=== PATIENT | female | born 1965 | race Caucasian/White ===

== ENCOUNTER 2019-03-23 12:45 | Outpatient (CLI) | payer MEDICARE, SELFPAY ==
--- NOTE | ~2019-03-23 | US_ITS ---
EXAMINATION: US pelvic complete EXAM DATE: 03/23/2019 14:03 INDICATION: Postmenopausal bleeding. TECHNIQUE: Pelvic transabdominal sonogram was performed. Patient declined transvaginal imaging. There are multiple grayscale and Doppler images available for interpretation. There is no prior study for comparison. FINDINGS: Uterus measures 5.2 x 1.9 x 4.0 cm, and is morphologically normal. The endometrial stripe obtained by transabdominal imaging was 6.8 mm, which is borderline thickened for postmenopausal statu s, but less accurate than transvaginal imaging. If symptoms persist, consider histologic correlation or repeat evaluation with transvaginal imaging. There is no free pelvic fluid. Right adnexa: The right ovary is normal in size and morphology. Left adnexa: The ovary is not identified. There is no adnexal mass. IMPRESSION: Borderline endometrial measurement; consider histologic correlation, or repeat transvagin al evaluation if symptoms persist. Reviewed, dictated and finalized at location B. BOTTLER IMPRESSION: Borderline endometrial measurement; consider histologic correlation , or repeat transvaginal evaluation if symptoms persist.
== END 2019-03-23 12:46 | disposition home or self-care (01) ==
LOC: ANHIMG 12:52
PROVIDERS: PCP Family Medicine; Visit Provider Obstetrics & Gynecology
DX: N95.0 Postmenopausal bleeding (principal)
CPT/HCPCS: 76856

== ENCOUNTER 2019-04-12 10:38 | Observation (INO) | payer MEDICARE, SELFPAY ==
[2019-04-12] VITALS (10 sets, daily range): BP systolic 106–137; BP diastolic 46–73; PULSE 91–125; RESP 15–24; TEMP 36.5–39.4; O2SAT 94–100; BMI 23.4
--- NOTE | ~2019-04-12 | MR_ITS ---
EXAMINATION: MR brain/brain stem wo/w con EXAM DATE: 04/13/2019 11:27 INDICATION: MS flare. TECHNIQUE: Magnetic resonance imaging (MRI) of the brain/brain stem obtained without contrast. Sagit roberta T1, axial diffusion, gradient echo (T2*), T1, T2, FLAIR sequences obtained. Patient was then inj ected with 14 cc intravenous Multihance contrast. Axial and coronal postcontrast T1 weighted sequence s obtained. There is no prior study for comparison. FINDINGS: Again there are numerous periventricular, corpus callosal T1 and T2 signal abnormalities co nsistent with multiple sclerosis. No enhancing lesions to suggest active disease. No interval change in these compared to prior study. There are no areas of restricted diffusion to suggest acute infarct ion. There is no acute hemorrhage seen on the T2*, a hemosiderin sensitive sequence. No intraparenc hymal brain mass. The ventricles are normal in size. There are no extra-axial collections. Flow voi ds are seen in the cerebral arteries on the T2-weighted sequences consistent with their expected elliott ncy. The orbits are unremarkable. Soft tissue is unremarkable. There are no areas of abnormal enh ancement on the postcontrast images. IMPRESSION: 1. Stable corpus callosal, white matter lesions consistent with quiescent multiple sclerosis. Reviewed, dictated and finalized at location A. MODYNAMICS PROFESSOR IMPRESSION: 1. Stable corpus callosal, white matter lesions consistent with quiescent mult iple sclerosis.
--- NOTE | ~2019-04-12 | XR_ITS ---
XR chest 2V DATE: 04/12/2019 11:15 INDICATION: Shortness of breath TECHNIQUE: AP and lateral views COMPARISON: 12/05/2007 portable AP chest at 1635 hours FINDINGS: Normal heart size. No hilar or mediastinal enlargement. There is moderate elevation of the right leaf of the diaphragm. No pulmonary infiltrate or consolidat ion, pleural effusion or pulmonary vascular congestion or pneumothorax. IMPRESSION: No active cardiopulmonary disease Reviewed, dictated and finalized at location B. GE MACHINE OPERATOR
--- NOTE | ~2019-04-12 | MR_ITS ---
EXAMINATION: MR thoracic spine wo/w con EXAM DATE: 04/13/2019 11:27 INDICATION: Multiple sclerosis flare up. TECHNIQUE: Multi-sequential, multiplanar MR images of the thoracic spine were obtained without contra st. Sagittal T1, T2, T2 fat saturation, axial T2 weighted images reviewed. Axial T1 weighted sequenc e. Patient was then injected with 14 mL Multihance intravenous contrast and reimaged. Postcontrast axial and sagittal T1-weighted fat saturation sequences were obtained. There are no prior studies for comparison. FINDINGS: Study is limited due to patient motion. Mild thoracic facet arthropathy. No definite foca l spinal cord signal abnormalities. The vertebral bodies are aligned in the AP dimension. Vertebral b julissa and disc heights are well-maintained. There is a lesion within the T8 vertebral body which is het erogeneous on T1, hyperintense on T2, and demonstrating avid enhancement. It does appear well-circums cribed, most likely atypical hemangioma. Smaller typical hemangioma within the T5 vertebral body. The re is mild thoracic facet arthropathy. IMPRESSION: 1. Limited from motion, but no enhancing spinal cord lesions identified. 2. Vertebral body lesions likely hemangiomas. 3. Mild arthropathy. Reviewed, dictated and finalized at location A. D MARKETER
--- NOTE | ~2019-04-12 | MR_ITS ---
EXAMINATION: MR cervical spine wo/w con EXAM DATE: 04/13/2019 11:27 INDICATION: Multiple sclerosis flare. TECHNIQUE: Multi-sequential, multiplanar MR images of the cervical spine were obtained without contra st. Axial T2, axial T2 MERGE sequence. Sagittal T1, T2, T2 fat saturation images also obtained. Axi al T1 weighted sequence. Patient was then injected with 14 mL Multihance intravenous contrast and re imaged. Postcontrast axial and sagittal T1-weighted fat saturation sequences were obtained. Compar joel is made to prior examination from 02/01/2014. FINDINGS: Study is limited due to patient motion. Again there is mildly diffusely heterogeneous cervi seth spinal cord T2 hyperintensity, consistent with multiple sclerosis. Difficult to determine whether or not there has been any interval change given the limitations from motion on the exam, but there a re no regions of abnormal enhancement to suggest acute involvement. No paraspinal abscess. The verteb ral bodies are aligned in the AP dimension. Vertebral body and disc heights are well-maintained. No more than mild cervical arthropathy. There are no suspicious marrow signal abnormalities. Paraspinal soft tissue is unremarkable. IMPRESSION: Limited exam from motion but vague cervical increased T2 cord signal without enhancement or definite change. Reviewed, dictated and finalized at location A. S AND MARKETING ASSISTANT IMPRESSION: Limited exam from motion but vague cervical increased T2 cord signa l without enhancement or definite change.
--- NOTE | 2019-04-12 10:45 | ED.WEAKNESS ---
HPI - Weakness General Chief complaint: Weakness Stated complaint: WEAKNESS Time Seen by Provider: 04/12/19 10:41 Source: patient and RN notes reviewed Mode of arrival: EMS Limitations: no limitations History of Present Illness HPI Narrative: Pt is a 53 y/o female who presents to the ED with c/o generalized weakness which has worsened since 3 days ago, with no initial onset of symptoms. She reports being prompted to come to the ED to be evaluated because she has been experiencing increasing unsteadiness and weakness. Pt states she was diagnosed with multiple sclerosis 30 years ago and has episodes of increased weakness intermittently. She reports she was at physical therapy at [facility] in October 2018. She states she is able to ambulate with assistance during physical therapy, but has difficulty soon after being discharged. Pt reports ambulating independently 2 months ago, but has been unable to since then. Pt denies a fever, chills, diaphoresis, a cough, SOB, nausea, or ABD pain. Pt reports being diagnosed with a UTI approximately 2 weeks ago and has been prescribed 2 different antibiotics by her urologist and PCP. She denies finishing her prescription of antibiotics yet. She also denies ever having an implanted stimulator in her bladder. She reports her neurologist is Dr. Meyer located at [facility]. She states most of her treatment is done through her PCP, Dr. Granados, who sends home health to care for the pt. The pt denies being hospitalized by [facility] in the past. Complaint: generalized weakness Duration: other (worse since 3 days) Location: generalized Migration: none Relieving factors: none Exacerbating factors: none Associated symptoms: other (increased unsteadiness) Related Data Allergies Allergy/AdvReac Type Severity Reaction Status Date / Time No Known Allergies Allergy Unverified 04/12/19 10:46 Review of Systems Review of Systems: All systems reviewed & are unremarkable except as noted in HPI and below Constitutional: Constitutional: Denies chills and Denies fever(s) Cardiovascular: Cardiovascular: Denies diaphoresis Respiratory: Respiratory: Denies cough and Denies dyspnea Gastrointestinal: Gastrointestinal: Denies abdominal pain and Denies nausea Neurologic: Reports weakness (generalized) and Reports other (increased unsteadiness) [facility] Past Medical History Medical History (Updated 04/12/19 @ 19:31 by Sy Valdovinos MD) GERD (gastroesophageal reflux disease) Multiple sclerosis Family History Family History (Updated 04/12/19 @ 18:34 by Mark Zhu RN) Mother Diabetes mellitus Myocardial infarction PTSD (post-traumatic stress disorder) Father Diabetes mellitus Myocardial infarction Sibling Myocardial infarction Patient's brother is Social History Social History Smoking status: Never smoker Alcohol intake: never Substance use: never Gender identity (if verbalized by the patient): Female Spiritual care concerns: No Agree to blood products: No Exam Narrative: Exam Narrative: GENERAL: Chronically ill-appearing, well-nourished, and in no acute distress. HEAD: Normocephalic, atraumatic. EYES: PERRL and EOMI. ENT: Mucous membranes moist. NECK: Supple. CHEST: Clear to auscultation. No respiratory distress. HEART: Regular rate and rhythm. Normal peripheral pulses. ABDOMEN: Soft, nontender, nondistended. EXTREMITIES: Normal strength and range of motion of bilateral upper extremities. Lower extremities with 1+ edema symmetrically weak without paralysis. SKIN: Warm, dry, no rash. NEURO: Alert and oriented x3. Course Course Emergency Course: Neurology consult. After speaking with hospitalist service patient developed tachycardia and fever. Flu swab positive. Hospitalist service contacted again informed of results. information coordinator has been in to see the patient. Consultations Consultation #1: Discussed case with
--- NOTE | 2019-04-12 11:10 | PC.NURSE ---
Pt taken to X ray at this time
--- NOTE | 2019-04-12 11:49 | PC.NURSE ---
could not draw blood at this time due to patient being a difficult draw. RN notified and phlebotomy called.
[2019-04-12 11:56] LABS: Add Urine Microscopic? YES; Appearance Urine Clear (Clear); Bilirubin Urine Negative (Negative); Blood Urine 2+ (Negative); Color Urine Yellow (Yellow); Glucose Urine UA Negative (Negative); Ketones Urine Negative (Negative); Leukocyte Esterase Ur Negative LEU/UL (Negative); Mucus Urine Heavy /lpf; Nitrate Urine Negative (Negative); Protein Urine 1+ mg/dL (Negative); RBC Urine 21-50 /hpf (0-2); Specific Grav Ur 1.021 (1.001-1.035); Squamous Epithelial Cell Urine Rare /hpf (Few); Urobilinogen Urine Negative mg/dL (<2.0); WBC Urine 0-3 /hpf
[2019-04-12 12:06] LABS: Basophils Percent Auto 0.6 % (0.2-1.2); Eosinophils Absolute Auto 0.1 K/mm3 (0-0.3); Eosinophils Percent Auto 1.5 % (0-4.4); Hematocrit 41.7 % (37.0-47.0); Hemoglobin 13.3 g/dL (12.0-15.0); Immature Granulocyte Absolute 0.01 K/mm3 (0.00-0.031); Immature Granulocyte Percent A 0.2 % (0-0.5); Lymphocytes Absolute Auto 0.48 K/mm3 (0.9-3.2); Lymphocytes Percent Auto 9.1 % (18.3-44.2); Mean Corpuscular HGB Conc 31.9 g/dl (32-36); Mean Corpuscular Hemoglobin 30.6 pg (26-34); Mean Corpuscular Volume 95.9 fl (80-100); Mean Platelet Volume 10.3 fl (7.4-10.4); Monocytes Absolute Auto 0.5 K/mm3 (0.1-0.6); Monocytes Percent Auto 9.8 % (2.6-8.5); Neutrophils Absolute Auto 4.2 K/mm3 (1.3-6.7); Neutrophils Percent Auto 78.8 % (45.5-73.1); Platelet Count Result 225 k/mm3 (150-375); Red Blood Count 4.35 M/mm3 (4.2-5.4); White Blood Count 5.3 K/mm3 (4.5-10.0)
[2019-04-12 12:19] LABS: Blood Urea Nitrogen 10 mg/dL (7-17); Calcium 9.1 mg/dL (8.4-10.2); Carbon Dioxide 29 mmol/L (22-30); Chloride 101 mmol/L (98-107); Estimated Glomerular Filt Rate > 60; Glucose 110 mg/dL (65-105); Potassium 4.4 mmol/L (3.4-5.0); Sodium 139 mmol/L (137-145)
[2019-04-12] MEDS: SODIUM CHLORIDE 0.9% IV 1,000 ML 999 ML IV CONT (16:50)
--- NOTE | 2019-04-12 17:30 | PC.NURSE ---
This patient, Jenae Rodriguez, was admitted to Medical Room 252-01. Patient/family oriented to hospital policies and general routines including ID bracelet, bed and alarms, visiting hours, pain management, procedures, bathroom and other care routines, personal items, smoking policy, room service/diet, and visiting hours. Valuables list has been completed. Information on how to activate the Rapid Response Team has been discussed. Patient/Family are encouraged to report perceived risks to care and to ask questions if they do not understand what they are told or what they should do.
[2019-04-12] MEDS: OSELTAMIVIR PHOSPHATE 75 MG CAP PO (18:25)
--- NOTE | 2019-04-12 18:42 | PC.NURSE ---
Maite Lindsey NP aware of patients wishes to be a DNR at this time.
--- NOTE | 2019-04-12 18:54 | PC.NURSE ---
Patient pharmacy, [facility] in [place], to fax patient med list. Awaiting fax at this time to input medications.
--- NOTE | 2019-04-12 23:30 | PM.IMHP ---
H&P: HPI History of Present Illness Chief complaint: MS flare Narrative: Jenae Rodriguez is a 53 year old female has a history of having MS. She lives at home with her mother. She tells me she has not been exposed to any communicable diseases. She said she was not bed bound until just recently.Generalized weakness started about 3 days ago. She had no fever chills. However she does have frequent UTI she is on Macrobid for preventative UTIs. The patient was diagnosed with MS approximately 26 years ago. The patient was diagnosed with UTI about 2 weeks ago and was prescribed 2 different antibiotics by Urology. Patient stated her bladder has felt full for several hours. Neurology has been consulted and no steroids were ordered at this time. Patient tested positive for influenza a. Patient was given Tamiflu. Date of service 04/12/2019 Review of Systems Review of Systems: Narrative: Patient feels achy all over. In she is having muscle spasms. She says she feels like her bladder is full All systems reviewed & are unremarkable except as noted in HPI and below Constitutional: Constitutional: Reports as per HPI and Reports no additional constitutional complaints Eyes: Eyes: Reports as per HPI and Reports no additional eye complaints ENT: Reports system reviewed and no additional complaints, except as documented and Reports Normal hearing present Cardiovascular: Cardiovascular: Reports no additional cardiovascular complaints Respiratory: Respiratory: Reports no additional respiratory complaints and Reports no additional respiratory complaints Gastrointestinal: Gastrointestinal: Reports as per HPI and Reports no additional gastrointestinal complaints Musculoskeletal: Musculoskeletal: Reports no additional musculoskeletal complaints Integumentary/Breasts: Skin/Breast: Reports system reviewed and no additional complaints, except as docu and Reports as per HPI Neurologic: Reports system reviewed and no additional complaints, except as documented, Reports as per HPI and Reports Normal hearing present Psychiatric: Psychiatric: Reports no additional psychiatric complaints and Reports as per HPI Endocrine: Endocrine: Reports no additional endocrine complaints Hematologic/Lymphatic: Hematologic/Lymphatic: Reports no additional hematologic/lymphatic complaints Allergic/Immunologic: Allergic/Immunologic: Reports no additional allergic/immunologic complaints [facility] Past Medical History Medical History (Updated 04/12/19 @ 23:51 by Maite Lindsey NP) Frequent UTI GERD (gastroesophageal reflux disease) History of DVT (deep vein thrombosis) Multiple sclerosis Seizure Surgical History Surgical History (Updated 04/12/19 @ 23:41 by Maite Lindsey NP) Hx of vaginal surgery Family History Family History Mother Diabetes mellitus Myocardial infarction PTSD (post-traumatic stress disorder) Father Diabetes mellitus Myocardial infarction Sibling Myocardial infarction Patient's brother is Social History Social History (Updated 04/12/19 @ 23:43 by Maite Lindsey NP) Social History: Patient is a full code. She lives with her mother. She is typically ambulatory but the last 3 days she has been bedbound. She was at 1 time but . she has no children. She has no power deputy attorney general. Patient is undecided about code status at this time. She was discussing with days if that she wanted to be a DNR. But at this time she is unsure. Lifelong nonsmoker no alcohol or illicit drugs Smoking status: Never smoker Alcohol intake: never Substance use: never Living arrangements: with family Additional occupation/education comments: Disabled Gender identity (if verbalized by the patient): Female Spiritual care concerns: No Agree to blood products: No Meds Home Medications and Allergies Home Medications Medication Instructions Recorded
[2019-04-13 00:05] VITALS: TEMP 38.4
[2019-04-13 00:50] VITALS: TEMP 37.7
[2019-04-13] MEDS: SODIUM CHLORIDE 0.9% IV 1,000 ML 100 ML IV CONT (04:58)
[2019-04-13 05:36] VITALS: BP 121/57; PULSE 108; RESP 16; TEMP 37.2; O2SAT 96
[2019-04-13] MEDS: OSELTAMIVIR PHOSPHATE 75 MG CAP PO ×2 (06:15→17:44)
[2019-04-13] MEDS: carBAMazepine 200 MG TABLET PO ×2 (08:58→17:44)
[2019-04-13] MEDS: NITROFURANTOIN MONOHYD MACROCR 100 MG CAP PO ×2 (08:58→17:44)
--- NOTE | 2019-04-13 10:34 | PCOTNOTE ---
Attempted OT evaluation, but unable to complete as patient gone for a MRI. Will attempt again later.
[2019-04-13 11:40] VITALS: BMI 10.0
[2019-04-13] MEDS: BACLOFEN 10 MG TABLET 20 MG PO ×2 (11:40→17:44)
[2019-04-13 14:00] VITALS: BP 108/53; PULSE 94; RESP 18; TEMP 36.7; O2SAT 93
--- NOTE | 2019-04-13 15:12 | CONS_ITS ---
DATE OF CONSULTATION: HISTORY: This 53 years old right-handed female has been admitted to [facility] through the emergency room for the complaints of acute flare up of MS. The patient reportedly lives at home with her mom and has not been exposed to any communicable diseases, but she became bed bound recently with complaint of generalized weakness of 3 days duration without fever or chills, though she does have a history of recurrent UTI, and has been on Macrobid for preventive treatment for the UTIs. She carries a diagnosis of relapsing remitting MS for the last 26 years and has been treated 2 weeks ago for the UTI. The patient was notedly positive for influenza and was given Tamiflu. At the time of admission, she also complained of some muscle spasm, fullness of the bladder. PAST MEDICAL HISTORY: In the past, as mentioned above, 1. She has recurrent UTI. 2. GERD. 3. DVT. 4. Seizures. 5. Ongoing history of multiple sclerosis. PAST SURGICAL HISTORY: She has undergone vaginal surgery. FAMILY HISTORY: Positive for the diabetes mellitus, posttraumatic stress disorder, and myocardial infarction. SOCIAL HISTORY: The patient herself is a full code status. She lives with her mother. Typically, she is ambulatory. She has no children. No power of trademark attorney and undecided about the code status. She is a never smoker, never drinker. MEDICATIONS: At the time of admission to the hospital, she was taking 1. Rivaroxaban 20 mg daily. 2. Carbamazepine 200 mg twice a day. 3. Methotrexate 7.5 mg t.i.d. 4. Oxybutynin 15 mg daily. 5. Nitrofurantoin 100 mg twice a day. ALLERGIES: SHE IS NOT KNOWN TO BE ALLERGIC TO ANY MEDICATION. PHYSICAL EXAMINATION: VITAL SIGNS: At the time of admission, her vital signs were stable with blood pressure 127/73, pulse 95, respiration 15. GENERAL: At this stage, her examination is awake, alert, in no obvious acute distress. Her speech is low volume, though she followed the instruction fairly well and does not appear to be in any acute distress. HEENT: Head normocephalic with no cranial bruit. Ear, nose, throat examination is normal. NECK: Supple with no meningeal signs. No cervical bruit. HEART: Regular with no murmur. LUNGS: Clear to auscultation with no rhonchi or crepitations. ABDOMEN: Soft with no organomegaly. NEUROLOGICAL: She is awake, alert. She knows that she is at the [facility]. She is oriented x3. As mentioned before, speech is of low volume, but not dysphasic. Pupils round, regular. Vora of vision full. Extraocular movements full with the endpoint nystagmus. Face symmetrical. Palate moves symmetrically upward. Tongue midline with no fasciculation. Motor examination revealed her to have no drift against gravity, but she has ataxia and dysmetria on izwidh-kj-tfep-to-finger and kpgm-jl-eqko-to-masters. Reflexes are brisk. Plantar responses are definitely upgoing. LABORATORY DATA: Her CBC was normal with hemoglobin 13.3, platelet count 225. UA with protein 1+, glucose negative, gravity 1.021, pH 7.0. IMAGING DATA: Chest x-ray negative. She has undergone since admission, MRIs, the brain MRI is consistent with stable corpus callosal white matter lesion consistent with quiescent multiple sclerosis. Cervical spine MRI is also though limited, but she has T2 cord signal without enhancement and so as the MRI of thoracic spine, which reveals vertebral body lesions like hemangioma, mild arthropathy, but no cord lesion. At this stage, she is receiving 1. Baclofen 20 mg t.i.d. 2. Carbamazepine 200 mg b.i.d. 3. Methotrexate 7.5 mg t.i.d. 4. Nitrofurantoin 100 b.i.d. 5. Oxybutynin 15 mg daily. 6. Rivaroxaban 20 mg daily. I will not change any medication and obtained all the old records from other instit
[2019-04-13] MEDS: RIVAROXABAN 20 MG TABLET PO (17:44)
--- NOTE | 2019-04-13 19:39 | PM.IMPN ---
Progress Note: A&P Assessment and Plan (1) Influenza A: Code(s): J10.1 - Influenza due to other identified influenza virus with other respiratory manifestations Status: Acute Assessment and Plan: Symptoms improving. Continue Tamiflu. Monitor for side effects of Tamiflu given her MS history. Eating better. Will stop IV fluids. Continue PT and OT. Possibly home tomorrow continues to do well. (2) Seizure: Code(s): R56.9 - Unspecified convulsions Status: Chronic Assessment and Plan: Stable. Continue Tegretol. (3) Multiple sclerosis: Code(s): G35 - Multiple sclerosis Status: Acute Assessment and Plan: Stable. continue with methotrexate and baclofen. (4) History of DVT (deep vein thrombosis): Code(s): Z86.718 - Personal history of other venous thrombosis and embolism Status: Chronic Assessment and Plan: Continue with Xarelto. Subjective Date/time seen: 04/13/19 19:39 Interval history: 53yo female with MS here for weakness and found to have Influenza A. Patient states her cough is better. She is normally in a motorized chair but does stand with a walker and pivot. No chest pain. She add some nausea earlier but has been eating since that time and tolerating it well. She has not been out of bed yet today. Exam Narrative: Exam Narrative: Gen - NARD lying almost flat in bed Chest -lungs clear anteriorly and in the flanks. CV - RRR S1/S2 Abd - Soft, NT/ND, Positive BS Ext - No pedal edema. 2+ DP pulses bilaterally. Neuro -alert and appropriate. Diffusely weak right worse than left. Psych -depressed mood Skin - Warm and dry Objective Data Vital Signs Vital Signs: Vital Signs - 24 hr 04/12/19 22:00 04/12/19 23:53 04/13/19 00:05 Temperature 97.7 F 101.1 F H 101.1 F H Pulse Rate 102 H Respiratory Rate 16 Blood Pressure 112/59 L Pulse Oximetry 94 04/13/19 00:50 04/13/19 05:36 04/13/19 14:00 Temperature 100 F H 98.9 F 98.0 F Pulse Rate 108 H 94 Respiratory Rate 16 18 Blood Pressure 121/57 L 108/53 L Pulse Oximetry 96 93 Intake/Output Intake/Output: Intake & Output 04/10/19 04/11/19 04/12/19 04/13/19 23:59 23:59 23:59 23:59 Intake Total 1350 Output Total 300 550 Balance -300 800 Meds/Results Medications: Active Medications Generic Name Dose Route Start Last Admin Trade Name Freq PRN Reason Stop Dose Admin Hydrocodone Bitart/Acetaminophen 1 tab 04/12/19 16:06 04/13/19 09:20 [place] 5-325 Mg PO 1 tab Q4H PRN Administration Pain Rated 4-6 Baclofen 20 mg 04/13/19 10:25 04/13/19 17:44 Lioresal Po PO 20 mg TID DUONG Administration Carbamazepine 200 mg 04/13/19 09:00 04/13/19 17:44 Tegretol PO 200 mg BID DUONG Administration Sodium Chloride 1,000 mls @ 100 mls/hr 04/13/19 04:35 04/13/19 17:47 Normal Saline Iv IV CONT 100 mls/hr .Q10H DUONG Infusion Methotrexate 7.5 mg 04/18/19 09:00 Methotrexate Tab (*Chemo) PO Tu@TID DUONG Morphine Sulfate 4 mg 04/12/19 16:06 Morphine Sulfate Inj IV PUSH Q2H PRN Pain Rated 7-10 Nitrofurantoin Macrocrystals 100 mg 04/13/19 09:00 04/13/19 17:44 Macrobid PO 04/22/19 17:01 100 mg BID DUONG Administration Ondansetron HCl 4 mg 04/12/19 16:06 Zofran Inj IV PUSH Q4H PRN Nausea Oseltamivir Phosphate 75 mg 04/12/19 18:00 04/13/19 17:44 Tamiflu PO 04/17/19 18:01 75 mg Q12H DUONG Administration Oxybutynin Chloride 15 mg 04/13/19 09:00 04/13/19 08:59 Ditropan Xl PO 15 mg DAILY DUONG Administration Rivaroxaban 20 mg 04/13/19 18:00 04/13/19 17:44 Xarelto PO 20 mg QPM DUONG Administration Radiology Results: ITS Impressions Chest X-Ray 04/12/19 11:33 IMPRESSION: No active cardiopulmonary disease Brain MRI 04/13/19 11:29 IMPRESSION: 1. Stable corpus callosal, white matter lesions consistent with quiescent multi
[2019-04-13 20:00] VITALS: PULSE 99; RESP 16; O2SAT 96
[2019-04-13 22:00] VITALS: BP 132/58; PULSE 99; RESP 16; TEMP 36.7; O2SAT 96
[2019-04-14 06:00] VITALS: BP 131/60; PULSE 90; RESP 16; TEMP 36.6; O2SAT 96
[2019-04-14] MEDS: OSELTAMIVIR PHOSPHATE 75 MG CAP PO ×2 (06:21→17:07)
[2019-04-14 08:00] VITALS: PULSE 90; RESP 16; O2SAT 96
[2019-04-14] MEDS: NITROFURANTOIN MONOHYD MACROCR 100 MG CAP PO ×2 (08:57→17:08)
[2019-04-14] MEDS: carBAMazepine 200 MG TABLET PO ×2 (08:57→17:08)
[2019-04-14] MEDS: BACLOFEN 10 MG TABLET 20 MG PO ×3 (08:57→17:07)
[2019-04-14] MEDS: ONDANSETRON INJ 4 MG/2 ML VIAL IV PUSH (12:25)
--- NOTE | 2019-04-14 13:49 | WPDNEUROPN ---
Progress Note: A&P Assessment and Plan (1) History of DVT (deep vein thrombosis): Code(s): Z86.718 - Personal history of other venous thrombosis and embolism Status: Chronic (2) Seizure: Code(s): R56.9 - Unspecified convulsions Status: Chronic (3) Influenza A: Code(s): J10.1 - Influenza due to other identified influenza virus with other respiratory manifestations Status: Acute (4) Multiple sclerosis: Code(s): G35 - Multiple sclerosis Status: Acute Additional Plan generalized weekness more because of flu once stable will give therapy and steroids Review of Systems Review of Systems: All systems reviewed & are unremarkable except as noted in HPI and below Exam Const: General: cooperative, no acute distress, well developed, alert and awake Nutritional Appearance: well nourished Orientation/consciousness: oriented to person, oriented to place and oriented to time Limitations: no limitations (gait) Eyes: General: appearance normal, both eyes and all related structures Conjunctivae: conjunctivae normal Sclera: sclerae normal Cornea: corneas normal Pupils: Equal, round and reactive pupils present and Pupils normal by confrontation EOM: EOMs intact bilaterally Neck: Neck: full ROM Resp: Effort & Inspection: normal respiratory effort and able to speak in complete sentences Auscultation: clear to auscultation bilaterally Cardio: Rate: regular rate Rhythm: regular rhythm GI: Auscultation: normal bowel sounds Skin: General skin exam: no rashes or lesions noted Neuro: General: patient oriented x3, moves all extremities and CN's II-XI intact bilaterally Cranial nerves: Yes Equal, round and reactive pupils present, Yes Nystagmus not present, Yes Normal facial strength present, Yes Midline tongue present, Yes Ability to bilaterally rotate head present and Yes Ability to bilaterally elevate shoulders present Cognition (Neuro): normal cognition Speech: normal speech Motor exam (neuro): 5/5 motor strength present throughout and Motor abnormalites present (ataxia and dysmetria) Deep tendon reflexes (DTR's): Right triceps reflex intensity grade: 2+, Left triceps reflex intensity grade: 2+, Rt Biceps (C5, C6): 2+, Left biceps reflex intensity grade: 2+, Right brachioradialis reflex intensity grade: 2+, Left brachioradialis reflex intensity grade: 2+, Right patellar reflex intensity grade: 2+, Left patellar reflex intensity grade: 2+, Right ankle reflex intensity grade: 2+ and Left ankle reflex intensity grade: 2+ Plantar Reflex Responses: upgoing (positive Babinski): bilateral Coordination: [id number] test normal (abnormal) Psych: Mental Status: mental status grossly normal Speech and movement: Clear speech present Affect: Anxious affect present Attitude: cooperative Thought process: Normal thought process present Thought content: Yes Normal thought content present Insight: Fair insight present (Psych) Judgement: Fair judgement present (Psych) Objective Data Vital Signs Vital Signs: Vital Signs - 24 hr 04/13/19 14:00 04/13/19 20:00 04/13/19 22:00 Temperature 36.7 C 36.7 C Pulse Rate 94 99 99 Respiratory Rate 18 16 16 Blood Pressure 108/53 L 132/58 L Pulse Oximetry 93 96 96 04/14/19 06:00 04/14/19 08:00 Temperature 36.6 C Pulse Rate 90 90 Respiratory Rate 16 16 Blood Pressure 131/60 Pulse Oximetry 96 96 Intake/Output Intake/Output: Intake & Output 04/11/19 04/12/19 04/13/19 04/14/19 23:59 23:59 23:59 23:59 Intake Total 1350 200 Output Total 300 550 Balance -300 800 200 Meds/Results Medications: Active Medications Generic Name Dose Route Start Last Admin Trade Name Freq PRN Reason Stop Dose Admin Hydrocodone Bitart/Acetaminophen 1 tab 04/12/19 16:06 04/14/19 07:30 [place] 5-325 Mg PO 1 tab Q4H PRN Administration Pain Rated 4-6 Baclofen 20 mg 04/13/19 10:25 04/14/19 12:20 Lioresal Po PO 20 mg TID DUONG Admini
[2019-04-14 14:00] VITALS: BP 128/54; PULSE 80; RESP 15; TEMP 36.6; O2SAT 98
--- NOTE | 2019-04-14 14:33 | PM.IMPN ---
Progress Note: A&P Assessment and Plan (1) Multiple sclerosis: Code(s): G35 - Multiple sclerosis Status: Acute Assessment and Plan: Patient clinically stable. Will continue with methotrexate and baclofen. Patient extremely weak and may be having a MS flare related to the influenza. Pulsed steroids are being considered. Appreciate neurology input. (2) Influenza A: Code(s): J10.1 - Influenza due to other identified influenza virus with other respiratory manifestations Status: Acute Assessment and Plan: Symptoms improving. Continue Tamiflu. No obvious side effects from Tamiflu. Continue PT and OT. (3) Seizure: Code(s): R56.9 - Unspecified convulsions Status: Chronic Assessment and Plan: Stable. Continue Tegretol. (4) History of DVT (deep vein thrombosis): Code(s): Z86.718 - Personal history of other venous thrombosis and embolism Status: Chronic Assessment and Plan: Stable. continue with Xarelto. Subjective Date/time seen: 04/14/19 14:33 Interval history: 53yo female with MS here for weakness and found to have Influenza A. Out of bed to chair today. Still feels very weak. Still with cough. Denies feeling short of breath. Exam Narrative: Exam Narrative: Gen - NARD sitting up in a chair Chest -few scattered rhonchi otherwise clear. CV - RRR S1/S2 Abd -soft. Nontender. Protuberant. Positive bowel sounds. Ext - No pedal edema. Neuro -alert and appropriate. Diffusely weak. Has difficulty with head control. Psych -depressed mood Skin - Warm and dry Objective Data Vital Signs Vital Signs: Vital Signs - 24 hr 04/13/19 20:00 04/13/19 22:00 04/14/19 06:00 Temperature 98.1 F 97.9 F Pulse Rate 99 99 90 Respiratory Rate 16 16 16 Blood Pressure 132/58 L 131/60 Pulse Oximetry 96 96 96 04/14/19 08:00 Temperature Pulse Rate 90 Respiratory Rate 16 Blood Pressure Pulse Oximetry 96 Intake/Output Intake/Output: Intake & Output 04/11/19 04/12/19 04/13/19 04/14/19 23:59 23:59 23:59 23:59 Intake Total 1350 200 Output Total 300 550 Balance -300 800 200 Meds/Results Medications: Active Medications Generic Name Dose Route Start Last Admin Trade Name Freq PRN Reason Stop Dose Admin Hydrocodone Bitart/Acetaminophen 1 tab 04/12/19 16:06 04/14/19 07:30 [place] 5-325 Mg PO 1 tab Q4H PRN Administration Pain Rated 4-6 Baclofen 20 mg 04/13/19 10:25 04/14/19 12:20 Lioresal Po PO 20 mg TID DUONG Administration Carbamazepine 200 mg 04/13/19 09:00 04/14/19 08:57 Tegretol PO 200 mg BID DUONG Administration Methotrexate 7.5 mg 04/18/19 09:00 Methotrexate Tab (*Chemo) PO Tu@TID DUONG Nitrofurantoin Macrocrystals 100 mg 04/13/19 09:00 04/14/19 08:57 Macrobid PO 04/22/19 17:01 100 mg BID DUONG Administration Ondansetron HCl 4 mg 04/12/19 16:06 04/14/19 12:25 Zofran Inj IV PUSH 4 mg Q4H PRN Administration Nausea Oseltamivir Phosphate 75 mg 04/12/19 18:00 04/14/19 06:21 Tamiflu PO 04/17/19 18:01 75 mg Q12H DUONG Administration Oxybutynin Chloride 15 mg 04/13/19 09:00 04/14/19 08:57 Ditropan Xl PO 15 mg DAILY DUONG Administration Rivaroxaban 20 mg 04/13/19 18:00 04/13/19 17:44 Xarelto PO 20 mg QPM DUONG Administration Radiology Results: ITS Impressions Chest X-Ray 04/12/19 11:33 IMPRESSION: No active cardiopulmonary disease Brain MRI 04/13/19 11:29 IMPRESSION: 1. Stable corpus callosal, white matter lesions consistent with quiescent multiple sclerosis. ADDENDUM: 04/13/19 1157 Correction, comparison study was from 02/01/2014. Cervical Spine MRI 04/13/19 11:39 IMPRESSION: Limited exam from motion but vague cervical increased T2 cord signal without enhancement or definite change. Thoracic Spine MRI 04/13/19 11:43 IMPRESSION: 1. Limited from motion, but no en
--- NOTE | 2019-04-14 16:13 | PCOTNOTE ---
The patient treatment was not able to be completed on 04/14/2019. Will plan to continue treatment per plan of care.
[2019-04-14] MEDS: RIVAROXABAN 20 MG TABLET PO (17:08)
[2019-04-14 21:52] VITALS: BP 102/51; PULSE 76; RESP 16; TEMP 37.4; O2SAT 97
[2019-04-15] MEDS: OSELTAMIVIR PHOSPHATE 75 MG CAP PO ×2 (05:28→17:18)
[2019-04-15 06:00] VITALS: BP 116/62; PULSE 77; RESP 16; TEMP 37.2; O2SAT 98
[2019-04-15 08:00] VITALS: PULSE 77; RESP 16; O2SAT 98
[2019-04-15] MEDS: carBAMazepine 200 MG TABLET PO ×2 (08:25→17:17)
[2019-04-15] MEDS: NITROFURANTOIN MONOHYD MACROCR 100 MG CAP PO ×2 (08:25→17:17)
[2019-04-15] MEDS: BACLOFEN 10 MG TABLET 20 MG PO ×3 (08:25→17:17)
--- NOTE | 2019-04-15 12:35 | WPDNEUROPN ---
Progress Note: A&P Assessment and Plan (1) History of DVT (deep vein thrombosis): Code(s): Z86.718 - Personal history of other venous thrombosis and embolism Status: Chronic (2) Seizure: Code(s): R56.9 - Unspecified convulsions Status: Chronic (3) Influenza A: Code(s): J10.1 - Influenza due to other identified influenza virus with other respiratory manifestations Status: Acute (4) Multiple sclerosis: Code(s): G35 - Multiple sclerosis Status: Acute Additional Plan discussed with her and sister on telephone ,let her recover from flu then send her for rehab then in 10 days consider pulse steroid therapy just to be on safe side ,agreeble Review of Systems Review of Systems: All systems reviewed & are unremarkable except as noted in HPI and below Exam Const: General: cooperative, comfortable and no acute distress Nutritional Appearance: average body habitus Limitations: no limitations (limited because of underlying disease) Eyes: General: appearance normal, both eyes and all related structures Alignment and Position: alignment normal Periorbital: periorbital findings normal Conjunctivae: conjunctivae normal Sclera: sclerae normal Cornea: corneas normal Pupils: Equal, round and reactive pupils present EOM: EOMs intact bilaterally Direct Ophthalmoscopy: normal light reflex Neck: Neck: full ROM and no lymphadenopathy Resp: Effort & Inspection: normal respiratory effort and able to speak in complete sentences Auscultation: clear to auscultation bilaterally Cardio: Rate: regular rate Rhythm: regular rhythm GI: Auscultation: normal bowel sounds Skin: General skin exam: no rashes or lesions noted Neuro: General: patient oriented x3 and moves all extremities Cranial nerves: Yes CN's II-XII intact bilaterally, Yes Equal, round and reactive pupils present, Yes Nystagmus not present, Yes Normal facial strength present, Yes Midline tongue present, Yes Normal gag reflex present, Yes Symmetric palate elevation present, Yes Normal hearing present, Yes Ability to bilaterally rotate head present and Yes Ability to bilaterally elevate shoulders present Cognition (Neuro): normal cognition Speech: normal speech Psych: Appearance: grossly normal Affect: normal affect Attitude: cooperative Thought process: Normal thought process present Thought content: Yes Normal thought content present Insight: Fair insight present (Psych) Judgement: Fair judgement present (Psych) Objective Data Vital Signs Vital Signs: Vital Signs - 24 hr 04/14/19 14:00 04/14/19 21:52 04/15/19 06:00 Temperature 36.6 C 37.4 C 37.2 C Pulse Rate 80 76 77 Respiratory Rate 15 16 16 Blood Pressure 128/54 L 102/51 L 116/62 Pulse Oximetry 98 97 98 04/15/19 08:00 Temperature Pulse Rate 77 Respiratory Rate 16 Blood Pressure Pulse Oximetry 98 Intake/Output Intake/Output: Intake & Output 04/12/19 04/13/19 04/14/19 04/15/19 23:59 23:59 23:59 23:59 Intake Total 1350 1170 200 Output Total 300 550 100 Balance -939 391 1212 100 Meds/Results Medications: Active Medications Generic Name Dose Route Start Last Admin Trade Name Freq PRN Reason Stop Dose Admin Hydrocodone Bitart/Acetaminophen 1 tab 04/12/19 16:06 04/15/19 05:27 [place] 5-325 Mg PO 1 tab Q4H PRN Administration Pain Rated 4-6 Baclofen 20 mg 04/13/19 10:25 04/15/19 08:25 Lioresal Po PO 20 mg TID DUONG Administration Carbamazepine 200 mg 04/13/19 09:00 04/15/19 08:25 Tegretol PO 200 mg BID DUONG Administration Methotrexate 7.5 mg 04/18/19 09:00 Methotrexate Tab (*Chemo) PO Tu@TID DUONG Nitrofurantoin Macrocrystals 100 mg 04/13/19 09:00 04/15/19 08:25 Macrobid PO 04/22/19 17:01 100 mg BID DUONG Administration Ondansetron HCl 4 mg 04/12/19 16:06 04/14/19 12:25 Zofran Inj IV PUSH 4 mg Q4H PRN Administration Nausea Oseltamivir Phosphate 75 mg 04/12/19 18:00 02
--- NOTE | 2019-04-15 13:04 | PM.IMPN ---
Progress Note: A&P Assessment and Plan (1) Multiple sclerosis: Code(s): G35 - Multiple sclerosis Status: Acute Assessment and Plan: Patient clinically stable. Patient appears improved today. She is requesting to bring in a medication for her MS that she takes at home that is not on her current list. If family can bring in, will review. Will continue with methotrexate and baclofen. Continue PT/OT. Plan for therapy and maybe steroids later. Appreciate neurology input. (2) Influenza A: Code(s): J10.1 - Influenza due to other identified influenza virus with other respiratory manifestations Status: Acute Assessment and Plan: Symptoms improving. Continue Tamiflu. No obvious side effects from Tamiflu. Continue PT and OT. (3) Seizure: Code(s): R56.9 - Unspecified convulsions Status: Chronic Assessment and Plan: Stable. Continue Tegretol. (4) History of DVT (deep vein thrombosis): Code(s): Z86.718 - Personal history of other venous thrombosis and embolism Status: Chronic Assessment and Plan: Stable. continue with Xarelto. (5) Frequent UTI: Code(s): N39.0 - Urinary tract infection, site not specified Status: Acute Assessment and Plan: Stable. no fevers or abd pain. Continue Macrobid prophylaxis. Subjective Date/time seen: 04/15/19 13:04 Interval history: 53yo female with MS here for weakness and found to have Influenza A. Slept well last night. She was able to pivot to the chair today. Still with a nonproductive cough. No chest pain or abdominal pain. Eating okay but requesting diet to be changed regular. Exam Narrative: Exam Narrative: Gen - NARD sitting up in a chair Chest -CTA bilaterally, nml RR. No wheezing CV - RRR S1/S2 Abd -soft. Nontender. Nondistended. Positive bowel sounds Ext - No pedal edema. Neuro -diffusely weak. Patient able to sit up today. Psych -mood is improved. Skin - Warm and dry Objective Data Vital Signs Vital Signs: Vital Signs - 24 hr 04/14/19 14:00 04/14/19 21:52 04/15/19 06:00 Temperature 97.8 F 99.4 F 98.9 F Pulse Rate 80 76 77 Respiratory Rate 15 16 16 Blood Pressure 128/54 L 102/51 L 116/62 Pulse Oximetry 98 97 98 04/15/19 08:00 Temperature Pulse Rate 77 Respiratory Rate 16 Blood Pressure Pulse Oximetry 98 Intake/Output Intake/Output: Intake & Output 04/12/19 04/13/19 04/14/19 04/15/19 23:59 23:59 23:59 23:59 Intake Total 1350 1170 200 Output Total 300 550 100 Balance -859 035 8240 100 Meds/Results Medications: Active Medications Generic Name Dose Route Start Last Admin Trade Name Freq PRN Reason Stop Dose Admin Hydrocodone Bitart/Acetaminophen 1 tab 04/12/19 16:06 04/15/19 05:27 [place] 5-325 Mg PO 1 tab Q4H PRN Administration Pain Rated 4-6 Baclofen 20 mg 04/13/19 10:25 04/15/19 12:49 Lioresal Po PO 20 mg TID DUONG Administration Carbamazepine 200 mg 04/13/19 09:00 04/15/19 08:25 Tegretol PO 200 mg BID DUONG Administration Methotrexate 7.5 mg 04/18/19 09:00 Methotrexate Tab (*Chemo) PO Tu@TID [facility] Nitrofurantoin Macrocrystals 100 mg 04/13/19 09:00 04/15/19 08:25 Macrobid PO 04/22/19 17:01 100 mg BID DUONG Administration Ondansetron HCl 4 mg 04/12/19 16:06 04/14/19 12:25 Zofran Inj IV PUSH 4 mg Q4H PRN Administration Nausea Oseltamivir Phosphate 75 mg 04/12/19 18:00 04/15/19 05:28 Tamiflu PO 04/17/19 18:01 75 mg Q12H DUONG Administration Oxybutynin Chloride 15 mg 04/13/19 09:00 04/15/19 08:25 Ditropan Xl PO 15 mg DAILY DUONG Administration Rivaroxaban 20 mg 04/13/19 18:00 04/14/19 17:08 Xarelto PO 20 mg QPM DUONG Administration Radiology Results: ITS Impressions Chest X-Ray 04/12/19 11:33 IMPRESSION: No active cardiopulmonary disease Brain MRI 04/13/19 11:29 IMPRESSION: 1. Stable corpus call
[2019-04-15 14:00] VITALS: BP 146/88; PULSE 81; RESP 18; TEMP 36.5; O2SAT 100
--- NOTE | 2019-04-15 15:22 | PCSTNOTE ---
Please refer to the Bedside Swallow Evaluation in the EMR.
--- NOTE | 2019-04-15 16:26 | PCPTNOTE ---
Addendum entered by Gracia Lyles, HELP DESK CONSULTANT 04/15/19 16:27: treatment no able to be completed on 04/15/19 Original Note: The patient treatment was not able to be completed on . Will plan to continue treatment per plan of care.
--- NOTE | 2019-04-15 16:51 | PCOTNOTE ---
The patient treatment was not able to be completed on [04/15/19] due to [short of staff]. Will plan to continue treatment per plan of care.
[2019-04-15] MEDS: RIVAROXABAN 20 MG TABLET PO (17:18)
[2019-04-15 22:00] VITALS: BP 110/61; PULSE 78; RESP 18; TEMP 37.2; O2SAT 98
[2019-04-16] MEDS: OSELTAMIVIR PHOSPHATE 75 MG CAP PO (05:24)
[2019-04-16 05:46] VITALS: BP 102/56; PULSE 82; RESP 16; TEMP 37; O2SAT 98
--- NOTE | 2019-04-16 08:45 | PC.NURSE ---
Received call on vocera from REEL WORKER requesting help in patient's room 252. Upon entry into patient's room, REEL WORKER found attempting to assist patient to chair. Gait belt in place. Per REEL WORKER, patient's legs gave out . Unable to assist patient to a standing position so lowered to floor. No complaint's voiced at this time. Patient is A&O x3. Vitals are stable. Daysi White RN and Hamida electrician apprentice powerhouse notified of fall.
[2019-04-16 09:00] VITALS: BP 107/59; PULSE 94; RESP 18; TEMP 36.6; O2SAT 93
[2019-04-16] MEDS: carBAMazepine 200 MG TABLET PO (09:35)
[2019-04-16] MEDS: BACLOFEN 10 MG TABLET 20 MG PO ×2 (09:35→12:26)
[2019-04-16] MEDS: NITROFURANTOIN MONOHYD MACROCR 100 MG CAP PO (12:26)
--- NOTE | 2019-04-16 13:08 | WPDNEUROPN ---
Progress Note: A&P Assessment and Plan (1) Frequent UTI: Code(s): N39.0 - Urinary tract infection, site not specified Status: Acute (2) History of DVT (deep vein thrombosis): Code(s): Z86.718 - Personal history of other venous thrombosis and embolism Status: Chronic (3) Seizure: Code(s): R56.9 - Unspecified convulsions Status: Chronic (4) Influenza A: Code(s): J10.1 - Influenza due to other identified influenza virus with other respiratory manifestations Status: Acute (5) Multiple sclerosis: Code(s): G35 - Multiple sclerosis Status: Acute Additional Plan stable/discussed with pt and sister can be discharged and come back for steroids because of flue which is being treated Review of Systems Review of Systems: All systems reviewed & are unremarkable except as noted in HPI and below Exam Const: General: cooperative, comfortable and no acute distress Nutritional Appearance: average body habitus Orientation/consciousness: patient oriented x3 Limitations: no limitations (slow in responses) HENMT: Ears: hearing grossly normal bilaterally General nose exam: Normal external nose present Face and sinus: normal facial exam Eyes: General: appearance normal, both eyes and all related structures Visual [place]: normal visual [place]go by confrontation Alignment and Position: alignment normal Pupils: Equal, round and reactive pupils present and Pupils normal by confrontation EOM: EOMs intact bilaterally Direct Ophthalmoscopy: normal light reflex Neck: Neck: full ROM Resp: Effort & Inspection: able to speak in complete sentences Auscultation: clear to auscultation bilaterally Cardio: Rate: regular rate Rhythm: regular rhythm Skin: General skin exam: no rashes or lesions noted Neuro: General: patient oriented x3, tone normal and moves all extremities Cranial nerves: Yes CN's II-XII intact bilaterally Cognition (Neuro): normal cognition Speech: normal speech (slow) Motor exam (neuro): 5/5 motor strength present throughout (4/5) Coordination: [id number] test normal (incoordination) Psych: Appearance: grossly normal (slow) Objective Data Vital Signs Vital Signs: Vital Signs - 24 hr 04/15/19 14:00 04/15/19 22:00 04/16/19 05:46 Temperature 36.5 C 37.2 C 37.0 C Pulse Rate 81 78 82 Respiratory Rate 18 18 16 Blood Pressure 146/88 H 110/61 102/56 L Pulse Oximetry 100 98 98 04/16/19 09:00 Temperature 36.6 C Pulse Rate 94 Respiratory Rate 18 Blood Pressure 107/59 L Pulse Oximetry 93 Intake/Output Intake/Output: Intake & Output 04/13/19 04/14/19 04/15/19 04/16/19 23:59 23:59 23:59 23:59 Intake Total 1350 1170 1030 440 Output Total 550 100 Balance 800 1170 930 440 Meds/Results Medications: Active Medications Generic Name Dose Route Start Last Admin Trade Name Freq PRN Reason Stop Dose Admin Hydrocodone Bitart/Acetaminophen 1 tab 04/12/19 16:06 04/15/19 05:27 [place] 5-325 Mg PO 1 tab Q4H PRN Administration Pain Rated 4-6 Baclofen 20 mg 04/13/19 10:25 04/16/19 12:26 Lioresal Po PO 20 mg TID DUONG Administration Carbamazepine 200 mg 04/13/19 09:00 04/16/19 09:35 Tegretol PO 200 mg BID DUONG Administration Methotrexate 7.5 mg 04/18/19 09:00 Methotrexate Tab (*Chemo) PO Tu@TID DUONG Nitrofurantoin Macrocrystals 100 mg 04/13/19 09:00 04/16/19 12:26 Macrobid PO 04/22/19 17:01 100 mg BID DUONG Administration Ondansetron HCl 4 mg 04/12/19 16:06 04/14/19 12:25 Zofran Inj IV PUSH 4 mg Q4H PRN Administration Nausea Oseltamivir Phosphate 75 mg 04/12/19 18:00 04/16/19 05:24 Tamiflu PO 04/17/19 18:01 75 mg Q12H DUONG Administration Oxybutynin Chloride 15 mg 04/13/19 09:00 04/16/19 09:36 Ditropan Xl PO 15 mg DAILY DUONG Administration Rivaroxaban 20 mg 04/13/19 18:00 04/15/19 17:18 Xarelto PO 20 mg QPM DUONG Administration Radiology Resu
[2019-04-16 14:00] VITALS: BP 135/76; PULSE 80; RESP 17; TEMP 36.6; O2SAT 98
--- NOTE | 2019-04-16 14:03 | PM.DS ---
DS: Diagnosis Admitting Diagnosis Admitting Diagnosis: Influenza due to other identified influenza virus with other respiratory manifestations Discharge Diagnosis (1) Multiple sclerosis: Code(s): G35 - Multiple sclerosis Status: Acute Assessment and Plan: Patient extremely weak on admission. She had neck weakness making it difficult to keep her head up. We continued with methotrexate and baclofen. PT/OT ordered. No steroids due to recent influenza infection. Neurology followed along. She did not qualify for TRC and she did not want to go to SNF. She had clinical improvement with therapy. (2) Influenza A: Code(s): J10.1 - Influenza due to other identified influenza virus with other respiratory manifestations Status: Acute Assessment and Plan: Dx with influenza A and treated with Tamiflu. She tolerated the Tamiflu well. (3) Seizure: Code(s): R56.9 - Unspecified convulsions Status: Chronic Assessment and Plan: Stable. No evidence of recurrent sezures here. We continued her Tegretol. (4) History of DVT (deep vein thrombosis): Code(s): Z86.718 - Personal history of other venous thrombosis and embolism Status: Chronic Assessment and Plan: Stable. We continued with Xarelto. (5) Frequent UTI: Code(s): N39.0 - Urinary tract infection, site not specified Status: Acute Assessment and Plan: Stable. no fevers or abd pain. We continued Macrobid prophylaxis. DS: Summary Hospital Course Reason for hospitalization: 53yo female with MS here for increasing weakness and found to have Influenza A. Please see H&P for details. Hospital Course: as above. Time Spent with Patient Time attestation: Total time spent providing and/or coordinating discharge services:32 minutes Time spent: Greater than 30 minutes Specific discharge activities: Discussed with staff, care coordination, patient and sister Exam Narrative: Exam Narrative: Gen - NARD Chest -lungs clear anteriorly CV - RRR S1/S2 Abd -soft, NT/ND, +BS Ext - No pedal edema. Neuro -diffusely weak. Psych -nml mood Skin - Warm and dry Discharge Plan Discharge Attending physician on discharge: Issa Anthony Consulting providers: Layton Steven Discharging Clinician: Issa Anthony Anticipated Discharge Date/Time: 04/16/19 14:10 Patient Disposition: Home, Self-Care Activity: as tolerated Diet: regular Discharge Instructions: Follow up with Dr Steven. Please call his office to arrange for outpatient steroids. Patient Instructions: Oseltamivir (By mouth), Rivaroxaban (By mouth), Multiple Sclerosis (DC), Influenza (DC), Antibiotic Form Stand Alone Forms: General Discharge Information Follow-up/Referrals: Layton Steven MD [Physician] - Call for Appointment Matthew Granados MD [Primary Care Provider] - Keep Reg. Scheduled Appt. Discharge Medications: New oseltamivir [Tamiflu] 75 mg Capsule 75 mg PO Q12H Qty: 2 RF: 0 Continued oxybutynin chloride 15 mg tablet extended release 24hr 15 mg PO DAILY RF: 0 carbamazepine 200 mg tablet 200 mg PO BID RF: 0 methotrexate sodium 2.5 mg tablet 7.5 mg PO TID RF: 0 nitrofurantoin monohyd/m-cryst 100 mg capsule 100 mg PO BID RF: 0 baclofen 20 mg Tablet 20 mg PO TID RF: 0 Xarelto 20 mg tablet 20 mg PO QPM Qty: 30 RF: 0 Date of admission: 04/12/19 16:06 Primary Care Provider: Matthew Granados Admitting Provider: Issa Anthony Attending physician on admission: Issa Anthony Condition: Stable Quality VTE Prophylaxis VTE prophylaxis: pharmacologic ordered
--- NOTE | 2019-04-16 15:39 | PC.NURSE ---
Spoke with patient and family regarding discharge. Patient and family requesting reports from stay. Release of medical records form was filled out by patient and placed on chart. Explained to patient and family it will take some time before medical records can be ready and released. All information regarding discharge was explained to patient. Patient voices no questions or concerns at this time. Patient and family agreeable to ambulance transportation to home.
== END 2019-04-16 16:26 | disposition home or self-care (01) ==
LOC: ANHED 10:51 → ANH2MED 16:44
PROVIDERS: Admitting Provider Internal Medicine; Emergency Provider Emergency Medicine; PCP Family Medicine; Visit Provider Internal Medicine
DX: J10.1 Influenza due to other identified influenza virus with other respiratory manifestations (principal); G35 Multiple sclerosis; R56.9 Unspecified convulsions; K21.9 Gastro-esophageal reflux disease without esophagitis; Z79.899 Other long term (current) drug therapy; Z86.718 Personal history of other venous thrombosis and embolism; Z87.440 Personal history of urinary (tract) infections
CPT/HCPCS: 36415; 51701; 70553; 71046; 72156; 72157; 80048; 81001; 85025; 87804; 92610; 96361; 96365; 96375; 96376; 97110; 97161; 97166; 97530; 99285; A9270; A9577; G0378; J0131; J2405; J7030

== ENCOUNTER 2020-04-24 21:40 | Inpatient (IN) | payer MEDICARE, SELFPAY ==
--- NOTE | ~2020-04-24 | MR_ITS ---
EXAMINATION: MR cervical spine wo con DATE: 04/25/2020 13:07 INDICATION: Multiple sclerosis. TECHNIQUE: Magnetic resonance imaging (MRI) of the cervical spine was performed without intravenous c ontrast. Sequences included sagittal T2-weighted FSE, sagittal STIR FSE, sagittal T1-weighted FSE, ax ial MERGE, and axial T2-weighted FSE. COMPARISON: Cervical spine MRI 04/13/2019 FINDINGS: Bone alignment is normal. Vertebral body heights and intervertebral disc heights are normal . There are multiple ill-defined lesions of increased T2-weighted signal intensity in the brainstem a nd spinal cord. The following disc levels are specifically discussed: C2-C3: The disc does not extend beyond the endplate margin. There is no uncovertebral joint osteoarth ritis. There is mild bilateral facet joint osteoarthritis. There is no neural foraminal stenosis. The re is no central canal stenosis. C3-C4: The disc does not extend beyond the endplate margin. There is no uncovertebral joint osteoarth ritis. There is moderate right and mild left facet joint osteoarthritis. There is no neural foraminal stenosis. There is no central canal stenosis. C4-C5: The disc does not extend beyond the endplate margin. There is no uncovertebral joint osteoarth ritis. There is moderate bilateral facet joint osteoarthritis. There is no neural foraminal stenosis. There is no central canal stenosis. C5-C6: The disc does not extend beyond the endplate margin. There is no uncovertebral joint osteoarth ritis. There is moderate bilateral facet joint osteoarthritis. There is mild left neural foraminal st enosis. There is no central canal stenosis. C6-C7: The disc does not extend beyond the endplate margin. There is no uncovertebral joint osteoarth ritis. There is mild right and moderate left facet joint osteoarthritis. There is mild left neural fo raminal stenosis. There is no central canal stenosis. C7-T1: The disc does not extend beyond the endplate margin. There is no uncovertebral joint osteoarth ritis. There is no facet joint osteoarthritis. There is no neural foraminal stenosis. There is no beatriz tral canal stenosis. IMPRESSION: 1. Stable ill-defined lesions of increased T2-weighted signal intensity in the brainstem and spinal c ord, consistent with multiple sclerosis. 2. Mild cervical spondylosis. Reviewed, dictated and finalized at location A. IDE PARTS SALESMAN IMPRESSION: 1. Stable ill-defined lesions of increased T2-weighted signal intensity in the brainstem and spinal cord, consistent with multiple sclerosis. 2. Mild cervical spondylosis.
--- NOTE | ~2020-04-24 | CT_ITS ---
EXAMINATION: CT brain wo con INDICATION: Altered mental status COMPARISON: None TECHNIQUE: Standard unenhanced head CT. The dose-length product (DLP) was 605.33 mGy-cm. The mA was a djusted according to patient size. Iterative reconstruction technique was employed. FINDINGS: There is no intracranial hemorrhage, acute infarction, or abnormal mass lesion. The ventric les are normal. There is no abnormal mass effect or midline shift. The centeno-white matter differentiat ion is normal. The basal cisterns are patent. The orbits are normal. The paranasal sinuses, mastoids and calvarium are normal. IMPRESSION: 1. No acute intracranial abnormality. Reviewed, dictated and finalized at location A. LE ADF DEVELOPER
--- NOTE | ~2020-04-24 | XR_ITS ---
EXAMINATION: XR chest 1V portable INDICATION: Transient alteration of awareness TECHNIQUE: Portable AP chest at 2213 hours COMPARISON: 04/12/2019 FINDINGS: The lungs are free of acute opacities. There is no pleural effusion or pneumothorax. The ca rdiomediastinal silhouette is normal. The visualized osseous structures are unremarkable. IMPRESSION: 1. No acute cardiopulmonary abnormality. Reviewed, dictated and finalized at location A. S LEDGER ADMINISTRATOR
--- NOTE | ~2020-04-24 | CT_ITS ---
EXAMINATION: CTA chest DATE: 04/27/2020 16:56 INDICATION: Abnormality of the ascending aorta on echocardiogram TECHNIQUE: Computed tomographic angiography (CTA) of the chest was performed with 100 mL Omnipque-350 intravenous contrast. Maximum intensity projection 3D-reconstructions of the aorta and other arterie s were constructed by the technologist on a separate workstation. The dose-length product (DLP) was 2 79.35 mGy-cm. Automated exposure control and iterative reconstruction technique were employed. COMPARISON: None. FINDINGS: The thoracic aorta is normal without dissection, aneurysm, or intraluminal filling defect. There is mild dependent atelectasis. No focal airspace opacities are identified. There is no pleural effusion or pneumothorax. No pathologically enlarged thoracic lymph nodes are identified. The heart s ize is normal. There is a 2.9 cm cyst of the spleen. A stone is present in the nondistended gallbladd er. IMPRESSION: 1. Unremarkable thoracic aorta. Reviewed, dictated and finalized at location A. RENAL
--- NOTE | ~2020-04-24 | MR_ITS ---
EXAMINATION: MR brain/brain stem wo con DATE: 04/25/2020 13:07 INDICATION: Seizure. Multiple sclerosis. TECHNIQUE: Magnetic resonance imaging (MRI) of the brain and brainstem was performed without intraven ous contrast. Sequences included sagittal and axial T1-weighted FLAIR, axial T1-weighted FSE, axial d iffusion-weighted FS EPI, sagittal T2-weighted FLAIR, axial T2*-weighted GRE, axial T2-weighted FLAIR Propeller, and axial T2-weighted Propeller. Apparent diffusion coefficient (ADC) maps were created. COMPARISON: Brain MRI 04/13/2019 FINDINGS: There is no acute acute ischemic infarct or intracranial hemorrhage. There is extensive cer ebral white matter disease including areas of cystic encephalomalacia with a periventricular predomin ance. There are multiple lesions of increased T2-weighted signal intensity involving the sylwia, medull a, and cerebellar white matter. The ventricles are normal in size. The orbits are normal. There is mi ld mucosal thickening in the paranasal sinuses. There is a mucous retention cyst in right maxillary s inus. The mastoid air cells are normal. IMPRESSION: 1. Stable severe white matter disease, consistent with multiple sclerosis. Reviewed, dictated and finalized at location A. NG SETTER
--- NOTE | ~2020-04-24 | XR_ITS ---
EXAMINATION: XR chest 1V portable INDICATION: Fever TECHNIQUE: Portable AP chest at 1701 hours COMPARISON: 04/24/2020 FINDINGS: There is mild atelectasis of the lung bases. No pleural effusion or pneumothorax is identif ied. The cardiomediastinal silhouette is normal. IMPRESSION: 1. Mild atelectasis of the lung bases. Reviewed, dictated and finalized at location A. SETTER APPRENTICE
--- NOTE | ~2020-04-24 | MR_ITS ---
EXAMINATION: MR thoracic spine wo con DATE: 04/25/2020 13:07 INDICATION: Multiple sclerosis. TECHNIQUE: Magnetic resonance imaging (MRI) of the thoracic spine was performed without intravenous c ontrast. Sagittal localizer T1-weighted FSE of the cervical spine was obtained. Thoracic spine sequen morgan included sagittal T2-weighted FSE, sagittal T1-weighted FSE, sagittal STIR FSE, and axial T2-weig hted FSE. COMPARISON: Thoracic spine MRI 04/13/2019 FINDINGS: There is 5 degrees dextrocurvature of thoracic spine. Again seen is a lesion of increased T 2-weighted signal intensity in T8 vertebral body, likely an atypical hemangioma. There is a hemangiom a in T5 vertebral body. Vertebral body heights are normal. Intervertebral disc heights are normal. Th e discs do not extend beyond the endplate margins. There is mild facet joint osteoarthritis at a few levels. No neural foraminal stenosis or central canal stenosis. There is increased T2-weighted signal intensity involving much of the spinal cord. IMPRESSION: 1. Abnormal signal intensity involving much of the spinal cord, which may be artifactual from motion artifact and Hdz ringing artifact. There is poor sensitivity and specificity for any changes in mul tiple sclerosis involvement. Reviewed, dictated and finalized at location A. R PLANNER IMPRESSION: 1. Abnormal signal intensity involving much of the spinal cord, which may be ar tifactual from motion artifact and Hdz ringing artifact. There is poor sensit ivity and specificity for any changes in multiple sclerosis involvement.
[2020-04-24 21:39] VITALS: BP 120/91; PULSE 151; RESP 17; TEMP 36.6; O2SAT 95
--- NOTE | 2020-04-24 21:46 | ECG_ITS ---
Measurements Intervals [place] Rate: 144 P: 11 HI: 134 QRS: -17 QRSD: 90 T: 178 QT: 264 QTc: 409 Interpretive Statements SINUS TACHYCARDIA, POSSIBLE ATRIAL FLUTTER INCOMPLETE RIGHT BUNDLE BRANCH BLOCK BORDERLINE R WAVE PROGRESSION, ANTERIOR LEADS ST-T WAVE ABNORMALITY IN HIGH LATERAL LEADS- CONSIDER ISCHEMIA ABNORMAL ECG Electronically Signed On 04-25-2020 7:14:55 LEARNING PROGRAM MANAGER by Layo Burks D.O.
--- NOTE | 2020-04-24 21:47 | ED.AMS ---
HPI - Altered Mental Status General Chief Complaint: Seizure Stated Complaint: seizure, lethargic Time Seen by Provider: 04/24/20 21:42 Source: EMS Mode of arrival: EMS Limitations: altered mental status History of Present Illness HPI narrative: Patient is a 54-year-old female with history of seizures and MS brought in by EMS due to altered mental status. According to EMS, family told him that the patient has been lethargic all day and and decreased responsiveness. Unable to get any history from patient due to her altered mental status. Patient was covered in fecal matter upon arrival to the emergency. Related Data Home Medications Medication Instructions Recorded Confirmed carbamazepine 200 mg PO BID 04/12/19 04/12/19 methotrexate sodium 7.5 mg PO TID 04/12/19 04/12/19 nitrofurantoin monohyd/m-cryst 100 mg PO BID 04/12/19 04/12/19 oxybutynin chloride 15 mg PO DAILY 04/12/19 04/12/19 baclofen 20 mg PO TID 04/13/19 04/13/19 Allergies Allergy/AdvReac Type Severity Reaction Status Date / Time No Known Allergies Allergy Unverified 04/12/19 10:46 Review of Systems Review of Systems: ROS unobtainable: Yes unobtainable due to mental status PMFSH Past Medical History Medical History Frequent UTI GERD (gastroesophageal reflux disease) History of DVT (deep vein thrombosis) Multiple sclerosis Seizure Surgical History Surgical History Hx of vaginal surgery Family History Family History Mother Diabetes mellitus Myocardial infarction PTSD (post-traumatic stress disorder) Father Diabetes mellitus Myocardial infarction Sibling Myocardial infarction Patient's brother is Social History Social History Social History: Patient is a full code. She lives with her mother. She is typically ambulatory but the last 3 days she has been bedbound. She was at 1 time but . she has no children. She has no power games manager. Patient is undecided about code status at this time. She was discussing with days if that she wanted to be a DNR. But at this time she is unsure. Lifelong nonsmoker no alcohol or illicit drugs Smoking status: Never smoker Alcohol intake: never Substance use: never Additional occupation/education comments: Disabled Gender identity (if verbalized by the patient): Female Spiritual care concerns: No Agree to blood products: No Exam Const: Other: Lethargic but easily arousable, moderate distress, answers questions inappropriately HENMT: Head: normal to inspection Face and sinus: normal facial exam Eyes: Conjunctivae: conjunctivae normal Pupils: Equal, round and reactive pupils present Neck: Neck: normal visual inspection Chest: Chest palpation & inspection: normal inspection of the chest Resp: Effort & Inspection: normal respiratory effort Auscultation: clear to auscultation bilaterally Cardio: Rate: regular rate Rhythm: regular rhythm GI: GI Palp: Yes Soft to palpation and No Guarding due to palpation present (GI) Auscultation: normal bowel sounds Skin: General skin exam: normal color, no jaundice and no pallor Neuro: Other: Lethargic, unable to follow any commands, unable to perform a full neuro exam due to patient's mental status Extrem: General: edema (Bilateral lower extremity edema) Course Course Emergency Course: Patient reexamined at 12:30 AM, still confused but more alert and awake this time. Discussed with family member states that she is still not at baseline, she is not usually confused according to her brother. Vital Signs Vital signs: Vital Signs Temperature 36.6 C 04/24/20 21:39 Pulse Rate 151 H 04/24/20 21:39 Respiratory Rate 17 04/24/20 21:39 Blood Pressure 120/91 H 04/24/20 21:39 Pulse Oxi
[2020-04-24] MEDS: LACTATED RINGERS 1,000 ML 999 ML IV CONT (22:11)
[2020-04-24 22:33] LABS: Basophils Absolute Auto 0.1 K/mm3 (0.0-0.1); Basophils Percent Auto 0.3 % (0.2-1.2); Eosinophils Absolute Auto 0.1 K/mm3 (0-0.3); Eosinophils Percent Auto 0.3 % (0-4.4); Hematocrit 43.6 % (37.0-47.0); Hemoglobin 14.4 g/dL (12.0-15.0); Immature Granulocyte Absolute 0.06 K/mm3 (0.00-0.031); Immature Granulocyte Percent A 0.4 % (0-0.5); Lymphocytes Percent Auto 4.2 % (18.3-44.2); Mean Corpuscular Hemoglobin 30.8 pg (26-34); Mean Corpuscular Volume 93.2 fl (80-100); Mean Platelet Volume 10.4 fl (7.4-10.4); Monocytes Absolute Auto 1.2 K/mm3 (0.1-0.6); Neutrophils Absolute Auto 14.5 K/mm3 (1.3-6.7); Neutrophils Percent Auto 87.8 % (45.5-73.1); Platelet Count Result 258 k/mm3 (150-375); Red Blood Count 4.68 M/mm3 (4.2-5.4); Red Cell Distribution Width 13.3 % (11.5-14.5); White Blood Count 16.5 K/mm3 (4.5-10.0)
[2020-04-24 22:47] LABS: Alanine Aminotransferase 15 U/L (4-35); Albumin Level 3.8 g/dL (3.5-5.1); Alkaline Phosphatase 102 U/L (38-126); Anion Gap 8 mmol/L (8-16); Aspartate Amino Transferase 23 U/L (14-36); Bilirubin,Total 0.5 mg/dL (0.2-1.3); Blood Urea Nitrogen 10 mg/dL (7-17); Calcium 8.6 mg/dL (8.4-10.2); Carbon Dioxide 23 mmol/L (22-30); Chloride 108 mmol/L (98-107); Estimated CRCL calculation 111 ml/min; Estimated Glomerular Filt Rate > 60; Glucose 150 mg/dL (65-105); Potassium 4.1 mmol/L (3.4-5.0); Sodium 139 mmol/L (137-145)
[2020-04-24 22:49] LABS: Lactic Acid Reflex 2.8 mmol/L (0.7-2.1)
[2020-04-25] VITALS (26 sets, daily range): BP systolic 98–117; BP diastolic 28–76; PULSE 70–96; RESP 10–23; TEMP 36.5–37.1; O2SAT 93–100; BMI 22.0
--- NOTE | 2020-04-25 | ECHO_ITS ---
Patient Info Name: Jenae Rodriguez Age: 54 years : 1965 Gender: Female Ht: 69 in Wt: 149 lbs BSA: 1.81 m2 HR: 70 bpm BP: 109 / 59 mmHg Heart Rhythm: Sinus Rhythm Technical Quality: Fair Exam Date: 04/25/2020 4:08 PM Exam Location: [facility] Pulmonary Exam Room: [facility] Patient Status: Inpatient Admit Date: 04/25/2020 Staff Ordering Physician: Valerie Angel PA-C Sales Operations Associate: Ashlyn Lipscomb RDCS Attending Provider: Valerie Angel PA-C Referring Physician: Stanley ROJAS; Exam Type: CA echo doppler color flow Study Info Indications - abn ekg Complete two-dimensional, color flow and Doppler transthoracic echocardiogram is performed. Summary 1. Complete two-dimensional, color flow and Doppler transthoracic echocardiogram is performed. 2. Normal left ventricular size and thickness with good contractility of all segments. No segmental wall motion abnormalities. The ejection fraction is estimated to be greater than 70%. Normal diastolic function. 3. No pulmonary hypertension, estimated pulmonary arterial systolic pressure is 25 mmHg. 4. No significant valve disease. 5. There is an abnormality in the aortic arch, which is not well visualized. This may be atherosclerotic plaque with a mobile component. Recommend transesophageal ECHO for further evaluation. 6. Normal sinus rhythm. Left Ventricle Left ventricular chamber dimension is normal. Left ventricular systolic function is normal, estimated at >70%. There is no increased left ventricular wall thickness. Left ventricular septal wall motion is normal. The left ventricular diastolic function is normal. Right Ventricle Right ventricular chamber dimension is normal. Right ventricular systolic function is normal. Left Atria Left atrial chamber dimension is normal. Right Atria Right atrial chamber dimension is normal. Aortic Valve The aortic valve is trileaflet. There is no aortic valve sclerosis. There is no aortic valve stenosis. There is no aortic valve regurgitation. Pulmonic Valve The pulmonic valve is normal. There is no pulmonic valve stenosis. There is no pulmonic regurgitation. Mitral Valve The mitral valve has normal leaflets. There is no mitral valve stenosis. There is no mitral valve regurgitation. Tricuspid Valve The tricuspid valve leaflets are normal. There is no significant tricuspid valve stenosis. There is trace tricuspid valve regurgitation. No pulmonary hypertension, estimated pulmonary arterial systolic pressure is 25 mmHg. Pericardium/Pleural The pericardium appears normal. There is no pericardial effusion. Inferior Vena Cava Normal inferior vena cava with >50% collapse upon inspiration consistent with Empty right atrial pressure, 10 mmHg. Aorta The aortic root size at the sinus of Valsalva is normal. The prox ascending aorta size is normal. Left Ventricular Outflow Tract Name Value Normal LVOT 2D LVOT Diameter 2.0 cm LVOT Doppler LVOT Peak Gradient 4 mmHg LVOT Mean Gradient 2 mmHg LVOT VTI
[2020-04-25 01:21] LABS: Add Urine Microscopic? YES; Appearance Urine Cloudy (Clear); Bacteria Urine Trace /hpf; Bilirubin Urine Negative (Negative); Blood Urine 2+ (Negative); Color Urine Yellow (Yellow); Glucose Urine UA Negative (Negative); Ketones Urine Negative (Negative); Leukocyte Esterase Ur Trace LEU/UL (Negative); Mucus Urine Rare /lpf; Nitrate Urine Negative (Negative); Protein Urine Negative (Negative); RBC Urine >75 /hpf (0-2); Specific Grav Ur 1.014 (1.001-1.035); Squamous Epithelial Cell Urine Many /hpf (Few); Urobilinogen Urine Negative mg/dL (<2.0)
[2020-04-25 01:31] LABS: Reflex Lactic Acid Yes or No Add Lactic
--- NOTE | 2020-04-25 02:24 | PM.IMHP ---
H&P: HPI History of Present Illness Date/Time: 04/25/20 02:24 Chief Complaint: Acute altered mental status. Narrative: This is a 54 year old female who is known to have multiple sclerosis and seizure disorder who presented to the [facility] with acute altered mental status. The patient's family had reported to ER provider the patient has been lethargic all day and and decreased responsiveness. It's unknown whether or not the patient had an acute seizure. Her family has already gone home and no history is obtainable from the patient due to her altered mental status at this time. She was evaluated in the ER [facility] and routine labs demonstrated a WBC of 16,500, elevated lactic acid of 2.8. The patient continues to be postictal and we have been asked to admit her to the hospital for further care. Review of Systems Review of Systems: ROS unobtainable: Yes unobtainable due to mental status PMFSH Past Medical History Medical History Frequent UTI GERD (gastroesophageal reflux disease) History of DVT (deep vein thrombosis) Multiple sclerosis Seizure Surgical History Surgical History Hx of vaginal surgery Family History Family History Mother Diabetes mellitus Myocardial infarction PTSD (post-traumatic stress disorder) Father Diabetes mellitus Myocardial infarction Sibling Myocardial infarction Patient's brother is Social History Social History Social History: Patient is a full code. She lives with her mother. She is typically ambulatory but the last 3 days she has been bedbound. She was at 1 time but . she has no children. She has no power prosecuting attorney. Patient is undecided about code status at this time. She was discussing with days if that she wanted to be a DNR. But at this time she is unsure. Lifelong nonsmoker no alcohol or illicit drugs Smoking status: Never smoker Alcohol intake: current Substance use: never Additional occupation/education comments: Disabled Gender identity (if verbalized by the patient): Female Spiritual care concerns: No Agree to blood products: No Meds Home Medications and Allergies Home Medications Medication Instructions Recorded Confirmed Type rivaroxaban 20 mg tablet 20 mg PO QPM #30 tablet 02/20/19 04/25/20 Rx oxybutynin chloride 15 mg PO DAILY 04/12/19 04/25/20 History baclofen 20 mg PO QID 04/13/19 04/25/20 History dalfampridine 10 mg PO Q12H 04/25/20 04/25/20 History folic acid 1 mg PO DAILY 04/25/20 04/25/20 History sumatriptan succinate 100 mg PO BID PRN 04/25/20 04/25/20 History tamsulosin 0.4 mg PO BID 04/25/20 04/25/20 History acetaminophen [Mapap 650 mg PO Q4H PRN #30 tablet 05/01/20 Rx (acetaminophen)] carbamazepine 200 mg PO TIDWM 30 Days #90 tablet 05/01/20 Rx cyanocobalamin (vitamin B-12) 1,000 mcg PO QAM 30 Days #30 tablet 05/01/20 Rx [Vitamin B-12] ertapenem [Invanz] 1 g IV Q24H 2 Days #2 ea 05/01/20 Rx methotrexate sodium 7.5 mg PO WEEKLY #0 tablet 05/01/20 04/25/20 Rx methylprednisolone 4 mg PO 0630,2100 #21 ea 05/01/20 Rx polyethylene glycol 3350 [Miralax] 17 g PO QAM PRN #14 ea 05/01/20 Rx Allergies Allergy/AdvReac Type Severity Reaction Status Date / Time No Known Allergies Allergy Verified 04/29/20 16:53 Vital Signs Vital Signs - 24 hr 04/24/20 21:39 04/25/20 00:00 04/25/20 00:30 Temperature 36.6 C Pulse Rate 151 H 86 81 Respiratory Rate 17 14 14 Blood Pressure 120/91 H Pulse Oximetry 95 04/25/20 00:45 04/25/20 00:59 04/25/20 01:45 Temperature Pulse Rate 90 82 82 Respiratory Rate 22 H 16 10 L Blood Pressure 105/68 101/76 Pulse Oximetry 95 04/25/20 01:46 04/25/20 02:00 04/25/20 02:02 Temperature 37.1 C Pulse Rate 81 93 85 Respira
--- NOTE | 2020-04-25 03:41 | ADMGEN ---
This patient, Jenae Rodriguez, was admitted to 3 Med Surg Room 303-01. Patient/family oriented to hospital policies and general routines including ID bracelet, bed and alarms, visiting hours, pain management, procedures, bathroom and other care routines, personal items, smoking policy, room service/diet, and visiting hours. Information on how to activate the Rapid Response Team has been discussed. Patient/Family are encouraged to report perceived risks to care and to ask questions if they do not understand what they are told or what they should do.
[2020-04-25 03:44] LABS: Lactic Acid 1.3 mmol/L (0.7-2.1)
[2020-04-25] MEDS: LACTATED RINGERS 1,000 ML 125 ML IV CONT ×2 (04:05→17:24)
[2020-04-25 06:53] LABS: Basophils Percent Auto 0.4 % (0.2-1.2); Eosinophils Absolute Auto 0.1 K/mm3 (0-0.3); Eosinophils Percent Auto 0.9 % (0-4.4); Hematocrit 38.7 % (37.0-47.0); Hemoglobin 12.5 g/dL (12.0-15.0); Immature Granulocyte Absolute 0.03 K/mm3 (0.00-0.031); Immature Granulocyte Percent A 0.3 % (0-0.5); Lymphocytes Absolute Auto 1.57 K/mm3 (0.9-3.2); Mean Corpuscular HGB Conc 32.3 g/dl (32-36); Mean Corpuscular Hemoglobin 30.6 pg (26-34); Mean Corpuscular Volume 94.6 fl (80-100); Mean Platelet Volume 10.5 fl (7.4-10.4); Monocytes Absolute Auto 0.8 K/mm3 (0.1-0.6); Monocytes Percent Auto 7.9 % (2.6-8.5); Neutrophils Absolute Auto 7.3 K/mm3 (1.3-6.7); Neutrophils Percent Auto 74.5 % (45.5-73.1); Platelet Count Result 260 k/mm3 (150-375); Red Blood Count 4.09 M/mm3 (4.2-5.4); Red Cell Distribution Width 13.3 % (11.5-14.5); White Blood Count 9.8 K/mm3 (4.5-10.0)
[2020-04-25 07:06] LABS: Anion Gap 1 mmol/L (8-16); Blood Urea Nitrogen 10 mg/dL (7-17); Calcium 8.5 mg/dL (8.4-10.2); Carbon Dioxide 33 mmol/L (22-30); Chloride 106 mmol/L (98-107); Estimated CRCL calculation 111 ml/min; Estimated Glomerular Filt Rate > 60; Glucose 108 mg/dL (65-105); Magnesium 1.9 mg/dL (1.6-2.3); Potassium 3.9 mmol/L (3.4-5.0); Sodium 140 mmol/L (137-145)
[2020-04-25 08:12] LABS: Folic Acid 10.2 ng/mL (2.76->20)
--- NOTE | 2020-04-25 09:54 | WPDNEURCNPN ---
Assessment and Plan Assessment and plan (1) Seizure disorder: Code(s): G40.909 - Epilepsy, unspecified, not intractable, without status epilepticus Status: Acute (2) Multiple sclerosis: Code(s): G35 - Multiple sclerosis Status: Acute Additional Plan history of multiple sclerosis for which patient had been receiving treatment through [facility] though she is not on any specific treatment except that she mentions intermittent steroids when she has flare ,would like to have the MRIs before any long-term recommendations are made, as far as the seizure disorder is concerned will obtain the EEG Consult date: 04/25/20 Time Seen: 09:30 HPI: Jenae Rodriguez is a 54 year old female admitted to the hospital with the ongoing diagnosis of 1. Multiple sclerosis 2. Seizure disorder patient presented to the hospital with the change in the mental status and with information from the family, patient had been lethargic all day with decreased responsiveness, though they were not sure whether she had a seizure or not. on initial evaluation in the emergency room she was found to have leukocytosis with lactic acid of 2.8 . as per the information available from the patient this morning, patient has been under the care of physician at [facility] for ongoing diagnosis of multiple sclerosis. She has not been taking any specific medication. She tells me she just takes intermittently is steroids when she has the acute flare-up. Review of Systems Review of Systems: All systems reviewed & are unremarkable except as noted in HPI and below PMFSH Past Medical History Medical History Frequent UTI GERD (gastroesophageal reflux disease) History of DVT (deep vein thrombosis) Multiple sclerosis Seizure Surgical History Surgical History Hx of vaginal surgery Family History Family History Mother Diabetes mellitus Myocardial infarction PTSD (post-traumatic stress disorder) Father Diabetes mellitus Myocardial infarction Sibling Myocardial infarction Patient's brother is Social History Social History Social History: Patient is a full code. She lives with her mother. She is typically ambulatory but the last 3 days she has been bedbound. She was at 1 time but . she has no children. She has no power immigration attorney. Patient is undecided about code status at this time. She was discussing with days if that she wanted to be a DNR. But at this time she is unsure. Lifelong nonsmoker no alcohol or illicit drugs Smoking status: Never smoker Alcohol intake: current Substance use: never Additional occupation/education comments: Disabled Gender identity (if verbalized by the patient): Female Spiritual care concerns: No Agree to blood products: No Meds Home Medications and Allergies Home Medications Medication Instructions Recorded Confirmed Type rivaroxaban 20 mg tablet 20 mg PO QPM #30 tablet 02/20/19 04/25/20 Rx carbamazepine 200 mg PO BID 04/12/19 04/25/20 History methotrexate sodium 7.5 mg PO WEEKLY 04/12/19 04/25/20 History oxybutynin chloride 15 mg PO DAILY 04/12/19 04/25/20 History baclofen 20 mg PO QID 04/13/19 04/25/20 History sumatriptan succinate 100 mg PO BID PRN 04/25/20 04/25/20 History Allergies Allergy/AdvReac Type Severity Reaction Status Date / Time No Known Allergies Allergy Unverified 04/12/19 10:46 Vital Signs Vital Signs - 24 hr 04/24/20 21:39 04/25/20 00:00 04/25/20 00:30 Temperature 36.6 C Pulse Rate 151 H 86 81 Respiratory Rate 17 14 14 Blood Pressure 120/91 H Pulse Oximetry 95 04/25/20 00:45 04/25/20 00:59 04/25/20 01:45 Temperature Pulse Rate 90 82 82 Respiratory Rate 22 H 16 10 L Blood Pressure 105/68 101/76 Pulse Oximetry 95
--- NOTE | 2020-04-25 14:11 | PM.IMPN ---
Progress Note: A&P Assessment and Plan (1) Acute encephalopathy: Code(s): G93.40 - Encephalopathy, unspecified Status: Acute Assessment and Plan: Back to baseline, etiology unclear at this time -could be due to prolonged postictal state or seizure. EEG is pending -chest x-ray is clear, UA does not look like it is infected but does have blood -obtain urine culture and blood cultures -white blood cell count within normal limits and patient has not been afebrile -MRI of the brain does not show any acute stroke but does show MS -no signs of meningitis on exam -urine drug screen pending -no signs of cardiac arrhythmias on telemetry overnight -suspect likely due to seizure -neurology on board (2) SIRS (systemic inflammatory response syndrome): Code(s): R65.10 - Systemic inflammatory response syndrome (SIRS) of non-infectious origin without acute organ dysfunction Status: Acute Assessment and Plan: As stated above, no infection suspected at this time -on admission the patient's white blood cell count was 16.5 and she had tachycardia which qualifies for sirs -blood cultures obtained -UA not suspicious for UTI but does have blood (likely due to traumatic catheterization), will send for culture -continue to monitor. Patient's mental status is much better today -no need for antibiotics at this time (3) Abnormal glucose: Code(s): R73.09 - Other abnormal glucose Status: Acute Assessment and Plan: Random glucose just slightly high, will check A1c in the morning (4) Chronic anticoagulation: Code(s): Z79.01 - director long term care (current) use of anticoagulants Status: Acute Assessment and Plan: For DVT -continue Xarelto (5) Seizure disorder: Code(s): G40.909 - Epilepsy, unspecified, not intractable, without status epilepticus Status: Acute Assessment and Plan: Obtain EEG -continue home medications -monitor for worsening symptoms (6) Multiple sclerosis: Code(s): G35 - Multiple sclerosis Status: Acute Assessment and Plan: Patient has history of this and takes carbamazepine and dalfampridine -spoke with Neurology who is going to review her medications tomorrow with her (7) Acute electrocardiogram changes: Code(s): R94.31 - Abnormal electrocardiogram [ECG] [EKG] Status: Acute Assessment and Plan: EKG on admission show some changes and possible a flutter -this is not seen on telemetry -could be due to reaction from the tachycardia? -will obtain baseline troponin and echo -no chest pain Time Spent With Patient Time with patient: 25 - 35 minutes Subjective Date/time seen: 04/25/20 14:11 Interval history: Pt is a 54-year-old female here for altered mental status who was seen today. Patient states she is doing much better. She does remember the events of yesterday but thought she was dreaming and does not recall everything. Today, she feels fine. She has absolutely no chest pain, palpitations or shortness of breath. She feels weak but that is at her baseline. She does not feel sore all over and has no pain in her mouth. She further denies diarrhea, constipation, or leg swelling. She sees her neurologist at [facility] Review of Systems Review of Systems: All systems reviewed & are unremarkable except as noted in HPI and below Exam Narrative: Exam Narrative: General: Well developed well nourished patient in NAD HEENT: normocephalic Neck: supple Neuro: Alert and oriented x4. Decreased strength bilaterally due to MS CV:RRR. Telemetry without any alarm reviews today. Yesterday late at night she had sinus tachycardia about 150 which resolved Resp:CTA Abd: Soft, non distended. No pain to palpation. Positive bowel sounds Extremities: Chronic changes due to MS, hyperspasticity Objective Data Vital Signs Vital Signs: Vital Signs - 24 hr 04/24/20 21:39 04/25/20 00:00
[2020-04-25 15:35] LABS: Troponin I < 0.012 ng/mL (0.000-0.034)
[2020-04-25] MEDS: CYANOCOBALAMIN INJ 1,000 MCG/ML VIAL 1000 MCG IM (15:53)
[2020-04-25] MEDS: BACLOFEN 10 MG TABLET 20 MG PO ×2 (17:26→20:15)
[2020-04-25] MEDS: carBAMazepine 200 MG TABLET PO (17:27)
[2020-04-25] MEDS: RIVAROXABAN 20 MG TABLET PO (17:27)
[2020-04-25] MEDS: TAMSULOSIN HCL 0.4 MG CAPSULE PO (20:15)
[2020-04-25] MEDS: ACETAMINOPHEN 325 MG TABLET 650 MG PO (23:50)
[2020-04-26] VITALS (7 sets, daily range): BP systolic 98–132; BP diastolic 40–64; PULSE 72–93; RESP 16–20; TEMP 36.3–36.7; O2SAT 97–100
[2020-04-26 00:26] LABS: Amphetamine Screen Urine Negative (Negative); Barbiturate Screen Urine Negative (Negative); Benzodiazepines Screen Urine Negative (Negative); Cannabinoid Screen Urine Negative (Negative); Cocaine Screen Urine Negative (Negative); Methadone Screen Urine Negative (Negative); Opiate Screen Urine Negative (Negative); Phencyclidine Screen Urine Negative (Negative)
[2020-04-26] MEDS: LACTATED RINGERS 1,000 ML 125 ML IV CONT ×2 (02:37→11:14)
[2020-04-26 06:21] LABS: Basophils Percent Auto 0.5 % (0.2-1.2); Eosinophils Absolute Auto 0.2 K/mm3 (0-0.3); Eosinophils Percent Auto 3.8 % (0-4.4); Hematocrit 32.2 % (37.0-47.0); Hemoglobin 10.2 g/dL (12.0-15.0); Immature Granulocyte Absolute 0.01 K/mm3 (0.00-0.031); Immature Granulocyte Percent A 0.2 % (0-0.5); Lymphocytes Absolute Auto 2.43 K/mm3 (0.9-3.2); Lymphocytes Percent Auto 39.7 % (18.3-44.2); Mean Corpuscular HGB Conc 31.7 g/dl (32-36); Mean Corpuscular Hemoglobin 29.8 pg (26-34); Mean Corpuscular Volume 94.2 fl (80-100); Mean Platelet Volume 10.8 fl (7.4-10.4); Monocytes Absolute Auto 0.5 K/mm3 (0.1-0.6); Monocytes Percent Auto 8.3 % (2.6-8.5); Neutrophils Absolute Auto 2.9 K/mm3 (1.3-6.7); Neutrophils Percent Auto 47.5 % (45.5-73.1); Platelet Count Result 202 k/mm3 (150-375); Red Blood Count 3.42 M/mm3 (4.2-5.4); Red Cell Distribution Width 13.3 % (11.5-14.5); White Blood Count 6.1 K/mm3 (4.5-10.0)
[2020-04-26 06:25] LABS: Hemoglobin A1C 4.7 % (<5.7)
[2020-04-26 06:46] LABS: Potassium 3.5 mmol/L (3.4-5.0)
[2020-04-26 06:49] LABS: Anion Gap 1 mmol/L (8-16); Blood Urea Nitrogen 7 mg/dL (7-17); CRP 5.5 mg/dL (<1.0); Calcium 7.9 mg/dL (8.4-10.2); Carbon Dioxide 30 mmol/L (22-30); Chloride 110 mmol/L (98-107); Creatine Kinase 22 U/L (30-135); Estimated CRCL calculation 111 ml/min; Estimated Glomerular Filt Rate > 60; Glucose 87 mg/dL (65-105); Sodium 141 mmol/L (137-145)
[2020-04-26] MEDS: BACLOFEN 10 MG TABLET 20 MG PO ×4 (07:41→20:23)
[2020-04-26] MEDS: carBAMazepine 200 MG TABLET PO ×2 (08:42→17:59)
[2020-04-26] MEDS: FOLIC ACID 1 MG TABLET PO (08:42)
[2020-04-26] MEDS: TAMSULOSIN HCL 0.4 MG CAPSULE PO ×2 (08:42→20:23)
[2020-04-26] MEDS: CYANOCOBALAMIN 1,000 MCG TABLET 1000 MCG PO (08:42)
--- NOTE | 2020-04-26 10:47 | PM.CNCAR ---
Assessment and Plan Additional Plan 54-year-old woman with: Poorly characterized change in mental status with chronic multiple sclerosis being noted on her MRI imaging. Mental status according to the others notes may be back to baseline. She has an echocardiogram which shows no cardiac pathology there was some comment made that there was possibly a mobile structure in the aortic arch triggering the idea to perform a transesophageal echo for further evaluation of this. Obviously this would be a matter of great importance if this lady had a cryptogenic stroke but that does not appear to be the case. Performing a transesophageal echo would otherwise not be a matter of significant difficulty. The patient seems to be a bit hesitant to undergo the procedure and it unfortunately cannot be performed today in any event since she has not been held NPO. If this patient remains in the hospital through the weekend and into next week and esophageal ECHO is desired I will be happy to perform the exam on Wednesday. If she is otherwise stable with no evidence of a cryptogenic stroke then I am not sure that it is a matter of great importance to perform an esophageal echo since it does not appear to be relevant clinically to her chief complaint and clinical presentation. Bebeto Blackowod MD [facility] History of Present Illness History of Present Illness Consult date/time: 04/26/20 10:47 Reason For Visit: ALTERED MENTAL STATUS Narrative: This is a 54-year-old woman who I am seeing at the request of the hospitalist to consider performing a transesophageal echocardiogram. The chart was reviewed and the patient was seen this morning. The patient apparently has a established diagnosis of multiple sclerosis and is followed by a neurologist out at [facility]. She was brought to this hospital yesterday with complaints of weakness and apparently some alteration in her mental status that seems to be poorly defined in the chart. It the neurology consultation here at [facility] that saw the patient did not see any evidence of any acute process and an [facility] MRI of the brain demonstrates findings compatible with chronic multiple sclerosis but no acute changes and no evidence of a CVA. As a course of this workup she had an echocardiogram done yesterday that was interpreted by my partner as showing no significant cardiac abnormalities but apparently on 1 of the views there was question of a mobile atheromatous plaque in the aortic arch or some mobile structure of some sort that was not well visualized. As a result of this a transesophageal echocardiogram has been considered and as a result of this I was seeing the patient today at their request. The patient does not offer any other complaints today and has no other cardiac history to the best of her knowledge nor that is dictated in the chart. The patient has already been fed breakfast today she states she ate a full breakfast of scrambled eggs and toast and is finishing her orange juice by the time I came in the room to see her. Review of Systems Constitutional: Constitutional: Reports weakness Eyes: Eyes: Reports no additional eye complaints ENT: Reports system reviewed and no additional complaints, except as documented Cardiovascular: Cardiovascular: Reports no additional cardiovascular complaints Respiratory: Respiratory: Reports no additional respiratory complaints Gastrointestinal: Gastrointestinal: Reports no additional gastrointestinal complaints Musculoskeletal: Musculoskeletal: Reports no additional musculoskeletal complaints Neurologic: Reports as per HPI Psychiatric: Psychiatric: Reports no additional psychiatric complaints Hematologic/Lymphatic: Hematologic/Lymphatic: Reports no additional hematologic/lymphatic complaints Allergic/Immunologic: Allergic/Immunologic: Reports no additional allergic/immunologic complaints [facility] Past Medical History Medical History (Reviewed 04/25/20 @ 09:57 by Layton Steven MD
--- NOTE | 2020-04-26 12:48 | PM.IMPN ---
Progress Note: A&P Assessment and Plan (1) Acute encephalopathy: Code(s): G93.40 - Encephalopathy, unspecified Status: Acute Assessment and Plan: Back to baseline, etiology unclear at this time -could be due to prolonged postictal state or seizure. EEG is pending -chest x-ray is clear, UA does not look like it is infected but does have blood -await urine cx -white blood cell count within normal limits and patient has not been afebrile -MRI of the brain does not show any acute stroke but does show MS -no signs of meningitis on exam -UDS normal -no signs of cardiac arrhythmias on telemetry overnight, will d/c -suspect likely due to seizure -neurology on board (2) SIRS (systemic inflammatory response syndrome): Code(s): R65.10 - Systemic inflammatory response syndrome (SIRS) of non-infectious origin without acute organ dysfunction Status: Acute Assessment and Plan: As stated above, no infection suspected at this time -on admission the patient's white blood cell count was 16.5 and she had tachycardia which qualifies for sirs -blood cultures obtained and have NGTD -UA not suspicious for UTI but does have blood (likely due to traumatic catheterization), await for culture -continue to monitor. Patient's mental status is much better today -no need for antibiotics at this time (3) Abnormal glucose: Code(s): R73.09 - Other abnormal glucose Status: Acute Assessment and Plan: Random glucose just slightly high, A1c normal (4) Chronic anticoagulation: Code(s): Z79.01 - terminal clerk (current) use of anticoagulants Status: Acute Assessment and Plan: For DVT -continue Xarelto (5) Seizure disorder: Code(s): G40.909 - Epilepsy, unspecified, not intractable, without status epilepticus Status: Acute Assessment and Plan: Await EEG -continue home medications -monitor for worsening symptoms (6) Multiple sclerosis: Code(s): G35 - Multiple sclerosis Status: Acute Assessment and Plan: Patient has history of this and takes carbamazepine and dalfampridine -Neurology to discuss medications for this (7) Acute electrocardiogram changes: Code(s): R94.31 - Abnormal electrocardiogram [ECG] [EKG] Status: Acute Assessment and Plan: EKG on admission show some changes and possible a flutter -this is not seen on telemetry -could be due to reaction from the tachycardia? -baseline trop neg, no signs of ACS. No further trop needed or tell -no chest pain -Echo stated: There is an abnormality in the aortic arch, which is not well visualized. This may be atherosclerotic plaque with a mobile component. Recommend transesophageal ECHO for further evaluation. Will consult cardiology Subjective Date/time seen: 04/26/20 12:48 Interval history: Pt is a 54-year-old female here for altered mental status who was seen today. Patient states she is doing well. She has no reocurring symptoms since being here. She has some pain occasionally urinating but is unsure if it is the catheter. She has a hx of having blood in her urine and she saw a urologist in the past for this. She has absolutely no chest pain, palpitations or shortness of breath. She feels weak but that is at her baseline. She further denies diarrhea, constipation, or leg swelling. She sees her neurologist at [facility]. Exam Narrative: Exam Narrative: General: Well developed well nourished patient in NAD HEENT: normocephalic Neck: supple Neuro: Alert and oriented x4. Decreased strength bilaterally due to MS CV:RRR. Telemetry without any alarm reviews today. Resp:CTA Abd: Soft, non distended. No pain to palpation. Positive bowel sounds Extremities: Chronic changes due to MS, hyperspasticity Objective Data Vital Signs Vital Signs: Vital Signs - 24 hr 04/25/20 14:00 04/25/20 16:00 04/25/20 20:00 Temperature 97.7 F Pulse Rate
--- NOTE | 2020-04-26 15:21 | WPDNEURORHBP ---
Subjective Date/time seen: 04/26/20 15:21 54 years old lady with ongoing history of seizure disorder, multiple sclerosis, documented abnormal MRI of cervical spine, brain, and questionable thoracic spine receiving Xarelto 20 mg daily in addition to carbamazepine 200 mg twice a day and tamsulosin 0.4 mg q.12 hours but no maintenance dose for the demyelinating disease, abnormality in the aortic arch raising the possibility of mobile component and need for the transesophageal echocardiogram Review of Systems Review of Systems: All systems reviewed & are unremarkable except as noted in HPI and below Exam Const: General: cooperative, no acute distress, alert, awake, anxious and confusion Nutritional Appearance: average body habitus and thin Orientation/consciousness: oriented to person and oriented to place Limitations: altered mental status and behavioral limitations HENMT: Head: normocephalic Ears: hearing grossly normal bilaterally General nose exam: Normal external nose present and No nasal discharge present Face and sinus: normal facial exam Mouth: Yes Normal oral and palatal mucosa present Throat: uvula midline Eyes: General: appearance normal, both eyes and all related structures Alignment and Position: alignment normal Periorbital: periorbital findings normal Eyelids: eyelids normal Conjunctivae: conjunctivae normal Sclera: sclerae normal Cornea: corneas normal Pupils: Equal, round and reactive pupils present EOM: EOMs intact bilaterally Neck: Neck: full ROM Resp: Effort & Inspection: able to speak in complete sentences ( mumbles with low volume) Auscultation: clear to auscultation bilaterally Cardio: Jugular venous distension: no JVD Rate: regular rate Rhythm: regular rhythm Peripheral pulses: Peripheral pulses 2+ throughout GI: Auscultation: normal bowel sounds Neuro: General: patient oriented x3 Cranial nerves: Yes CN's II-XII intact bilaterally Cognition (Neuro): normal cognition Speech: Abnormal speech present ( low volume) Gait exam (Neuro): Unable to assess gait Motor exam (neuro): No tremor noted, Normal motor muscle tone present throughout and Abnormal motor strength present Sensory Exam: Sensory deficit (Neuro) Deep tendon reflexes (DTR's): Right triceps reflex intensity grade: 1+, Left triceps reflex intensity grade: 1+, Rt Biceps (C5, C6): 1+, Left biceps reflex intensity grade: 1+, Right brachioradialis reflex intensity grade: 1+, Left brachioradialis reflex intensity grade: 1+, Right patellar reflex intensity grade: 1+, Left patellar reflex intensity grade: 1+, Right ankle reflex intensity grade: 1+ and Left ankle reflex intensity grade: 1+ Plantar Reflex Responses: equivocal: bilateral Coordination: [id number] test normal Psych: Speech and movement: Slowed speech present (Psych) Affect: Labile affect present Attitude: cooperative Thought process: Normal thought process present Thought content: Yes Normal thought content present Insight: Limited insight present (Psych) Judgement: Limited judgement present (Psych) Objective Data Vital Signs Vital Signs: Vital Signs - 24 hr 04/25/20 16:00 04/25/20 20:00 04/25/20 21:50 Temperature 36.5 C Pulse Rate 86 93 96 Respiratory Rate 16 Blood Pressure 98/66 L Pulse Oximetry 97 04/26/20 00:00 04/26/20 04:00 04/26/20 05:47 Temperature 36.6 C Pulse Rate 84 72 81 Respiratory Rate 16 Blood Pressure 98/40 L Pulse Oximetry 100 04/26/20 14:00 Temperature 36.7 C Pulse Rate 85 Respiratory Rate 18 Blood Pressure 132/59 L Pulse Oximetry 99 Intake/Output Intake/Output: Intake & Output 04/23/20 04/24/20 04/25/20 04/26/20 23:59 23:59 23:59 23:59 Intake Total 1000 2440 2660 Output Total 200 150 Balance 1000 2240 2510 Meds/Results Medications: Active Medications Generic Name Dose Route Start Last Admin Trade Name Freq PRN Reason Stop Dose Admin Acetaminophen 650 mg 04/25/20 03:10 04/25/20 23:50 Aceta
[2020-04-26] MEDS: RIVAROXABAN 20 MG TABLET PO (17:59)
[2020-04-26] MEDS: ACETAMINOPHEN 325 MG TABLET 650 MG PO (20:23)
[2020-04-27] MEDS: ACETAMINOPHEN 325 MG TABLET 650 MG PO ×2 (05:52→14:54)
[2020-04-27 06:00] VITALS: BP 101/49; PULSE 71; RESP 20; TEMP 36.8; O2SAT 96
[2020-04-27 06:48] LABS: Hematocrit 30.2 % (37.0-47.0); Hemoglobin 9.7 g/dL (12.0-15.0)
[2020-04-27] MEDS: FOLIC ACID 1 MG TABLET PO (08:58)
[2020-04-27] MEDS: carBAMazepine 200 MG TABLET PO ×3 (08:59→17:07)
[2020-04-27] MEDS: TAMSULOSIN HCL 0.4 MG CAPSULE PO ×2 (08:59→20:18)
[2020-04-27] MEDS: CYANOCOBALAMIN 1,000 MCG TABLET 1000 MCG PO (09:00)
[2020-04-27] MEDS: BACLOFEN 10 MG TABLET 20 MG PO ×4 (09:01→20:17)
--- NOTE | 2020-04-27 11:05 | P.NEURO_ITS ---
Neurology EEG Report General Information Date of Study: 04/25/20 TEST eeg DIAGNOSIS Loss of consciousness CONDITION OF RECORDING awake drowsy and sleep EEG NUMBER [id number] CLINICAL HISTORY patient has ongoing history of multiple sclerosis, she was brought to the emergency room for loss of consciousness and the possibility of seizures. EEG DESCRIPTION Basic resting occipital frequency consists of moderate amount of fairly well- organized low to medium voltage 8 to 9 hertz per second alpha admixed with minimal amount of low-voltage 15 to 18 hertz per second beta. Intermittent medium to high voltage 3 to 4 hertz per second delta and 5 to 7 hertz per second theta activity seen bilaterally. Hyperventilation not done. Photic stimulation not done. Non paroxysmal .nonfocal. nonlateralizing. IMPRESSION abnormal record due to the presence of bihemispheric theta and delta activity without any paroxysmal discharge ,these abnormalities are consistent with the organic or metabolic encephalopathy or focal structural lesion but there is no evidence of paroxysmal activity to consider the possibility of seizure at this particular time.
--- NOTE | 2020-04-27 11:22 | PHAR ---
Drug Name: Jakafi Ingredients: Ruxolitinib Phosphate -- 15 MG Related Documents: DRUGDEX Evaluations - RUXOLITINIB Color: White Shape: Oval Imprint: 15 , INCY Form: Oral Tablet
--- NOTE | 2020-04-27 11:29 | PHAR ---
Drug Name: Dalfampridine Ingredients: Dalfampridine -- 10 MG Related Documents: DRUGDEX Evaluations - DALFAMPRIDINE Color: White to Off-White Shape: Oval Imprint: D 10 , D10 Form: Oral Tablet, Extended Release
--- NOTE | 2020-04-27 12:18 | WPDNEUROPN ---
Progress Note: A&P Assessment and Plan (1) Seizure disorder: Code(s): G40.909 - Epilepsy, unspecified, not intractable, without status epilepticus Status: Acute (2) Chronic anticoagulation: Code(s): Z79.01 - [facility] (current) use of anticoagulants Status: Acute (3) Multiple sclerosis: Code(s): G35 - Multiple sclerosis Status: Acute Additional Plan 1. Seizure disorder for which she is being treated with carbamazepine the dose has been increased [id number] 3 times a day 2. Ongoing diagnosis of demyelinating disease for which we will give her the steroid therapy for the next 3 to 5 days intravenously and see if he can get her approved for the rehab Review of Systems Review of Systems: All systems reviewed & are unremarkable except as noted in HPI and below Exam Const: General: cooperative, comfortable and no acute distress Nutritional Appearance: average body habitus and thin Orientation/consciousness: patient oriented x3 Eyes: General: appearance normal, both eyes and all related structures Visual Diego: normal visual diego by confrontation Alignment and Position: alignment normal Periorbital: periorbital findings normal Eyelids: eyelids normal Conjunctivae: conjunctivae normal Pupils: Equal, round and reactive pupils present EOM: EOMs intact bilaterally Neck: Neck: normal visual inspection and full ROM Resp: Effort & Inspection: normal respiratory effort and able to speak in complete sentences Auscultation: clear to auscultation bilaterally Cardio: Rate: regular rate Rhythm: regular rhythm GI: GI Palp: Yes No hepatosplenomegaly present Auscultation: normal bowel sounds Skin: General skin exam: no rashes or lesions noted Neuro: General: patient oriented x3 Cranial nerves: Yes CN's II-XII intact bilaterally Cognition (Neuro): normal cognition Speech: normal speech Gait exam (Neuro): Ataxic gait present Motor exam (neuro): Pronator motor function not present, No tremor noted and Abnormal motor strength present Plantar Reflex Responses: equivocal: bilateral Coordination: [id number] test normal Psych: Appearance: grossly normal Speech and movement: Normal speech and movement present and Slowed speech present (Psych) Affect: Labile affect present Attitude: cooperative Thought process: Impoverished thought process present Thought content: Yes Normal thought content present Insight: Fair insight present (Psych) Judgement: Fair judgement present (Psych) Objective Data Vital Signs Vital Signs: Vital Signs - 24 hr 04/26/20 14:00 04/26/20 22:00 04/27/20 06:00 Temperature 36.7 C 36.3 C L 36.8 C Pulse Rate 85 93 71 Respiratory Rate 18 20 20 Blood Pressure 132/59 L 118/64 101/49 L Pulse Oximetry 99 97 96 Intake/Output Intake/Output: Intake & Output 04/24/20 04/25/20 04/26/20 04/27/20 23:59 23:59 23:59 23:59 Intake Total 1000 2440 3210 500 Output Total 200 200 Balance 1000 2240 3010 500 Meds/Results Medications: Active Medications Generic Name Dose Route Start Last Admin Trade Name Freq PRN Reason Stop Dose Admin Acetaminophen 650 mg 04/25/20 03:10 04/27/20 05:52 Acetaminophen 325 Mg Tablet PO 650 mg Q4H PRN Administration Mild Pain (1-3) or Fever Baclofen 20 mg 04/25/20 17:00 04/27/20 09:01 Baclofen 10 Mg Tablet PO 20 mg QID DUONG Administration Carbamazepine 200 mg 04/27/20 12:00 Carbamazepine 200 Mg Tablet PO TIDWM DUONG Cyanocobalamin 1,000 mcg 04/26/20 09:00 04/27/20 09:00 Cyanocobalamin 1,000 Mcg Tablet PO 1,000 mcg QAM DUONG Administration Folic Acid 1 mg 04/26/20 09:00 04/27/20 08:58 Folic Acid 1 Mg Tablet PO 1 mg DAILY DUONG Administration Methylprednisolone 4 mg 04/27/20 06:30 Methylprednisolone (Medrol) Dosepack 4 Mg Tablets PO 05/02/20 07:29 1200,1700 DUONG Taper Oxybutynin Chloride 15 mg 04/26/20 09:00 04/27/20 08:58 Oxybutynin Chloride Xl 5 Mg Tab.Er.24 PO
[2020-04-27] MEDS: methylPREDNISolone (MEDROL) DOSEPACK 4 MG TABLETS PO ×4 (12:27→20:17)
--- NOTE | 2020-04-27 13:06 | PM.IMPN ---
Progress Note: A&P Assessment and Plan (1) Acute encephalopathy: Code(s): G93.40 - Encephalopathy, unspecified <Valerie FieldBRET kohli - Last Filed: 04/27/20 13:20> Status: Acute <Valerie AngelBRET - Last Filed: 04/27/20 13:20> Assessment and Plan: Back to baseline, etiology unclear at this time -could be due to prolonged postictal state or seizure. EEG reviewed with neurologist and he recommends increasing carbamazepine -chest x-ray is clear, UA does not look like it is infected but does have blood -urine culture appears to be a colonizer. She has very few white blood cells, No fever, and leukocytosis improved significantly after admission which I do not suspect is due to infection. No antibiotics indicated at this time but patient was educated to us know she starts having urinary symptoms, fevers or change in mental status -white blood cell count within normal limits and patient has not been afebrile -MRI of the brain does not show any acute stroke but does show MS -no signs of meningitis on exam -UDS normal -no signs of cardiac arrhythmias on telemetry overnight, will d/c -suspect likely due to seizure <Valerie FieldBRET kohli - Last Filed: 04/27/20 13:20> (2) SIRS (systemic inflammatory response syndrome): Code(s): R65.10 - Systemic inflammatory response syndrome (SIRS) of non-infectious origin without acute organ dysfunction <Valerie FieldBRET kohli - Last Filed: 04/27/20 13:20> Status: Acute <Valerie FieldBRET kohli - Last Filed: 04/27/20 13:20> Assessment and Plan: As stated above, no infection suspected at this time -on admission the patient's white blood cell count was 16.5 and she had tachycardia which qualifies for sirs -blood cultures obtained and have NGTD -UA not suspicious for UTI but does have blood (likely due to traumatic catheterization), see above -continue to monitor. 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 <Valerie FieldALIS kohli-C - Last Filed: 04/27/20 13:20> Status: Acute <Valerie Diaz ALIS Angel-C - Last Filed: 04/27/20 13:20> Assessment and Plan: For DVT -continue Xarelto <Valerie Diaz ALIS Angel-C - Last Filed: 04/27/20 13:20> (5) Seizure disorder: Code(s): G40.909 - Epilepsy, unspecified, not intractable, without status epilepticus <Valerie Fieldseun PA-C - Last Filed: 04/27/20 13:20> Status: Acute <Valerie FieldALIS kohli-C - Last Filed: 04/27/20 13:20> Assessment and Plan: Await EEG -continue home medications, increase carbamazepine -monitor for worsening symptoms -will need repeat carbamazepine levels in 2 weeks according to neurology <Valerie Joe ALIS Angel-C - Last Filed: 04/27/20 13:20> (6) Multiple sclerosis: Code(s): G35 - Multiple sclerosis <Valerie Diaz ALIS Angel-C - Last Filed: 04/27/20 13:20> Status: Acute <Valerie Diaz Stanley PA-C - Last Filed: 04/27/20 13:20> Assessment and Plan: Patient has history of this and takes carbamazepine and dalfampridine -discussed with patient and family that she is not on routine MS medications and they are going to follow up with her neurologist <ELISA VegaC - Last Filed: 04/27/20 13:20> (7) Acute electrocardiogram changes: Code(s): R94.31 - Abnormal electrocardiogram [ECG] [EKG] <Valerie nAgel PA-C - Last Filed:
[2020-04-27 14:00] VITALS: BP 114/44; PULSE 84; RESP 20; TEMP 37.8; O2SAT 95
[2020-04-27 14:54] VITALS: TEMP 37.7
[2020-04-27 15:56] VITALS: TEMP 37.2
[2020-04-27] MEDS: RIVAROXABAN 20 MG TABLET PO (17:07)
[2020-04-27] MEDS: ERTAPENEM 1 GM/NS 50 ML 1 GM/50 ML BAG IVPB (18:10)
[2020-04-27 22:00] VITALS: BP 101/57; PULSE 77; RESP 16; TEMP 37; O2SAT 99
[2020-04-28] MEDS: methylPREDNISolone (MEDROL) DOSEPACK 4 MG TABLETS PO ×4 (05:32→20:21)
[2020-04-28 06:00] VITALS: BP 110/51; PULSE 72; RESP 20; TEMP 36.5; O2SAT 97
[2020-04-28 06:08] LABS: Hematocrit 33.5 % (37.0-47.0); Hemoglobin 10.9 g/dL (12.0-15.0)
[2020-04-28 06:28] LABS: Anion Gap 1 mmol/L (8-16); Blood Urea Nitrogen 8 mg/dL (7-17); Calcium 8.5 mg/dL (8.4-10.2); Carbon Dioxide 31 mmol/L (22-30); Chloride 109 mmol/L (98-107); Estimated CRCL calculation 135 ml/min; Estimated Glomerular Filt Rate > 60; Glucose 114 mg/dL (65-105); Potassium 3.8 mmol/L (3.4-5.0); Sodium 141 mmol/L (137-145)
[2020-04-28] MEDS: carBAMazepine 200 MG TABLET PO ×3 (08:38→16:53)
[2020-04-28] MEDS: BACLOFEN 10 MG TABLET 20 MG PO ×4 (08:38→20:20)
[2020-04-28] MEDS: CYANOCOBALAMIN 1,000 MCG TABLET 1000 MCG PO (08:39)
[2020-04-28] MEDS: FOLIC ACID 1 MG TABLET PO (08:39)
[2020-04-28] MEDS: TAMSULOSIN HCL 0.4 MG CAPSULE PO ×2 (08:39→20:20)
[2020-04-28 14:00] VITALS: BP 119/52; PULSE 85; RESP 20; TEMP 36; O2SAT 100
--- NOTE | 2020-04-28 14:37 | PM.IMPN ---
Progress Note: A&P Assessment and Plan (1) Acute encephalopathy: Code(s): G93.40 - Encephalopathy, unspecified Status: Acute Assessment and Plan: Back to baseline -could be due to prolonged postictal state or seizure. EEG reviewed with neurologist and he recommends increasing carbamazepine -chest x-ray is clearx2 -Urine initially thought to be contaminate but pt had a fever yesterday. abx started although I doubt this was the cause of her encephalopathy. -white blood cell count within normal limits -MRI of the brain does not show any acute stroke but does show MS -no signs of meningitis on exam -UDS normal -no signs of cardiac arrhythmias on telemetry -suspect likely due to seizure (2) SIRS (systemic inflammatory response syndrome): Code(s): R65.10 - Systemic inflammatory response syndrome (SIRS) of non-infectious origin without acute organ dysfunction Status: Acute Assessment and Plan: -on admission the patient's white blood cell count was 16.5 and she had tachycardia which qualifies for sirs -blood cultures obtained and have NGTD -continue to monitor. 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 This can lower the efficacy of xarelto. I spoke with pt to watch for clinical signs of DVT/PE once discharged especially since her dose of carbamazepine has been increased. Since she has not had any issues in the past with clotting on both these medications, I am hesitant to change her to wararin as this can have risks as well. the pt states the clot was 2-3 years ago and it not currently treating an acute DVT. Usually DVT prophylaxis dose is 10mg a day so the 15mg a day for prevention, even if decreased by carbamazepine, should still give her some benefit. (5) Seizure disorder: Code(s): G40.909 - Epilepsy, unspecified, not intractable, without status epilepticus Status: Acute Assessment and Plan: -carbamazepine increased to TID -monitor for worsening symptoms -will need repeat carbamazepine levels in 2 weeks according to neurology (6) Multiple sclerosis: Code(s): G35 - Multiple sclerosis Status: Acute Assessment and Plan: Patient has history of this and takes carbamazepine and dalfampridine -discussed with patient and family that she is not on routine MS medications and they are going to follow up with her neurologist (7) Acute electrocardiogram changes: Code(s): R94.31 - Abnormal electrocardiogram [ECG] [EKG] Status: Acute Assessment and Plan: EKG on admission show some changes and possible a flutter -this is not seen on telemetry -could be due to reaction from the tachycardia? -baseline trop neg, no signs of ACS. No further trop needed or tell -no chest pain -Echo stated: There is an abnormality in the aortic arch, which is not well visualized. This may be atherosclerotic plaque with a mobile component. One faculty member Recommend transesophageal ECHO for further evaluation. -CTA does not show any abnormality of thoracic aorta -Spoke with cardiology, plan for MOMO tomorrow (8) Multiple sclerosis exacerbation: Code(s): G35 - Multiple sclerosis Status: Acute Assessment and Plan: Patient is feeling more weak than her usual -may be a slight flare, neurology recommended Medrol Dosepak. If this does not improve, may consider Solu-Medrol IV 1 g over 24 hours -Dr. Steven would like a TRC consult -she may need SNF if she does not qualify for TRC, spoke with care coordination (9) UTI (ur
[2020-04-28] MEDS: ERTAPENEM 1 GM/NS 50 ML 1 GM/50 ML BAG IVPB (15:07)
[2020-04-28] MEDS: RIVAROXABAN 20 MG TABLET PO (17:00)
[2020-04-28 22:00] VITALS: BP 121/52; PULSE 75; RESP 16; TEMP 36.4; O2SAT 97
[2020-04-29] VITALS (11 sets, daily range): BP systolic 108–167; BP diastolic 51–97; PULSE 65–90; RESP 10–20; TEMP 36.2–36.6; O2SAT 96–100
[2020-04-29 06:08] LABS: Prothrombin Time 14.2 Seconds (11.1-14.7)
[2020-04-29 06:16] LABS: Anion Gap 2 mmol/L (8-16); Blood Urea Nitrogen 12 mg/dL (7-17); Calcium 8.3 mg/dL (8.4-10.2); Carbon Dioxide 31 mmol/L (22-30); Chloride 109 mmol/L (98-107); Estimated CRCL calculation 111 ml/min; Estimated Glomerular Filt Rate > 60; Glucose 87 mg/dL (65-105); Potassium 3.9 mmol/L (3.4-5.0); Sodium 142 mmol/L (137-145)
[2020-04-29 06:43] LABS: Basophils Percent Auto 0.7 % (0.2-1.2); Eosinophils Absolute Auto 0.1 K/mm3 (0-0.3); Eosinophils Percent Auto 1.4 % (0-4.4); Hematocrit 33.2 % (37.0-47.0); Hemoglobin 10.7 g/dL (12.0-15.0); Immature Granulocyte Absolute 0.02 K/mm3 (0.00-0.031); Immature Granulocyte Percent A 0.3 % (0-0.5); Lymphocytes Absolute Auto 2.27 K/mm3 (0.9-3.2); Mean Corpuscular HGB Conc 32.2 g/dl (32-36); Mean Corpuscular Hemoglobin 30.7 pg (26-34); Mean Corpuscular Volume 95.4 fl (80-100); Mean Platelet Volume 10.6 fl (7.4-10.4); Monocytes Absolute Auto 0.4 K/mm3 (0.1-0.6); Monocytes Percent Auto 6.9 % (2.6-8.5); Neutrophils Percent Auto 51.7 % (45.5-73.1); Platelet Count Result 263 k/mm3 (150-375); Red Blood Count 3.48 M/mm3 (4.2-5.4); Red Cell Distribution Width 13.5 % (11.5-14.5); White Blood Count 5.8 K/mm3 (4.5-10.0)
--- NOTE | 2020-04-29 08:00 | ECHO_ITS ---
Patient Info Name: Jenae Rodriguez Age: 54 years : 1965 Gender: Female Ht: 69 in Wt: 145 lbs BSA: 1.79 m2 BP: 126 / 67 mmHg Heart Rhythm: Sinus Rhythm Technical Quality: Good Exam Date: 04/29/2020 11:34 AM Exam Location: [facility] Patient Status: Outpatient Admit Date: 04/25/2020 Staff Ordering Physician: Valerie Angel PA-C Graphic Designer: Haroon Kaur, YOLANDA, RT Attending Provider: Valerie Angel PA-C Referring Physician: Stanley ROJAS; Exam Type: CA echo transesophageal Study Info Indications J96.00 - Acute respiratory failure, unspecified whether with hypoxia or hypercapnia Complete two-dimensional, color flow and Doppler transesophageal study is performed. Summary 1. No structural cardiac abnormality also as noted on transthoracic exam. 2. No evidence of mobile atheromatous material noted in the aorta either in the arch or in the descending thoracic aorta. 3. Findings of a mobile atheroma suspected on transthoracic study probably artifactual in nature. Left Ventricle Left ventricular chamber dimension is normal. Left ventricular systolic function is normal with an ejection fraction by Biplane Method of Discs of Empty. Right Ventricle Right ventricular chamber dimension is normal. Left Atria Left atrial chamber dimension is normal. Right Atria Right atrial chamber dimension is normal. Aortic Valve The aortic valve is normal. Pulmonic Valve The pulmonic valve is not well visualized. Mitral Valve The mitral valve has normal leaflets. Tricuspid Valve The tricuspid valve leaflets are normal. Pericardium/Pleural The pericardium appears normal. Inferior Vena Cava Not well visualized inferior vena cava with Empty collapse upon inspiration consistent with Empty right atrial pressure, Empty. Aorta The aortic root size at the sinus of Valsalva is normal. Report Signatures
[2020-04-29] MEDS: carBAMazepine 200 MG TABLET PO ×3 (08:46→17:01)
[2020-04-29] MEDS: BACLOFEN 10 MG TABLET 20 MG PO ×4 (08:49→20:05)
--- NOTE | 2020-04-29 11:31 | WPDMODSED ---
Moderate Sedation Note-Pt Data Patient Data Diagnosis: Change in mental status History of multiple sclerosis Questionable mobile mass/atheroma in the aortic arch. Present Complaint: No complaints Procedure to be performed/Plan: Transesophageal ECHO Allergies Allergy/AdvReac Type Severity Reaction Status Date / Time No Known Allergies Allergy Unverified 04/12/19 10:46 Home Medications Medication Instructions Recorded Confirmed Type rivaroxaban 20 mg tablet 20 mg PO QPM #30 tablet 02/20/19 04/25/20 Rx carbamazepine 200 mg PO BID 04/12/19 04/25/20 History methotrexate sodium 7.5 mg PO WEEKLY 04/12/19 04/25/20 History oxybutynin chloride 15 mg PO DAILY 04/12/19 04/25/20 History baclofen 20 mg PO QID 04/13/19 04/25/20 History dalfampridine 10 mg PO Q12H 04/25/20 04/25/20 History folic acid 1 mg PO DAILY 04/25/20 04/25/20 History sumatriptan succinate 100 mg PO BID PRN 04/25/20 04/25/20 History tamsulosin 0.4 mg PO BID 04/25/20 04/25/20 History Current Medications: Active Medications Acetaminophen (Acetaminophen 325 Mg Tablet) 650 mg PO Q4H PRN PRN Reason: Mild Pain (1-3) or Fever Last Admin: 04/27/20 14:54 Dose: 650 mg Documented by: Baclofen (Baclofen 10 Mg Tablet) 20 mg PO QID [facility] Last Admin: 04/29/20 08:49 Dose: 20 mg Documented by: Carbamazepine (Carbamazepine 200 Mg Tablet) 200 mg PO TIDWM [facility] Last Admin: 04/29/20 08:46 Dose: 200 mg Documented by: Cyanocobalamin (Cyanocobalamin 1,000 Mcg Tablet) 1,000 mcg PO QAM [facility] Last Admin: 04/28/20 08:39 Dose: 1,000 mcg Documented by: Folic Acid (Folic Acid 1 Mg Tablet) 1 mg PO DAILY [facility] Last Admin: 04/28/20 08:39 Dose: 1 mg Documented by: Ertapenem (Invanz 1 Gm/Ns 50 Ml) 1 gm in 50 mls @ 100 mls/hr IVPB Q24H [facility] Last Infusion: 04/28/20 15:37 Dose: Infused Documented by: Methylprednisolone (Methylprednisolone (Medrol) Dosepack 4 Mg Tablets) 4 mg PO 0630,1200,1700,2100 [facility]; Taper Stop: 05/02/20 07:29 Last Admin: 04/28/20 20:21 Dose: 8 mg Documented by: Oxybutynin Chloride (Oxybutynin Chloride Xl 5 Mg Tab.Er.24) 15 mg PO DAILY [facility] Last Admin: 04/28/20 08:37 Dose: 15 mg Documented by: Rivaroxaban (Rivaroxaban 20 Mg Tablet) 20 mg PO QPM [facility] Last Admin: 04/28/20 17:00 Dose: 20 mg Documented by: Sumatriptan Succinate (Sumatriptan Succinate 25 Mg Tablet) 100 mg PO BID PRN PRN Reason: Headache Tamsulosin HCl (Tamsulosin Hcl 0.4 Mg Capsule) 0.4 mg PO Q12HR [facility] Last Admin: 04/28/20 20:20 Dose: 0.4 mg Documented by: Sedation/Anesthesia: No previous sedation/anesthesia problems (including family history). [facility] Past Medical History Medical History Frequent UTI GERD (gastroesophageal reflux disease) History of DVT (deep vein thrombosis) Multiple sclerosis Seizure Surgical History Surgical History Hx of vaginal surgery Family History Family History Mother Diabetes mellitus Myocardial infarction PTSD (post-traumatic stress disorder) Father Diabetes mellitus Myocardial infarction Sibling Myocardial infarction Patient's brother is Social History Social History Social History: Patient is a full code. She lives with her mother. She is typically ambulatory but the last 3 days she has been bedbound. She was at 1 time but . she has no children. She has no power employee benefits attorney. Patient is undecided about code status at this time. She was discussing with days if that she wanted to be a DNR. But at this time she is unsure. Lifelong nonsmoker no alcohol or illicit drugs Smoking status: Never smoker Alcohol intake: current Substance use: never Additional occupation/education comments: Disabled Gender identity (if verbalized by the patient): Female Spiritual care concerns: No Agree to blood
--- NOTE | 2020-04-29 11:51 | WPDCARDPROC ---
Cardiac Cath Procedure Note Date of procedure:: 04/29/20 Performing physician:: Bebeto Blackwood MD Indication:: Questionable mobile mass in aortic arch Brief clinical history:: This is a 54-year-old woman with multiple sclerosis who does not have any previous cardiac history. She entered the hospital with mental status alterations and an echocardiogram was reported as questioning a mobile structure in the aortic arch after this an esophageal echo was recommended. Procedure Procedure performed:: Transesophageal echocardiogram Sedation/Medication given:: Fentanyl 50 mg Versed 2 mg Case start time 11:40 a.m. Case end time 11:45 a.m. Sedation provided by Felisha Morel RN, trained observer Estimated blood loss:: No blood loss Procedure note:: Patient was brought to the slab inspector holding area in the postabsorptive state. A or pharyngeal benzocaine was sprayed for topical anesthesia after this the bite block was placed and she was sedated using Versed and fentanyl as detailed above. This provided very good procedural sedation. The examination was relatively brief and somewhat truncated as her breathing became shallow during the procedure and I did not wish to keep the esophagus intubated any longer than necessary. Following brief examination of the heart which was normal and the trans thoracic echo I rotated the scope and examined the descending thoracic aorta and AA or aortic arch in some detail. Following this the probe was removed and the patient is rule a recovering uneventfully. Oxygen saturations remained normal throughout the procedure. Findings:: The cardiac structures are unremarkable. The left atrium is normal in size the mitral valve and aortic valve look normal there are no regurgitant lesions. The left ventricle is normal in dimension thickness and contractility. The right-sided chambers are unremarkable in appearance the interatrial septum is intact and normal in appearance. The descending thoracic aorta and aortic arch are unremarkable in appearance there is a small amount of atheromatous plaque in the descending thoracic aorta. There is no evidence of any visible mobile structure in the arch compatible with a mobile atheromatous plaque. Conclusion:: 1. Transesophageal echocardiogram demonstrating no evidence of any mobile atheromatous plaque in the arch which was questioned on transthoracic exam. 2. No structural cardiac abnormalities Bebeto Blackwood MD [facility]
--- NOTE | 2020-04-29 11:54 | PM.PNCARD ---
Progress Note: A&P Additional Plan 54-year-old patient with multiple sclerosis presenting to the hospital with some mental status alterations. We were consulted because of a questionable mobile atheroma in the aortic arch. Transesophageal echocardiogram done today shows no evidence of anything like this. There is no further cardiac workup or recommendation necessary in my opinion. I will sign off of her case at this time please call if there are cardiac questions or issues. Bebeto Blackwood MD [facility] Subjective Date/time seen: Date of service: 04/29/20 11:54 Interval history: Follow-up visit in this 54-year-old lady with: Alteration in mental status prompting admission last week. This esophageal echo was done a short time ago as the transthoracic echo last week was interpreted as a questionable mobile atheromatous plaque in the aortic arch. The esophageal echo shows no evidence of anything like this. Exam Const: General: comfortable and no acute distress HENMT: Mouth: Yes moist mucous membranes Eyes: Sclera: sclerae normal Pupils: Equal, round and reactive pupils present Neck: Neck: supple and no JVD Thyroid: thyroid normal Resp: Effort & Inspection: normal respiratory effort Auscultation: clear to auscultation bilaterally Cardio: Rate: regular rate Rhythm: regular rhythm GI: GI Palp: Yes Soft to palpation Auscultation: normal bowel sounds Skin: General skin exam: normal color Extrem: General: normal to inspection Objective Data Vital Signs Vital Signs: Vital Signs - 24 hr 04/28/20 14:00 04/28/20 22:00 04/29/20 05:46 Temperature 36.0 C L 36.4 C 36.2 C L Pulse Rate 85 75 65 Respiratory Rate 20 16 16 Blood Pressure 119/52 L 121/52 L 140/56 L Pulse Oximetry 100 97 96 04/29/20 11:15 04/29/20 11:36 04/29/20 11:40 Temperature Pulse Rate 69 74 73 Respiratory Rate 13 14 12 Blood Pressure 114/63 131/71 139/82 Pulse Oximetry 100 100 100 04/29/20 11:45 04/29/20 11:50 Temperature Pulse Rate 90 66 Respiratory Rate 10 L 10 L Blood Pressure 130/61 Pulse Oximetry 100 99 Intake/Output Intake/Output: Intake & Output 04/26/20 04/27/20 04/28/20 04/29/20 23:59 23:59 23:59 23:59 Intake Total 3210 1450 780 300 Output Total 200 Balance 3010 1450 780 300 Meds/Results Medications: Active Medications Generic Name Dose Route Start Last Admin Trade Name Garrett PRN Reason Stop Dose Admin Acetaminophen 650 mg 04/25/20 03:10 04/27/20 14:54 Acetaminophen 325 Mg Tablet PO 650 mg Q4H PRN Administration Mild Pain (1-3) or Fever Baclofen 20 mg 04/25/20 17:00 04/29/20 08:49 Baclofen 10 Mg Tablet PO 20 mg QID DUONG Administration Carbamazepine 200 mg 04/27/20 12:00 04/29/20 08:46 Carbamazepine 200 Mg Tablet PO 200 mg TIDWM DUONG Administration Cyanocobalamin 1,000 mcg 04/26/20 09:00 04/28/20 08:39 Cyanocobalamin 1,000 Mcg Tablet PO 1,000 mcg QAM DUONG Administration Folic Acid 1 mg 04/26/20 09:00 04/28/20 08:39 Folic Acid 1 Mg Tablet PO 1 mg DAILY [facility]ONG Administration Ertapenem 1 gm in 50 mls @ 100 mls/hr 04/27/20 16:00 04/28/20 15:37 Invanz 1 Gm/Ns 50 Ml IVPB Infused Q24H [facility] Infusion Methylprednisolone 4 mg 04/27/20 06:30 04/28/20 20:21 Methylprednisolone (Medrol) Dosepack 4 Mg Tablets PO 05/02/20 07:29 8 mg 0630,1200,1700,2100 DUONG Administration Taper Oxybutynin Chloride 15 mg 04/26/20 09:00 04/28/20 08:37 Oxybutynin Chloride Xl 5 Mg Tab.Er.24 PO 15 mg DAILY DUONG Administration Rivaroxaban 20 mg 04/25/20 18:00 04/28/20 17:00 Rivaroxaban 20 Mg Tablet PO 20 mg QPM DUONG Administration Sumatriptan Succinate 100 mg 04/25/20 13:38 Sumatriptan Succinate 25 Mg Tablet PO BID PRN Headache Tamsulosin HCl 0.4 mg 04/25/20 21:00 04/28/20 20:20 Tamsulosin Hcl 0.4 Mg Capsule PO 0.4 mg Q12HR [facility]ONG Administration Radiology Results: ITS Impressions Head CT 04/24/20 2
--- NOTE | 2020-04-29 12:34 | SUR.OPER ---
Pt able to tolerate po fluids without difficulty,report called to floor RN.
[2020-04-29] MEDS: SUMAtriptan SUCCINATE 25 MG TABLET 100 MG PO (12:48)
[2020-04-29] MEDS: TAMSULOSIN HCL 0.4 MG CAPSULE PO ×2 (12:49→20:06)
[2020-04-29] MEDS: FOLIC ACID 1 MG TABLET PO (12:49)
[2020-04-29] MEDS: methylPREDNISolone (MEDROL) DOSEPACK 4 MG TABLETS PO ×4 (12:51→20:05)
[2020-04-29] MEDS: CYANOCOBALAMIN 1,000 MCG TABLET 1000 MCG PO (12:52)
--- NOTE | 2020-04-29 15:32 | PM.IMPN ---
Progress Note: A&P Assessment and Plan (1) Acute encephalopathy: Code(s): G93.40 - Encephalopathy, unspecified Status: Acute Assessment and Plan: Back to baseline -could be due to prolonged postictal state or seizure. EEG reviewed with neurologist and he recommends increasing carbamazepine -chest x-ray is clearx2 -Urine initially thought to be contaminate but pt spiked fever 3/6. abx started although I doubt this was the cause of her encephalopathy. -white blood cell count within normal limits -MRI of the brain does not show any acute stroke but does show MS -no signs of meningitis on exam -UDS normal -no signs of cardiac arrhythmias on telemetry -suspect likely due to seizure, carbamazepine may increase (neurology's recommendation) (2) SIRS (systemic inflammatory response syndrome): Code(s): R65.10 - Systemic inflammatory response syndrome (SIRS) of non-infectious origin without acute organ dysfunction Status: Acute Assessment and Plan: -on admission the patient's white blood cell count was 16.5 and she had tachycardia which qualifies for sirs -blood cultures obtained and have NGTD -continue to monitor. 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 This can lower the efficacy of xarelto. I spoke with pt to watch for clinical signs of DVT/PE once discharged especially since her dose of carbamazepine has been increased. Since she has not had any issues in the past with clotting on both these medications, I am hesitant to change her to wararin as this can have risks as well. the pt states the clot was 2-3 years ago and it not currently treating an acute DVT. Usually DVT prophylaxis dose is 10mg a day so the 15mg a day for prevention, even if decreased by carbamazepine, should still give her some benefit. (5) Seizure disorder: Code(s): G40.909 - Epilepsy, unspecified, not intractable, without status epilepticus Status: Acute Assessment and Plan: -carbamazepine increased to TID -monitor for worsening symptoms -will need repeat carbamazepine levels in 2 weeks according to neurology (6) Multiple sclerosis: Code(s): G35 - Multiple sclerosis Status: Acute Assessment and Plan: Patient has history of this and takes carbamazepine and dalfampridine -discussed with patient and family that she is not on routine MS medications and they are going to follow up with her neurologist (7) Acute electrocardiogram changes: Code(s): R94.31 - Abnormal electrocardiogram [ECG] [EKG] Status: Acute Assessment and Plan: EKG on admission show some changes and possible a flutter -this is not seen on telemetry -could be due to reaction from the tachycardia? -baseline trop neg, no signs of ACS. No further trop needed or tell -no chest pain -Echo stated: There is an abnormality in the aortic arch, which is not well visualized. This may be atherosclerotic plaque with a mobile component. One scrap kettle tender Recommend transesophageal ECHO for further evaluation. -CTA does not show any abnormality of thoracic aorta -MOMO done 04/30 which was negative for abnormality (8) Multiple sclerosis exacerbation: Code(s): G35 - Multiple sclerosis Status: Acute Assessment and Plan: Patient is feeling more weak than her usual -may be a slight flare, neurology recommended Medrol Dosepak. If this does not improve, may consider Solu-Medrol IV 1 g over 24 hours -Dr. Steven would like a TRC consult o -she may need SNF if she does not quali
[2020-04-29] MEDS: ERTAPENEM 1 GM/NS 50 ML 1 GM/50 ML BAG IVPB (16:27)
[2020-04-29] MEDS: RIVAROXABAN 20 MG TABLET PO (17:01)
[2020-04-29 18:02] LABS: SARS-CoV-2 RNA PCR Negative
[2020-04-30 05:33] VITALS: BP 105/51; PULSE 65; RESP 18; TEMP 36.8; O2SAT 95
[2020-04-30 05:49] LABS: Basophils Percent Auto 0.5 % (0.2-1.2); Eosinophils Absolute Auto 0.1 K/mm3 (0-0.3); Eosinophils Percent Auto 1.8 % (0-4.4); Hematocrit 33.6 % (37.0-47.0); Hemoglobin 10.8 g/dL (12.0-15.0); Immature Granulocyte Absolute 0.01 K/mm3 (0.00-0.031); Immature Granulocyte Percent A 0.2 % (0-0.5); Lymphocytes Absolute Auto 1.85 K/mm3 (0.9-3.2); Lymphocytes Percent Auto 32.9 % (18.3-44.2); Mean Corpuscular HGB Conc 32.1 g/dl (32-36); Mean Corpuscular Hemoglobin 29.9 pg (26-34); Mean Corpuscular Volume 93.1 fl (80-100); Mean Platelet Volume 10.1 fl (7.4-10.4); Monocytes Absolute Auto 0.3 K/mm3 (0.1-0.6); Monocytes Percent Auto 5.7 % (2.6-8.5); Neutrophils Absolute Auto 3.3 K/mm3 (1.3-6.7); Neutrophils Percent Auto 58.9 % (45.5-73.1); Platelet Count Result 274 k/mm3 (150-375); Red Blood Count 3.61 M/mm3 (4.2-5.4); Red Cell Distribution Width 13.2 % (11.5-14.5); White Blood Count 5.6 K/mm3 (4.5-10.0)
[2020-04-30] MEDS: methylPREDNISolone (MEDROL) DOSEPACK 4 MG TABLETS PO ×3 (05:50→20:07)
[2020-04-30 06:12] LABS: Anion Gap 2 mmol/L (8-16); Blood Urea Nitrogen 11 mg/dL (7-17); Calcium 8.2 mg/dL (8.4-10.2); Carbon Dioxide 30 mmol/L (22-30); Chloride 108 mmol/L (98-107); Estimated CRCL calculation 111 ml/min; Estimated Glomerular Filt Rate > 60; Glucose 87 mg/dL (65-105); Potassium 4.1 mmol/L (3.4-5.0); Sodium 140 mmol/L (137-145)
[2020-04-30] MEDS: BACLOFEN 10 MG TABLET 20 MG PO ×4 (08:20→20:07)
[2020-04-30] MEDS: TAMSULOSIN HCL 0.4 MG CAPSULE PO ×2 (08:22→20:07)
[2020-04-30] MEDS: FOLIC ACID 1 MG TABLET PO (08:22)
[2020-04-30] MEDS: carBAMazepine 200 MG TABLET PO ×3 (08:22→16:34)
[2020-04-30] MEDS: CYANOCOBALAMIN 1,000 MCG TABLET 1000 MCG PO (08:23)
[2020-04-30] MEDS: LIDOCAINE HCL 1% LOCAL INJ 2 ML AMPUL 5 ML INFILTRATE (11:30)
[2020-04-30 14:00] VITALS: BP 116/50; PULSE 85; RESP 20; TEMP 36.8; O2SAT 98
--- NOTE | 2020-04-30 14:31 | PM.IMPN ---
Progress Note: A&P Assessment and Plan (1) Acute encephalopathy: Code(s): G93.40 - Encephalopathy, unspecified Status: Acute Assessment and Plan: Back to baseline -could be due to prolonged postictal state or seizure. EEG reviewed with neurologist and he recommends increasing carbamazepine -chest x-ray is clearx2 -Urine initially thought to be contaminate but pt spiked fever /. abx started although I doubt this was the cause of her encephalopathy. -white blood cell count within normal limits -MRI of the brain does not show any acute stroke but does show MS -no signs of meningitis on exam -UDS normal -suspect likely due to seizure, carbamazepine increased (neurology's recommendation) (2) UTI (urinary tract infection): Code(s): N39.0 - Urinary tract infection, site not specified Status: Acute Assessment and Plan: Patient spiked a fever 04/27/20. Urine culture growing ESBL Klebsiella resistant to multiple abx. Continue ertapenem (day 4) through 05/03/20. Midline placed today left UE. 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 This can lower the efficacy of xarelto. Discussed to watch for clinical signs of DVT/PE once discharged especially since her dose of carbamazepine has been increased. Since she has not had any issues in the past with clotting on both these medications, hesitant to change her to warfarin as this can have risks as well. the pt states the clot was 2-3 years ago and it not currently treating an acute DVT. Usually DVT prophylaxis dose is 10mg a day so the 15mg a day for prevention, even if decreased by carbamazepine, should still give her some benefit. (4) Seizure disorder: Code(s): G40.909 - Epilepsy, unspecified, not intractable, without status epilepticus Status: Acute Assessment and Plan: -carbamazepine increased to TID -monitor for worsening symptoms -will need repeat carbamazepine levels in 2 weeks according to neurology (5) Multiple sclerosis: Code(s): G35 - Multiple sclerosis Status: Acute Assessment and Plan: Patient has history of this and takes carbamazepine and dalfampridine Her MTX is held due to acute infection, see below. (6) Acute electrocardiogram changes: Code(s): R94.31 - Abnormal electrocardiogram [ECG] [EKG] Status: Acute Assessment and Plan: EKG on admission show some changes and possible a flutter which was not noted on telemetry. On TTE there was a possible abnormality in the aortic arch not well-visualized. MOMO done 04/30 which was negative for abnormality. (7) Multiple sclerosis exacerbation: Code(s): G35 - Multiple sclerosis Status: Acute Assessment and Plan: Patient is feeling more weak than her usual -may be a slight flare, may be related to UTI, neurology recommended Medrol Dosepak. Dispo is SNF. Additional Plan Patient and family have concerns with methotrexate being held which she takes for MS. She described Dr Mason, her neurologist, was trying to wean this medication. (Decrease from 3 tabs to 2 tabs for one month, then down to 1 tab for one month, then off). She describes taking the first decreased dose of two tabs and then 2 days later became ill and unresponsive which she attributes to the lower MTX dose. I explained her unresponsiveness may have been a seizure. I explained the hesitation of using an immunosuppressive agent during acute UTI requiring IV abx. Despite detailed education, randee
[2020-04-30] MEDS: ERTAPENEM 1 GM/NS 50 ML 1 GM/50 ML BAG IVPB (16:34)
[2020-04-30] MEDS: RIVAROXABAN 20 MG TABLET PO (16:34)
[2020-04-30] MEDS: SALINE LOCK FLUSH 10 ML IV PUSH ×2 (16:35→20:13)
[2020-04-30 21:30] VITALS: BP 95/56; PULSE 85; RESP 16; TEMP 36.8; O2SAT 98
[2020-04-30 22:47] LABS: SARS-CoV-2 RNA PCR Negative
[2020-04-30 23:46] LABS: Carbamazepine Tegretol 6.9 mcg/mL (4.0-12.0)
[2020-05-01] MEDS: SALINE LOCK FLUSH 10 ML IV PUSH ×3 (05:43→20:45)
[2020-05-01] MEDS: methylPREDNISolone (MEDROL) DOSEPACK 4 MG TABLETS PO ×2 (05:44→20:44)
[2020-05-01 06:00] VITALS: BP 115/69; PULSE 73; RESP 16; TEMP 36.2; O2SAT 96
[2020-05-01] MEDS: CYANOCOBALAMIN 1,000 MCG TABLET 1000 MCG PO (09:00)
[2020-05-01] MEDS: TAMSULOSIN HCL 0.4 MG CAPSULE PO ×2 (09:00→20:43)
[2020-05-01] MEDS: carBAMazepine 200 MG TABLET PO ×3 (09:00→17:14)
[2020-05-01] MEDS: FOLIC ACID 1 MG TABLET PO (09:00)
[2020-05-01] MEDS: BACLOFEN 10 MG TABLET 20 MG PO ×4 (09:00→20:43)
--- NOTE | 2020-05-01 13:38 | PM.DS ---
DS: Admitting Diagnosis Admitting Diagnosis Admitting Diagnosis: Altered mental status DS: Discharge Diagnosis Discharge Diagnosis (1) Acute encephalopathy: Code(s): G93.40 - Encephalopathy, unspecified Status: Acute Assessment and Plan: Date of Admission 04/25/20 Date of Discharge 05/01/20 Ms. Rodriguez is a 54yo F with multiple sclerosis, seizure disorder, frequent UTIs, on chronic anticoagulation with Xarelto for history of DVT who presented to the ED for evaluation of altered mental status. She was brought in by family because she was unarousable. She remained confused through the evening then cognition was improved the following day. It is suspected her symptoms were related to seizure disorder/postictal state. She was seen by neurology, Dr Steven, who performed EEG and recommened increasing her dose of carbamazepine. She had no further seizure activity while admitted and was stable with cognition at her baseline for days prior to discharge. She was treated for UTI with IV ertapenem and will discharge with IV ertapenem to complete a 7-day course on 05/03/20 (midline was placed to accomplish this). She has been having frequent UTI and her neurologist at [facility] had recently attempted to wean her methotrexate. Patient's methotrexate was held here for one dose due to acute UTI. Patient wishes to get back on her original dose of MTX as soon as possible and I have encouraged her to follow up with her established neurologist regarding this. Echocardiogram showed possible valve abnormality thus she was seen by cardiology for MOMO which was unremarkable and did not show any abnormality at the area in question. She is working with PT/OT due to being weaker than her baseline, and is showing improvement with therapy thus she will discharge to SNF. She is hemodynamically stable for discharge 05/01/20. Back to baseline -could be due to prolonged postictal state or seizure. EEG reviewed with neurologist and he recommends increasing carbamazepine -chest x-ray is clearx2 -Urine initially thought to be contaminate but pt spiked fever 3. abx started although I doubt this was the cause of her encephalopathy. -MRI of the brain does not show any acute stroke but does show MS -no signs of meningitis on exam -UDS normal -suspect likely due to seizure, carbamazepine increased (neurology's recommendation) (2) UTI (urinary tract infection): Code(s): N39.0 - Urinary tract infection, site not specified Status: Acute Assessment and Plan: Patient spiked a fever 04/27/20. Urine culture growing ESBL Klebsiella resistant to multiple abx. Continue ertapenem (day 5) through 05/03/20. Midline placed left UE. 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 This can lower the efficacy of xarelto. Discussed to watch for clinical signs of DVT/PE once discharged especially since her dose of carbamazepine has been increased. Since she has not had any issues in the past with clotting on both these medications, hesitant to change her to warfarin as this can have risks as well. the pt states the clot was 2-3 years ago and it not currently treating an acute DVT. Usually DVT prophylaxis dose is 10mg a day so the 15mg a day for prevention, even if decreased by carbamazepine, should still give her some benefit. (4) Seizure disorder: Code(s): G40.909 - Epilepsy, unspecified, not intractable, without status epilepticus Status: Chronic Assessment and Plan: -carbamazepine increased to TID -monitor for worsening symptoms. no further seizure activity -will need repeat carbamazepine levels i
[2020-05-01 14:00] VITALS: BP 123/54; PULSE 72; RESP 16; TEMP 36.5; O2SAT 100
[2020-05-01] MEDS: ERTAPENEM 1 GM/NS 50 ML 1 GM/50 ML BAG IVPB (15:56)
[2020-05-01] MEDS: RIVAROXABAN 20 MG TABLET PO (17:13)
[2020-05-01 20:00] VITALS: PULSE 72; RESP 16; O2SAT 100
[2020-05-01 20:50] VITALS: BP 102/53; PULSE 82; RESP 18; TEMP 36.1; O2SAT 92
--- NOTE | 2020-05-01 22:21 | PC.NURSE ---
05/01/2020 at 2115- left with ambulance per stretcher.TDialRNC
--- NOTE | 2020-05-02 01:25 | PC.NURSE ---
05/01/20 at 2115-- home meds bagged and sent with patient per ambulance.TDialRNC
[2020-05-03 02:20] LABS: Methylmalonic Acid 157 nmol/L (87-318)
== END 2020-05-01 21:15 | DRG 101 ==
LOC: ANHED 04-25 00:50 → ANH3MEDSUR 04-25 02:48
PROVIDERS: Internal Medicine; Physician Assistant; Specialist; Admitting Provider Family Medicine; Emergency Provider Emergency Medicine; PCP Student in an Organized Health Care Education/Training Program; Visit Provider Family Medicine
PROC: B24BZZ4 Ultrasonography of Heart with Aorta, Transesophageal (ICD-10-PCS; CPT 93312; principal; 2020-04-29 12:30)
DX: G40.909 Epilepsy, unspecified, not intractable, without status epilepticus; G93.40 Encephalopathy, unspecified; R65.10 Systemic inflammatory response syndrome (SIRS) of non-infectious origin without acute organ dysfunction; N39.0 Urinary tract infection, site not specified; Z16.12 Extended spectrum beta lactamase (ESBL) resistance; B96.1 Klebsiella pneumoniae [K. pneumoniae] as the cause of diseases classified elsewhere; Z20.822 Contact with and (suspected) exposure to COVID-19; G35 Multiple sclerosis; K21.9 Gastro-esophageal reflux disease without esophagitis; R73.09 Other abnormal glucose; R94.31 Abnormal electrocardiogram [ECG] [EKG]; Z28.21 Immunization not carried out because of patient refusal; Z79.01 Long term (current) use of anticoagulants; Z79.899 Other long term (current) drug therapy; Z86.718 Personal history of other venous thrombosis and embolism; Z87.440 Personal history of urinary (tract) infections
CPT/HCPCS: 36415; 36569; 51701; 70450; 70551; 71045; 71275; 72141; 72146; 80048; 80053; 80156; 80307; 81001; 82550; 82607; 82746; 83036; 83605; 83735; 83921; 84443; 84484; 85014; 85018; 85025; 85610; 86140; 87040; 87077; 87086; 87088; 87186; 93005; 93306; 93312; 93320; 93325; 95816; 96361; 96365; 96367; 96372; 97110; 97161; 97166; 97530; 97535; 99285; A9270; C1751; C9803; G0378; J0696; J1335; J2250; J3010; J3420; J7040; J7120; Q9967; U0003; U0005

== ENCOUNTER 2021-02-08 11:33 | Inpatient (IN) | payer MEDICARE, SELFPAY ==
[2021-02-08] VITALS (7 sets, daily range): BP systolic 109–134; BP diastolic 52–72; PULSE 73–88; RESP 15–20; TEMP 36.1–37.1; O2SAT 94–100
--- NOTE | ~2021-02-08 | MR_ITS ---
EXAMINATION: MR brain/brain stem wo con DATE: 02/10/2021 13:19 INDICATION: Multiple sclerosis exacerbation. Seizure. TECHNIQUE: Magnetic resonance imaging (MRI) of the brain and brainstem was performed without intraven ous contrast. Sequences included sagittal and axial T1-weighted FLAIR, axial T1-weighted FSE, axial d iffusion-weighted FS EPI, sagittal T2-weighted FLAIR, axial T2*-weighted GRE, axial T2-weighted FLAIR Propeller, and axial T2-weighted Propeller. Apparent diffusion coefficient (ADC) maps were created. COMPARISON: Brain MRI 04/25/2020 FINDINGS: There is no acute ischemic infarct or intracranial hemorrhage. There is extensive cerebral white matter disease including areas of cystic encephalomalacia with a periventricular predominance. There are multiple lesions of increased T2-weighted signal intensity involving the sylwia, medulla, and cerebellar white matter. The ventricles are normal in size. The orbits are normal. There is mucosal thickening in the paranasal sinuses. There is dependent fluid in right maxillary sinus. IMPRESSION: 1. Stable severe white matter disease, consistent with multiple sclerosis. Reviewed, dictated and finalized at location A. CORE DEVELOPER
--- NOTE | ~2021-02-08 | XR_ITS ---
XR chest 1V portable 02/08/2021 14:42 Indication: Pneumonia Procedure: AP portable chest Comparison: Comparison to multiple prior studies sequentially, with oldest reviewed study dated 11/22. Findings: Left basilar infiltrates which may represent atelectasis or pneumonia. Heart size normal. R ight lung clear. Mild elevation the right diaphragm. No edema or pneumothorax. Impression: 1: Left basilar airspace disease may represent atelectasis or pneumonia. Reviewed, dictated and finalized at location A. [employer] OPERATOR Impression: 1: Left basilar airspace disease may represent atelectasis or pneumonia.
--- NOTE | ~2021-02-08 | XR_ITS ---
XR abdomen/kub 1V 02/08/2021 14:33 INDICATION: Weakness TECHNIQUE: KUB COMPARISON: 09/05/2018 FINDINGS: Bowel gas pattern is normal. Moderate colonic fecal loading. There is no evidence of free a ir, mass, organomegaly, ascites or obstruction. No abnormal calculi are seen. The bones appear inta ct. IMPRESSION: 1: No acute abdominal abnormality identified. Reviewed, dictated and finalized at location A. TIONS OPERATOR
--- NOTE | ~2021-02-08 | CT_ITS ---
EXAMINATION: CT diagnostic chest wo con DATE: 02/08/2021 15:44 INDICATION: Fever. Recent pneumonia. TECHNIQUE: Computed tomography (CT) of the chest was performed without intravenous contrast. The dose -length product was 255.54 mGy-cm. Automated exposure control and iterative reconstruction technique were employed. COMPARISON: CT dated 04/27/2020 FINDINGS: Trace pleural effusions. No thoracic lymphadenopathy. No significant pericardial effusion. There is mild atherosclerosis of the aorta. There is cholelithiasis. There is dependent atelectasis. There is a calcified granuloma in the left upper lobe. There is dependent atelectasis. No endobronchi al lesions. No pneumothorax. No acute osseous abnormality. No suspicious pulmonary nodules or masses. IMPRESSION: 1. Trace pleural effusions. 2: Bibasilar dependent atelectasis. Reviewed, dictated and finalized at location A. LE WASHER MACHINE
[2021-02-08 14:35] LABS: Basophils Percent Auto 0.3 % (0.2-1.2); Eosinophils Absolute Auto 0.1 K/mm3 (0-0.3); Hemoglobin 13.7 g/dL (12.0-15.0); Immature Granulocyte Absolute 0.03 K/mm3 (0.00-0.031); Immature Granulocyte Percent A 0.3 % (0-0.5); Lymphocytes Percent Auto 13.2 % (18.3-44.2); Mean Corpuscular HGB Conc 33.4 g/dl (32-36); Mean Corpuscular Hemoglobin 30.6 pg (26-34); Mean Corpuscular Volume 91.5 fl (80-100); Mean Platelet Volume 10.3 fl (7.4-10.4); Monocytes Absolute Auto 0.9 K/mm3 (0.1-0.6); Monocytes Percent Auto 9.5 % (2.6-8.5); Neutrophils Absolute Auto 6.9 K/mm3 (1.3-6.7); Neutrophils Percent Auto 75.7 % (45.5-73.1); Platelet Count Result 283 k/mm3 (150-375); Red Blood Count 4.48 M/mm3 (4.2-5.4); White Blood Count 9.1 K/mm3 (4.5-10.0)
[2021-02-08 14:44] LABS: Add Urine Microscopic? YES; Appearance Urine Cloudy (Clear); Bilirubin Urine Negative (Negative); Blood Urine Negative (Negative); Color Urine Yellow (Yellow); Glucose Urine UA Negative (Negative); Ketones Urine Negative (Negative); Leukocyte Esterase Ur Negative LEU/UL (Negative); Nitrate Urine Negative (Negative); Protein Urine Negative (Negative); Specific Grav Ur 1.009 (1.001-1.035); Squamous Epithelial Cell Urine Many /hpf (Few); Urobilinogen Urine Negative mg/dL (<2.0)
--- NOTE | 2021-02-08 14:46 | ED.GENADULT ---
HPI - General Adult General Chief complaint: Weakness Stated complaint: Straight Cath Failure Time Seen by Provider: 02/08/21 13:52 Source: family, EMS and RN notes reviewed Mode of arrival: EMS Limitations: clinical condition History of Present Illness HPI narrative: Patient brought to the emergency room from snf by her sister, by ambulance complaining of general weakness over the last 2 days, slightly getting worse, chest x-ray today showed pneumonia, patient referred to the emergency room for further evaluation. History of MS, history of kidney stone removal few days ago, patient went to a snf for for rehabilitation, short period of time,. Patient is not vaccinated for COVID-19 because of the MS. Her sister who have the power of litigation attorney associate telling me that patient is DNR Related Data Home Medications Medication Instructions Recorded Confirmed oxybutynin chloride 15 mg PO DAILY 04/12/19 04/25/20 baclofen 20 mg PO QID 04/13/19 04/25/20 dalfampridine 10 mg PO Q12H 04/25/20 04/25/20 folic acid 1 mg PO DAILY 04/25/20 04/25/20 sumatriptan succinate 100 mg PO BID PRN 04/25/20 04/25/20 tamsulosin 0.4 mg PO BID 04/25/20 04/25/20 Allergies Allergy/AdvReac Type Severity Reaction Status Date / Time No Known Allergies Allergy Verified 04/29/20 16:53 Review of Systems Review of Systems: CONSTITUTIONAL: Denies fever, chills, or sweats. EYES: Denies visual changes, redness, or discharge. ENT: Denies rhinorrhea, congestion, sore throat, or otalgia. CARDIOVASCULAR: Denies chest pain, palpitations, or edema. RESPIRATORY: Denies cough or dyspnea. GASTROINTESTINAL: Denies abdominal pain, nausea, vomiting, or diarrhea. GENITOURINARY: Denies dysuria or hematuria. SKIN: Denies rash or itching. MUSCULOSKELETAL: Denies back pain, joint pain, or myalgia. NEUROLOGIC: Denies headache, numbness, or weakness. PSYCHIATRIC: Denies anxiety or depression. [facility] Past Medical History Medical History Frequent UTI GERD (gastroesophageal reflux disease) History of DVT (deep vein thrombosis) Multiple sclerosis Seizure Surgical History Surgical History Hx of vaginal surgery Family History Family History Mother Diabetes mellitus Myocardial infarction PTSD (post-traumatic stress disorder) Father Diabetes mellitus Myocardial infarction Sibling Myocardial infarction Patient's brother is Social History Social History Social History: Patient is a full code. She lives with her mother. She is typically ambulatory but the last 3 days she has been bedbound. She was at 1 time but . she has no children. She has no power litigation attorney associate. Patient is undecided about code status at this time. She was discussing with days if that she wanted to be a DNR. But at this time she is unsure. Lifelong nonsmoker no alcohol or illicit drugs Smoking status: Never smoker Alcohol intake: current Substance use: never Additional occupation/education comments: Disabled Gender identity (if verbalized by the patient): Female Spiritual care concerns: No Agree to blood products: No Exam Narrative: General appearance: Well-developed, well-nourished Skin: Normal color Head: Normocephalic, nontraumatic Eyes: Clear conjunctiva ENT: Oropharynx normal, ears normal, nose normal Neck: Supple, nontender Chest and respiratory: Airway patent, no respiratory distress, no accessory muscle use Heart: Regular rate/rhythm Abdomen: Soft, nontender, no organomegaly, quiet bowel sounds Vascular: Normal peripheral pulses, normal capillary refill. Musculoskeletal: General weakness Neurologic: Alert, does not respond to verbal commands
[2021-02-08 14:47] LABS: Lactic Acid Reflex 1.2 mmol/L (0.7-2.1)
[2021-02-08 14:48] LABS: Alanine Aminotransferase 26 U/L (4-35); Albumin Level 4.5 g/dL (3.5-5.1); Alkaline Phosphatase 138 U/L (38-126); Anion Gap 7 mmol/L (8-16); Aspartate Amino Transferase 32 U/L (14-36); Bilirubin,Total 0.6 mg/dL (0.2-1.3); Blood Urea Nitrogen 12 mg/dL (7-17); CRP 6.7 mg/dL (<1.0); Calcium 9.1 mg/dL (8.4-10.2); Carbon Dioxide 28 mmol/L (22-30); Chloride 98 mmol/L (98-107); Estimated CRCL calculation 133 ml/min; Estimated Glomerular Filt Rate > 60; Glucose 112 mg/dL (65-110); Potassium 4.2 mmol/L (3.4-5.0); Sodium 133 mmol/L (137-145)
[2021-02-08 15:56] LABS: EDCOVIDSCREEN Negative (Negative)
[2021-02-08] MEDS: SODIUM CHLORIDE 0.9% IV 1,000 ML 125 ML IV CONT (17:13)
[2021-02-08] MEDS: methylPREDNISolone SOD SUCC 125 MG VIAL 250 MG IV PUSH ×2 (17:16→23:59)
--- NOTE | 2021-02-08 20:53 | ADMGEN ---
This patient, Jenae Rodriguez, was admitted to Medical Room 346-01. Patient/family oriented to hospital policies and general routines including ID bracelet, bed and alarms, visiting hours, pain management, procedures, bathroom and other care routines, personal items, smoking policy, room service/diet, and visiting hours. Information on how to activate the Rapid Response Team has been discussed. Patient/Family are encouraged to report perceived risks to care and to ask questions if they do not understand what they are told or what they should do.
--- NOTE | 2021-02-09 01:15 | PM.IMHP ---
H&P: HPI History of Present Illness Date/Time: 02/08/21 2300 this is a 55-year-old female patient who has been diagnosed with MS approximately 30 years ago. The patient came to the emergency room via ambulance from the group home where she staying for rehab. The patient has been complaining of weakness for the last 3 days. The patient has been getting worse. Her chest x-ray there showed pneumonia. However the CTA here does not suggest pneumonia. The patient has not been vaccinated for COVID-19. Her sister is the power city attorney who stated the patient is a DNR. However the patient has mixed feelings above it being a DNR and thinks that she may want to be a full code. Chest x-ray was read as left basilar airspace disease may represent atelectasis or pneumonia. Chest CT was read as trace pleural effusions. Bibasilar dependent atelectasis. The patient was started on high-dose steroids for MS exacerbation. Her sodium is slightly low at 133. The patient's urinalysis has many squamous cells that makes me believe that this is a contaminant. Neurology has been consulted. The patient was started on high-dose steroids. The patient is being admitted to inpatient services on the date of service of 02/08/2021. Chief Complaint: Weakness Review of Systems Review of Systems: All systems reviewed & are unremarkable except as noted in HPI and below Constitutional: Constitutional: Reports as per HPI and Reports no additional constitutional complaints Eyes: Eyes: Reports as per HPI and Reports no additional eye complaints ENT: Reports system reviewed and no additional complaints, except as documented and Reports Normal hearing present Cardiovascular: Cardiovascular: Reports no additional cardiovascular complaints Respiratory: Respiratory: Reports no additional respiratory complaints and Reports no additional respiratory complaints Gastrointestinal: Gastrointestinal: Reports as per HPI and Reports no additional gastrointestinal complaints Musculoskeletal: Musculoskeletal: Reports no additional musculoskeletal complaints Integumentary/Breasts: Skin/Breast: Reports system reviewed and no additional complaints, except as docu and Reports as per HPI Neurologic: Reports system reviewed and no additional complaints, except as documented, Reports as per HPI and Reports Normal hearing present Psychiatric: Psychiatric: Reports no additional psychiatric complaints and Reports as per HPI Endocrine: Endocrine: Reports no additional endocrine complaints Hematologic/Lymphatic: Hematologic/Lymphatic: Reports no additional hematologic/lymphatic complaints Allergic/Immunologic: Allergic/Immunologic: Reports no additional allergic/immunologic complaints PMFSH Past Medical History Medical History (Updated 02/09/21 @ 01:22 by Maite Lindsey NP) Frequent UTI GERD (gastroesophageal reflux disease) History of DVT (deep vein thrombosis) Hyperlipidemia Multiple sclerosis Seizure Surgical History Surgical History Hx of vaginal surgery Family History Family History Mother Diabetes mellitus Myocardial infarction PTSD (post-traumatic stress disorder) Father Diabetes mellitus Myocardial infarction Sibling Myocardial infarction Patient's brother is Social History Social History (Updated 02/09/21 @ 01:23 by Maite Lindsey NP) Social History: Patient is a DNR. She lives with her mother typically but is at a rehab facility now. she has been bedbound. She was at 1 time but . she has no children. She has no power city attorney. Patient is undecided about code status at this time. Lifelong nonsmoker no alcohol or illicit drugs Code status DNR Smoking status: Never smoker Alcohol intake: current Substance use: never Additional occupation/education comments: Disabled Gender identity (if verbalized b
[2021-02-09 06:00] VITALS: BP 124/70; PULSE 66; RESP 18; TEMP 36.4; O2SAT 97
[2021-02-09] MEDS: SODIUM CHLORIDE 0.9% IV 1,000 ML 125 ML IV CONT ×4 (06:05→23:27)
[2021-02-09] MEDS: methylPREDNISolone SOD SUCC 125 MG VIAL 250 MG IV PUSH ×4 (06:06→23:23)
[2021-02-09 06:17] LABS: Basophils Percent Auto 0.2 % (0.2-1.2); Hematocrit 34.8 % (37.0-47.0); Hemoglobin 11.6 g/dL (12.0-15.0); Immature Granulocyte Absolute 0.04 K/mm3 (0.00-0.031); Immature Granulocyte Percent A 0.6 % (0-0.5); Lymphocytes Absolute Auto 0.91 K/mm3 (0.9-3.2); Lymphocytes Percent Auto 14.1 % (18.3-44.2); Mean Corpuscular HGB Conc 33.3 g/dl (32-36); Mean Corpuscular Hemoglobin 30.5 pg (26-34); Mean Corpuscular Volume 91.6 fl (80-100); Mean Platelet Volume 10.3 fl (7.4-10.4); Monocytes Absolute Auto 0.1 K/mm3 (0.1-0.6); Monocytes Percent Auto 1.7 % (2.6-8.5); Neutrophils Absolute Auto 5.4 K/mm3 (1.3-6.7); Neutrophils Percent Auto 83.4 % (45.5-73.1); Platelet Count Result 254 k/mm3 (150-375); Red Cell Distribution Width 12.9 % (11.5-14.5); White Blood Count 6.5 K/mm3 (4.5-10.0)
[2021-02-09 06:27] LABS: Alanine Aminotransferase 21 U/L (4-35); Albumin Level 3.8 g/dL (3.5-5.1); Alkaline Phosphatase 107 U/L (38-126); Anion Gap 6 mmol/L (8-16); Aspartate Amino Transferase 23 U/L (14-36); Bilirubin,Total 0.3 mg/dL (0.2-1.3); Blood Urea Nitrogen 13 mg/dL (7-17); Calcium 8.5 mg/dL (8.4-10.2); Carbon Dioxide 26 mmol/L (22-30); Chloride 103 mmol/L (98-107); Estimated CRCL calculation 133 ml/min; Estimated Glomerular Filt Rate > 60; Glucose 130 mg/dL (65-110); Magnesium 2.1 mg/dL (1.6-2.3); Potassium 3.8 mmol/L (3.4-5.0); Sodium 135 mmol/L (137-145)
[2021-02-09 07:40] LABS: Thyroid Stimulating Hormone Reflex 0.194 uIU/mL (0.465-4.68)
[2021-02-09 08:21] LABS: Free T4 Free Thyroxine Reflex 0.72 ng/dL (0.78-2.19)
[2021-02-09] MEDS: levoFLOXacin 500 MG TABLET PO (09:22)
[2021-02-09] MEDS: FERROUS SULFATE 324 MG TABLET PO ×2 (09:22→18:47)
[2021-02-09] MEDS: carBAMazepine 200 MG TABLET PO ×3 (09:22→18:47)
[2021-02-09] MEDS: PANTOPRAZOLE SOD SESQUIHYDRATE 20 MG TAB PO (09:22)
[2021-02-09] MEDS: BACLOFEN 10 MG TABLET 20 MG PO ×4 (09:22→20:55)
[2021-02-09] MEDS: FOLIC ACID 1 MG TABLET PO (09:22)
[2021-02-09] MEDS: ASCORBIC ACID 500 MG TABLET PO (09:22)
--- NOTE | 2021-02-09 09:53 | PM.IMPN ---
Progress Note: A&P Assessment and Plan (1) Multiple sclerosis exacerbation: Code(s): G35 - Multiple sclerosis Status: Acute Assessment and Plan: The patient is on high dose steroids. initially given a 1000 mg IV piggyback of methylprednisolone now on 250 methylprednisolone every 6 hours. PT and OT consultation has been placed. no s/s of pneumonia on exam or CT scan. repeating UA, blood cultures currently pending. no fevers, WBC 6.5 Neurology consultation has been placed as well. MRI ordered. Continue with baclofen - for Spasticity. patient is currently bedbound. 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 Status: Chronic Assessment and Plan: Continue with Xarelto no s/s of active bleeding H/H stable 11.6/34.8 plts 254 (4) History of DVT (deep vein thrombosis): Code(s): Z86.718 - Personal history of other venous thrombosis and embolism Status: Chronic Assessment and Plan: no evidence of DVTs; no swelling or redness or pain to any of the 4 extremities Continue with Xarelto no s/s of active bleeding H/H stable 11.6/34.8 plts 254 (5) Hyperlipidemia: Code(s): E78.5 - Hyperlipidemia, unspecified Status: Chronic Assessment and Plan: Continue with atorvastatin chronic Subjective Date/time seen: 02/09/21 09:53 Jenae is feeling much better than at her admission yesterday. Jenae is tolerating her high dose steroids well. She is much stronger today. Her sister/POA even noted during Jenae's neuro exam that Jenae was doing much better today, improved body control and strength throughout during my examination. Her sister and medical POA had some concerns, wanted to discuss what our evaluation was for seizure activity and documenting any MS changes. We talked, both POA and patient voiced understanding of the care plan, and I have ordered strict Intake/output, an MRI, an EEG, aspiration/fall precautions, and appreciate that Neurologist was consulted at admission. I completed a neuro exam with Jenae and she did not have any new or acute or unilateral deficits noted. She did have some mild localized spasticity which quickly resolved with rest, noted to left foot with focused movement. She is eating and drinking well, denies CP/SOB/N/V/headache. Her sister/POA is in the process of lining up 24 hour care at Jenae's home for the patient, so she could return to her home. Jenae sees Dr. Mason in [place], but is looking to change to a local Neurologist for convenience of office visits and F/U care. The [facility] cxr showed pnuemonia, but pnuemonia was not evident on her admission CT. Her sister/POA was concerned that Jenae might have a UTI (history of UTIs), but her admission UA was cloudy but otherwise wnl and no culture was done, her WBC wnl, and no fevers, she is not on antibiotics, so I ordered a repeat UA. Review of Systems Review of Systems: All systems reviewed & are unremarkable except as noted in HPI and below Constitutional: Constitutional: Reports as per HPI, Reports no additional constitutional complaints, Reports fatigue, Reports lethargy and Reports weakness (much improved) Eyes: Eyes: Reports as per HPI and Reports no additional eye complaints ENT: Reports system reviewed and no additional complaints, except as documented and Reports Normal hearing present Cardiovascular: Cardiovascular: Reports no additional cardiovascular complaints, Denies chest pain, Denies pedal edema, Denies leg edema and Denies lightheadedness Respiratory: Respiratory: Reports no additional respiratory complaints, Reports no additional respiratory complaints, Denies chest congestion,
[2021-02-09 16:00] VITALS: BP 105/56; PULSE 74; RESP 14; TEMP 36.4; O2SAT 95
[2021-02-09] MEDS: RIVAROXABAN 20 MG TABLET PO (18:47)
[2021-02-09 20:00] VITALS: PULSE 68; RESP 18; O2SAT 97
[2021-02-09 20:16] LABS: Add Urine Microscopic? YES; Appearance Urine Cloudy (Clear); Bacteria Urine Trace /hpf; Bilirubin Urine Negative (Negative); Blood Urine Negative (Negative); Color Urine Yellow (Yellow); Glucose Urine UA Negative (Negative); Ketones Urine Negative (Negative); Leukocyte Esterase Ur Negative LEU/UL (Negative); Mucus Urine Rare /lpf; Nitrate Urine Negative (Negative); Protein Urine Negative (Negative); RBC Urine 0-2 /hpf (0-2); Specific Grav Ur 1.008 (1.001-1.035); Squamous Epithelial Cell Urine Many /hpf (Few); Urobilinogen Urine Negative mg/dL (<2.0); WBC Urine 0-3 /hpf
[2021-02-09] MEDS: ATORVASTATIN 10 MG TABLET PO (20:54)
[2021-02-09 21:10] VITALS: BP 113/50; PULSE 68; RESP 18; TEMP 36.3; O2SAT 97
[2021-02-10 04:48] VITALS: BP 109/52; PULSE 60; RESP 18; TEMP 36.6; O2SAT 97
[2021-02-10 05:22] LABS: Hematocrit 30.8 % (37.0-47.0); Mean Corpuscular HGB Conc 32.5 g/dl (32-36); Mean Corpuscular Hemoglobin 30.9 pg (26-34); Mean Corpuscular Volume 95.1 fl (80-100); Mean Platelet Volume 10.2 fl (7.4-10.4); Platelet Count Result 224 k/mm3 (150-375); Red Blood Count 3.24 M/mm3 (4.2-5.4); Red Cell Distribution Width 12.9 % (11.5-14.5); White Blood Count 8.9 K/mm3 (4.5-10.0)
[2021-02-10 05:40] LABS: Anion Gap 4 mmol/L (8-16); Blood Urea Nitrogen 12 mg/dL (7-17); Calcium 8.2 mg/dL (8.4-10.2); Carbon Dioxide 24 mmol/L (22-30); Chloride 110 mmol/L (98-107); Estimated CRCL calculation 133 ml/min; Estimated Glomerular Filt Rate > 60; Glucose 135 mg/dL (65-110); Potassium 3.4 mmol/L (3.4-5.0); Sodium 138 mmol/L (137-145)
[2021-02-10] MEDS: methylPREDNISolone SOD SUCC 125 MG VIAL 250 MG IV PUSH ×3 (05:50→18:10)
[2021-02-10] MEDS: SODIUM CHLORIDE 0.9% IV 1,000 ML 125 ML IV CONT (09:43)
[2021-02-10] MEDS: FERROUS SULFATE 324 MG TABLET PO ×2 (09:44→18:10)
[2021-02-10] MEDS: levoFLOXacin 500 MG TABLET PO (09:44)
[2021-02-10] MEDS: FOLIC ACID 1 MG TABLET PO (09:44)
[2021-02-10] MEDS: PANTOPRAZOLE SOD SESQUIHYDRATE 20 MG TAB PO (09:45)
[2021-02-10] MEDS: carBAMazepine 200 MG TABLET PO ×3 (09:45→18:10)
[2021-02-10] MEDS: ASCORBIC ACID 500 MG TABLET PO (09:45)
[2021-02-10] MEDS: BACLOFEN 10 MG TABLET 20 MG PO ×4 (09:45→20:49)
[2021-02-10 14:06] VITALS: BP 118/49; PULSE 66; RESP 16; TEMP 36.2; O2SAT 99
--- NOTE | 2021-02-10 15:56 | PM.IMPN ---
Progress Note: A&P Assessment and Plan (1) Multiple sclerosis exacerbation: Code(s): G35 - Multiple sclerosis Status: Acute Assessment and Plan: Presented with increased weakness concerning for MS exacerbation Appreciate neurology consultation Continue IV Solu-Medrol. Currently receiving 250 mg q.6 Discussed with Neurology, will transition to 1000 mg IV Solu-Medrol once daily for 3 more days to complete a total of 5 days of IV steroids. Appreciate PT/OT eval is Baclofen as needed for spasticity She is established with neurologist, Dr. Mason but has not followed up in some time. She is not on any maintenance medications. She should follow-up to resume taking medications. Brain MRI shows stable severe white matter disease consistent with MS (2) Seizure disorder: Code(s): G40.909 - Epilepsy, unspecified, not intractable, without status epilepticus Status: Chronic Assessment and Plan: No new seizures Continue home carbamazepine Neurology following as above (3) Abnormal TSH: Code(s): R79.89 - Other specified abnormal findings of blood chemistry Status: Acute Assessment and Plan: TSH slightly decreased as well as T4 Will repeat TSH with reflex and check T3 (4) Chronic anticoagulation: Code(s): Z79.01 - senior living (current) use of anticoagulants Status: Chronic Assessment and Plan: On Xarelto due to history of DVT. No acute issues. Monitor closely (5) Hyperlipidemia: Code(s): E78.5 - Hyperlipidemia, unspecified Status: Chronic Assessment and Plan: Continue atorvastatin. Additional Plan Patient was treated for pneumonia at hospitalization several weeks ago. She was discharged with a course of PO levaquin. Will discontinue at this time as she should have completed appropriate days of treatment. No signs of pneumonia on imaging. Subjective Date/time seen: 02/10/21 15:56 Interval history: Date of service: 02/10/2021 Jenae Rodriguez is a 55 year old female with a history of multiple sclerosis, seizure disorder, hyperlipidemia, DVT on chronic anticoagulation who is seen in follow-up for MS exacerbation. She has had MS for 40 years. She has not seen in neurologist in some time and is no longer taking any medications for MS. She stated that she is feeling significantly more weak, however the steroids have helped. She uses a Mati for mobility at home. She is currently in rehab following a recent hospitalization. She is incontinent of urine. She denies numbness or tingling of her extremities. Denies speech changes. Denies visual changes. She is eating well. Denies shortness breath, cough, or chest pain. Review of Systems Review of Systems: All systems reviewed & are unremarkable except as noted in HPI and below Exam Narrative: Ms. Rodriguez is a thin, frail 55-year-old female who is lying semi-recumbent in bed applying makeup. She appears comfortable and is in NARD. Neuro: awake, alert and oriented x4, speech clear, no focal neuro deficits noted, bilateral scrum master strength equal HEENMT: normocephalic, atraumatic, EOMI, sclerae anicteric, moist oral mucosa Neck: supple, no lymphadenopathy Respiratory: clear to auscultation bilaterally, nonlabored breathing Cardio: regular rate, regular rhythm with S1-S2 Abdomen: nondistended, normoactive bowel sounds, soft, nontender to palpation Extremities: no edema, erythema, or tenderness to palpation, DP pulses 2+ bilaterally Skin: no rashes or lesions, warm and dry Psych: appropriate mood and affect, judgment and insight intact Objective Data Vital Signs Vital Signs: Vital Signs - 24 hr 02/09/21 16:00 02/09/21 20:00 02/09/21 21:10 Temperature 97.6 F 97.4 F L Pulse Rate 74 68 68 Respiratory Rate 14 18 18 Blood Pressure 105/56 L 113/50 L Pulse Oximetry 95 97 97 02/10/21 04:48 02/10/21 14:06 Temperature 97.8 F 97.2 F L Pulse Rate 60 66 Respiratory Rate 18 16
--- NOTE | 2021-02-10 16:16 | WPDNEURCNPN ---
Assessment and Plan Additional Plan 1. Acute exacerbation of demyelinating disease 2. Ongoing history of multiple sclerosis 3. Possibility of left-sided pneumonia and 4. Chronic anticoagulation therapy treatment as ordered Consult date: 02/10/21 HPI: Jenae Rodriguez is a 55 year old female admitted to the hospital with the ongoing diagnosis of demyelinating disease that is multiple sclerosis which was diagnosed about 30 years ago. She was brought to the emergency room via ambulance from the shelter complaining of weakness of 72 hours duration which was getting worse initial x-ray of the chest documented pneumonia but CTA was negative for pneumonia patient has already been vaccinated for COVID-19 and the patient carries the DNR policy as per the sister who has her power of city attorney her chest x-ray documented left basilar airspace disease with the possibility of atelectasis, or pneumonia and the CT of the chest documented trace pleural effusion with bibasilar dependent atelectasis. Patient was started on the high-dose steroids for MS exacerbate masters in the emergency room her sodium was low that is 133, patient does carries the diagnosis of GERD, history of DVT, multiple sclerosis, seizure disorder, the never smoked current alcohol intake and outpatient medications particularly involved rivaroxaban 20 mg daily atorvastatin 10 mg daily carbamazepine 200 mg 3 times a day, Review of Systems Review of Systems: All systems reviewed & are unremarkable except as noted in HPI and below PMFSH Past Medical History Medical History Frequent UTI GERD (gastroesophageal reflux disease) History of DVT (deep vein thrombosis) Hyperlipidemia Multiple sclerosis Seizure Surgical History Surgical History Hx of vaginal surgery Family History Family History Mother Diabetes mellitus Myocardial infarction PTSD (post-traumatic stress disorder) Father Diabetes mellitus Myocardial infarction Sibling Myocardial infarction Patient's brother is Social History Social History Social History: Patient is a DNR. She lives with her mother typically but is at a rehab facility now. she has been bedbound. She was at 1 time but . she has no children. She has no power city attorney. Patient is undecided about code status at this time. Lifelong nonsmoker no alcohol or illicit drugs Code status DNR Smoking status: Never smoker Alcohol intake: current Substance use: never Additional occupation/education comments: Disabled Gender identity (if verbalized by the patient): Female Spiritual care concerns: No Agree to blood products: No Meds Home Medications and Allergies Home Medications Medication Instructions Recorded Confirmed Type rivaroxaban 20 mg tablet 20 mg PO QPM #30 tablet 02/20/19 02/08/21 Rx baclofen 20 mg PO QID 04/13/19 02/08/21 History folic acid 1 mg PO DAILY 04/25/20 02/08/21 History acetaminophen [Mapap 650 mg PO Q4H PRN #30 tablet 05/01/20 02/08/21 Rx (acetaminophen)] ascorbic acid (vitamin C) 500 mg PO DAILY 02/08/21 02/08/21 History atorvastatin [Lipitor] 10 mg PO HS 02/08/21 02/08/21 History carbamazepine [Tegretol] 200 mg PO TIDWM 02/08/21 02/08/21 History cranberry 500 mg PO DAILY 02/08/21 02/08/21 History diphenhydramine HCl [Banophen] 25 mg PO BID PRN 02/08/21 02/08/21 History ferrous sulfate 325 mg PO BID 02/08/21 02/08/21 History lactulose [Enulose] 20 g PO BID PRN 02/08/21 02/08/21 History levofloxacin 500 mg PO DAILY 02/08/21 02/08/21 History pantoprazole [Protonix] 20 mg PO QAM 02/08/21 02/08/21 History Allergies Allergy/AdvReac Type Severity Reaction Status Date / Time No Known Allergies Allergy Verified 04/29/20 16:53 Vital Signs Vital Signs - 24 hr 02/09/21 20:0
[2021-02-10] MEDS: RIVAROXABAN 20 MG TABLET PO (18:10)
[2021-02-10 20:00] VITALS: PULSE 62; RESP 16; O2SAT 95
[2021-02-10] MEDS: ATORVASTATIN 10 MG TABLET PO (20:49)
[2021-02-10 21:35] VITALS: BP 126/59; PULSE 62; RESP 16; TEMP 37.3; O2SAT 95
[2021-02-11 05:42] LABS: Hematocrit 32.8 % (37.0-47.0); Hemoglobin 10.7 g/dL (12.0-15.0); Mean Corpuscular HGB Conc 32.6 g/dl (32-36); Mean Corpuscular Hemoglobin 30.7 pg (26-34); Mean Corpuscular Volume 94.3 fl (80-100); Mean Platelet Volume 10.3 fl (7.4-10.4); Platelet Count Result 244 k/mm3 (150-375); Red Blood Count 3.48 M/mm3 (4.2-5.4); Red Cell Distribution Width 12.9 % (11.5-14.5); White Blood Count 8.4 K/mm3 (4.5-10.0)
[2021-02-11 05:50] LABS: Anion Gap 4 mmol/L (8-16); Blood Urea Nitrogen 13 mg/dL (7-17); Calcium 8.4 mg/dL (8.4-10.2); Carbon Dioxide 28 mmol/L (22-30); Chloride 106 mmol/L (98-107); Estimated CRCL calculation 133 ml/min; Estimated Glomerular Filt Rate > 60; Glucose 92 mg/dL (65-110); Potassium 3.4 mmol/L (3.4-5.0); Sodium 138 mmol/L (137-145)
[2021-02-11 06:00] VITALS: BP 128/64; PULSE 57; RESP 16; TEMP 36.6; O2SAT 96
[2021-02-11] MEDS: FERROUS SULFATE 324 MG TABLET PO ×2 (08:50→17:17)
[2021-02-11] MEDS: FOLIC ACID 1 MG TABLET PO (08:50)
[2021-02-11] MEDS: ASCORBIC ACID 500 MG TABLET PO (08:51)
[2021-02-11] MEDS: BACLOFEN 10 MG TABLET 20 MG PO ×4 (08:51→20:59)
[2021-02-11] MEDS: carBAMazepine 200 MG TABLET PO ×2 (08:51→17:17)
[2021-02-11] MEDS: PANTOPRAZOLE SOD SESQUIHYDRATE 20 MG TAB PO (08:51)
[2021-02-11] MEDS: methylPREDNISolone SOD SUCC 1,000 MG in DEXTROSE 5% 100 ML 200 MG IVPB (08:54)
--- NOTE | 2021-02-11 10:05 | WPDNEUROLOGY ---
Neurology EEG Report General Information Date of Study: 02/10/21 TEST eeg DIAGNOSIS altered mental status CONDITION OF RECORDING awake ,drowsy and sleep EEG NUMBER [id number] CLINICAL HISTORY Altered mental status EEG DESCRIPTION basic resting occipital frequency consists of low to medium voltage 8 to 10 hertz per 2nd alpha admixed with low-voltage to medium voltage 5 to 7 hertz per 2nd theta activity intermittently and also 15 to 18 hertz per 2nd beta activity. Hyperventilation not done ,photic stimulation not done. Non paroxysmal ,nonfocal ,nonlateralizing. IMPRESSION No significant abnormalities noted
[2021-02-11 14:00] VITALS: BP 116/52; PULSE 69; RESP 16; TEMP 36.4; O2SAT 95
--- NOTE | 2021-02-11 15:23 | PM.IMPN ---
Progress Note: A&P Assessment and Plan (1) Multiple sclerosis exacerbation: Code(s): G35 - Multiple sclerosis Status: Acute Assessment and Plan: Presented with increased weakness concerning for MS exacerbation Appreciate neurology consultation Continue IV Solu-Medrol 1000 mg IV Solu-Medrol once daily for 2 more days to complete a total of 5 days of IV steroids. Anticipate discharge 02/13/21 Appreciate PT/OT eval Baclofen as needed for spasticity She is established with neurologist, Dr. Mason but has not followed up in some time. She is not on any maintenance medications. She would like to follow up with Dr. Steven to be more local. Brain MRI shows stable severe white matter disease consistent with MS (2) Seizure disorder: Code(s): G40.909 - Epilepsy, unspecified, not intractable, without status epilepticus Status: Chronic Assessment and Plan: Last seizure April 2020. Continue home carbamazepine Neurology following as above (3) Abnormal TSH: Code(s): R79.89 - Other specified abnormal findings of blood chemistry Status: Acute Assessment and Plan: TSH slightly decreased as well as T4 on 02/09 Repeat TSH this morning was within normal limits (4) Chronic anticoagulation: Code(s): Z79.01 - [facility] (current) use of anticoagulants Status: Chronic Assessment and Plan: On Xarelto due to history of DVT. No acute issues. Monitor closely (5) Hyperlipidemia: Code(s): E78.5 - Hyperlipidemia, unspecified Status: Chronic Assessment and Plan: Continue atorvastatin. (6) Abnormal CXR: Code(s): R93.89 - Abnormal findings on diagnostic imaging of other specified body structures Status: Acute Assessment and Plan: CXR showed airspace disease concerning for pneumonia vs atelectasis. She is asymptomatic. There was reportedly concerns for pneumonia on an outpatient CXR . Follow up chest CT showed bibasilar atelectasis without findings consistent for pneumonia. No treatment for pneumonia. She is afebrile and asymptomatic. Incentive spirometry for atelectasis Subjective Date/time seen: 02/11/21 15:23 Interval history: Date of service: 02/11/2021 Jenae Rodriguez is a 55 year old female with a history of multiple sclerosis, seizure disorder, hyperlipidemia, DVT on chronic anticoagulation who is seen in follow-up for MS exacerbation. She has had MS for 40 years. She has not seen in neurologist in some time and is no longer taking any medications for MS. She is somewhat of a poor historian and seems to have difficulty providing clear details and timeline of events. She is starting to feel better today. Reports that her weakness is improving. She does endorse tingling in her fingers. Denies shortness of breath. No cough. Denies fever or chills. She is eating well. No visual changes or speech changes. No dysphagia. Review of Systems Review of Systems: All systems reviewed & are unremarkable except as noted in HPI and below Exam Narrative: Ms. Rodriguez is a thin, frail 55-year-old female who is lying semi-recumbent in bed. She appears comfortable and is in NARD. Neuro: awake, alert and oriented x4, speech clear, no focal neuro deficits noted HEENMT: normocephalic, atraumatic, EOMI, sclerae anicteric, moist oral mucosa Neck: supple, no lymphadenopathy Respiratory: clear to auscultation bilaterally, nonlabored breathing Cardio: regular rate, regular rhythm with S1-S2 Abdomen: nondistended, normoactive bowel sounds, soft, nontender to palpation Extremities: no edema, erythema, or tenderness to palpation, DP pulses 2+ bilaterally Skin: no rashes or lesions, warm and dry Psych: appropriate mood and affect, judgment and insight intact Objective Data Vital Signs Vital Signs: Vital Signs - 24 hr 02/10/21 20:00 02/10/21 21:35 02/11/21 06:00 Temperature 99.1 F 98 F Pulse Rate 62 62 57 L
[2021-02-11] MEDS: RIVAROXABAN 20 MG TABLET PO (17:17)
[2021-02-11 20:00] VITALS: PULSE 68; RESP 16; O2SAT 95
[2021-02-11] MEDS: ATORVASTATIN 10 MG TABLET PO (20:59)
[2021-02-11 22:00] VITALS: BP 119/63; PULSE 58; RESP 16; TEMP 36.4; O2SAT 93
[2021-02-12 05:53] LABS: Hematocrit 33.4 % (37.0-47.0); Hemoglobin 11.3 g/dL (12.0-15.0); Mean Corpuscular HGB Conc 33.8 g/dl (32-36); Mean Corpuscular Hemoglobin 30.9 pg (26-34); Mean Corpuscular Volume 91.3 fl (80-100); Mean Platelet Volume 10.1 fl (7.4-10.4); Platelet Count Result 241 k/mm3 (150-375); Red Blood Count 3.66 M/mm3 (4.2-5.4); Red Cell Distribution Width 12.7 % (11.5-14.5); White Blood Count 8.5 K/mm3 (4.5-10.0)
[2021-02-12 06:00] VITALS: BP 130/60; RESP 18; TEMP 36.7; O2SAT 94
[2021-02-12 06:00] LABS: Potassium 3.4 mmol/L (3.4-5.0)
[2021-02-12 06:14] LABS: Anion Gap 3 mmol/L (8-16); Blood Urea Nitrogen 11 mg/dL (7-17); Calcium 8.4 mg/dL (8.4-10.2); Carbon Dioxide 30 mmol/L (22-30); Chloride 104 mmol/L (98-107); Estimated CRCL calculation 110 ml/min; Estimated Glomerular Filt Rate > 60; Glucose 82 mg/dL (65-110); Sodium 137 mmol/L (137-145)
[2021-02-12] MEDS: ASCORBIC ACID 500 MG TABLET PO (08:04)
[2021-02-12] MEDS: BACLOFEN 10 MG TABLET 20 MG PO ×4 (08:04→20:44)
[2021-02-12] MEDS: FOLIC ACID 1 MG TABLET PO (08:04)
[2021-02-12] MEDS: carBAMazepine 200 MG TABLET PO ×3 (08:04→17:25)
[2021-02-12] MEDS: FERROUS SULFATE 324 MG TABLET PO ×2 (08:04→17:25)
[2021-02-12] MEDS: PANTOPRAZOLE SOD SESQUIHYDRATE 20 MG TAB PO (08:04)
[2021-02-12] MEDS: methylPREDNISolone SOD SUCC 1,000 MG in DEXTROSE 5% 100 ML 200 MG IVPB (09:14)
--- NOTE | 2021-02-12 14:19 | WPDNEUROPN ---
Progress Note: A&P Additional Plan severe multiple sclerosis with no history of recent treatment, present MRI is abnormal neurological status is compromised ,discussed with the family they would like to start her on the treatment ,she will need to follow up with the office subsequent to discharge from here Time Spent With Patient Time with patient: 15 - 25 minutes Subjective Date/time seen: 02/12/21 14:19 55 years old lady with demyelinating disease and also left-sided pneumonia along with the chronic anticoagulation therapy. Patient was evaluated during a previous hospitalization as well but at that time she did not want to continue the anti MS medications at this stage her family members have discussed with me and so as the patient and they want to be treated for ongoing demyelinating disease Review of Systems Review of Systems: All systems reviewed & are unremarkable except as noted in HPI and below Exam Const: General: cooperative and in distress Nutritional Appearance: average body habitus Orientation/consciousness: oriented to person, oriented to place and oriented to time Limitations: physical limitations HENMT: Head: normal to inspection Ears: hearing grossly normal bilaterally General nose exam: Normal external nose present Face and sinus: normal facial exam Mouth: Yes Normal oral and palatal mucosa present Eyes: General: appearance normal, both eyes and all related structures Visual Diego: normal visual diego by confrontation Alignment and Position: alignment normal Periorbital: periorbital findings normal Eyelids: eyelids normal Conjunctivae: conjunctivae normal Sclera: sclerae normal Cornea: corneas normal Pupils: Equal, round and reactive pupils present EOM: EOMs intact bilaterally Neck: Neck: normal visual inspection, full ROM and no lymphadenopathy Carotids: normal carotid upstroke Lymphatic: no lymphadenopathy noted Resp: Effort & Inspection: normal respiratory effort and able to speak in complete sentences Auscultation: clear to auscultation bilaterally Cardio: Rate: regular rate Rhythm: regular rhythm GI: Auscultation: normal bowel sounds Skin: General skin exam: normal color and no rashes or lesions noted Wounds: no wounds Neuro: General: oriented to person and oriented to place Cranial nerves: Yes CN's II-XII intact bilaterally Cognition (Neuro): normal cognition Speech: Abnormal speech present Gait exam (Neuro): Unable to assess gait Motor exam (neuro): Pronator motor function not present and No tremor noted Sensory Exam: Sensory deficit (Neuro) Deep tendon reflexes (DTR's): Right triceps reflex intensity grade: 1+, Left triceps reflex intensity grade: 1+, Rt Biceps (C5, C6): 1+, Left biceps reflex intensity grade: 1+, Right brachioradialis reflex intensity grade: 1+, Left brachioradialis reflex intensity grade: 1+, Right patellar reflex intensity grade: 1+, Left patellar reflex intensity grade: 1+, Right ankle reflex intensity grade: 1+ and Left ankle reflex intensity grade: 1+ Plantar Reflex Responses: equivocal: bilateral Psych: Appearance: disheveled Speech and movement: Slowed speech present (Psych) Affect: Sad affect present and Animated affect present Attitude: cooperative Thought process: Circumstantial thought process present Thought content: Yes Normal thought content present Insight: Fair insight present (Psych) Judgement: Fair judgement present (Psych) Objective Data Vital Signs Vital Signs: Vital Signs - 24 hr 02/11/21 20:00 02/11/21 22:00 02/12/21 06:00 Temperature 36.4 C 36.7 C Pulse Rate 68 58 L Respiratory Rate 16 16 18 Blood Pressure 119/63 130/60 Pulse Oximetry 95 93 94 Intake/Output Intake/Output: Intake & Output 02/09/21 02/10/21 02/11/21 02/12/21 23:59 23:59 23:59 23:59 Intake Total 4690 5688 1080 4548 Balance 4690 5688 1080 4548 Meds/Results Medications: Active Medications Generic Name Dose Route Start Last Admin Trade Name Freq ND
[2021-02-12 14:40] VITALS: BP 119/60; PULSE 72; RESP 18; TEMP 36.3; O2SAT 93
--- NOTE | 2021-02-12 14:49 | PM.IMPN ---
Progress Note: A&P Assessment and Plan (1) Multiple sclerosis exacerbation: Code(s): G35 - Multiple sclerosis Status: Acute Assessment and Plan: Presented with increased weakness concerning for MS exacerbation Appreciate neurology consultation Continue IV Solu-Medrol 1000 mg IV Solu-Medrol once daily for 1 more dayd to complete a total of 5 days of IV steroids. Anticipate discharge tomorrow 02/13/21 on medrol dose pack Appreciate PT/OT eval Baclofen as needed for spasticity She is established with neurologist, Dr. Mason but has not followed up in some time. She is not on any maintenance medications. She would like to follow up with Dr. Steven to be more local. She will follow up in several weeks to initiate MS medication pending insurance authorization. Brain MRI shows stable severe white matter disease consistent with MS (2) Seizure disorder: Code(s): G40.909 - Epilepsy, unspecified, not intractable, without status epilepticus Status: Chronic Assessment and Plan: Last seizure April 2020. Continue home carbamazepine Neurology following as above EEG performed 02/11 with no abnormalities (3) Abnormal TSH: Code(s): R79.89 - Other specified abnormal findings of blood chemistry Status: Acute Assessment and Plan: TSH slightly decreased as well as T4 on 02/09 Repeat TSH 02/11 was within normal limits (4) Chronic anticoagulation: Code(s): Z79.01 - longterm (current) use of anticoagulants Status: Chronic Assessment and Plan: On Xarelto due to history of DVT. No acute issues. Monitor closely (5) Hyperlipidemia: Code(s): E78.5 - Hyperlipidemia, unspecified Status: Chronic Assessment and Plan: Continue atorvastatin. (6) Abnormal CXR: Code(s): R93.89 - Abnormal findings on diagnostic imaging of other specified body structures Status: Acute Assessment and Plan: CXR showed airspace disease concerning for pneumonia vs atelectasis. She is asymptomatic. There was reportedly concerns for pneumonia on an outpatient CXR . Follow up chest CT showed bibasilar atelectasis without findings consistent for pneumonia. No treatment for pneumonia. She is afebrile and asymptomatic. Incentive spirometry for atelectasis Subjective Date/time seen: 02/12/21 14:49 Interval history: Date of service: 02/12/2021 Jenae Rodriguez is a 55 year old female with a history of multiple sclerosis, seizure disorder, hyperlipidemia, DVT on chronic anticoagulation who is seen in follow-up for MS exacerbation. She has had MS for 40 years. She has not seen in neurologist in some time and is no longer taking any medications for MS. She is doing well today. Her weakness has improved. No nombness or tingling of her extremities. She transfers via Mati. She is incontinent and this is unchanged. She denies visual changes .No speech changes. No dysphagia. No N/V, fever, chills, dizziness, lightheadedness. No shortness of breath,, chest pain, or palpitations. Review of Systems Review of Systems: All systems reviewed & are unremarkable except as noted in HPI and below Exam Narrative: Ms. Rodriguez is a thin, frail 55-year-old female who is lying semi-recumbent in bed. She appears comfortable and is in NARD. Neuro: awake, alert and oriented x4, speech clear, no focal neuro deficits noted, bilateral report manager strength equal HEENMT: normocephalic, atraumatic, EOMI, sclerae anicteric, moist oral mucosa Neck: supple, no lymphadenopathy Respiratory: clear to auscultation bilaterally, nonlabored breathing Cardio: regular rate, regular rhythm with S1-S2 Abdomen: nondistended, normoactive bowel sounds, soft, nontender to palpation Extremities: no edema, erythema, or tenderness to palpation, DP pulses 2+ bilaterally Skin: no rashes or lesions, warm and dry Psych: appropriate mood and affect, judgment and insight intact Objective Data V
[2021-02-12] MEDS: RIVAROXABAN 20 MG TABLET PO (17:25)
[2021-02-12 20:00] VITALS: PULSE 56; RESP 12; O2SAT 95
[2021-02-12 20:32] VITALS: BP 110/57; PULSE 56; RESP 12; TEMP 35.9; O2SAT 95
[2021-02-12] MEDS: ATORVASTATIN 10 MG TABLET PO (20:44)
[2021-02-13 05:42] VITALS: BP 109/52; PULSE 62; RESP 12; TEMP 35.8; O2SAT 96
[2021-02-13] MEDS: FERROUS SULFATE 324 MG TABLET PO (08:30)
[2021-02-13] MEDS: BACLOFEN 10 MG TABLET 20 MG PO (08:30)
[2021-02-13] MEDS: ASCORBIC ACID 500 MG TABLET PO (08:30)
[2021-02-13] MEDS: carBAMazepine 200 MG TABLET PO (08:30)
[2021-02-13] MEDS: PANTOPRAZOLE SOD SESQUIHYDRATE 20 MG TAB PO (08:30)
[2021-02-13] MEDS: FOLIC ACID 1 MG TABLET PO (08:30)
[2021-02-13] MEDS: methylPREDNISolone SOD SUCC 1,000 MG in DEXTROSE 5% 100 ML 200 MG IVPB (09:22)
--- NOTE | 2021-02-13 10:36 | PM.DS ---
DS: Admitting Diagnosis Discharge Date 02/13/2021 Admitting Diagnosis MS flare DS: Discharge Diagnosis Discharge Diagnosis (1) Multiple sclerosis exacerbation: Code(s): G35 - Multiple sclerosis Status: Acute Assessment and Plan: Presented with increased weakness concerning for MS exacerbation. She was seen in consultation by Neurology. She received 5 days of high-dose IV Solu-Medrol. Baclofen as needed for spasticity. Brain MRI showed stable severe white matter disease consistent with MS. She was previously established with neurologist, Dr. Mason, but had not followed up in some time and was not on any MS medications. She would like to follow-up with Dr. Steven to be more local. She will follow-up in several weeks to initiate MS medication pending insurance authorization. She participated in PT/OT during her admission and will continue therapy at her nursing facility. She had improvement in her symptoms. Discharged with Medrol Dosepak for additional 6 days. (2) Seizure disorder: Code(s): G40.909 - Epilepsy, unspecified, not intractable, without status epilepticus Status: Chronic Assessment and Plan: Last seizure April 2020. EEG performed 02/11/21 with no abnormalities. Continue home carbamazepine (3) Abnormal TSH: Code(s): R79.89 - Other specified abnormal findings of blood chemistry Status: Acute Assessment and Plan: Early in admission, TSH was checked and was abnormal. Repeated 02/11 TSH was 1.73. No further intervention. She is not on thyroid medications. Continue to follow-up with PCP for routine monitoring (4) Chronic anticoagulation: Code(s): Z79.01 - [facility] (current) use of anticoagulants Status: Chronic Assessment and Plan: On Xarelto due to history of DVT. No acute issues. Monitor closely (5) Hyperlipidemia: Code(s): E78.5 - Hyperlipidemia, unspecified Status: Chronic Assessment and Plan: Continue atorvastatin. (6) Abnormal CXR: Code(s): R93.89 - Abnormal findings on diagnostic imaging of other specified body structures Status: Acute Assessment and Plan: CXR showed airspace disease concerning for pneumonia vs atelectasis. She was asymptomatic and remained afebrile. There was reportedly concerns for pneumonia on an outpatient CXR . Follow up chest CT showed bibasilar atelectasis without findings consistent for pneumonia. Incentive spirometry provided for atelectasis. DS: Summary Hospital Course Hospital Course: Date of admission: 02/08/2021 Date of discharge: 02/13/2021 Jenae Rodriguez is a 55 year old female with a history of multiple sclerosis, seizure disorder, hyperlipidemia, DVT on chronic anticoagulation who presented to the emergency department on 02/08/2021 complaining of weakness ongoing for 2 days. She reportedly had an outpatient chest x-ray that was concerning for pneumonia. On presentation to the emergency department, she was afebrile, vital signs were stable, CBC and BMP unremarkable, lactic 1.2, CXR with left basilar disease printing sales representative of atelectasis or pneumonia, abdominal x-ray with no acute findings, and chest CT with trace pleural effusions and bibasilar dependent atelectasis. She was admitted to the hospitalist service for further evaluation and management and was seen in consultation by Neurology. Please see above for further details. She received high-dose IV steroids and did have symptomatic improvement. Her functional status remained stable, she is dependent on whole your lift for transfers. She will continue a Medrol Dosepak and will follow-up with neurology as an outpatient to initiate medication. She was feeling better and felt comfortable with plans for discharge. Consulting specialist in agreement. At the patient's request, I spoke with her sister, Melony, via phone who is her [id number]. Provided updates and answered all questions. Discuss
[2021-02-13 11:34] LABS: EDCOVIDSCREEN Negative (Negative)
== END 2021-02-13 12:07 | DRG 60 ==
LOC: ANHED 16:10 → ANH3MED 16:56
PROVIDERS: Nurse Practitioner; Admitting Provider Hospitalist; Emergency Provider Emergency Medicine; PCP Student in an Organized Health Care Education/Training Program; Visit Provider Physician Assistant
DX: G35 Multiple sclerosis (principal); G40.909 Epilepsy, unspecified, not intractable, without status epilepticus; Z20.822 Contact with and (suspected) exposure to COVID-19; R79.89 Other specified abnormal findings of blood chemistry; E78.5 Hyperlipidemia, unspecified; K21.9 Gastro-esophageal reflux disease without esophagitis; Z66 Do not resuscitate; Z86.718 Personal history of other venous thrombosis and embolism; Z79.01 Long term (current) use of anticoagulants
CPT/HCPCS: 36415; 51701; 70551; 71045; 71250; 74018; 80048; 80053; 81001; 83605; 83735; 84439; 84443; 85025; 85027; 86140; 87040; 87426; 95816; 97162; 97166; 97530; 97535; 99285; A9270; C9803; J2930; J7030

== ENCOUNTER 2021-03-05 11:29 | Inpatient (IN) | payer MEDICARE, SELFPAY ==
[2021-03-05] VITALS (14 sets, daily range): BP systolic 97–148; BP diastolic 51–75; PULSE 75–135; RESP 16–22; TEMP 37–39.1; O2SAT 91–96
--- NOTE | ~2021-03-05 | CT_ITS ---
EXAMINATION: CT diagnostic chest w con DATE: 03/07/2021 20:49 INDICATION: Shortness of breath, pneumonia TECHNIQUE: Transaxial computed tomographic images of the chest were obtained after the administration of 75 cc of Omnipaque 350 intravenous contrast. The dose-length product (DLP) was 149.06 mGy-cm. Ite rative reconstruction was used. COMPARISON: 02/08/2021 FINDINGS: There are airspace opacities of the lower lobes. There is no pleural effusion or pneumothor ax. There is mild bilateral hilar lymphadenopathy, likely reactive. The heart size is normal. There i s mild thoracic spondylosis. A cyst is again noted in the spleen. IMPRESSION: 1. Airspace opacities of the lower lobes, consistent with pneumonia. Reviewed, dictated and finalized at location F. HT LOSS SALES CONSULTANT
--- NOTE | ~2021-03-05 | CT_ITS ---
EXAMINATION: CT brain wo con DATE: 03/05/2021 12:29 INDICATION: Altered mental status. Unresponsive. Generalized weakness. TECHNIQUE: Computed tomography (CT) of the head was performed without intravenous contrast. The mA wa s adjusted according to patient size. Iterative reconstruction technique was employed. The dose-lengt h product was 605.33 mGy-cm. COMPARISON: Head CT 04/24/2020, brain MRI 02/10/2021 FINDINGS: There are scattered areas of low attenuation in the cerebral white matter with a periventri cular predominance. There is a perihippocampal fissure cyst on the right. There is no intracranial he morrhage, acute infarction, or abnormal intracranial mass lesion. The ventricles are normal in size. The orbits are normal. There is mucosal thickening in the paranasal sinuses. There is dependent fluid in left maxillary sinus. The mastoid air cells are normal. IMPRESSION: 1. Stable severe white matter disease, consistent with multiple sclerosis. Reviewed, dictated and finalized at location B. ERN PUNCHER
--- NOTE | ~2021-03-05 | XR_ITS ---
MODIFIED ESOPHAGRAM HISTORY: Shortness of breath. Rhonchi with breath sounds after intake TECHNIQUE: Modified barium esophagram was performed by speech pathologist under radiologist fluorosco pic guidance. This was recorded on tape. The exam was reviewed on 03/09/2021 12:06 MAINTENANCE INSPECTOR. The DAP for this procedure was 1.95 Gycm2. Fluoroscopy time is 2.5 minutes. FINDINGS: Lateral projection of the cervical spine demonstrates normal alignment. There is trace la ryngeal penetration with thin liquids which cleared with swallow. No evidence for aspiration.. IMPRESSION: 1: Trace laryngeal penetration without aspiration. 2: Please refer to speech pathologist report for additional detail. Reviewed, dictated and finalized at location A. TENANCE INSPECTOR
--- NOTE | ~2021-03-05 | XR_ITS ---
EXAMINATION: XR chest 1V portable EXAM DATE: 03/05/2021 12:43 INDICATION: congestion and hypoxia. TECHNIQUE: Portable AP frontal chest x-ray was obtained. Comparison is made to prior examination from 02/08/2021. FINDINGS: Small regions of left basilar atelectasis or pneumonia. The lungs are otherwise clear. The re are no pleural effusions. The cardiomediastinal silhouette is within normal limits. There is no pneumothorax suspected. The bones and soft tissues are unremarkable. IMPRESSION: Scattered subsegmental left basilar atelectasis or pneumonia. Reviewed, dictated and finalized at location A. DE FROID
--- NOTE | ~2021-03-05 | XR_ITS ---
XR chest 1V portable 03/08/2021 05:51 Indication: Pneumonia Procedure: AP portable chest Comparison: Comparison to multiple prior studies sequentially, with oldest reviewed study dated 04/2020. Findings: Left basilar airspace disease. Heart size normal. No significant effusion or pneumothorax. No acute osseous abnormality. Impression: 1: Left basilar airspace disease, consistent with pneumonia. Reviewed, dictated and finalized at location A. BEHAVIORIST Impression: 1: Left basilar airspace disease, consistent with pneumonia.
--- NOTE | 2021-03-05 11:58 | ED.GENADULT ---
HPI - General Adult General Chief complaint: Neuro Symptoms/Deficit Stated complaint: INCREASED LETHARGY,LOW O2 SATS Time Seen by Provider: 03/05/21 11:44 History of Present Illness HPI narrative: 55-year-old female with history of MS and frequent urinary tract infections presents to the emergency department from a local long-term. [facility] reports that they have multiple positive COVID's. Patient was swabbed yesterday and found to be negative. Patient was found to be less responsive and more lethargic today. Upon arrival emergency room patient was tachycardic with a heart rate in the 130s and was febrile. Patient does have a productive cough and is mildly hypoxic with a pulse ox in the low 90s on room air. Patient is typically alert and oriented x4. In the emergency department patient is responsive to voice and does follow commands but is very tired appearing. Related Data Home Medications Medication Instructions Recorded Confirmed baclofen 20 mg PO QID 04/13/19 03/05/21 folic acid 1 mg PO DAILY 04/25/20 03/05/21 ascorbic acid (vitamin C) 500 mg PO DAILY 02/08/21 03/05/21 atorvastatin [Lipitor] 10 mg PO HS 02/08/21 03/05/21 carbamazepine [Tegretol] 200 mg PO TIDWM 02/08/21 03/05/21 cranberry 500 mg PO DAILY 02/08/21 03/05/21 diphenhydramine HCl [Banophen] 25 mg PO BID PRN 02/08/21 03/05/21 ferrous sulfate 325 mg PO BID 02/08/21 03/05/21 pantoprazole [Protonix] 20 mg PO QAM 02/08/21 03/05/21 Allergies Allergy/AdvReac Type Severity Reaction Status Date / Time No Known Allergies Allergy Verified 03/05/21 18:00 Review of Systems Review of Systems: CONSTITUTIONAL: Increased lethargy, generalized weakness and fevers CARDIOVASCULAR: Tachycardia RESPIRATORY: Productive cough and shortness of breath ROS unobtainable: Yes unobtainable due to medical condition and unobtainable due to mental status FOR[facility]LY [facility], [facility] Past Medical History Medical History (Updated 03/05/21 @ 14:54 by Liliya Petersen PA-C) Chronic anticoagulation For history of DVT. Deep venous thrombosis Frequent UTI Including history of ESBL Klebsiella pneumoniae. Gastroesophageal reflux disease Hyperlipidemia Kidney stones Multiple sclerosis Seizure disorder Surgical History Surgical History (Updated 03/05/21 @ 14:48 by Liliya Petersen PA-C) History of cystoscopy Family History Family History Mother Diabetes mellitus Myocardial infarction PTSD (post-traumatic stress disorder) Father Diabetes mellitus Myocardial infarction Sibling Myocardial infarction Patient's brother is Social History Social History (Updated 03/05/21 @ 14:52 by Liliya Petersen PA-C) Social History: Prior to her most recent hospitalization she was living with her mother in [place]. The patient was it is she is , has no children. She is now at [facility]. She is essentially bed-bound now. No alcohol, tobacco, or illicit substance use. Healthcare power of estate attorney: Melony Miner, sister. Code status: DNR. Smoking status: Never smoker Alcohol intake: never Substance use: never Substance use type: does not use Spiritual care concerns: No Exam Narrative: APPEARANCE: Ill-appearing HEAD: normocephalic, atraumatic. EYES: PERRLA/EOMI, conjunctivae clear. NOSE: Normal no drainage EARS:TMS clear with good light reflex. THROAT: Pharynx clear, no exudate. NECK: Supple. No adenopathy, no masses. RESPIRATORY: Bilateral rhonchi and congestion CARDIOVASCULAR: Tachycardia ABDOMINAL: Soft, nontender, nondistended, normal bowel sounds MUSCULOSKELETAL: Moves all extremities. Strength/ROM intact, No edema, No calf tenderness. NEURO: Alert. Cranial nerves II through XII intact. Good coordination SKIN: Warm, dry. Normal Color Course Course Emergency Course: CT head was ordered due to change in patient's mental status. Chest x-ray ordered due to hypoxemia and
--- NOTE | 2021-03-05 12:10 | ECG_ITS ---
Measurements Intervals [place] Rate: 137 P: ID: 0 QRS: -2 QRSD: 169 T: 28 QT: 253 QTc: 383 Interpretive Statements ECTOPIC ATRIAL TACHYCARDIA INCOMPLETE RIGHT BUNDLE BRANCH BLOCK ST-T WAVE ABNORMALITY IN ANTEROLAT/INF LEADS- CONSIDER ISCHEMIA ABNORMAL ECG Electronically Signed On 03-05-2021 12:46:52 MANAGER E LEARNING by Layo Burks D.O.
[2021-03-05] MEDS: SODIUM CHLORIDE 0.9% IV 1,000 ML 999 ML IV CONT (12:16)
[2021-03-05 12:31] LABS: Basophils Absolute Auto 0.1 K/mm3 (0.0-0.1); Basophils Percent Auto 0.6 % (0.2-1.2); Eosinophils Absolute Auto 0.1 K/mm3 (0-0.3); Eosinophils Percent Auto 0.9 % (0-4.4); Hematocrit 50.2 % (37.0-47.0); Hemoglobin 16.2 g/dL (12.0-15.0); Immature Granulocyte Absolute 0.02 K/mm3 (0.00-0.031); Immature Granulocyte Percent A 0.2 % (0-0.5); Lymphocytes Absolute Auto 1.22 K/mm3 (0.9-3.2); Mean Corpuscular HGB Conc 32.3 g/dl (32-36); Mean Corpuscular Hemoglobin 30.7 pg (26-34); Mean Corpuscular Volume 95.1 fl (80-100); Monocytes Absolute Auto 0.5 K/mm3 (0.1-0.6); Monocytes Percent Auto 6.1 % (2.6-8.5); Neutrophils Absolute Auto 6.8 K/mm3 (1.3-6.7); Neutrophils Percent Auto 78.2 % (45.5-73.1); Platelet Count Result 297 k/mm3 (150-375); Red Blood Count 5.28 M/mm3 (4.2-5.4); Red Cell Distribution Width 13.9 % (11.5-14.5); White Blood Count 8.7 K/mm3 (4.5-10.0)
[2021-03-05 12:33] LABS: Alanine Aminotransferase 28 U/L (4-35); Albumin Level 4.8 g/dL (3.5-5.1); Alkaline Phosphatase 163 U/L (38-126); Anion Gap 12 mmol/L (8-16); Aspartate Amino Transferase 29 U/L (14-36); Bilirubin,Total 0.7 mg/dL (0.2-1.3); Blood Urea Nitrogen 12 mg/dL (7-17); Calcium 9.5 mg/dL (8.4-10.2); Carbon Dioxide 27 mmol/L (22-30); Chloride 98 mmol/L (98-107); Estimated CRCL calculation 70 ml/min; Estimated Glomerular Filt Rate > 60; Glucose 118 mg/dL (65-110); Lactic Acid Reflex 2.8 mmol/L (0.7-2.1); Potassium 4.6 mmol/L (3.4-5.0); Sodium 137 mmol/L (137-145)
[2021-03-05 13:00] LABS: SARS-CoV-2 RNA PCR Negative
[2021-03-05 13:11] LABS: Add Urine Microscopic? YES; Appearance Urine Clear (Clear); Bilirubin Urine Negative (Negative); Blood Urine Negative (Negative); Color Urine Yellow (Yellow); Glucose Urine UA Negative (Negative); Ketones Urine Negative (Negative); Leukocyte Esterase Ur Negative LEU/UL (Negative); Mucus Urine Rare /lpf; Nitrate Urine Negative (Negative); Protein Urine Negative (Negative); RBC Urine 21-50 /hpf (0-2); Specific Grav Ur 1.018 (1.001-1.035); Squamous Epithelial Cell Urine Many /hpf (Few)
[2021-03-05] MEDS: IBUPROFEN IV 800 MG/200 ML 800 MG/200 ML BAG 400 MG IVPB (14:05)
--- NOTE | 2021-03-05 15:00 | PM.IMHP ---
H&P: HPI History of Present Illness Date/Time: 03/05/21 15:00 Chief Complaint: Lethargy. Narrative: This is a 55-year-old female with multiple sclerosis, seizure disorder, hyperlipidemia, and DVT on long-term anticoagulation who presented to the emergency department earlier today via EMS from [facility] for evaluation of lethargy. She is known to the hospitalist service and in fact was admitted to us several weeks ago with an MS exacerbation and she was discharged back to [facility] on 02/13/2021. According to the triage note, her custodial has had multiple residents whom are positive for COVID and the patient reportedly tested negative for COVID yesterday. This morning she was found increasingly lethargic and less responsive and she was sent for evaluation. She was tachycardic on arrival to the emergency department with a heart rate in the 130s and was febrile with a temperature of 100.6?. Chest x-ray showed findings consistent with possible pneumonia and she is being admitted in this setting. Her SARS-CoV-2 by PCR and influenza test came back negative here today. At the time my evaluation she feels much better after IV fluid rehydration and is alert and oriented x4. She endorse a mild, nonproductive cough and sinus issues for the last couple of days but she has no significant complaints. She denies headache, neck ache, sore throat, dysphagia, concerns for aspiration, shortness of breath, nausea, vomiting, diarrhea, and dysuria. Review of Systems Review of Systems: 12 systems were reviewed and are negative except for as per HPI. [facility] Past Medical History Medical History Chronic anticoagulation For history of DVT. Deep venous thrombosis Frequent UTI Including history of ESBL Klebsiella pneumoniae. Gastroesophageal reflux disease Hyperlipidemia Kidney stones Multiple sclerosis Seizure disorder Surgical History Surgical History (Updated 03/05/21 @ 14:48 by Liliya Petersen PA-C) History of cystoscopy Family History Family History Mother Diabetes mellitus Myocardial infarction PTSD (post-traumatic stress disorder) Father Diabetes mellitus Myocardial infarction Sibling Myocardial infarction Patient's brother is Social History Social History (Updated 03/05/21 @ 21:02 by Liliya Petersen PA-C) Social History: Prior to her most recent hospitalization she was living with her mother in [place]. The patient was it is she is , has no children. She is now at [facility]. She is essentially bed-bound now. No alcohol, tobacco, or illicit substance use. Healthcare power of insurance defense attorney: Melony Miner, sister. Code status: DNR. Meds Home Medications and Allergies Home Medications Medication Instructions Recorded Confirmed Type rivaroxaban 20 mg tablet 20 mg PO QPM #30 tablet 02/20/19 03/05/21 Rx baclofen 20 mg PO QID 04/13/19 03/05/21 History folic acid 1 mg PO DAILY 04/25/20 03/05/21 History acetaminophen [Mapap 650 mg PO Q4H PRN #30 tablet 05/01/20 03/05/21 Rx (acetaminophen)] ascorbic acid (vitamin C) 500 mg PO DAILY 02/08/21 03/05/21 History atorvastatin [Lipitor] 10 mg PO HS 02/08/21 03/05/21 History carbamazepine [Tegretol] 200 mg PO TIDWM 02/08/21 03/05/21 History cranberry 500 mg PO DAILY 02/08/21 03/05/21 History diphenhydramine HCl [Banophen] 25 mg PO BID PRN 02/08/21 03/05/21 History ferrous sulfate 325 mg PO BID 02/08/21 03/05/21 History pantoprazole [Protonix] 20 mg PO QAM 02/08/21 03/05/21 History Allergies Allergy/AdvReac Type Severity Reaction Status Date / Time No Known Allergies Allergy Verified 03/05/21 18:00 Vital Signs Vital Signs - 24 hr 03/05/21 11:36 03/05/21 12:15 03/05/21 12:45 Temperature 100.6 F H 98.6 F Pulse Rate 135 H 96 Respiratory Rate 22 H 16 Blood Pressure 148/7
[2021-03-05 15:20] LABS: Reflex Lactic Acid Yes or No Add Lactic
[2021-03-05] MEDS: SODIUM CHLORIDE 0.9% IV 1,000 ML 125 ML IV CONT ×2 (15:40→17:44)
--- NOTE | 2021-03-05 15:45 | PC.NURSE ---
EDP aware pt Blood pressure 99/61. Per EDP 500ml NS bolus to be given at this time. 1555- NS 500ml bolus started.
[2021-03-05 17:04] LABS: Lactic Acid 0.7 mmol/L (0.7-2.1)
--- NOTE | 2021-03-05 18:24 | ADMGEN ---
This patient, Jenae Rodriguez, was admitted to Medical Room 249-01. Patient/family oriented to hospital policies and general routines including ID bracelet, bed and alarms, visiting hours, pain management, procedures, bathroom and other care routines, personal items, smoking policy, room service/diet, and visiting hours. Information on how to activate the Rapid Response Team has been discussed. Patient/Family are encouraged to report perceived risks to care and to ask questions if they do not understand what they are told or what they should do.
[2021-03-05] MEDS: ATORVASTATIN 10 MG TABLET PO (21:49)
[2021-03-05] MEDS: BACLOFEN 10 MG TABLET 20 MG PO (21:49)
[2021-03-06 02:15] VITALS: TEMP 37.2
[2021-03-06] MEDS: SODIUM CHLORIDE 0.9% IV 1,000 ML 125 ML IV CONT ×2 (02:18→11:59)
[2021-03-06 04:54] VITALS: BP 130/50; PULSE 90; RESP 16; TEMP 37.2; O2SAT 95
[2021-03-06 05:48] LABS: Hematocrit 35.4 % (37.0-47.0); Hemoglobin 11.7 g/dL (12.0-15.0); Mean Corpuscular HGB Conc 33.1 g/dl (32-36); Mean Corpuscular Hemoglobin 31.2 pg (26-34); Mean Corpuscular Volume 94.4 fl (80-100); Platelet Count Result 235 k/mm3 (150-375); Red Blood Count 3.75 M/mm3 (4.2-5.4); Red Cell Distribution Width 13.7 % (11.5-14.5); White Blood Count 9.6 K/mm3 (4.5-10.0)
[2021-03-06 06:18] LABS: Alanine Aminotransferase 23 U/L (4-35); Albumin Level 3.8 g/dL (3.5-5.1); Alkaline Phosphatase 90 U/L (38-126); Anion Gap 10 mmol/L (8-16); Aspartate Amino Transferase 38 U/L (14-36); Bilirubin,Total 0.6 mg/dL (0.2-1.3); Blood Urea Nitrogen 9 mg/dL (7-17); CRP 19.9 mg/dL (<1.0); Calcium 7.9 mg/dL (8.4-10.2); Carbon Dioxide 24 mmol/L (22-30); Chloride 105 mmol/L (98-107); Estimated CRCL calculation 94 ml/min; Estimated Glomerular Filt Rate > 60; Glucose 87 mg/dL (65-110); Lactate Dehydrogenase 783 U/L (313-618); Magnesium 1.9 mg/dL (1.6-2.3); Potassium 3.7 mmol/L (3.4-5.0); Sodium 139 mmol/L (137-145)
[2021-03-06 06:59] VITALS: BP 134/77; PULSE 95; RESP 16; TEMP 37.6; O2SAT 95
[2021-03-06 07:00] VITALS: BMI 26.4
[2021-03-06] MEDS: FERROUS SULFATE 324 MG TABLET PO ×2 (09:01→16:51)
[2021-03-06] MEDS: ASCORBIC ACID 500 MG TABLET PO (09:01)
[2021-03-06] MEDS: FOLIC ACID 1 MG TABLET PO (09:01)
[2021-03-06] MEDS: PANTOPRAZOLE SOD SESQUIHYDRATE 20 MG TAB PO (09:01)
[2021-03-06] MEDS: carBAMazepine 200 MG TABLET PO ×3 (09:01→16:50)
[2021-03-06] MEDS: BACLOFEN 10 MG TABLET 20 MG PO ×4 (09:05→20:33)
[2021-03-06 12:08] VITALS: BMI 10.0
--- NOTE | 2021-03-06 12:28 | PM.IMPN ---
Progress Note: A&P Assessment and Plan (1) Sepsis: Code(s): A41.9 - Sepsis, unspecified organism Status: Acute Assessment and Plan: Present on arrival and supported by fever, tachycardia, and elevated lactic acid level. Vital signs have improved with IV fluid rehydration. Repeat lactic acid level normal. Blood cultures have been collected and are pending. She is currently on IV rocephin and azithromycin. (2) Pneumonia: Code(s): J18.9 - Pneumonia, unspecified organism Status: Acute Assessment and Plan: Chest x-ray shows left basilar atelectasis versus pneumonia. Given sepsis picture she will be started on antibiotics for community-acquired pneumonia. [facility] and SARS-CoV-2 by PCR is negative here. Influenza test was also negative. (3) Person under investigation for COVID-19: Code(s): Z20.822 - Contact with and (suspected) exposure to COVID-19 Status: Ruled-out Assessment and Plan: SARS-CoV-2 by PCR was negative. (4) Metabolic encephalopathy: Code(s): G93.41 - Metabolic encephalopathy Status: Resolved Assessment and Plan: Due to infection, dehydration, and fever. She is alert and oriented x4 after IV fluid rehydration and defervescence. (5) Dehydration: Code(s): E86.0 - Dehydration Status: Acute Assessment and Plan: She received 2 L normal saline emergency department we will continue with judicious IV fluid rehydration. PO intake improving so will scale back on IVF, likely dc them tomorrow. 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 (7) Seizure disorder: Code(s): G40.909 - Epilepsy, unspecified, not intractable, without status epilepticus Status: Acute Assessment and Plan: -Continue Tegretol -carbamazepine level pending (8) Multiple sclerosis: Code(s): G35 - Multiple sclerosis Status: Chronic Assessment and Plan: Untreated for some years and she is now bedbound. Referred to Dr. Steven though she has not yet seen him. She states she was treated with prednisone during her last admission which helped quite a bit. Due to her pneumonia and MS I have started another course of prednisone. Subjective Date/time seen: 03/06/21 12:28 Interval history: 55-year-old female with multiple sclerosis, seizure disorder, hyperlipidemia, and DVT on long-term anticoagulation from [facility] admitted for pneumonia and lethargy. Today she is feeling better. She having some fatigue but improved. Still having dry cough and post nasal drip. No cp or sob. Admits to urinary frequency but no dysuria. Review of Systems Review of Systems: General: Denies fevers, +fatigue Eyes: Denies vision changes ENT: Denies nasal congestion or sore throat, +PND Respiratory: + cough, denies shortness of breath Cardiovascular: Denies chest pain or lower extremity edema Gastrointestinal: Denies abdominal pain, vomiting, or diarrhea Genitourinary: Denies dysuria, +urinary frequency Musculoskeletal: Denies back pain Neurological: Denies headache, +lower extremity weakness chronic Integumentary: Denies rash Exam Narrative: General: No acute distress, chronically ill appearing Eyes: PERRL, no scleral icterus HEENT: NCAT, external ears normal, MMM Respiratory: No respiratory distress, +rhonchi, no wheezing Cardiovascular: RRR, no murmur Abdominal: Soft, nontender, non distended, no rebound or guarding Musculoskeletal: Moves all 4 extremities, no edema Neurological: Alert and oriented x4. Cranial nerves 2-12 are grossly intact. Speech is clear. generalized weakness without focal findings. She is unable to lift her legs off the bed, which she states is chronic. Bilateral toes upgoing. Skin:
[2021-03-06] MEDS: predniSONE 20 MG TABLET 40 MG PO (12:54)
[2021-03-06 14:20] VITALS: BP 126/49; PULSE 100; RESP 16; TEMP 37.2; O2SAT 93
[2021-03-06] MEDS: RIVAROXABAN 20 MG TABLET PO (16:51)
[2021-03-06] MEDS: ATORVASTATIN 10 MG TABLET PO (20:33)
[2021-03-06 21:31] VITALS: BP 104/50; PULSE 81; RESP 14; TEMP 36.6; O2SAT 95
[2021-03-07] MEDS: SODIUM CHLORIDE 0.9% IV 1,000 ML 75 ML IV CONT (02:42)
[2021-03-07 05:52] LABS: Basophils Percent Auto 0.5 % (0.2-1.2); Eosinophils Absolute Auto 0.1 K/mm3 (0-0.3); Eosinophils Percent Auto 1.8 % (0-4.4); Hematocrit 30.4 % (37.0-47.0); Hemoglobin 10.2 g/dL (12.0-15.0); Immature Granulocyte Absolute 0.03 K/mm3 (0.00-0.031); Immature Granulocyte Percent A 0.5 % (0-0.5); Lymphocytes Absolute Auto 2.55 K/mm3 (0.9-3.2); Lymphocytes Percent Auto 38.6 % (18.3-44.2); Mean Corpuscular HGB Conc 33.6 g/dl (32-36); Mean Corpuscular Volume 92.4 fl (80-100); Mean Platelet Volume 9.7 fl (7.4-10.4); Monocytes Absolute Auto 0.6 K/mm3 (0.1-0.6); Monocytes Percent Auto 8.5 % (2.6-8.5); Neutrophils Absolute Auto 3.3 K/mm3 (1.3-6.7); Neutrophils Percent Auto 50.1 % (45.5-73.1); Platelet Count Result 213 k/mm3 (150-375); Red Blood Count 3.29 M/mm3 (4.2-5.4); Red Cell Distribution Width 13.5 % (11.5-14.5); White Blood Count 6.6 K/mm3 (4.5-10.0)
[2021-03-07 05:54] VITALS: BP 109/49; PULSE 77; RESP 16; TEMP 36.4; O2SAT 92
[2021-03-07 06:11] LABS: Alanine Aminotransferase 24 U/L (4-35); Albumin Level 3.4 g/dL (3.5-5.1); Alkaline Phosphatase 78 U/L (38-126); Anion Gap 9 mmol/L (8-16); Aspartate Amino Transferase 34 U/L (14-36); Bilirubin,Total 0.2 mg/dL (0.2-1.3); Blood Urea Nitrogen 6 mg/dL (7-17); Carbon Dioxide 23 mmol/L (22-30); Chloride 108 mmol/L (98-107); Estimated CRCL calculation 146 ml/min; Estimated Glomerular Filt Rate > 60; Glucose 92 mg/dL (65-110); Potassium 3.2 mmol/L (3.4-5.0); Sodium 140 mmol/L (137-145)
[2021-03-07] MEDS: carBAMazepine 200 MG TABLET PO ×3 (08:18→17:32)
[2021-03-07] MEDS: ASCORBIC ACID 500 MG TABLET PO (08:18)
[2021-03-07] MEDS: FOLIC ACID 1 MG TABLET PO (08:19)
[2021-03-07] MEDS: PANTOPRAZOLE SOD SESQUIHYDRATE 20 MG TAB PO (08:19)
[2021-03-07] MEDS: FERROUS SULFATE 324 MG TABLET PO ×2 (08:19→17:32)
[2021-03-07] MEDS: predniSONE 20 MG TABLET 40 MG PO (08:19)
[2021-03-07] MEDS: POTASSIUM CHLORIDE 20 MEQ TABLET 40 MEQ PO (08:21)
[2021-03-07] MEDS: BACLOFEN 10 MG TABLET 20 MG PO ×4 (10:10→21:08)
--- NOTE | 2021-03-07 13:44 | PCSTNOTE ---
Please refer to the Bedside Swallow Evaluation in the EMR. Please note, silent aspiration cannot be ruled out at bedside. Regular diet and thin liquids recommended, no further ST services indicated at this time.
--- NOTE | 2021-03-07 13:48 | PM.IMPN ---
Progress Note: A&P Assessment and Plan (1) Sepsis: Code(s): A41.9 - Sepsis, unspecified organism Status: Acute Assessment and Plan: Present on arrival and supported by fever, tachycardia, and elevated lactic acid level. Vital signs have improved with IV fluid rehydration. Repeat lactic acid level normal. Blood cultures have been collected and are pending, no growth to date. She is currently on IV rocephin and azithromycin. (2) Pneumonia: Code(s): J18.9 - Pneumonia, unspecified organism Status: Acute Assessment and Plan: -Chest x-ray shows left basilar atelectasis versus pneumonia. Given sepsis picture she will be started on antibiotics for community-acquired pneumonia. -Her rapid COVID test was negative in the senior care yesterday and SARS-CoV-2 by PCR is negative here. -Influenza test was also negative. -Bedside swallow study normal -currently on IV azithromycin and rocephin, continues to have diffuse wheezing and rhonchi but no hypoxia. Will try breathing treatments to see if she gets some relief. -will perform repeat CXR in the morning and consider switching abx if still no improvement (3) Person under investigation for COVID-19: Code(s): Z20.822 - Contact with and (suspected) exposure to COVID-19 Status: Ruled-out Assessment and Plan: SARS-CoV-2 by PCR was negative. (4) Metabolic encephalopathy: Code(s): G93.41 - Metabolic encephalopathy Status: Resolved Assessment and Plan: Due to infection, dehydration, and fever. She is alert and oriented x4 after IV fluid rehydration and defervescence. (5) Dehydration: Code(s): E86.0 - Dehydration Status: Acute Assessment and Plan: She received 2 L normal saline emergency department we will continue with judicious IV fluid rehydration. PO intake improving so will scale back on IVF, likely dc them tomorrow. 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 (7) Seizure disorder: Code(s): G40.909 - Epilepsy, unspecified, not intractable, without status epilepticus Status: Acute Assessment and Plan: -Continue Tegretol -carbamazepine level pending (8) Multiple sclerosis: Code(s): G35 - Multiple sclerosis Status: Chronic Assessment and Plan: Untreated for some years and she is now bedbound. Referred to Dr. Steven though she has not yet seen him. She states she was treated with prednisone during her last admission which helped quite a bit. Due to her pneumonia and MS I have started another course of prednisone which she states has provided a great deal of relief. (9) Hypokalemia: Code(s): E87.6 - Hypokalemia Status: Acute Assessment and Plan: -likely due to decreased PO intake -will monitor and replace as neccessary Subjective Date/time seen: 03/07/21 13:48 Interval history: 55-year-old female with multiple sclerosis, seizure disorder, hyperlipidemia, and DVT on long-term anticoagulation from [facility] admitted for pneumonia and lethargy. Today patient states she overall feels better but is still coughing. Not bringing anything up but has lots of congestion in her chest. No sob or cp. Review of Systems Review of Systems: General: Denies fevers, +fatigue Eyes: Denies vision changes ENT: Denies nasal congestion or sore throat, +PND Respiratory: + cough, denies shortness of breath Cardiovascular: Denies chest pain or lower extremity edema Gastrointestinal: Denies abdominal pain, vomiting, or diarrhea Genitourinary: Denies dysuria, +urinary frequency Musculoskeletal: Denies back pain Neurological: Denies headache, +lower extremity weakness chronic Integumentary: Denies rash Exam Narrative: General: No acute distress, chronically ill a
[2021-03-07 14:35] VITALS: BP 125/62; PULSE 87; RESP 20; TEMP 36.6; O2SAT 91
[2021-03-07] MEDS: RIVAROXABAN 20 MG TABLET PO (17:32)
[2021-03-07 19:47] VITALS: BP 105/54; PULSE 81; RESP 18; TEMP 36.3; O2SAT 94
[2021-03-07] MEDS: IPRATROPIUM BR 0.02% INH SOLN 0.5 MG/2.5 ML VIAL INHALATION (20:18)
[2021-03-07] MEDS: ALBUTEROL SULFATE NEB 2.5 MG/0.5 ML INH 5 MG INHALATION (20:18)
[2021-03-07 20:20] VITALS: PULSE 74; RESP 16
[2021-03-07 20:27] VITALS: O2SAT 92
[2021-03-07 20:30] VITALS: PULSE 77; RESP 16
[2021-03-07] MEDS: ATORVASTATIN 10 MG TABLET PO (21:08)
[2021-03-08] VITALS (12 sets, daily range): BP systolic 97–118; BP diastolic 47–64; PULSE 60–89; RESP 16–20; TEMP 36.6; O2SAT 93–97
[2021-03-08] MEDS: ALBUTEROL SULFATE NEB 2.5 MG/0.5 ML INH 5 MG INHALATION ×4 (03:26→20:00)
[2021-03-08] MEDS: IPRATROPIUM BR 0.02% INH SOLN 0.5 MG/2.5 ML VIAL INHALATION ×4 (03:26→20:00)
[2021-03-08 06:24] LABS: Alanine Aminotransferase 48 U/L (4-35); Albumin Level 3.4 g/dL (3.5-5.1); Alkaline Phosphatase 86 U/L (38-126); Anion Gap 7 mmol/L (8-16); Aspartate Amino Transferase 51 U/L (14-36); Bilirubin,Total 0.2 mg/dL (0.2-1.3); Blood Urea Nitrogen 8 mg/dL (7-17); Calcium 8.5 mg/dL (8.4-10.2); Carbon Dioxide 25 mmol/L (22-30); Chloride 108 mmol/L (98-107); Estimated CRCL calculation 115 ml/min; Estimated Glomerular Filt Rate > 60; Glucose 87 mg/dL (65-110); Potassium 3.4 mmol/L (3.4-5.0); Sodium 140 mmol/L (137-145)
[2021-03-08 06:28] LABS: Basophils Percent Auto 0.4 % (0.2-1.2); Eosinophils Absolute Auto 0.1 K/mm3 (0-0.3); Eosinophils Percent Auto 1.6 % (0-4.4); Hematocrit 30.9 % (37.0-47.0); Hemoglobin 10.2 g/dL (12.0-15.0); Immature Granulocyte Absolute 0.03 K/mm3 (0.00-0.031); Immature Granulocyte Percent A 0.4 % (0-0.5); Lymphocytes Absolute Auto 3.17 K/mm3 (0.9-3.2); Mean Corpuscular Hemoglobin 30.7 pg (26-34); Mean Corpuscular Volume 93.1 fl (80-100); Mean Platelet Volume 10.3 fl (7.4-10.4); Monocytes Absolute Auto 0.4 K/mm3 (0.1-0.6); Monocytes Percent Auto 5.6 % (2.6-8.5); Platelet Count Result 267 k/mm3 (150-375); Red Blood Count 3.32 M/mm3 (4.2-5.4); Red Cell Distribution Width 13.7 % (11.5-14.5); White Blood Count 6.7 K/mm3 (4.5-10.0)
[2021-03-08] MEDS: carBAMazepine 200 MG TABLET PO ×3 (08:39→17:13)
[2021-03-08] MEDS: FERROUS SULFATE 324 MG TABLET PO ×2 (08:39→17:13)
[2021-03-08] MEDS: predniSONE 20 MG TABLET 40 MG PO (08:39)
[2021-03-08] MEDS: PANTOPRAZOLE SOD SESQUIHYDRATE 20 MG TAB PO (08:39)
[2021-03-08] MEDS: ASCORBIC ACID 500 MG TABLET PO (08:39)
[2021-03-08] MEDS: FOLIC ACID 1 MG TABLET PO (08:39)
[2021-03-08] MEDS: BACLOFEN 10 MG TABLET 20 MG PO ×4 (08:41→19:44)
--- NOTE | 2021-03-08 13:45 | PM.IMPN ---
Progress Note: A&P Assessment and Plan (1) Sepsis: Code(s): A41.9 - Sepsis, unspecified organism Status: Acute Assessment and Plan: Present on arrival and supported by fever, tachycardia, and elevated lactic acid level. Vital signs have improved with IV fluid rehydration. Repeat lactic acid level normal. Blood cultures have been collected and are pending, no growth to date. She is currently on IV rocephin and azithromycin. (2) Pneumonia: Code(s): J18.9 - Pneumonia, unspecified organism Status: Acute Assessment and Plan: -Chest x-ray shows left basilar atelectasis versus pneumonia. Given sepsis picture she was started on antibiotics for community-acquired pneumonia. -Her rapid COVID test was negative in the care home and SARS-CoV-2 by PCR is negative here. -Influenza test was also negative. -Bedside swallow study normal -Incentive spirometer -currently on IV azithromycin and rocephin, starting to show some improvement. Also added nebs which seem to be helping. (3) Person under investigation for COVID-19: Code(s): Z20.822 - Contact with and (suspected) exposure to COVID-19 Status: Ruled-out Assessment and Plan: SARS-CoV-2 by PCR was negative. (4) Metabolic encephalopathy: Code(s): G93.41 - Metabolic encephalopathy Status: Resolved Assessment and Plan: Due to infection, dehydration, and fever. She is alert and oriented x4 after IV fluid rehydration and defervescence. (5) Dehydration: Code(s): E86.0 - Dehydration Status: Acute Assessment and Plan: Resolved w/ IVF. Now good PO intake. 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 (7) Seizure disorder: Code(s): G40.909 - Epilepsy, unspecified, not intractable, without status epilepticus Status: Acute Assessment and Plan: -Continue Tegretol -carbamazepine level pending (8) Multiple sclerosis: Code(s): G35 - Multiple sclerosis Status: Chronic Assessment and Plan: Untreated for some years and she is now bedbound. Referred to Dr. Steven though she has not yet seen him. She states she was treated with prednisone during her last admission which helped quite a bit. Due to her pneumonia and MS I have started another course of prednisone which she states has provided a great deal of relief. (9) Hypokalemia: Code(s): E87.6 - Hypokalemia Status: Acute Assessment and Plan: -likely due to decreased PO intake -will monitor and replace as neccessary Subjective Date/time seen: 03/08/21 13:45 Interval history: 55-year-old female with multiple sclerosis, seizure disorder, hyperlipidemia, and DVT on long-term anticoagulation from [facility] admitted for pneumonia and lethargy. Today patient states she overall feels better. Cough is improving but still having chest congestion. Review of Systems Review of Systems: General: Denies fevers, +fatigue Eyes: Denies vision changes ENT: Denies nasal congestion or sore throat, +PND Respiratory: + cough, denies shortness of breath Cardiovascular: Denies chest pain or lower extremity edema Gastrointestinal: Denies abdominal pain, vomiting, or diarrhea Genitourinary: Denies dysuria, +urinary frequency Musculoskeletal: Denies back pain Neurological: Denies headache, +lower extremity weakness chronic Integumentary: Denies rash Exam Narrative: General: No acute distress, chronically ill appearing Eyes: PERRL, no scleral icterus HEENT: NCAT, external ears normal, MMM Respiratory: No respiratory distress, + diffuse rhonchi worse LLL, scattered wheezing Cardiovascular: RRR, no murmur Abdominal: Soft, nontender, non distended, no rebound or guarding Musculoskeletal: Moves all 4 extremities, no
[2021-03-08] MEDS: RIVAROXABAN 20 MG TABLET PO (17:13)
[2021-03-08] MEDS: ATORVASTATIN 10 MG TABLET PO (19:44)
[2021-03-09] VITALS (11 sets, daily range): BP systolic 104–127; BP diastolic 61–62; PULSE 70–89; RESP 16–20; TEMP 35.7–37.1; O2SAT 93–98
[2021-03-09] MEDS: ALBUTEROL SULFATE NEB 2.5 MG/0.5 ML INH 5 MG INHALATION ×4 (01:40→19:53)
[2021-03-09] MEDS: IPRATROPIUM BR 0.02% INH SOLN 0.5 MG/2.5 ML VIAL INHALATION ×4 (01:41→19:53)
[2021-03-09 05:52] LABS: Basophils Percent Auto 0.4 % (0.2-1.2); Eosinophils Absolute Auto 0.1 K/mm3 (0-0.3); Eosinophils Percent Auto 0.8 % (0-4.4); Hematocrit 32.7 % (37.0-47.0); Hemoglobin 10.9 g/dL (12.0-15.0); Immature Granulocyte Absolute 0.06 K/mm3 (0.00-0.031); Immature Granulocyte Percent A 0.7 % (0-0.5); Lymphocytes Absolute Auto 4.04 K/mm3 (0.9-3.2); Lymphocytes Percent Auto 47.6 % (18.3-44.2); Mean Corpuscular HGB Conc 33.3 g/dl (32-36); Mean Corpuscular Hemoglobin 31.1 pg (26-34); Mean Corpuscular Volume 93.2 fl (80-100); Mean Platelet Volume 10.2 fl (7.4-10.4); Monocytes Absolute Auto 0.5 K/mm3 (0.1-0.6); Monocytes Percent Auto 5.3 % (2.6-8.5); Neutrophils Absolute Auto 3.8 K/mm3 (1.3-6.7); Neutrophils Percent Auto 45.2 % (45.5-73.1); Platelet Count Result 312 k/mm3 (150-375); Red Blood Count 3.51 M/mm3 (4.2-5.4); Red Cell Distribution Width 13.9 % (11.5-14.5); White Blood Count 8.5 K/mm3 (4.5-10.0)
[2021-03-09 06:11] LABS: Alanine Aminotransferase 52 U/L (4-35); Albumin Level 3.4 g/dL (3.5-5.1); Alkaline Phosphatase 86 U/L (38-126); Anion Gap 7 mmol/L (8-16); Aspartate Amino Transferase 48 U/L (14-36); Bilirubin,Total 0.2 mg/dL (0.2-1.3); Blood Urea Nitrogen 10 mg/dL (7-17); Calcium 8.3 mg/dL (8.4-10.2); Carbon Dioxide 26 mmol/L (22-30); Chloride 106 mmol/L (98-107); Estimated CRCL calculation 115 ml/min; Estimated Glomerular Filt Rate > 60; Glucose 86 mg/dL (65-110); Sodium 139 mmol/L (137-145)
[2021-03-09] MEDS: POTASSIUM CHLORIDE 20 MEQ TABLET 40 MEQ PO (09:30)
[2021-03-09] MEDS: predniSONE 20 MG TABLET 40 MG PO (09:31)
[2021-03-09] MEDS: FOLIC ACID 1 MG TABLET PO (09:31)
[2021-03-09] MEDS: ASCORBIC ACID 500 MG TABLET PO (09:31)
[2021-03-09] MEDS: PANTOPRAZOLE SOD SESQUIHYDRATE 20 MG TAB PO (09:31)
[2021-03-09] MEDS: FERROUS SULFATE 324 MG TABLET PO ×2 (09:31→17:21)
[2021-03-09] MEDS: carBAMazepine 200 MG TABLET PO ×3 (09:31→17:21)
[2021-03-09] MEDS: BACLOFEN 10 MG TABLET 20 MG PO ×4 (09:38→20:44)
--- NOTE | 2021-03-09 12:55 | PM.IMPN ---
Progress Note: A&P Assessment and Plan (1) Sepsis: Code(s): A41.9 - Sepsis, unspecified organism Status: Acute Assessment and Plan: Present on arrival and supported by fever, tachycardia, and elevated lactic acid level. Vital signs have improved with IV fluid rehydration. Repeat lactic acid level normal. Blood cultures have been collected and are pending, no growth to date. She is currently on IV rocephin and azithromycin. (2) Pneumonia: Code(s): J18.9 - Pneumonia, unspecified organism Status: Acute Assessment and Plan: -Chest x-ray shows left basilar atelectasis versus pneumonia. Given sepsis picture she was started on antibiotics for community-acquired pneumonia. -Her rapid COVID test was negative in the senior care and SARS-CoV-2 by PCR is negative here. -Influenza test was also negative. -Bedside swallow study normal, Modified Barium Study shows no aspiration -Incentive spirometer -currently on IV azithromycin and rocephin, starting to show some improvement. Also added nebs which seem to be helping. -possible discharge tomorrow if continues to improve clinically (3) Person under investigation for COVID-19: Code(s): Z20.822 - Contact with and (suspected) exposure to COVID-19 Status: Ruled-out Assessment and Plan: SARS-CoV-2 by PCR was negative. (4) Metabolic encephalopathy: Code(s): G93.41 - Metabolic encephalopathy Status: Resolved Assessment and Plan: Due to infection, dehydration, and fever. She is alert and oriented x4 after IV fluid rehydration and defervescence. (5) Dehydration: Code(s): E86.0 - Dehydration Status: Acute Assessment and Plan: Resolved w/ IVF. Now good PO intake. 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 (7) Seizure disorder: Code(s): G40.909 - Epilepsy, unspecified, not intractable, without status epilepticus Status: Acute Assessment and Plan: -Continue Tegretol -carbamazepine level pending (8) Multiple sclerosis: Code(s): G35 - Multiple sclerosis Status: Chronic Assessment and Plan: Untreated for some years and she is now bedbound. Referred to Dr. Steven though she has not yet seen him. She states she was treated with prednisone during her last admission which helped quite a bit. Due to her pneumonia and MS I have started another course of prednisone which she states has provided a great deal of relief. (9) Hypokalemia: Code(s): E87.6 - Hypokalemia Status: Acute Assessment and Plan: -likely due to decreased PO intake -will monitor and replace as neccessary Subjective Date/time seen: 03/09/21 12:55 Interval history: 55-year-old female with multiple sclerosis, seizure disorder, hyperlipidemia, and DVT on long-term anticoagulation from [facility] admitted for pneumonia and lethargy. Today patient states she overall feels better. Cough is improving. No cp or sob. Review of Systems Review of Systems: General: Denies fevers Eyes: Denies vision changes ENT: Denies nasal congestion or sore throat, +PND Respiratory: + cough, denies shortness of breath Cardiovascular: Denies chest pain or lower extremity edema Gastrointestinal: Denies abdominal pain, vomiting, or diarrhea Genitourinary: Denies dysuria, +urinary frequency Musculoskeletal: Denies back pain Neurological: Denies headache, +lower extremity weakness chronic Integumentary: Denies rash Exam Narrative: General: No acute distress, chronically ill appearing Eyes: PERRL, no scleral icterus HEENT: NCAT, external ears normal, MMM Respiratory: No respiratory distress, + rhonchi LLL, scattered wheezing Cardiovascular: RRR, no murmur Abdominal: Soft, nontender, non distended,
--- NOTE | 2021-03-09 13:05 | PCSTNOTE ---
Please refer to the Modified Barium Swallow Evaluation in the EMR.
[2021-03-09] MEDS: RIVAROXABAN 20 MG TABLET PO (17:21)
[2021-03-09] MEDS: ATORVASTATIN 10 MG TABLET PO (20:44)
[2021-03-10] VITALS (8 sets, daily range): BP systolic 115–119; BP diastolic 60–62; PULSE 73–97; RESP 14–20; TEMP 36.3–37.1; O2SAT 92–93
[2021-03-10] MEDS: ALBUTEROL SULFATE NEB 2.5 MG/0.5 ML INH 5 MG INHALATION ×3 (02:41→13:21)
[2021-03-10] MEDS: IPRATROPIUM BR 0.02% INH SOLN 0.5 MG/2.5 ML VIAL INHALATION ×3 (02:41→13:21)
[2021-03-10 05:34] LABS: Basophils Absolute Auto 0.1 K/mm3 (0.0-0.1); Basophils Percent Auto 0.6 % (0.2-1.2); Eosinophils Absolute Auto 0.1 K/mm3 (0-0.3); Eosinophils Percent Auto 0.7 % (0-4.4); Hematocrit 35.9 % (37.0-47.0); Hemoglobin 11.8 g/dL (12.0-15.0); Immature Granulocyte Absolute 0.15 K/mm3 (0.00-0.031); Immature Granulocyte Percent A 1.6 % (0-0.5); Lymphocytes Absolute Auto 4.35 K/mm3 (0.9-3.2); Lymphocytes Percent Auto 46.1 % (18.3-44.2); Mean Corpuscular HGB Conc 32.9 g/dl (32-36); Mean Corpuscular Hemoglobin 30.8 pg (26-34); Mean Corpuscular Volume 93.7 fl (80-100); Mean Platelet Volume 9.7 fl (7.4-10.4); Monocytes Absolute Auto 0.5 K/mm3 (0.1-0.6); Monocytes Percent Auto 5.5 % (2.6-8.5); Neutrophils Absolute Auto 4.3 K/mm3 (1.3-6.7); Neutrophils Percent Auto 45.5 % (45.5-73.1); Platelet Count Result 401 k/mm3 (150-375); Red Blood Count 3.83 M/mm3 (4.2-5.4); Red Cell Distribution Width 13.8 % (11.5-14.5); White Blood Count 9.4 K/mm3 (4.5-10.0)
[2021-03-10 05:50] LABS: Alanine Aminotransferase 73 U/L (4-35); Albumin Level 3.5 g/dL (3.5-5.1); Alkaline Phosphatase 88 U/L (38-126); Anion Gap 12 mmol/L (8-16); Aspartate Amino Transferase 46 U/L (14-36); Bilirubin,Total 0.2 mg/dL (0.2-1.3); Blood Urea Nitrogen 11 mg/dL (7-17); Calcium 8.6 mg/dL (8.4-10.2); Carbon Dioxide 22 mmol/L (22-30); Chloride 106 mmol/L (98-107); Estimated CRCL calculation 146 ml/min; Estimated Glomerular Filt Rate > 60; Glucose 86 mg/dL (65-110); Potassium 3.5 mmol/L (3.4-5.0); Sodium 140 mmol/L (137-145)
[2021-03-10] MEDS: BACLOFEN 10 MG TABLET 20 MG PO ×2 (09:34→12:18)
[2021-03-10] MEDS: FOLIC ACID 1 MG TABLET PO (09:35)
[2021-03-10] MEDS: carBAMazepine 200 MG TABLET PO ×2 (09:35→12:18)
[2021-03-10] MEDS: PANTOPRAZOLE SOD SESQUIHYDRATE 20 MG TAB PO (09:35)
[2021-03-10] MEDS: POTASSIUM CHLORIDE 20 MEQ TABLET.ER PO (09:35)
[2021-03-10] MEDS: ASCORBIC ACID 500 MG TABLET PO (09:35)
[2021-03-10] MEDS: FERROUS SULFATE 324 MG TABLET PO (09:35)
[2021-03-10] MEDS: predniSONE 20 MG TABLET PO (12:18)
[2021-03-10 13:10] LABS: EDCOVIDSCREEN Negative (Negative)
--- NOTE | 2021-03-10 13:28 | PM.DS ---
DS: Admitting Diagnosis Discharge Date 03/10/21 Admitting Diagnosis AMS DS: Discharge Diagnosis Discharge Diagnosis (1) Sepsis: Code(s): A41.9 - Sepsis, unspecified organism Status: Acute Assessment and Plan: Present on arrival and supported by fever, tachycardia, and elevated lactic acid level. Vital signs have improved with IV fluid rehydration. Repeat lactic acid level normal. Blood cultures have been collected and are pending, no growth to date. She completed 5 days of Rocephin and azithromycin and will go home with 5 more days of cefdinir. (2) Pneumonia: Code(s): J18.9 - Pneumonia, unspecified organism Status: Acute Assessment and Plan: -Chest x-ray shows left basilar atelectasis versus pneumonia. Given sepsis picture she was started on antibiotics for community-acquired pneumonia. -Her [facility] test [facility] and SARS-CoV-2 by PCR is negative here. -Influenza test was also negative. -Bedside swallow study normal, Modified Barium Study shows no aspiration -Incentive spirometer and nebs -completed 5 days of IV azithromycin and rocephin with significant improvement. -vitals are stable, no hypoxia, she has not been on oxygen at any point throughout admission. Stable for discharge at this time, will go home with 5 more days of cefdinir. (3) Person under investigation for COVID-19: Code(s): Z20.822 - Contact with and (suspected) exposure to COVID-19 Status: Ruled-out Assessment and Plan: SARS-CoV-2 by PCR was negative. (4) Metabolic encephalopathy: Code(s): G93.41 - Metabolic encephalopathy Status: Resolved Assessment and Plan: Due to infection, dehydration, and fever. She is alert and oriented x4 after IV fluid rehydration and defervescence. (5) Dehydration: Code(s): E86.0 - Dehydration Status: Acute Assessment and Plan: Resolved w/ IVF. Now good PO intake. 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 (7) Seizure disorder: Code(s): G40.909 - Epilepsy, unspecified, not intractable, without status epilepticus Status: Acute Assessment and Plan: -Continued Tegretol -carbamazepine level pending (8) Multiple sclerosis: Code(s): G35 - Multiple sclerosis Status: Chronic Assessment and Plan: Untreated for some years and she is now bedbound. Referred to Dr. Steven though she has not yet seen him. She states she was treated with prednisone during her last admission which helped quite a bit. Due to her pneumonia and MS I started another course of prednisone which she states has provided a great deal of relief. (9) Hypokalemia: Code(s): E87.6 - Hypokalemia Status: Acute Assessment and Plan: -likely due to decreased PO intake -will monitor and replace as neccessary DS: Summary Hospital Course Reason for hospitalization: 55-year-old female with multiple sclerosis, seizure disorder, hyperlipidemia, and DVT on long-term anticoagulation from [facility] admitted for pneumonia and lethargy. Please see HPI for further details. Hospital Course: Please see above for details of hospital course. Status at Discharge Cognitive/behavioral status at discharge: stable Functional status at discharge: bed bound Overall status at discharge: patient is progressing back to baseline Time Spent with Patient Time attestation: Total time spent providing and/or coordinating discharge services: 32 Time spent: Greater than 30 minutes Exam Narrative: General: No acute distress, chronically ill appearing Eyes: PERRL, no scleral icterus HEENT: NCAT, external ears normal, MMM Respiratory: No respiratory distress, + rhonchi LLL, scattered wheezing [facility]
[2021-03-12 07:02] LABS: Carbamazepine Tegretol 7.4 mcg/mL (4.0-12.0)
--- NOTE | 2021-03-12 14:14 | PC.NURSE ---
Blood cx are negative. Carbamazepine- 7.4
== END 2021-03-10 15:40 | DRG 871 ==
LOC: ANHED 13:35 → ANH3MEDSUR 15:45 → ANH2MED 16:24
PROVIDERS: Physician Assistant; Admitting Provider Internal Medicine; Emergency Provider Emergency Medicine; PCP Student in an Organized Health Care Education/Training Program; Visit Provider Internal Medicine
DX: A41.9 Sepsis, unspecified organism (principal); J18.9 Pneumonia, unspecified organism; G93.41 Metabolic encephalopathy; Z20.822 Contact with and (suspected) exposure to COVID-19; E86.0 Dehydration; G40.909 Epilepsy, unspecified, not intractable, without status epilepticus; G35 Multiple sclerosis; E87.6 Hypokalemia; E78.5 Hyperlipidemia, unspecified; K21.9 Gastro-esophageal reflux disease without esophagitis; Z66 Do not resuscitate; Z86.718 Personal history of other venous thrombosis and embolism; Z79.01 Long term (current) use of anticoagulants; Z87.442 Personal history of urinary calculi
CPT/HCPCS: 36415; 70450; 71045; 71260; 80053; 80156; 81001; 82728; 83605; 83615; 83735; 84145; 84443; 85025; 85027; 86140; 87040; 87426; 87804; 92610; 92611; 93005; 94640; 96361; 96365; 96366; 96367; 96375; 97110; 97162; 97166; 97530; 97535; 99285; A9270; C9803; G0378; J0131; J0456; J0692; J0696; J1741; J7030; J7512; Q9967; U0003; U0005

== ENCOUNTER 2021-04-07 12:39 | Outpatient (RCR) | payer MEDICARE, SELFPAY ==
--- NOTE | 2021-04-07 14:22 | REHOPWC ---
SEATING EVALUATION NOTIFICATION This is to notify provider that Jenae Rodriguez participated in a power mobility device evaluation today. Recommendations were made specific to patient's needs. Seating Assessment documentation has been completed for detailed information on required equipment. The mobility device provider for this case is Josefina. Please note that no further care plan will be developed on this account. Thank you for referring this patient to [facility]. Please review, sign, date and return this discharge summary AUBREE. I have been updated about the patient's current status and I agree with discharge from the above service at this time. Referring Physician Date
== END 2021-06-23 14:42 | disposition home or self-care (01) ==
LOC: ANHPT 12:39
PROVIDERS: PCP Student in an Organized Health Care Education/Training Program; Visit Provider Psychiatry & Neurology Neurology
DX: G35 Multiple sclerosis (principal)
CPT/HCPCS: 97163

== ENCOUNTER 2021-07-24 14:51 | Emergency (ER) | payer MEDICARE, SELFPAY ==
--- NOTE | 2021-07-24 15:01 | ED.FEMALEGU ---
HPI - Female Genitourinary General Chief complaint: Urogenital-Female Stated complaint: Vag bleeding and irritation Time Seen by Provider: 07/24/21 14:57 History of Present Illness HPI Narrative: Pt presents with vaginal discharge. Pt has MS and her caregiver is concerned she may have an infection. Pt complains of no pain and is not aware of discharge or bleeding. Related Data Home Medications Medication Instructions Recorded Confirmed baclofen 20 mg tablet 20 mg PO QID 04/13/19 03/24/21 folic acid 1 mg tablet 1 mg PO DAILY 04/25/20 03/24/21 ascorbic acid (vitamin C) 500 mg 500 mg PO DAILY 02/08/21 03/24/21 tablet atorvastatin 10 mg tablet (Lipitor) 10 mg PO HS 02/08/21 03/24/21 carbamazepine 200 mg tablet 200 mg PO TIDWM 02/08/21 03/24/21 (Tegretol) cranberry 500 mg capsule 500 mg PO DAILY 02/08/21 03/24/21 diphenhydramine HCl 25 mg tablet 25 mg PO BID PRN Itching 02/08/21 03/24/21 (Banophen) ferrous sulfate 325 mg (65 mg 325 mg PO BID 02/08/21 03/24/21 iron) tablet pantoprazole 20 mg tablet,delayed 20 mg PO QAM 02/08/21 03/24/21 release (Protonix) Allergies Allergy/AdvReac Type Severity Reaction Status Date / Time No Known Allergies Allergy Verified 03/24/21 14:05 Review of Systems Review of Systems: All systems reviewed & are unremarkable except as noted in HPI and below PMFSH Past Medical History Medical History Chronic anticoagulation For history of DVT. Deep venous thrombosis Frequent UTI Including history of ESBL Klebsiella pneumoniae. Gastroesophageal reflux disease Hyperlipidemia Kidney stones Multiple sclerosis Seizure disorder Surgical History Surgical History History of cystoscopy Family History Family History Mother Diabetes mellitus Myocardial infarction PTSD (post-traumatic stress disorder) Father Diabetes mellitus Myocardial infarction Sibling Myocardial infarction Patient's brother is Social History Social History Social History: Prior to her most recent hospitalization she was living with her mother in [place]. The patient was it is she is , has no children. She is now at [facility]. She is essentially bed-bound now. No alcohol, tobacco, or illicit substance use. Healthcare power of disability attorney: Melony Miner, sister. Code status: DNR. Smoking status: Never smoker Alcohol intake: never Exam Const: General: no acute distress and alert Orientation/consciousness: patient oriented x3 Neck: Neck: no meningeal signs Resp: Effort & Inspection: normal respiratory effort Auscultation: clear to auscultation bilaterally Cardio: Rate: regular rate Rhythm: regular rhythm GI: GI Palp: Yes Soft to palpation Auscultation: normal bowel sounds Skin: General skin exam: normal color Wounds: no wounds Neuro: General: patient oriented x3 Speech: normal speech Extrem: General: no clubbing, cyanosis or edema Psych: Mental Status: mental status grossly normal Course Vital Signs Vital signs: Vital Signs Temperature 98.4 F 07/24/21 15:08 Pulse Rate 70 07/24/21 15:08 Respiratory Rate 18 07/24/21 15:08 Blood Pressure 122/64 07/24/21 15:08 Pulse Oximetry 98 07/24/21 15:08 Oxygen Delivery Room Air 07/24/21 15:08 Temperature 98.4 F 07/24/21 15:08 Pulse Rate 70 07/24/21 15:08 Respiratory Rate 18 07/24/21 15:08 Blood Pressure 122/64 07/24/21 15:08 Pulse Oximetry 98 07/24/21 15:08 Oxygen Delivery Room Air 07/24/21 15:08 MDM - Female Genitourinary Lab Data Labs: Lab Results 07/24/21 07/24/21 07/24/21 Range/Units 16:13 16:40 16:40 Urine Color Yellow (Yellow) Urine Appearance Slightly cloudy (Clear) Urine pH 7.5 (5.0-9.0) Ur Specific Gravi
[2021-07-24 15:08] VITALS: BP 122/64; PULSE 70; RESP 18; TEMP 36.9; O2SAT 98
[2021-07-24 16:47] LABS: Appearance Urine Slightly Cloudy (Clear); Bilirubin Urine Negative (Negative); Blood Urine 3+ (Negative); Color Urine Yellow (Yellow); Glucose Urine UA Negative (Negative); Ketones Urine Negative (Negative); Leukocyte Esterase Ur 2+ LEU/UL (Negative); Nitrate Urine Positive (Negative); Protein Urine Negative (Negative); Specific Grav Ur 1.015 (1.001-1.035); Urobilinogen Urine 0.2 mg/dL (<2.0); pH Urine 7.5 (5.0-9.0)
[2021-07-24 16:51] LABS: Bacteria Urine Trace /hpf; Mucus Urine Rare /lpf; RBC Urine >75 /hpf (0-2)
[2021-07-24 16:52] LABS: Add Urine Microscopic? YES
[2021-07-24] MEDS: cefTRIAXone 1 GM VIAL 0.5 GM IM (18:18)
[2021-07-24] MEDS: LIDOCAINE HCL 2% LOCAL INJ 20 ML VIAL (18:18)
[2021-07-24 19:17] VITALS: BP 120/68; PULSE 72; RESP 18; O2SAT 98
== END 2021-07-24 19:19 | disposition home or self-care (01) ==
PROVIDERS: Emergency Provider Emergency Medicine; PCP Student in an Organized Health Care Education/Training Program
DX: N39.0 Urinary tract infection, site not specified (principal); N89.8 Other specified noninflammatory disorders of vagina; G35 Multiple sclerosis; E78.5 Hyperlipidemia, unspecified; G40.909 Epilepsy, unspecified, not intractable, without status epilepticus; K21.9 Gastro-esophageal reflux disease without esophagitis; Z86.718 Personal history of other venous thrombosis and embolism; Z87.440 Personal history of urinary (tract) infections; Z87.442 Personal history of urinary calculi; Z66 Do not resuscitate; Z79.01 Long term (current) use of anticoagulants
CPT/HCPCS: 51701; 81001; 87070; 87077; 87086; 87186; 87491; 87591; 87808; 96372; 99283; 99284; J0696

== ENCOUNTER 2021-12-28 20:35 | Observation (INO) | payer MEDICARE, SELFPAY ==
[2021-12-28] VITALS (14 sets, daily range): BP systolic 103–142; BP diastolic 46–70; PULSE 63–68; RESP 6–14; O2SAT 96
--- NOTE | ~2021-12-28 | XR_ITS ---
EXAMINATION: XR chest 2V Exam Date/Time: 12/28/2021 21:08 WIREWORKER HISTORY: sepsis alert. CHEST PAIN, WEAKNESS. RECENT UTI Comparison: 03/08/2021. RESULT: Lines, tubes, and devices: None. Lungs and pleura: Streaky bibasilar opacities likely representing bibasilar scar and/or atelectasis. No focal consolidation. Right medial basal calcified granuloma. Cardiomediastinal silhouette: Stable. Other: No acute osseous or upper abdominal finding. IMPRESSION: No acute cardiopulmonary process. Reviewed, dictated and finalized at location K. WORKER
--- NOTE | ~2021-12-28 | CT_ITS ---
EXAMINATION: CT brain wo con DATE: 12/29/2021 00:00 INDICATION: Confusion. TECHNIQUE: Computed tomography (CT) of the head was performed without intravenous contrast. The mA wa s adjusted according to patient size. Iterative reconstruction technique was employed. The dose-lengt h product was 605.33 mGy-cm. COMPARISON: Head CT 03/05/2021, brain MRI 02/10/2021 FINDINGS: There are scattered areas of low attenuation in the cerebral white matter. There is no intr acranial hemorrhage, acute infarction, or abnormal intracranial mass lesion. The ventricles are ritchie l in size. There is mucosal thickening in the paranasal sinuses. The mastoid air cells are normal. Th e orbits are normal. IMPRESSION: 1. Stable extensive cerebral white matter disease, consistent with multiple sclerosis. Reviewed, dictated and finalized at location A. [employer] WORKER IMPRESSION: 1. Stable extensive cerebral white matter disease, consistent with multiple scl erosis.
--- NOTE | 2021-12-28 20:54 | ECG_ITS ---
Measurements Intervals [place] Rate: 77 P: 58 DE: 185 QRS: 8 QRSD: 76 T: 6 QT: 394 QTc: 448 Interpretive Statements SINUS RHYTHM LOW QRS VOLTAGE IN PRECORDIAL LEADS BORDERLINE R WAVE PROGRESSION, ANTERIOR LEADS BORDERLINE ST-T WAVE ABNORMALITY- ANTEROLAT/INF LEADS BASELINE ARTIFACT- I, II, III, AVR, AVL, AVF, V1-V6 ABNORMAL ECG COMPARED TO ECG 03/05/2021 11:38:32 SINUS RHYTHM NOW PRESENT Electronically Signed On 12-29-2021 6:23:59 APPRAISAL SPECIALIST by Layo Burks D.O.
--- NOTE | 2021-12-28 20:54 | ED.GENADULT ---
HPI - General Adult General Chief complaint: Altered Mental Status Stated complaint: UTI 1 week ago now more lethargic History of Present Illness HPI narrative: is a chronically-ill halfway patient presenting ED with chief complaint of lethargy. Patient was diagnosed with the UTI 1 week ago. Since then she has had decreased mental status and now is responsive to pain only. Patient is unable to provide me with any information to guide my workup. Related Data Home Medications Medication Instructions Recorded Confirmed baclofen 20 mg tablet 20 mg PO QID 04/13/19 03/24/21 ascorbic acid (vitamin C) 500 mg 500 mg PO DAILY 02/08/21 03/24/21 tablet atorvastatin 10 mg tablet (Lipitor) 10 mg PO HS 02/08/21 03/24/21 pantoprazole 20 mg tablet,delayed 20 mg PO QAM 02/08/21 03/24/21 release (Protonix) acetaminophen 500 mg tablet 500 mg PO DAILY PRN 09/18/21 (Tylenol Extra Strength) carbamazepine 200 mg tablet 200 mg PO TID 09/18/21 (Tegretol) folic acid 800 mcg tablet 0.8 mg PO DAILY 09/18/21 loratadine 10 mg tablet (Claritin) 10 mg PO DAILY 09/18/21 multivitamin 1 tablet PO DAILY 09/18/21 tamsulosin 0.4 mg capsule 0.4 mg PO BID 09/18/21 Allergies Allergy/AdvReac Type Severity Reaction Status Date / Time No Known Allergies Allergy Verified 09/18/21 14:32 Review of Systems Review of Systems: Unable to obtain due to medical condition [facility] Past Medical History Medical History Chronic anticoagulation For history of DVT. Deep venous thrombosis Frequent UTI Including history of ESBL Klebsiella pneumoniae. Gastroesophageal reflux disease Hyperlipidemia Kidney stones Multiple sclerosis Seizure disorder Surgical History Surgical History History of cystoscopy Family History Family History Mother Diabetes mellitus Myocardial infarction PTSD (post-traumatic stress disorder) Father Diabetes mellitus Myocardial infarction Sibling Myocardial infarction Patient's brother is Social History Social History Social History: Prior to her most recent hospitalization she was living with her mother in [place]. The patient was it is she is , has no children. She is now at [facility]. She is essentially bed-bound now. No alcohol, tobacco, or illicit substance use. Healthcare power of commercial real estate attorney: Melony Miner, sister. Code status: DNR. Smoking status: Never smoker Alcohol intake: never Exam Narrative: APPEARANCE: patient appears chronically unwell, she slumped over in the bed. Head: atraumatic. EYES: pupils are 3 mm NOSE: Atraumatic NECK: Trachea midline RESPIRATORY: Lungs are clear bilaterally with no increased work of breathing. CARDIOVASCULAR: Regular rate and rhythm, no peripheral edema ABDOMINAL: mildly distended with no tenderness, guarding or rebound MUSCULOSKELETAl: No obvious deformities NEURO: Alert Pain. legs are unresponsive. Patient is moving her arms to pain. SKIN:: appears pale PSYCHIATRIC: wants to pain Course Vital Signs Vital signs: Vital Signs Pulse Rate 65 12/28/21 20:38 Blood Pressure 142/61 H 12/28/21 20:38 Pulse Rate 65 12/28/21 22:32 Respiratory Rate 11 L 12/28/21 22:32 Blood Pressure 130/70 12/28/21 22:32 Pulse Oximetry 96 12/28/21 22:32 Medical Decision Making MDM Narrative Medical decision making narrative: this is a 56-year-old chronically-ill halfway patient presenting ED with decreased mental status. She cannot provide any information which to guide a workup. Patient does smell of urine and likely has a UTI. Full sepsis workup has been ordered. EKG interpretation: Rhythm [sinus], Rate 77, Rebuck -[normal], CA -[normal], QRS [narrow], QTC [ritchie
[2021-12-28 21:04] LABS: Basophils Absolute Auto 0.1 K/mm3 (0.0-0.1); Basophils Percent Auto 0.7 % (0.2-1.2); Eosinophils Absolute Auto 0.3 K/mm3 (0-0.3); Eosinophils Percent Auto 4.5 % (0-4.4); Hemoglobin 13.3 g/dL (12.0-15.0); Immature Granulocyte Absolute 0.02 K/mm3 (0.00-0.031); Immature Granulocyte Percent A 0.3 % (0-0.5); Lymphocytes Absolute Auto 2.14 K/mm3 (0.9-3.2); Lymphocytes Percent Auto 29.2 % (18.3-44.2); Mean Corpuscular HGB Conc 31.7 g/dl (32-36); Mean Corpuscular Volume 94.6 fl (80-100); Mean Platelet Volume 10.3 fl (7.4-10.4); Monocytes Absolute Auto 0.5 K/mm3 (0.1-0.6); Monocytes Percent Auto 7.2 % (2.6-8.5); Neutrophils Absolute Auto 4.3 K/mm3 (1.3-6.7); Neutrophils Percent Auto 58.1 % (45.5-73.1); Platelet Count Result 300 k/mm3 (150-375); Red Blood Count 4.44 M/mm3 (4.2-5.4); Red Cell Distribution Width 13.3 % (11.5-14.5); White Blood Count 7.3 K/mm3 (4.5-10.0)
[2021-12-28 21:14] LABS: INR 1.2; Prothrombin Time 14.6 Seconds (11.1-14.7)
[2021-12-28 21:15] LABS: Partial Thromboplastin Time 31.6 SECONDS (22.3-36.8)
[2021-12-28 21:21] LABS: Alanine Aminotransferase 17 U/L (6-35); Alkaline Phosphatase 117 U/L (38-126); Anion Gap 8 mmol/L (8-16); Aspartate Amino Transferase 21 U/L (14-36); Bilirubin,Total 0.4 mg/dL (0.2-1.3); Blood Urea Nitrogen 12 mg/dL (7-17); CRP 1.4 mg/dL (<1.0); Calcium 8.3 mg/dL (8.4-10.2); Carbon Dioxide 29 mmol/L (22-30); Chloride 104 mmol/L (98-107); Estimated Glomerular Filt Rate > 60; Glucose 101 mg/dL (65-110); Potassium 3.7 mmol/L (3.4-5.0); Sodium 141 mmol/L (137-145)
[2021-12-28 21:34] LABS: NT Pro B Type Natriuretic Pept 120 pg/mL (5-100)
[2021-12-28 21:46] LABS: Lactic Acid Reflex 1.3 mmol/L (0.7-2.0)
[2021-12-28 22:34] LABS: Appearance Urine Clear (Clear); Bilirubin Urine Negative (Negative); Blood Urine 1+ (Negative); Color Urine Yellow (Yellow); Glucose Urine UA Negative (Negative); Ketones Urine 2+ mg/dL (Negative); Leukocyte Esterase Ur Trace LEU/UL (Negative); Nitrate Urine Negative (Negative); Protein Urine Negative (Negative); Specific Grav Ur 1.025 (1.001-1.035); Urobilinogen Urine 0.2 mg/dL (<2.0); pH Urine 5.5 (5.0-9.0)
[2021-12-28 22:42] LABS: Bacteria Urine Trace /hpf; Mucus Urine Few /lpf; RBC Urine 21-50 /hpf (0-2); Squamous Epithelial Cell Urine Moderate /hpf (Few)
[2021-12-28 22:56] LABS: Add Urine Microscopic? YES
[2021-12-29] VITALS (10 sets, daily range): BP systolic 120–140; BP diastolic 62–67; PULSE 62–100; RESP 10–30; TEMP 36.2–36.7; O2SAT 62–100; BMI 22.5
[2021-12-29] MEDS: SODIUM CHLORIDE 0.9% IV 1,000 ML 999 ML IV CONT (01:11)
--- NOTE | 2021-12-29 01:40 | PM.IMHP ---
H&P: HPI History of Present Illness Date/Time: 12/29/21 01:40 Chief Complaint: altered mental status Narrative: This is a 56-year-old female with past medical history significant for MS patient is bed ridden, wheelchair-bound, dede lift, she is currently living in retirement facility after she was discharge from outside hospital patient has been in and out of the hospital with recurrent infections pneumonia and urinary tract infections she was brought today to our emergency room due to altered mental status patient is unable to give any history she is obtunded, stuporous. Most of the history has been obtained from sister who is at bedside. Preliminary workup was significant for urinalysis with WBCs present. A chest x-ray was clear. Review of Systems Review of Systems: ROS unobtainable: Yes unobtainable due to mental status PMFSH Past Medical History Medical History Chronic anticoagulation For history of DVT. Deep venous thrombosis Frequent UTI Including history of ESBL Klebsiella pneumoniae. Gastroesophageal reflux disease Hyperlipidemia Kidney stones Multiple sclerosis Seizure disorder Surgical History Surgical History History of cystoscopy Family History Family History Mother Diabetes mellitus Myocardial infarction PTSD (post-traumatic stress disorder) Father Diabetes mellitus Myocardial infarction Sibling Myocardial infarction Patient's brother is Social History Social History Social History: Prior to her most recent hospitalization she was living with her mother in [place]. The patient was it is she is , has no children. She is now at [facility]. She is essentially bed-bound now. No alcohol, tobacco, or illicit substance use. Healthcare power of assistant county attorney: Melony Miner, sister. Code status: DNR. Smoking status: Never smoker Alcohol intake: never Has the Lack of Transportation Kept You From Medical Appointments or From Getting Medications?: No Within the Past 12 Months, Were You Worried Whether Your Food Would Run Out Before You Got Money to Buy More?: Never True What is Your Housing Situation Today?: I Have Housing Are You Worried That in the Next 2 Months, You May Not Have Your Own Housing to Live In?: No Do You Have Trouble Paying Your Heating Or Electricity Bill?: No Do You Have Trouble Paying For Medicines?: No Are You Currently Unemployed and Looking for Work?: No Highest Level of Education Completed: Don't Know Do You Have Trouble With Childcare or the Care of a Family Member?: No Spiritual care concerns: No Meds Home Medications and Allergies Home Medications Medication Instructions Recorded Confirmed Type baclofen 20 mg tablet 20 mg PO BID 04/13/19 12/29/21 History ascorbic acid (vitamin C) 500 mg 500 mg PO DAILY 02/08/21 12/29/21 History tablet atorvastatin 10 mg tablet (Lipitor) 10 mg PO HS 02/08/21 12/29/21 History pantoprazole 20 mg tablet,delayed 20 mg PO QAM 02/08/21 12/29/21 History release (Protonix) acetaminophen 500 mg tablet 500 mg PO DAILY PRN Pain 09/18/21 12/29/21 History (Tylenol Extra Strength) carbamazepine 200 mg tablet 200 mg PO TID 09/18/21 12/29/21 History (Tegretol) folic acid 800 mcg tablet 1 mg PO DAILY 09/18/21 12/29/21 History loratadine 10 mg tablet (Claritin) 10 mg PO DAILY 09/18/21 12/29/21 History multivitamin 1 tablet PO DAILY 09/18/21 12/29/21 History tamsulosin 0.4 mg capsule 0.4 mg PO BID 09/18/21 12/29/21 History rivaroxaban 20 mg tablet (Xarelto) 20 mg PO QPM #30 tabs 09/30/21 12/29/21 Rx teriflunomide 7 mg tablet (Aubagio) 7 mg PO DAILY #90 tabs 12/25/21 12/29/21 Rx Allergies Allergy/AdvReac Type Severity Reaction Status Date / Time No Know
[2021-12-29 01:44] LABS: SARS-CoV-2 RNA PCR Negative
--- NOTE | 2021-12-29 02:28 | ADMGEN ---
This patient, Jenae Rodriguez, was admitted to 3 Med Surg Room 317-01. Patient/family oriented to hospital policies and general routines including ID bracelet, bed and alarms, visiting hours, pain management, procedures, bathroom and other care routines, personal items, smoking policy, room service/diet, and visiting hours. Information on how to activate the Rapid Response Team has been discussed. Patient/Family are encouraged to report perceived risks to care and to ask questions if they do not understand what they are told or what they should do.
[2021-12-29] MEDS: carBAMazepine 200 MG TABLET PO ×3 (09:17→17:30)
[2021-12-29] MEDS: FOLIC ACID 1 MG TABLET PO (09:17)
[2021-12-29] MEDS: TAMSULOSIN HCL 0.4 MG CAPSULE PO ×2 (09:18→21:54)
[2021-12-29] MEDS: LORATADINE 10 MG TABLET PO (09:18)
[2021-12-29] MEDS: MULTIVITAMINS THERAPEUTIC TAB (*BKC) 1 TABLET PO (09:18)
[2021-12-29] MEDS: ASCORBIC ACID 500 MG TABLET PO (09:18)
[2021-12-29] MEDS: PANTOPRAZOLE SOD SESQUIHYDRATE 20 MG TAB PO (09:18)
[2021-12-29] MEDS: BACLOFEN 10 MG TABLET 20 MG PO ×2 (09:20→21:54)
--- NOTE | 2021-12-29 10:20 | WPDNEURCNPN ---
Assessment and Plan Assessment and plan (1) AMS (altered mental status): Qualifiers: Altered mental status type: somnolence Qualified Code(s): R40.0 - Somnolence Code(s): R41.82 - Altered mental status, unspecified Status: Acute (2) UTI (urinary tract infection): Code(s): N39.0 - Urinary tract infection, site not specified Status: Acute (3) Multiple sclerosis: Code(s): G35 - Multiple sclerosis Status: Chronic (4) Seizure disorder: Code(s): G40.909 - Epilepsy, unspecified, not intractable, without status epilepticus Status: Acute Plan Ms. Dean is a 56 year old female with a history of multiple sclerosis who presented for altered mental status. Found to have a UTI. Mental status has improved with initiation of antibiotics, and patient appears to be at baseline. Patient denies any new focal neurological symptoms that would be suggestive of an MS exacerbation. - No further work-up needed Consult date: 12/29/21 Time Seen: 10:20 Reason for consult: altered mental status HPI: Jenae Rodriguez is a 56 year old female with a history of multiple sclerosis (non-ambulatory at baseline) and seizures (on Tegretol) who presented due to concerns for altered mental status. She was recently discharged from another hospital for recent UTI. She presented yesterday unresponsive. CT head did not show any acute changes. There were no reports of seizure-like activity. Her UA was concerning for UTI. She was started on antibiotics and admitted. Patient is awake and alert this morning. Mental status is back to baseline. She denies any new concerns for vision changes, new focal numbness, or new focal weakness. She follows with Dr. Steven for her MS and takes Aubagio. Review of Systems Constitutional: Constitutional: Reports no additional constitutional complaints Eyes: Eyes: Reports no additional eye complaints ENT: Reports system reviewed and no additional complaints, except as documented Cardiovascular: Cardiovascular: Reports no additional cardiovascular complaints Respiratory: Respiratory: Reports no additional respiratory complaints Gastrointestinal: Gastrointestinal: Reports no additional gastrointestinal complaints Genitourinary: Genitourinary: Reports no additional female genitourinary complaints Musculoskeletal: Musculoskeletal: Reports no additional musculoskeletal complaints Integumentary/Breasts: Skin/Breast: Reports system reviewed and no additional complaints, except as docu Neurologic: Reports as per HPI, Reports Abnormal speech present and Reports abnormal gait Psychiatric: Psychiatric: Reports no additional psychiatric complaints PMFSH Past Medical History Medical History Chronic anticoagulation For history of DVT. Deep venous thrombosis Frequent UTI Including history of ESBL Klebsiella pneumoniae. Gastroesophageal reflux disease Hyperlipidemia Kidney stones Multiple sclerosis Seizure disorder Surgical History Surgical History History of cystoscopy Family History Family History Mother Diabetes mellitus Myocardial infarction PTSD (post-traumatic stress disorder) Father Diabetes mellitus Myocardial infarction Sibling Myocardial infarction Patient's brother is Social History Social History Social History: Prior to her most recent hospitalization she was living with her mother in [place]. The patient was it is she is , has no children. She is now at [facility]. She is essentially bed-bound now. No alcohol, tobacco, or illicit substance use. Healthcare power of corporate attorney: Melony Miner, sister. Code status: DNR. Smoking status: Never smoker Alcohol intake: never Has the Lack of Transportat
--- NOTE | 2021-12-29 11:17 | PHAR ---
HOME MED: AUBAGIO (TERIFLUNOMIDE) 7 MG TABLET; TAKE 1 TABLET BY MOUTH ONCE DAILY. VERIFIED BY PHARMACY.
[2021-12-29] MEDS: RIVAROXABAN 20 MG TABLET PO (17:31)
[2021-12-29] MEDS: GABAPENTIN 100 MG CAPSULE PO (17:31)
--- NOTE | 2021-12-29 19:34 | PM.IMPN ---
Progress Note: A&P Assessment and Plan (1) UTI (urinary tract infection): Code(s): N39.0 - Urinary tract infection, site not specified Status: Acute (2) Metabolic encephalopathy: Code(s): G93.41 - Metabolic encephalopathy Status: Resolved (3) Dehydration: Code(s): E86.0 - Dehydration Status: Acute (4) Gastroesophageal reflux disease: Code(s): K21.9 - Gastro-esophageal reflux disease without esophagitis Status: Acute (5) General weakness: Code(s): R53.1 - Weakness Status: Acute Plan 12/29/21 ?patient has been started on cefepime ?previous urine cultures reviewed ?cultures in progress ?supportive care ?continue to monitor ?likely secondary to acute illness ?supportive care ?IV fluids ?intake and output daily ?likely secondary to acute illness ?likely secondary to acute illness ?PPI as needed ?continue home meds ?continue to monitor follow up rounding note pt doing ok stable no new complaints AAOx3 now remains on abx pending UCx POC reviewed w sister via phone Subjective Date/time seen: 12/29/21 19:34 pt doing ok seen by neuro AMS not associated w dx of MS or seizure disorder pt now AAOx3 advised UCx pending Review of Systems Review of Systems: All systems reviewed & are unremarkable except as noted in HPI and below Exam Narrative: GEN: NAD, AAOx3, cooperative HEENT: NCAT, MMM, EOMI Neck: no JVD Lungs: symmetric chest rise no use of accessory muscles Abd: soft, NT, ND, bowel sounds normoactive Objective Data Vital Signs Vital Signs: Vital Signs - 24 hr 12/28/21 20:38 12/28/21 22:32 12/28/21 20:45 Temperature Pulse Rate 65 65 68 Respiratory Rate 11 L 14 Blood Pressure 142/61 H 130/70 128/61 Pulse Oximetry 96 96 Oxygen Delivery 12/28/21 22:33 12/28/21 22:45 12/28/21 22:46 Temperature Pulse Rate 64 66 64 Respiratory Rate 14 9 L 10 L Blood Pressure 118/66 Pulse Oximetry 96 Oxygen Delivery 12/28/21 23:00 12/28/21 23:01 12/28/21 23:15 Temperature Pulse Rate 64 63 67 Respiratory Rate 9 L 11 L 8 L Blood Pressure 115/49 L Pulse Oximetry Oxygen Delivery 12/28/21 23:16 12/28/21 23:30 12/28/21 23:31 Temperature Pulse Rate 65 67 67 Respiratory Rate 8 L 8 L 8 L Blood Pressure 106/46 L 103/55 L Pulse Oximetry Oxygen Delivery 12/28/21 23:45 12/28/21 23:46 12/29/21 00:01 Temperature Pulse Rate 65 64 74 Respiratory Rate 6 L 7 L 30 H Blood Pressure 109/53 L Pulse Oximetry 97 Oxygen Delivery 12/29/21 00:15 12/29/21 00:30 12/29/21 00:45 Temperature Pulse Rate 63 62 68 Respiratory Rate 12 12 12 Blood Pressure Pulse Oximetry 97 99 Oxygen Delivery 12/29/21 01:00 12/29/21 02:30 12/29/21 06:00 Temperature 97.1 F L Pulse Rate 63 63 100 Respiratory Rate 10 L 10 L 18 Blood Pressure 131/62 Pulse Oximetry 99 62 L Oxygen Delivery Room Air 12/29/21 08:30 Temperature Pulse Rate 62 Respiratory Rate Blood Pressure Pulse Oximetry 100 Oxygen Delivery Intake/Output Intake/Output: Intake & Output 12/27/21 12/28/21 12/28/21 12/29/21 00:59 00:59 23:59 23:59 Intake Total 1530 Balance 1530 Meds/Results Medications: Active Medications Generic Name Dose Route Start Last Admin Trade Name Garrett PRN Reason Stop Dose Admin Acetaminophen 500 mg 12/29/21 04:38 Acetaminophen 500 Mg Tablet PO DAILY PRN Pain Ascorbic Acid 500 mg 12/29/21 09:00 12/29/21 09:18 Ascorbic Acid 500 Mg Tablet PO 500 mg DAILY DUONG Administration Baclofen 20 mg 12/29/21 09:00 12/29/21 09:20 Baclofen 10 Mg Tablet PO 20 mg Q12HR DUONG Administration Carbamazepine 200 mg 12/29/21 09:00 12/29/21 17:30 Carbamazepine 200 Mg Tablet PO 200 mg TID DUONG Administration Folic Acid 1 mg 12/29/21 09:00 12/29/21 09:17 Folic Acid 1 Mg Tablet PO 01/28/22 08:59 1 mg DAILY DUONG Administration Wallace
[2021-12-30 06:00] VITALS: BP 128/58; PULSE 77; RESP 14; TEMP 37; O2SAT 98
[2021-12-30 06:48] LABS: Anion Gap 6 mmol/L (8-16); Blood Urea Nitrogen 12 mg/dL (7-17); Calcium 8.2 mg/dL (8.4-10.2); Carbon Dioxide 27 mmol/L (22-30); Chloride 105 mmol/L (98-107); Estimated CRCL calculation 132 ml/min; Estimated Glomerular Filt Rate > 60; Glucose 94 mg/dL (65-110); Magnesium 2.1 mg/dL (1.6-2.3); Potassium 3.7 mmol/L (3.4-5.0); Sodium 138 mmol/L (137-145)
[2021-12-30 06:55] LABS: Basophils Absolute Auto 0.1 K/mm3 (0.0-0.1); Basophils Percent Auto 0.9 % (0.2-1.2); Eosinophils Absolute Auto 0.3 K/mm3 (0-0.3); Eosinophils Percent Auto 6.2 % (0-4.4); Hematocrit 37.8 % (37.0-47.0); Hemoglobin 11.8 g/dL (12.0-15.0); Immature Granulocyte Absolute 0.01 K/mm3 (0.00-0.031); Immature Granulocyte Percent A 0.2 % (0-0.5); Lymphocytes Percent Auto 33.8 % (18.3-44.2); Mean Corpuscular HGB Conc 31.2 g/dl (32-36); Mean Corpuscular Hemoglobin 29.6 pg (26-34); Mean Platelet Volume 10.1 fl (7.4-10.4); Monocytes Absolute Auto 0.4 K/mm3 (0.1-0.6); Monocytes Percent Auto 7.3 % (2.6-8.5); Neutrophils Absolute Auto 2.7 K/mm3 (1.3-6.7); Neutrophils Percent Auto 51.6 % (45.5-73.1); Platelet Count Result 262 k/mm3 (150-375); Red Blood Count 3.98 M/mm3 (4.2-5.4); Red Cell Distribution Width 13.2 % (11.5-14.5); White Blood Count 5.3 K/mm3 (4.5-10.0)
[2021-12-30] MEDS: GABAPENTIN 100 MG CAPSULE PO ×3 (08:26→17:24)
[2021-12-30] MEDS: PANTOPRAZOLE SOD SESQUIHYDRATE 20 MG TAB PO (08:26)
[2021-12-30] MEDS: BACLOFEN 10 MG TABLET 20 MG PO ×2 (08:26→21:16)
[2021-12-30] MEDS: ASCORBIC ACID 500 MG TABLET PO (08:26)
[2021-12-30] MEDS: TAMSULOSIN HCL 0.4 MG CAPSULE PO ×2 (08:26→21:16)
[2021-12-30] MEDS: carBAMazepine 200 MG TABLET PO ×3 (08:26→17:24)
[2021-12-30] MEDS: MULTIVITAMINS THERAPEUTIC TAB (*BKC) 1 TABLET PO (08:27)
[2021-12-30] MEDS: LORATADINE 10 MG TABLET PO (08:27)
[2021-12-30] MEDS: FOLIC ACID 1 MG TABLET PO (08:27)
--- NOTE | 2021-12-30 09:40 | PM.IMPN ---
Progress Note: A&P Assessment and Plan (1) UTI (urinary tract infection): Code(s): N39.0 - Urinary tract infection, site not specified Status: Acute (2) Metabolic encephalopathy: Code(s): G93.41 - Metabolic encephalopathy Status: Resolved (3) Dehydration: Code(s): E86.0 - Dehydration Status: Acute (4) Gastroesophageal reflux disease: Code(s): K21.9 - Gastro-esophageal reflux disease without esophagitis Status: Acute (5) General weakness: Code(s): R53.1 - Weakness Status: Acute Plan 12/29/21 ?patient has been started on cefepime ?previous urine cultures reviewed ?cultures in progress ?supportive care ?continue to monitor ?likely secondary to acute illness ?supportive care ?IV fluids ?intake and output daily ?likely secondary to acute illness ?likely secondary to acute illness ?PPI as needed ?continue home meds ?continue to monitor follow up rounding note pt doing ok stable no new complaints AAOx3 now remains on abx pending UCx POC reviewed w sister via phone 12/30/21 labs WNL (noted to have eosinophilia ) VS WNL UCx still pending cont current care management adjustment pending UCx pts c/c of AMS has resolved at present AAOx3 and Neuro has ruled out MS as cause of AMS concern pt arrived to [place] with bedsore wound care consulted Subjective Date/time seen: 12/30/21 09:40 pt not speaking much today . sister bedside upset that her sister was hospitalized and then given oral abx and did not get better. she is advised that there are many reasons why her sister could be ill . recurrence of infection , new infection Review of Systems Review of Systems: All systems reviewed & are unremarkable except as noted in HPI and below Exam Narrative: GEN: NAD, AAOx3, uncooperative HEENT: NCAT, MMM, EOMI Neck: no JVD Lungs: symmetric chest rise no use of accessory muscles Abd: soft, NT, ND, bowel sounds normoactive EXT: in heel lifts Objective Data Vital Signs Vital Signs: Vital Signs - 24 hr 12/29/21 14:00 12/29/21 22:00 12/30/21 06:00 Temperature 98.1 F 97.3 F L 98.6 F Pulse Rate 75 77 77 Respiratory Rate 20 16 14 Blood Pressure 120/65 140/67 128/58 L Pulse Oximetry 99 95 98 Intake/Output Intake/Output: Intake & Output 12/28/21 12/28/21 12/29/21 12/30/21 00:59 23:59 23:59 23:59 Intake Total 1760 480 Balance 1760 480 Meds/Results Medications: Active Medications Generic Name Dose Route Start Last Admin Trade Name Garrett PRN Reason Stop Dose Admin Acetaminophen 500 mg 12/29/21 04:38 Acetaminophen 500 Mg Tablet PO DAILY PRN Pain Ascorbic Acid 500 mg 12/29/21 09:00 12/30/21 08:26 Ascorbic Acid 500 Mg Tablet PO 500 mg DAILY DUONG Administration Baclofen 20 mg 12/29/21 09:00 12/30/21 08:26 Baclofen 10 Mg Tablet PO 20 mg Q12HR DUONG Administration Carbamazepine 200 mg 12/29/21 09:00 12/30/21 08:26 Carbamazepine 200 Mg Tablet PO 200 mg TID DUONG Administration Folic Acid 1 mg 12/29/21 09:00 12/30/21 08:27 Folic Acid 1 Mg Tablet PO 01/28/22 08:59 1 mg DAILY DUONG Administration Gabapentin 100 mg 12/29/21 17:00 12/30/21 08:26 Gabapentin 100 Mg Capsule PO 100 mg TID DUONG Administration Home Med 1 each 12/29/21 12:00 12/30/21 08:27 Home Medication (Teriflunomide [Aubagio] 7 Mg Tablet) PO 01/28/22 11:59 1 each DAILY DUONG Administration Cefepime HCl 1 gm in 50 mls @ 100 mls/hr 12/29/21 10:00 12/30/21 03:35 Maxipime 1 Gm/D5w 50 Ml IVPB 100 mls/hr Q8H DUONG Infusion Loratadine 10 mg 12/29/21 09:00 12/30/21 08:27 Loratadine 10 Mg Tablet PO 10 mg DAILY DUONG Administration Multivitamins Therapeutic 1 tablet 12/29/21 09:00 12/30/21 08:27 Multivitamins Therapeutic Tab (*Bkc) PO 1 tablet DAILY DUONG Administration Pantoprazole Sodium 20 mg 12/29/21 09:00 12/30/21 08:26 Pantoprazole Sod Sesquihydrate 20 Mg Tab
[2021-12-30 14:00] VITALS: BP 115/66; PULSE 73; RESP 18; TEMP 36.6; O2SAT 99
[2021-12-30] MEDS: ACETAMINOPHEN 500 MG TABLET PO (17:23)
[2021-12-30] MEDS: RIVAROXABAN 20 MG TABLET PO (17:24)
[2021-12-30 22:00] VITALS: BP 139/79; PULSE 83; RESP 18; TEMP 36.2; O2SAT 100
[2021-12-31 06:00] VITALS: BP 114/53; PULSE 85; RESP 16; TEMP 37.3; O2SAT 95
[2021-12-31 06:19] LABS: Basophils Absolute Auto 0.1 K/mm3 (0.0-0.1); Basophils Percent Auto 0.7 % (0.2-1.2); Eosinophils Absolute Auto 0.4 K/mm3 (0-0.3); Eosinophils Percent Auto 4.8 % (0-4.4); Hematocrit 36.9 % (37.0-47.0); Hemoglobin 11.8 g/dL (12.0-15.0); Immature Granulocyte Absolute 0.04 K/mm3 (0.00-0.031); Immature Granulocyte Percent A 0.5 % (0-0.5); Lymphocytes Absolute Auto 1.75 K/mm3 (0.9-3.2); Lymphocytes Percent Auto 23.8 % (18.3-44.2); Mean Corpuscular Hemoglobin 29.9 pg (26-34); Mean Corpuscular Volume 93.7 fl (80-100); Monocytes Absolute Auto 0.5 K/mm3 (0.1-0.6); Monocytes Percent Auto 6.5 % (2.6-8.5); Neutrophils Absolute Auto 4.7 K/mm3 (1.3-6.7); Neutrophils Percent Auto 63.7 % (45.5-73.1); Platelet Count Result 238 k/mm3 (150-375); Red Blood Count 3.94 M/mm3 (4.2-5.4); White Blood Count 7.4 K/mm3 (4.5-10.0)
[2021-12-31 06:35] LABS: Potassium 3.5 mmol/L (3.4-5.0); Sodium 140 mmol/L (137-145)
[2021-12-31 06:36] LABS: Anion Gap 12 mmol/L (8-16); Blood Urea Nitrogen 11 mg/dL (7-17); Calcium 8.2 mg/dL (8.4-10.2); Carbon Dioxide 25 mmol/L (22-30); Chloride 103 mmol/L (98-107); Estimated CRCL calculation 132 ml/min; Estimated Glomerular Filt Rate > 60; Glucose 93 mg/dL (65-110); Magnesium 2.1 mg/dL (1.6-2.3)
[2021-12-31 08:49] VITALS: O2SAT 95
[2021-12-31] MEDS: GABAPENTIN 100 MG CAPSULE PO ×3 (09:12→17:03)
[2021-12-31] MEDS: MULTIVITAMINS THERAPEUTIC TAB (*BKC) 1 TABLET PO (09:12)
[2021-12-31] MEDS: TAMSULOSIN HCL 0.4 MG CAPSULE PO ×2 (09:12→21:54)
[2021-12-31] MEDS: PANTOPRAZOLE SOD SESQUIHYDRATE 20 MG TAB PO (09:12)
[2021-12-31] MEDS: ASCORBIC ACID 500 MG TABLET PO (09:13)
[2021-12-31] MEDS: FOLIC ACID 1 MG TABLET PO (09:13)
[2021-12-31] MEDS: LORATADINE 10 MG TABLET PO (09:13)
[2021-12-31] MEDS: carBAMazepine 200 MG TABLET PO ×3 (09:13→17:02)
[2021-12-31] MEDS: BACLOFEN 10 MG TABLET 20 MG PO ×2 (09:17→21:54)
[2021-12-31 13:10] VITALS: BP 119/63; PULSE 86; RESP 16; TEMP 36.6; O2SAT 95
--- NOTE | 2021-12-31 15:50 | PM.IMPN ---
Progress Note: A&P Assessment and Plan (1) UTI (urinary tract infection): Code(s): N39.0 - Urinary tract infection, site not specified Status: Acute (2) Dehydration: Code(s): E86.0 - Dehydration Status: Acute (3) Gastroesophageal reflux disease: Code(s): K21.9 - Gastro-esophageal reflux disease without esophagitis Status: Acute (4) General weakness: Code(s): R53.1 - Weakness Status: Acute (5) AMS (altered mental status): Qualifiers: Altered mental status type: somnolence Qualified Code(s): R40.0 - Somnolence Code(s): R41.82 - Altered mental status, unspecified Status: Acute (6) Multiple sclerosis: Code(s): G35 - Multiple sclerosis Status: Chronic Plan 12/29/21 ?patient has been started on cefepime ?previous urine cultures reviewed ?cultures in progress ?supportive care ?continue to monitor ?likely secondary to acute illness ?supportive care ?IV fluids ?intake and output daily ?likely secondary to acute illness ?likely secondary to acute illness ?PPI as needed ?continue home meds ?continue to monitor follow up rounding note pt doing ok stable no new complaints AAOx3 now remains on abx pending UCx POC reviewed w sister via phone 12/30/21 labs WNL (noted to have eosinophilia ) VS WNL UCx still pending cont current care management adjustment pending UCx pts c/c of AMS has resolved at present AAOx3 and Neuro has ruled out MS as cause of AMS concern pt arrived to [place] with bedsore wound care consulted 12/31/21 Patient with AMS from unclear reasons. Family state patient with unresponsive episodes (second episode). UCx noted but poor sample and low colony count. Left Hand last time was associated with UTI. Doubt UTI. Consider seizures. Will re-consult Neuro. Stop abx. Repeat UA in the morning. Discussed hospice but family was unreceptive. Subjective Date/time seen: 12/31/21 15:50 Interval history: 56yo female with MS here for altered mental status. Assuming care. Chart reviewed. Patient slept well last night. No complaints of chest pain or shortness of breath. She is alert and oriented but is unclear on the details of her history. She states that she has had 1 prior episodes of altered mental status requiring hospitalization although does not recall the details. She notes she states that she has had no new medications then states that she was started on recent medication a few months ago of those unclear on this. She does mention that she has not been on any medications for her multiple sclerosis. Exam Narrative: AF 97.8 119/63 86 16 95% ra Gen - NARD lying almost flat in bed Chest - lungs clear anteriorly, nml RR CV - RRR S1/S2 Abd - Soft, NT, +BS Ext - No pedal edema. Feet are in skin protective boot Neuro - Alert and oriented x4. functional quadriplegic. soft but clear speech Psych - Nml mood with odd affect Skin - Warm and dry Objective Data Vital Signs Vital Signs: Vital Signs - 24 hr 12/30/21 22:00 12/31/21 06:00 12/31/21 08:49 Temperature 97.1 F L 99.1 F Pulse Rate 83 85 Respiratory Rate 18 16 Blood Pressure 139/79 114/53 L Pulse Oximetry 100 95 95 Oxygen Delivery Room Air 12/31/21 09:10 12/31/21 13:10 Temperature 97.8 F Pulse Rate 86 Respiratory Rate 16 Blood Pressure 119/63 Pulse Oximetry 95 Oxygen Delivery Room Air Intake/Output Intake/Output: Intake & Output 12/28/21 12/29/21 12/30/21 12/31/21 23:59 23:59 23:59 23:59 Intake Total 1760 1630 560 Balance 1760 1630 560 Meds/Results Medications: Active Medications Generic Name Dose Route Start Last Admin Trade Name Raúlq PRN Reason Stop Dose Admin Acetaminophen 500 mg 12/29/21 04:38 12/30/21 17:23 Acetaminophen 500 Mg Tablet PO 500 mg DAILY PRN Administration Pain Ascorbic Acid 500 mg 12/29/21 09:00 12/31/21 09:13 Ascorbic Acid 500 Mg Tablet PO 500 mg
[2021-12-31] MEDS: RIVAROXABAN 20 MG TABLET PO (17:03)
[2021-12-31 22:00] VITALS: BP 126/62; PULSE 71; RESP 16; TEMP 35.9; O2SAT 95
[2022-01-01 06:00] VITALS: BP 120/79; PULSE 71; RESP 20; TEMP 35.7; O2SAT 100
--- NOTE | 2022-01-01 06:31 | PC.NURSE ---
Patient was bladder scanned and had a residual of 407, Patient asked what was her options. I first educated her on how holding urine was not good for the bladder and could cause some damage. I then proceeded to tell the patient that she could urinate on her own or get straight cath. Patient told me no about the straight cath and that she would urinate on her own. I repositioned the patient like she asked so she could urinate but patient did not. I told patient again about the straight cath and she refused. Dr eL was notified about the situation, staff will continue to educate the patient about this situation.
[2022-01-01 08:00] VITALS: PULSE 71; RESP 20; O2SAT 100
--- NOTE | 2022-01-01 08:23 | WPDNEURCNPN ---
Assessment and Plan Assessment and plan (1) AMS (altered mental status): Qualifiers: Altered mental status type: somnolence Qualified Code(s): R40.0 - Somnolence Code(s): R41.82 - Altered mental status, unspecified Status: Acute (2) Seizure disorder: Code(s): G40.909 - Epilepsy, unspecified, not intractable, without status epilepticus Status: Acute (3) UTI (urinary tract infection): Code(s): N39.0 - Urinary tract infection, site not specified Status: Acute (4) Multiple sclerosis: Code(s): G35 - Multiple sclerosis Status: Chronic Plan Ms. Dean is a 56 year old female with a history of multiple sclerosis who presented for altered mental status. Found to have a UTI. Mental status has improved with initiation of antibiotics, although patient has had several episodes of unresponsiveness during admission that may be concerning for seizures. Patient denies any new focal neurological symptoms that would be suggestive of an MS exacerbation. - Increase Tegretol to 400mg in the morning, and 200mg mid-day, and 200mg at bedtime Consult date: 01/01/22 Reason for consult: Concern for seizure-like activity HPI: Jenae Rodriguez is a 56 year old female with a history of multiple sclerosis (non-ambulatory at baseline) and seizures (on Tegretol) who initially presented due to concerns for altered mental status. She presented on 12/28 after being found unresponsive. CT head did not show any acute changes. There were no reports of seizure-like activity. Her UA was concerning for UTI. She was started on antibiotics and admitted. Patient was back to baseline the following morning. Since then, there have been reports of several episodes of unresponsiveness during the admission. She does have a history of seizures for which she takes Tegretol 200mg TID. Patient has no recollection of the episodes. She had her first seizure at age 24. Her last big seizure was almost 20 years ago. She denies any new concerns for vision changes, new focal numbness, or new focal weakness. She follows with Dr. Steven for her MS and takes Aubagio. Review of Systems Constitutional: Constitutional: Reports no additional constitutional complaints Eyes: Eyes: Reports no additional eye complaints ENT: Reports system reviewed and no additional complaints, except as documented Cardiovascular: Cardiovascular: Reports no additional cardiovascular complaints Respiratory: Respiratory: Reports no additional respiratory complaints Gastrointestinal: Gastrointestinal: Reports no additional gastrointestinal complaints Genitourinary: Genitourinary: Reports no additional female genitourinary complaints Musculoskeletal: Musculoskeletal: Reports no additional musculoskeletal complaints Integumentary/Breasts: Skin/Breast: Reports system reviewed and no additional complaints, except as docu Neurologic: Reports as per HPI Psychiatric: Psychiatric: Reports no additional psychiatric complaints PMFSH Past Medical History Medical History Chronic anticoagulation For history of DVT. Deep venous thrombosis Frequent UTI Including history of ESBL Klebsiella pneumoniae. Gastroesophageal reflux disease Hyperlipidemia Kidney stones Multiple sclerosis Seizure disorder Surgical History Surgical History History of cystoscopy Family History Family History Mother Diabetes mellitus Myocardial infarction PTSD (post-traumatic stress disorder) Father Diabetes mellitus Myocardial infarction Sibling Myocardial infarction Patient's brother is Social History Social History Social History: Prior to her most recent hospitalization she was living with her mother in [place]. The patient was it is she
[2022-01-01] MEDS: MULTIVITAMINS THERAPEUTIC TAB (*BKC) 1 TABLET PO (09:40)
[2022-01-01] MEDS: PANTOPRAZOLE SOD SESQUIHYDRATE 20 MG TAB PO (09:40)
[2022-01-01] MEDS: TAMSULOSIN HCL 0.4 MG CAPSULE PO (09:40)
[2022-01-01] MEDS: carBAMazepine 200 MG TABLET 400 MG PO (09:41)
[2022-01-01] MEDS: GABAPENTIN 100 MG CAPSULE PO ×2 (09:41→15:20)
[2022-01-01] MEDS: FOLIC ACID 1 MG TABLET PO (09:41)
[2022-01-01] MEDS: ASCORBIC ACID 500 MG TABLET PO (09:41)
[2022-01-01] MEDS: BACLOFEN 10 MG TABLET 20 MG PO (09:45)
--- NOTE | 2022-01-01 09:57 | PC.NURSE ---
Pt reminded of order and need for urine specimen to send to lab. Notified that urine needed to be obtained per straight cath. Pt states I don't like catheters . Refuses straight cath at this time. States I will use the bed kumar.
[2022-01-01] MEDS: LORATADINE 10 MG TABLET PO (10:32)
[2022-01-01 11:34] LABS: Appearance Urine Cloudy (Clear); Bilirubin Urine Negative (Negative); Blood Urine 1+ (Negative); Color Urine Yellow (Yellow); Glucose Urine UA Negative (Negative); Ketones Urine Negative (Negative); Leukocyte Esterase Ur 2+ LEU/UL (Negative); Nitrate Urine Negative (Negative); Protein Urine Negative (Negative); Urobilinogen Urine 0.2 mg/dL (<2.0)
[2022-01-01 11:42] LABS: Bacteria Urine 1+ /hpf; Mucus Urine Rare /lpf; Squamous Epithelial Cell Urine Many /hpf (Few); WBC Urine 16-20 /hpf
[2022-01-01 11:46] LABS: Add Urine Microscopic? YES
--- NOTE | 2022-01-01 13:42 | PM.DS ---
DS: Admitting Diagnosis Discharge Date 01/01/22 Admitting Diagnosis Altered mental status DS: Discharge Diagnosis Discharge Diagnosis (1) UTI (urinary tract infection): Code(s): N39.0 - Urinary tract infection, site not specified Status: Acute (2) Dehydration: Code(s): E86.0 - Dehydration Status: Acute (3) Gastroesophageal reflux disease: Code(s): K21.9 - Gastro-esophageal reflux disease without esophagitis Status: Acute (4) General weakness: Code(s): R53.1 - Weakness Status: Acute (5) AMS (altered mental status): Qualifiers: Altered mental status type: somnolence Qualified Code(s): R40.0 - Somnolence Code(s): R41.82 - Altered mental status, unspecified Status: Acute (6) Multiple sclerosis: Code(s): G35 - Multiple sclerosis Status: Chronic DS: Summary Hospital Course Reason for hospitalization: 56yo female with MS here for altered mental status. Please see H&P for details. Hospital Course: Patient is brought to the emergency room because of lethargy. EKG showed borderline findings but no acute changes from prior EKG. CBC was normal. Urinalysis grew 10-15 white cells and moderate squamous epithelial cells. She had trace leuks esterase and 1+ blood. Negative nitrates. Chest x-ray was clear. CT the brain showed stable extensive cerebral white matter disease consistent with her MS. Initially was felt that she had a UTI and so she was started on IV antibiotics. Urine culture has grown VRE 50-100 K colonies. Given the urinalysis result and the fact that she improved on antibiotics that did not cover VRE, it was felt more likely the VRE was a colonization or contamination and not a true infection. Further discussion with the family states that the patient has intermittent episodes where she is unable to be aroused. Discussed with Neurology and there was concern that she may be having unrecognized seizures. Patient's Tegretol was increased. We stopped her abx. She had did not have any further episodes while hospitalized. She remains stable overall. She was able be discharged back to alf on 01/01/2022. Family is at bedside and they were updated. Status at Discharge Cognitive/behavioral status at discharge: Stable Time Spent with Patient Time attestation: Total time spent providing and/or coordinating discharge services: 34 minutes Time spent: Greater than 30 minutes Exam Narrative: AF 96.2 120/79 71 20 100% ra Gen - NARD lying almost flat in bed Chest - lungs clear anteriorly, nml RR CV - RRR S1/S2 Abd - Soft, NT, +BS Ext - No pedal edema Neuro - Alert and oriented x4. functional quadriplegic. soft but clear speech Psych - Nml mood with odd affect Skin - Warm and dry DS: Data Data Completed and Pending Labs on day of discharge: Labs from last 24 hours 01/01/22 11:25 Urine Color Yellow Urine Appearance Cloudy H Urine pH 7.0 Ur Specific [place] 1.010 Urine Protein Negative Urine Glucose (UA) Negative Urine Ketones Negative Ur Blood (Man) 1+ H Urine Nitrate Negative Urine Bilirubin Negative Urine Urobilinogen 0.2 Leukocyte Esterase Rfl 2+ H Urine RBC 11-20 H Urine WBC 16-20 H Ur Squamous Epith Cells Many H Urine Bacteria 1+ H Urine Mucus Rare Preliminary micro results at discharge 12/28/21 20:56 Blood Culture - Preliminary Blood 12/28/21 21:31 Blood Culture - Preliminary Blood Discharge Plan Discharge Attending physician on discharge: Issa Anthony Consulting providers: Layton Steven Discharging Clinician: Issa Anthony Anticipated Discharge Date/Time: 01/01/22 13:46 Patient Disposition: NH Usp/Asst Living Activity: as tolerated Diet: regular Discharge Instructions: Please have patient out of bed as tolerated as much as possible Shower patient 1x/week Continue routine quality skin care to prevent b
[2022-01-01 14:00] VITALS: BP 121/56; PULSE 73; RESP 16; TEMP 36.6; O2SAT 98
[2022-01-01 15:02] LABS: EDCOVIDSCREEN Negative (Negative)
[2022-01-01] MEDS: carBAMazepine 200 MG TABLET PO (15:20)
--- NOTE | 2022-01-13 07:55 | PC.NURSE ---
Urine cx faxed to [facility]. Dr. Raj hurley.
== END 2022-01-01 21:25 ==
LOC: ANHED 12-29 00:34 → ANH3MEDSUR 12-29 02:26
PROVIDERS: Hospitalist; Admitting Provider Internal Medicine; Emergency Provider Emergency Medicine; PCP Internal Medicine; Visit Provider Internal Medicine
DX: N39.0 Urinary tract infection, site not specified (principal); B95.2 Enterococcus as the cause of diseases classified elsewhere; R41.82 Altered mental status, unspecified; E86.0 Dehydration; R53.1 Weakness; G93.41 Metabolic encephalopathy; K21.9 Gastro-esophageal reflux disease without esophagitis; R53.83 Other fatigue; R90.82 White matter disease, unspecified; E78.5 Hyperlipidemia, unspecified; G35 Multiple sclerosis; R94.31 Abnormal electrocardiogram [ECG] [EKG]; G40.909 Epilepsy, unspecified, not intractable, without status epilepticus; Z20.822 Contact with and (suspected) exposure to COVID-19; Z99.3 Dependence on wheelchair; Z86.718 Personal history of other venous thrombosis and embolism; Z87.440 Personal history of urinary (tract) infections; Z79.1 Long term (current) use of non-steroidal anti-inflammatories (NSAID); Z79.01 Long term (current) use of anticoagulants; Z79.899 Other long term (current) drug therapy
CPT/HCPCS: 36415; 51701; 70450; 71046; 80048; 80053; 81001; 83605; 83735; 83880; 85025; 85610; 85730; 86140; 87040; 87086; 87147; 87181; 87186; 87426; 93005; 96365; 96366; 99285; A9270; C9803; G0378; J0692; J7030; U0003; U0005

== ENCOUNTER 2022-05-28 17:36 | Inpatient (IN) | payer MEDICARE, SELFPAY ==
[2022-05-28] VITALS (39 sets, daily range): BP systolic 71–133; BP diastolic 41–91; PULSE 75–125; RESP 12–25; TEMP 36.2–36.9; O2SAT 94–100
--- NOTE | ~2022-05-28 | XR_ITS ---
XR chest 1V portable DATE: 05/28/2022 18:04 INDICATION: Hypoxia. Altered mental status. TECHNIQUE: Portable supine AP views on May 28, 2022 1800 hours COMPARISON: 12/28/2021 AP and lateral chest FINDINGS: There is mild infiltrate or atelectasis in the lower lung zones. Chronic elevated right diaphragm. Normal heart size. No hilar or mediastinal enlargement is evident. No pleural effusion or pneumothora x or pulmonary vascular congestion is detected. Included skeletal structures are unremarkable. IMPRESSION: Mild bilateral lower lung infiltrate and/or atelectasis Chronic elevated right diaphragm Reviewed, dictated and finalized at location A.
--- NOTE | 2022-05-28 17:52 | ECG_ITS ---
Measurements Intervals [place] Rate: 98 P: 52 GA: 172 QRS: 13 QRSD: 97 T: 161 QT: 343 QTc: 439 Interpretive Statements SINUS RHYTHM POSSIBLE LEFT ATRIAL ENLARGEMENT [-0.1mV P WAVE IN V1/V2] LOW QRS VOLTAGE IN PRECORDIAL LEADS [QRS DEFLECTION < 1.0 mV IN CHEST LEADS] ST DEVIATION AND MODERATE T-WAVE ABNORMALITY, CONSIDER CONSIDER INFEROLATERAL ISCHEMIA ABNORMAL ECG COMPARED TO ECG 12/28/2021 21:51:05 MORE PRONOUNCED A LATERAL T-WAVE INVERSION Electronically Signed On 05-29-2022 7:49:55 CDT by Bebeto Blackwood M.D.
[2022-05-28 18:56] LABS: Basophils Percent Auto 0.2 % (0.2-1.2); Eosinophils Absolute Auto 0.1 K/mm3 (0-0.3); Eosinophils Percent Auto 0.4 % (0-4.4); Hemoglobin 12.9 g/dL (12.0-15.0); Immature Granulocyte Absolute 0.06 K/mm3 (0.00-0.031); Immature Granulocyte Percent A 0.4 % (0-0.5); Lymphocytes Percent Auto 7.6 % (18.3-44.2); Mean Corpuscular HGB Conc 32.3 g/dl (32-36); Mean Corpuscular Hemoglobin 30.3 pg (26-34); Mean Corpuscular Volume 93.9 fl (80-100); Mean Platelet Volume 10.1 fl (7.4-10.4); Monocytes Absolute Auto 0.6 K/mm3 (0.1-0.6); Monocytes Percent Auto 3.3 % (2.6-8.5); Neutrophils Percent Auto 88.1 % (45.5-73.1); Platelet Count Result 319 k/mm3 (150-375); Red Blood Count 4.26 M/mm3 (4.2-5.4); Red Cell Distribution Width 13.5 % (11.5-14.5); White Blood Count 17.1 K/mm3 (4.5-10.0)
[2022-05-28 19:05] LABS: Alanine Aminotransferase 19 U/L (6-35); Alkaline Phosphatase 128 U/L (38-126); Anion Gap 5 mmol/L (8-16); Aspartate Amino Transferase 25 U/L (14-36); Bilirubin,Total 0.5 mg/dL (0.2-1.3); Blood Urea Nitrogen 11 mg/dL (7-17); Calcium 8.3 mg/dL (8.4-10.2); Carbon Dioxide 28 mmol/L (22-30); Chloride 105 mmol/L (98-107); Estimated CRCL calculation 127 ml/min; Estimated Glomerular Filt Rate > 60; Glucose 118 mg/dL (65-110); Potassium 3.5 mmol/L (3.4-5.0); Sodium 138 mmol/L (137-145)
[2022-05-28 19:12] LABS: INR 1.2; Prothrombin Time 14.7 Seconds (11.1-14.7)
[2022-05-28 19:13] LABS: Partial Thromboplastin Time 25.4 SECONDS (22.3-36.8)
--- NOTE | 2022-05-28 19:46 | ED.GENADULT ---
HPI - General Adult General Chief complaint: Fever Stated complaint: fever, ams Time Seen by Provider: 05/28/22 19:02 History of Present Illness HPI narrative: this is a 56-year-old residential patient with multiple sclerosis presenting to ED with altered mental status. Over the last 2 days she has been having cough and to do struggle to breathing at the residential. They treated her with a Z-Benjamin with no improvement her status. Today family saw her and she was mumbling more confused than normal and warm to touch. She reported fever of 102.5. EMS was called and found her to be hypoxic on room air and placed her on 3 L. At this time the patient is complaining of some shortness of breath but denies chest pain, abdominal pain, urinary symptoms. Related Data Home Medications Medication Instructions Recorded Confirmed baclofen 20 mg tablet 20 mg PO BID 04/13/19 12/29/21 ascorbic acid (vitamin C) 500 mg 500 mg PO DAILY 02/08/21 12/29/21 tablet atorvastatin 10 mg tablet (Lipitor) 10 mg PO HS 02/08/21 12/29/21 pantoprazole 20 mg tablet,delayed 20 mg PO QAM 02/08/21 12/29/21 release (Protonix) acetaminophen 500 mg tablet 500 mg PO DAILY PRN Pain 09/18/21 12/29/21 (Tylenol Extra Strength) folic acid 800 mcg tablet 1 mg PO DAILY 09/18/21 12/29/21 loratadine 10 mg tablet (Claritin) 10 mg PO DAILY 09/18/21 12/29/21 multivitamin 1 tablet PO DAILY 09/18/21 12/29/21 tamsulosin 0.4 mg capsule 0.4 mg PO BID 09/18/21 12/29/21 Allergies Allergy/AdvReac Type Severity Reaction Status Date / Time No Known Allergies Allergy Verified 09/18/21 14:32 [facility] Past Medical History Medical History Chronic anticoagulation For history of DVT. Deep venous thrombosis Frequent UTI Including history of ESBL Klebsiella pneumoniae. Gastroesophageal reflux disease Hyperlipidemia Kidney stones Multiple sclerosis Seizure disorder Surgical History Surgical History History of cystoscopy Family History Family History Mother Diabetes mellitus Myocardial infarction PTSD (post-traumatic stress disorder) Father Diabetes mellitus Myocardial infarction Sibling Myocardial infarction Patient's brother is Social History Social History Social History: Prior to her most recent hospitalization she was living with her mother in [place]. The patient was it is she is , has no children. She is now at [facility]. She is essentially bed-bound now. No alcohol, tobacco, or illicit substance use. Healthcare power of direct support professional: Melony Miner, sister. Code status: DNR. Smoking status: Never smoker Alcohol intake: never Lack of Transportation: No Lack of Food: Never True Current Housing: I Have Housing Concerned About Future Housing: No Difficulty Paying Gas/Electric Bills: No Difficulty Paying for Meds: No Currently Unemployed: No Education: Don't Know Difficulty w/ Childcare or Family Care: No Living arrangements: with family Spiritual care concerns: No Exam Narrative: APPEARANCE: patient appears chronically unwell Head: atraumatic. EYES: EOMI, NOSE: Atraumatic NECK: Trachea midline RESPIRATORY: tachypneic, scattered rhonchi CARDIOVASCULAR: RRR, no peripheral edema ABDOMINAL: soft no guarding or rebound MUSCULOSKELETAl: No obvious deformities NEURO: Alert. Moving 4/4 extremities SKIN:: no decubitus ulcers,Warm, dry. Normal color PSYCHIATRIC: Normal affect Course Vital Signs Vital signs: Vital Signs Temperature 98.4 F 05/28/22 17:36 Pulse Rate 115 H 05/28/22 17:36 Respiratory Rate 16 05/28/22 17:36 Blood Pressure 133/73 05/28/22 17:36 Pulse Oximetry 94 05/28/22 17:36 Temperature 97.1 F L 05/28/22 19:55 Pulse Rate 81
[2022-05-28] MEDS: SODIUM CHLORIDE 0.9% IV 2,000 ML 999 ML IV CONT (19:54)
--- NOTE | 2022-05-28 20:15 | PC.NURSE ---
pt. refusing straight catheter.
[2022-05-28 22:06] LABS: Influenza A QL RT-PCR Negative (Negative); Influenza B QL RT-PCR Negative (Negative); RSV RNA, RT-PCR Negative (Negative); SARS-CoV-2 RNA PCR Negative
[2022-05-28] MEDS: CEFEPIME 1 GM/NS 50 ML 1 GM/50 ML BAG IVPB (22:15)
[2022-05-28 22:31] LABS: Appearance Urine Cloudy (Clear); Bacteria Urine 4+ /hpf; Bilirubin Urine Negative (Negative); Blood Urine 3+ (Negative); Color Urine Yellow (Yellow); Glucose Urine UA Negative (Negative); Ketones Urine Negative (Negative); Leukocyte Esterase Ur 2+ LEU/UL (Negative); Need Manual Microscopic Reviewed; Nitrate Urine Negative (Negative); Non Pathogenic Casts 0-2; Protein Urine Trace mg/dL (Negative); RBC Urine >100 /hpf (0-2); Specific Grav Ur 1.016 (1.001-1.035); Squamous Epithelial Cell Urine Few /hpf (Few); WBC Urine 21-50 /hpf
[2022-05-28 22:32] LABS: Add Urine Microscopic? YES
--- NOTE | 2022-05-28 23:35 | PM.IMHP ---
H&P: HPI History of Present Illness Date/Time: 05/28/22 23:35 Chief Complaint: Fevers Narrative: This is a 56-year-old female with past medical history significant for MS, halfway resident, MOIRA in urine. Patient presents to the emergency room due to altered mental status with confusion, fevers, shortness of breath, low oxygen saturation upon EMS arrival requiring supplemental oxygen by nasal cannula. History has been obtained mainly upon reviewing medical records and speaking to emergency room physician. Preliminary workup [place] [address], a urinalysis was significant for numerous WBCs present. A chest x-ray was reported as: FINDINGS: There is mild infiltrate or atelectasis in the lower lung zones. Chronic elevated right diaphragm. Normal heart size. No hilar or mediastinal enlargement is evident. No pleural effusion or pneumothorax or pulmonary vascular congestion is detected. Included skeletal structures are unremarkable. IMPRESSION: Mild bilateral lower lung infiltrate and/or atelectasis Chronic elevated right diaphragm? PMFSH Past Medical History Medical History Chronic anticoagulation For history of DVT. Deep venous thrombosis Frequent UTI Including history of ESBL Klebsiella pneumoniae. Gastroesophageal reflux disease Hyperlipidemia Kidney stones Multiple sclerosis Seizure disorder Surgical History Surgical History History of cystoscopy Family History Family History Mother Diabetes mellitus Myocardial infarction PTSD (post-traumatic stress disorder) Father Diabetes mellitus Myocardial infarction Sibling Myocardial infarction Patient's brother is Social History Social History Social History: Prior to her most recent hospitalization she was living with her mother in [place]. The patient was it is she is , has no children. She is now at [facility]. She is essentially bed-bound now. No alcohol, tobacco, or illicit substance use. Healthcare power of photocomposing machine operator: Melony Ryelyse, sister. Code status: DNR. Smoking status: Never smoker Second hand tobacco smoke exposure: No Alcohol intake: current Drinks per week: 1 Substance use: never Substance use type: does not use Lack of Transportation: No Lack of Food: Never True Current Housing: I Have Housing Concerned About Future Housing: No Difficulty Paying Gas/Electric Bills: No Difficulty Paying for Meds: No Currently Unemployed: No Education: High School Diploma/GED Difficulty w/ Childcare or Family Care: No Living arrangements: with family Spiritual care concerns: No Meds Home Medications and Allergies Home Medications Medication Instructions Recorded Confirmed Type baclofen 20 mg tablet 20 mg PO QID 04/13/19 05/29/22 History ascorbic acid (vitamin C) 500 mg 500 mg PO QID 02/08/21 05/29/22 History tablet atorvastatin 10 mg tablet (Lipitor) 10 mg PO HS 02/08/21 05/29/22 History pantoprazole 20 mg tablet,delayed 20 mg PO QAM 02/08/21 05/29/22 History release (Protonix) acetaminophen 500 mg tablet 500 mg PO DAILY PRN Pain 09/18/21 05/29/22 History (Tylenol Extra Strength) loratadine 10 mg tablet (Claritin) 10 mg PO DAILY 09/18/21 05/29/22 History tamsulosin 0.4 mg capsule 0.4 mg PO BID 09/18/21 05/29/22 History rivaroxaban 20 mg tablet (Xarelto) 20 mg PO QPM #30 tabs 09/30/21 05/29/22 Rx carbamazepine 200 mg tablet 200 mg PO 1400,2100 #60 tabs 01/01/22 05/29/22 Rx carbamazepine 200 mg tablet 400 mg PO DAILY@0800 #60 tabs 01/01/22 05/29/22 Rx azithromycin 250 mg tablet 500 mg PO DAILY 05/29/22 05/29/22 History (Zithromax Z-Benjamin) ferrous sulfate 325 mg (65 mg 325 mg PO DAILY 05/29/22 05/29/22 History iro
[2022-05-29] VITALS (8 sets, daily range): BP systolic 88–114; BP diastolic 41–55; PULSE 68–81; RESP 14–20; TEMP 36.2–36.7; O2SAT 96–100; BMI 19.9
--- NOTE | 2022-05-29 03:57 | PC.NURSE ---
Called Carmen Dawson to clarify home medications (and for purposes of verification for her MAR). Carbamazepine (400mg in morning and 200 mg midday/evening according to patient). Baclofen (records from [facility] shows BID for frequency). Patient reports that it is QID. Pharm number is [phone] and reference number for this phone call is [id number].
[2022-05-29 05:37] LABS: Estimated CRCL calculation 156 ml/min; Estimated Glomerular Filt Rate > 60
--- NOTE | 2022-05-29 08:19 | PC.NURSE ---
spoke with Jonnie at pharmacy at [facility]. States patient is on Baclofen 20 BID and Carbamazapine 200mg TID. Regimen was changed in April 2022
[2022-05-29 09:43] LABS: Basophils Percent Auto 0.2 % (0.2-1.2); Eosinophils Absolute Auto 0.3 K/mm3 (0-0.3); Hematocrit 39.2 % (37.0-47.0); Immature Granulocyte Absolute 0.03 K/mm3 (0.00-0.031); Immature Granulocyte Percent A 0.2 % (0-0.5); Lymphocytes Absolute Auto 2.88 K/mm3 (0.9-3.2); Lymphocytes Percent Auto 22.4 % (18.3-44.2); Mean Corpuscular HGB Conc 30.6 g/dl (32-36); Mean Corpuscular Hemoglobin 30.5 pg (26-34); Mean Corpuscular Volume 99.5 fl (80-100); Mean Platelet Volume 11.2 fl (7.4-10.4); Monocytes Absolute Auto 0.8 K/mm3 (0.1-0.6); Monocytes Percent Auto 6.1 % (2.6-8.5); Neutrophils Absolute Auto 8.9 K/mm3 (1.3-6.7); Neutrophils Percent Auto 69.1 % (45.5-73.1); Platelet Count Result 311 k/mm3 (150-375); Red Blood Count 3.94 M/mm3 (4.2-5.4); Red Cell Distribution Width 13.6 % (11.5-14.5); White Blood Count 12.9 K/mm3 (4.5-10.0)
[2022-05-29] MEDS: TAMSULOSIN HCL 0.4 MG CAPSULE PO ×2 (09:52→17:36)
[2022-05-29] MEDS: FERROUS SULFATE 324 MG TABLET PO (09:52)
[2022-05-29] MEDS: CYANOCOBALAMIN 1,000 MCG TABLET 1000 MCG PO ×2 (09:52→17:37)
[2022-05-29] MEDS: PANTOPRAZOLE SOD SESQUIHYDRATE 20 MG TAB PO (09:52)
[2022-05-29] MEDS: carBAMazepine 200 MG TABLET PO ×3 (09:53→17:37)
[2022-05-29] MEDS: FOLIC ACID 1 MG TABLET PO ×2 (09:53→17:37)
[2022-05-29] MEDS: BACLOFEN 10 MG TABLET 20 MG PO ×2 (09:53→17:37)
[2022-05-29] MEDS: ASCORBIC ACID 500 MG TABLET PO ×4 (09:53→20:56)
[2022-05-29] MEDS: LORATADINE 10 MG TABLET PO (10:29)
--- NOTE | 2022-05-29 12:23 | PM.IMPN ---
Progress Note: A&P Assessment and Plan (1) Sepsis: Code(s): A41.9 - Sepsis, unspecified organism Status: Acute Assessment and Plan: As evidence by altered mental status, respiratory failure. Early goal-directed therapy in progress (2) Healthcare-associated pneumonia: Code(s): J18.9 - Pneumonia, unspecified organism Status: Acute Assessment and Plan: Admit to IMU Started on cefepime and vancomycin Continue to monitor Cultures in progress (3) Acute respiratory failure with hypoxia: Code(s): J96.01 - Acute respiratory failure with hypoxia Status: Acute Assessment and Plan: On supplemental oxygen by nasal cannula Try and keep oxygen eyes saturation at 98% (4) Multiple sclerosis: Code(s): G35 - Multiple sclerosis Status: Acute Assessment and Plan: Continue baclofen and carbamazepine (5) Gastroesophageal reflux disease: Code(s): K21.9 - Gastro-esophageal reflux disease without esophagitis Status: Acute Assessment and Plan: PPI (6) UTI (urinary tract infection): Code(s): N39.0 - Urinary tract infection, site not specified Status: Acute Assessment and Plan: History of VRE and ESBL in the past Currently on cefepime Await cultures Subjective Date/time seen: 05/29/22 12:23 No complaints Exam Narrative: APPEARANCE: patient appears chronically unwell Head: atraumatic. EYES: EOMI, NOSE: Atraumatic NECK: Trachea midline RESPIRATORY: tachypneic, scattered rhonchi CARDIOVASCULAR: RRR, no peripheral edema ABDOMINAL: soft no guarding or rebound MUSCULOSKELETAl: No obvious deformities NEURO: Alert. Moving 4/4 extremities SKIN:: no decubitus ulcers,Warm, dry. Normal color PSYCHIATRIC: Normal affect Objective Data Vital Signs Vital Signs: Vital Signs - 24 hr 05/28/22 17:36 05/28/22 17:41 05/28/22 17:42 Temperature 98.4 F Pulse Rate 115 H 119 H 125 H Respiratory Rate 16 21 H 22 H Blood Pressure 133/73 133/73 Pulse Oximetry 94 96 Oxygen Delivery Oxygen Flow Rate 05/28/22 17:45 05/28/22 18:00 05/28/22 18:01 Temperature Pulse Rate 121 H 107 H 105 H Respiratory Rate 13 21 H 18 Blood Pressure 133/55 L Pulse Oximetry 95 96 Oxygen Delivery Oxygen Flow Rate 05/28/22 18:16 05/28/22 18:17 05/28/22 18:30 Temperature Pulse Rate 106 H 110 H 104 H Respiratory Rate 19 19 19 Blood Pressure 128/55 L Pulse Oximetry 98 Oxygen Delivery Oxygen Flow Rate 05/28/22 18:50 05/28/22 19:55 05/28/22 20:10 Temperature 97.1 F L Pulse Rate 108 H 97 90 Respiratory Rate 22 H 20 14 Blood Pressure 71/51 L 120/54 L Pulse Oximetry 99 100 Oxygen Delivery Oxygen Flow Rate 05/28/22 22:12 05/28/22 19:07 05/28/22 19:15 Temperature Pulse Rate 81 100 103 H Respiratory Rate 16 17 12 Blood Pressure 108/70 Pulse Oximetry 99 98 Oxygen Delivery Oxygen Flow Rate 05/28/22 19:44 05/28/22 19:50 05/28/22 20:01 Temperature Pulse Rate 97 95 94 Respiratory Rate 23 H 15 18 Blood Pressure Pulse Oximetry 97 97 Oxygen Delivery Oxygen Flow Rate 05/28/22 20:15 05/28/22 20:16 05/28/22 20:38 Temperature Pulse Rate 90 90 92 Respiratory Rate 15 22 H 15 Blood Pressure 110/51 L Pulse Oximetry 100 100 100 Oxygen Delivery Oxygen Flow Rate 05/28/22 20:45 05/28/22 20:46 05/28/22 21:00 Temperature Pulse Rate 86 87 84 Respiratory Rate 14 14 15 Blood Pressure 107/52 L 109/54 L Pulse Oximetry 100 100 100 Oxygen Delivery Oxygen Flow Rate 05/28/22 21:01 05/28/22 21:15 05/28/22 21:32 Temperature Pulse Rate 86 86 84 Respiratory Rate 14 21 H 17 Blood Pressure Pulse Oximetry 100 100 Oxygen Delivery Oxygen Flow Rate 05/28/22 22:13 05/28/22 22:15 05/28/22 22:16 Temperature Pulse Rate 81 81 81 Respiratory Rate 15 17 16 Blood Pressure 109/53 L Pulse Oximetry 99 97 98 Oxygen Delivery Oxyg
[2022-05-29] MEDS: RIVAROXABAN 20 MG TABLET PO (17:36)
--- NOTE | 2022-05-29 18:28 | PC.NURSE ---
This patient, Jenae Rodriguez, was transferred to [facility] on 05/29/22 at 1825. Personal belongings sent with patient. Report given to Pilar ROBERTS. Appropriate documentation sent with patient. Patient sister Ulicesby notified of new room.
[2022-05-29] MEDS: ACETAMINOPHEN 500 MG TABLET PO (21:25)
--- NOTE | 2022-05-30 00:05 | PC.NURSE ---
At 2235 Pts B/P of reported to Liliya Petersen.
[2022-05-30] MEDS: SODIUM CHLORIDE 0.9% IV 500 ML 999 ML IV CONT (00:27)
[2022-05-30 07:33] VITALS: BP 88/44; PULSE 79; RESP 14; TEMP 36.6; O2SAT 96
[2022-05-30 08:50] LABS: Basophils Percent Auto 0.6 % (0.2-1.2); Eosinophils Absolute Auto 0.3 K/mm3 (0-0.3); Eosinophils Percent Auto 4.2 % (0-4.4); Hematocrit 40.9 % (37.0-47.0); Hemoglobin 11.8 g/dL (12.0-15.0); Immature Granulocyte Absolute 0.02 K/mm3 (0.00-0.031); Immature Granulocyte Percent A 0.3 % (0-0.5); Lymphocytes Absolute Auto 1.84 K/mm3 (0.9-3.2); Lymphocytes Percent Auto 29.7 % (18.3-44.2); Mean Corpuscular HGB Conc 28.9 g/dl (32-36); Mean Corpuscular Hemoglobin 29.4 pg (26-34); Mean Corpuscular Volume 101.7 fl (80-100); Monocytes Absolute Auto 0.4 K/mm3 (0.1-0.6); Monocytes Percent Auto 6.8 % (2.6-8.5); Neutrophils Absolute Auto 3.6 K/mm3 (1.3-6.7); Neutrophils Percent Auto 58.4 % (45.5-73.1); Platelet Count Result 251 k/mm3 (150-375); Red Blood Count 4.02 M/mm3 (4.2-5.4); Red Cell Distribution Width 13.4 % (11.5-14.5); White Blood Count 6.2 K/mm3 (4.5-10.0)
[2022-05-30 09:00] LABS: Anion Gap 6 mmol/L (8-16); Blood Urea Nitrogen 6 mg/dL (7-17); Calcium 8.1 mg/dL (8.4-10.2); Carbon Dioxide 23 mmol/L (22-30); Chloride 108 mmol/L (98-107); Estimated CRCL calculation 158 ml/min; Estimated Glomerular Filt Rate > 60; Glucose 91 mg/dL (65-110); Sodium 137 mmol/L (137-145)
[2022-05-30 09:09] LABS: Vancomycin Trough 7.8 ug/mL (10.0-20.0)
[2022-05-30] MEDS: ASCORBIC ACID 500 MG TABLET PO ×2 (09:18→12:15)
[2022-05-30] MEDS: carBAMazepine 200 MG TABLET PO ×2 (09:18→12:15)
[2022-05-30] MEDS: TAMSULOSIN HCL 0.4 MG CAPSULE PO (09:19)
[2022-05-30] MEDS: BACLOFEN 10 MG TABLET 20 MG PO (09:19)
[2022-05-30] MEDS: FERROUS SULFATE 324 MG TABLET PO (09:19)
[2022-05-30] MEDS: PANTOPRAZOLE SOD SESQUIHYDRATE 20 MG TAB PO (09:19)
[2022-05-30] MEDS: FOLIC ACID 1 MG TABLET PO (09:19)
[2022-05-30] MEDS: LORATADINE 10 MG TABLET PO (09:19)
[2022-05-30] MEDS: CYANOCOBALAMIN 1,000 MCG TABLET 1000 MCG PO (09:19)
[2022-05-30 12:13] VITALS: PULSE 80; O2SAT 98
--- NOTE | 2022-05-30 12:20 | PM.DS ---
DS: Admitting Diagnosis Discharge Date May 30, 2022 Admitting Diagnosis Sepsis DS: Discharge Diagnosis Discharge Diagnosis (1) Sepsis: Code(s): A41.9 - Sepsis, unspecified organism Status: Acute Assessment and Plan: As evidence by altered mental status, respiratory failure. Early goal-directed therapy in progress (2) Healthcare-associated pneumonia: Code(s): J18.9 - Pneumonia, unspecified organism Status: Acute Assessment and Plan: Admit to IMU Started on cefepime and vancomycin Continue to monitor Cultures in progress (3) Acute respiratory failure with hypoxia: Code(s): J96.01 - Acute respiratory failure with hypoxia Status: Acute Assessment and Plan: On supplemental oxygen by nasal cannula Try and keep oxygen eyes saturation at 98% (4) Multiple sclerosis: Code(s): G35 - Multiple sclerosis Status: Acute Assessment and Plan: Continue baclofen and carbamazepine (5) Gastroesophageal reflux disease: Code(s): K21.9 - Gastro-esophageal reflux disease without esophagitis Status: Acute Assessment and Plan: PPI (6) UTI (urinary tract infection): Code(s): N39.0 - Urinary tract infection, site not specified Status: Acute Assessment and Plan: History of VRE and ESBL in the past Currently on cefepime Await cultures DS: Summary Hospital Course Hospital Course: Patient is a 56-year-old female multiple medical problems came in with sepsis and pneumonia. Started on antibiotics and did exceptionally well. She is not requiring any oxygen. Vital signs are stable and she can be discharged on antibiotics. Time Spent with Patient Time attestation: Total time spent providing and/or coordinating discharge services: Exam Narrative: APPEARANCE: patient appears chronically unwell Head: atraumatic. EYES: EOMI, NOSE: Atraumatic NECK: Trachea midline RESPIRATORY: tachypneic, scattered rhonchi CARDIOVASCULAR: RRR, no peripheral edema ABDOMINAL: soft no guarding or rebound MUSCULOSKELETAl: No obvious deformities NEURO: Alert. Moving 4/4 extremities SKIN:: no decubitus ulcers,Warm, dry. Normal color PSYCHIATRIC: Normal affect DS: Data Data Completed and Pending Labs on day of discharge: Labs from last 24 hours 05/30/22 05/30/22 05/30/22 08:39 08:39 08:39 WBC 6.2 RBC 4.02 L Hgb 11.8 L Hct 40.9 MCV 101.7 H MCH 29.4 MCHC 28.9 L RDW 13.4 Plt Count 251 MPV 10.0 Immature Gran % (Auto) 0.3 Neut % (Auto) 58.4 Lymph % (Auto) 29.7 [place] % (Auto) 6.8 Eos % (Auto) 4.2 Baso % (Auto) 0.6 Lymph # (Auto) 1.84 [place] # (Auto) 0.4 Eos # (Auto) 0.3 Baso # (Auto) 0.0 Abs Immat Gran (auto) 0.02 Absolute Neuts (auto) 3.6 Absolute Nucleated RBC 0.0 Nucleated RBC % 0.0 Sodium 137 Potassium 4.0 Chloride 108 H Carbon Dioxide 23 Anion Gap 6 L BUN 6 L D Creatinine 0.30 L Estim Creat Clear Calc 158 Estimated GFR > 60 Glucose 91 Calcium 8.1 L Vancomycin Trough 7.8 L Preliminary micro results at discharge 05/28/22 21:30 Blood Culture - Preliminary Blood 05/28/22 21:30 Blood Culture - Preliminary Blood Discharge Plan Discharge Attending physician on discharge: Bebeto Starkey Discharging Clinician: Bebeto Starkey Patient Disposition: Home, Self-Care Activity: no preference Diet: as tolerated Patient Instructions: Antibiotic Form, Rivaroxaban (By mouth) Stand Alone Forms: General Discharge Information Follow-up/Referrals: Tevin,Shaylee Anguiano MD [Primary Care Provider] - Discharge Medications: Continued acetaminophen [Tylenol Extra Strength] 500 mg tablet 500 mg PO DAILY PRN (Reason: Pain) loratadine [Claritin] 10 mg tablet 10 mg PO DAILY tamsulosin 0.4 mg capsule 0.4 mg PO BID baclofen 20 mg Tablet 20 mg PO Q12H Rx Instr
[2022-05-30 13:01] LABS: EDCOVIDSCREEN Negative (Negative)
== END 2022-05-30 13:50 | DRG 194 ==
LOC: ANHED 21:33 → ANHIMU 23:29 → ANH3MEDSUR 05-29 18:29
PROVIDERS: Emergency Medicine; Admitting Provider Internal Medicine; Emergency Provider Emergency Medicine; PCP Internal Medicine; Visit Provider Chiropractor
DX: J18.9 Pneumonia, unspecified organism (principal); N39.0 Urinary tract infection, site not specified; G35 Multiple sclerosis; K21.9 Gastro-esophageal reflux disease without esophagitis; G40.909 Epilepsy, unspecified, not intractable, without status epilepticus; Z20.822 Contact with and (suspected) exposure to COVID-19; E78.5 Hyperlipidemia, unspecified; Z66 Do not resuscitate; Z79.01 Long term (current) use of anticoagulants; Z86.718 Personal history of other venous thrombosis and embolism; Z87.442 Personal history of urinary calculi
CPT/HCPCS: 36415; 71045; 80048; 80053; 80202; 81001; 82565; 85025; 85610; 85730; 87040; 87081; 87086; 87088; 87426; 87637; 93005; 96361; 96365; 96367; 99285; A9270; C9803; J0692; J3370; J7030; J7040

== ENCOUNTER 2022-07-07 17:42 | Inpatient (IN) | payer MEDICARE, SELFPAY ==
--- NOTE | ~2022-07-07 | XR_ITS ---
EXAMINATION: XR chest 1V DATE: 07/07/2022 18:42 INDICATION: Altered mental status. Lethargy. TECHNIQUE: frontal view of the chest was obtained. COMPARISON: Chest radiograph dated 05/28/2022 FINDINGS: Patchy airspace opacity in the right lower lung zone. Smaller more nodular opacity in the right upper lung zone projecting over the posterior fourth rib. Left lung is clear. No pleural effusion or pneum othorax. The cardiomediastinal silhouette is normal. Visualized bones and soft tissues are unremarkab le. IMPRESSION: 1. Opacities in the right lower lung zone which could represent atelectasis or pneumonia. 2. Indeterminate small more nodular opacity at the right upper lung zone. Recommend follow-up low-dos e noncontrast chest CT Reviewed, dictated and finalized at location A. IMPRESSION: 1. Opacities in the right lower lung zone which could represent atelectasis or pneumonia. 2. Indeterminate small more nodular opacity at the right upper lung zone. Recom mend follow-up low-dose noncontrast chest CT
--- NOTE | ~2022-07-07 | XR_ITS ---
EXAMINATION: XR barium swallow modified DATE: 07/08/2022 09:17 INDICATION: Aspiration. TECHNIQUE: The patient was given barium-containing material of multiple consistencies to swallow by t he speech pathologist while I performed fluoroscopy. Fluoroscopy exposure time was 1.5 minutes. The n umber of fluoroscopy images saved to the PACS was 1. Dose-area product was 0.97 Gy-cm^2. FINDINGS: There is reduced laryngeal elevation. There is laryngeal penetration with thin liquids without cough. IMPRESSION: 1. Laryngeal penetration with thin liquids without cough. 2. Please refer to the speech therapy report for recommendations. Reviewed, dictated and finalized at location A.
--- NOTE | ~2022-07-07 | CT_ITS ---
EXAMINATION: CT chest abdomen pelvis wo con DATE: 07/07/2022 20:07 INDICATION: Altered mental status. Pneumonia. Pulmonary nodule. Urinary tract infection and hematuria . TECHNIQUE: Computed tomography (CT) of the chest, abdomen, and pelvis was performed without intraveno us contrast. Automated exposure control and iterative reconstruction technique were employed. The dos e-length product was 962.27 mGy-cm. COMPARISON: Chest CT dated 03/07/[address] abdomen and pelvis dated 09/05/2018 FINDINGS: CHEST CT: There are new patchy groundglass opacities posteriorly in the right upper and right middle lobes susp icious for pneumonia. Bandlike discoid atelectasis in bilateral lower lobes where there are additiona l less well-defined groundglass opacities with some smooth septal line thickening which could represe nt additional pneumonia but also mild pulmonary edema or atelectasis. Small calcified nodules in the right lower and left upper lobes consistent with old granulomatous disease. No correlate identified f or the nodular opacity of concern projecting over the lateral right upper lung zone on the prior radi ograph. No pleural effusion or pneumothorax. Heart size is normal. Atherosclerotic coronary artery ca lcification. No pericardial effusion. Thoracic aorta is normal in caliber. No pathologically enlarged thoracic lymphadenopathy. Mild thoracic spondylosis. ABDOMEN/PELVIS CT: Calcified gallstone in the normal-appearing gallbladder with no wall thickening or pericholecystic fl uid percent to suggest acute cholecystitis. Liver is normal. No intra or extrahepatic biliary ductal dilation. No significant change in a chronic 2.7 cm likely splenic cyst. Pancreas and bilateral adren al glands are normal. A few small calcified paraesophageal and gastrohepatic lymph nodes consistent w ith old granulomatous disease. Bilateral nephrolithiasis with a couple 1 mm stones in the right kidney and a 2-3 mm stone in upper p ole calyx of the left kidney. There is at least partially duplicated left renal collecting system wit h separate ureters extending to at least the level of S1-S2 on the prior contrast enhanced study ther e are several small calcifications in the pelvis which lie along side but not definitively within the ureter most likely representing phleboliths. There are few parapelvic cysts in the left kidney. No h ydronephrosis. There is a stone in the dependent bladder to the left and inferior to the site of the ureterovesicular junction. Bladder is otherwise unremarkable. Moderate to large amount of colonic stool is 6 cm ball of stool at rectum and surrounding stranding i n the perirectal fat consistent with stercoral colitis. No bowel obstruction. Appendix not visualized and may be surgically absent. 12 mm pedunculated fibroid arising from the right side of the uterine fundus. No free intraperitoneal gas or fluid. No pathologically enlarged abdominal or pelvic lymphade nopathy. Mild lumbar levocurvature with mild spondylosis. Chronic L1 compression fracture with more r ecent-appearing likely acute to subacute compression fractures of L4 and L5. IMPRESSION: 1. Patchy groundglass opacities in the right upper and right middle lobes suspicious for pneumonia or aspiration. Possible additional pneumonia versus atelectasis or mild pulmonary edema in the bilatera l lower lobes 2. Bilateral nonobstructing nephrolithiasis with at least partially duplicated left renal collecting system. 3. No correlate for likely artifactual nodular opacity right upper lobe seen on prior chest radiograp h. 4. Cholelithiasis. 5. Large amount colonic stool with inflammatory stranding surrounding a 6 cm ball of stool at rectum consistent with likely constipation with fecal impaction and stercoral colitis. 6. 12 mm pedunculated uterine fibroid. 7. A couple potentially acute or subacute compression fractures at L4-L5
--- NOTE | ~2022-07-07 | CT_ITS ---
EXAMINATION: CT brain wo con DATE: 07/07/2022 18:38 INDICATION: Altered mental status TECHNIQUE: Computed tomography (CT) of the head was performed without intravenous contrast. Sagittal and coronal reconstructions were performed. The mA was adjusted according to patient size. Iterative reconstruction technique was employed. The dose-length product was 605.33 mGy-cm. COMPARISON: head CT dated 12/28/2021 FINDINGS: No acute intracranial hemorrhage, acute infarction or abnormal extra axial fluid collection. There is moderate scattered white matter hypoattenuation consistent with chronic small vessel ischemic diseas e. Ventricles are normal and symmetric. No mass/mass effect. Mild mucosal thickening the bilateral et hmoid sinuses. The orbits and mastoid air cells are normal. IMPRESSION: 1. Stable appearance of moderate nonspecific scattered white matter hypoattenuation consistent with k nown history of multiple sclerosis. No acute intracranial process. Reviewed, dictated and finalized at location A. IMPRESSION: 1. Stable appearance of moderate nonspecific scattered white matter hypoattenua tion consistent with known history of multiple sclerosis. No acute intracranial process.
--- NOTE | ~2022-07-07 | US_ITS ---
EXAMINATION: US pelvic complete DATE: 07/08/2022 09:46 INDICATION: Abnormal postmenopausal vaginal bleeding Comparison:03/23/2019 TECHNIQUE: Multiple transabdominal sonographic images of the pelvis performed. FINDINGS: The uterus measures 5.7 x 2.3 x 4.3 cm. The endometrium is not well visualized. There are s mall anechoic areas within the endometrium, likely benign. The endometrium is not clearly delineated for evaluation of thickness. The right ovary is not visualized. Left ovary is unremarkable measuring 1.7 x 1.8 x 1.2 cm. There is no free fluid in the pelvis. There are no abnormal masses seen on either side. There are echogenic foci of the bladder wall. Possible bladder diverticulum. IMPRESSION: 1. Ill-defined heterogeneous endometrium with small cyst within the endometrium. Recommend follow-up clinical evaluation. 2: Mildly thickened bladder wall contains calcifications and possible diverticulum. Consider chronic cystitis. Reviewed, dictated and finalized at location B. IMPRESSION: 1. Ill-defined heterogeneous endometrium with small cyst within the endometrium . Recommend follow-up clinical evaluation. 2: Mildly thickened bladder wall contains calcifications and possible diverticu lum. Consider chronic cystitis.
[2022-07-07 17:42] VITALS: BP 146/79; PULSE 91; RESP 15; TEMP 36.8; O2SAT 95
--- NOTE | 2022-07-07 17:53 | ECG_ITS ---
Measurements Intervals [place] Rate: 88 P: 26 MI: 175 QRS: 4 QRSD: 90 T: -3 QT: 340 QTc: 413 Interpretive Statements SINUS RHYTHM ATRIAL PREMATURE COMPLEXES LOW QRS VOLTAGE IN PRECORDIAL LEADS BORDERLINE ST-T WAVE ABNORMALITY- DIFFUSE LEADS BASELINE ARTIFACT- I, II, III, AVR, AVL, AVF, V1-V2 BORDERLINE ECG COMPARED TO ECG 05/28/2022 18:56:26 ST-T WAVE ABNORMALITY IMPROVED Electronically Signed On 07-08-2022 6:37:29 CDT by Layo Burks D.O.
[2022-07-07 18:28] VITALS: PULSE 95
[2022-07-07 18:37] LABS: Basophils Absolute Auto 0.1 K/mm3 (0.0-0.1); Basophils Percent Auto 0.4 % (0.2-1.2); Eosinophils Absolute Auto 0.3 K/mm3 (0-0.3); Hematocrit 40.3 % (37.0-47.0); Immature Granulocyte Absolute 0.05 K/mm3 (0.00-0.031); Immature Granulocyte Percent A 0.4 % (0-0.5); Lymphocytes Absolute Auto 2.09 K/mm3 (0.9-3.2); Lymphocytes Percent Auto 16.1 % (18.3-44.2); Mean Corpuscular HGB Conc 32.3 g/dl (32-36); Mean Corpuscular Hemoglobin 30.8 pg (26-34); Mean Corpuscular Volume 95.5 fl (80-100); Mean Platelet Volume 10.2 fl (7.4-10.4); Monocytes Absolute Auto 0.6 K/mm3 (0.1-0.6); Monocytes Percent Auto 4.9 % (2.6-8.5); Neutrophils Absolute Auto 9.9 K/mm3 (1.3-6.7); Neutrophils Percent Auto 76.2 % (45.5-73.1); Platelet Count Result 297 k/mm3 (150-375); Red Blood Count 4.22 M/mm3 (4.2-5.4); Red Cell Distribution Width 13.6 % (11.5-14.5)
--- NOTE | 2022-07-07 18:39 | ED.AMS ---
HPI - Altered Mental Status General Chief Complaint: Altered Mental Status <BRET Chin Last Filed: 07/08/22 03:47> Stated Complaint: AMS <BRET Chin Last Filed: 07/08/22 03:47> Time Seen by Provider: 07/07/22 17:53 <BRET Chin Last Filed: 07/08/22 03:47> Source: patient and old records reviewed <BRET Chin Last Filed: 07/08/22 03:47> Mode of arrival: EMS <BRET Chin Last Filed: 07/08/22 03:47> Limitations: altered mental status and clinical condition <BRET Chin Last Filed: 07/08/22 03:47> History of Present Illness HPI narrative: Patient is a 56-year-old female, with past medical history of multiple sclerosis, who presents to the ED via EMS with report of altered mental status. Patient is a resident of [facility] and [facility]. Staff reported that she has been increasingly altered and lethargic since about 2 PM today. Patient is typically alert and oriented x3. She is bed/wheelchair-bound due to her MS. Staff was concerned she may have a urinary tract infection. Per records, patient has history of ESBL UTI. Patient unable to provide much information, mostly unable to answer yes/no questions. She does deny pain in her abdomen or chest, difficulty breathing. Denies nausea or vomiting. <BRET Chin Last Filed: 07/08/22 03:47> Related Data Home Medications: Home Medications Medication Instructions Recorded Confirmed baclofen 20 mg tablet 20 mg PO Q12H 04/13/19 07/08/22 ascorbic acid (vitamin C) 500 mg 500 mg PO DAILY 02/08/21 07/08/22 tablet atorvastatin 10 mg tablet (Lipitor) 10 mg PO HS 02/08/21 07/08/22 pantoprazole 20 mg tablet,delayed 20 mg PO QAM 02/08/21 07/08/22 release (Protonix) acetaminophen 500 mg tablet 500 mg PO DAILY PRN Pain 09/18/21 07/08/22 (Tylenol Extra Strength) loratadine 10 mg tablet (Claritin) 10 mg PO DAILY 09/18/21 07/08/22 tamsulosin 0.4 mg capsule 0.4 mg PO BID 09/18/21 07/08/22 carbamazepine 200 mg tablet 200 mg PO TID 05/29/22 07/08/22 ferrous sulfate 325 mg (65 mg 325 mg PO BID 05/29/22 07/08/22 iron) tablet folic acid 1 mg tablet 1 mg PO BID 05/29/22 07/08/22 cyanocobalamin (vitamin B-12) 500 1,000 mcg PO BID 07/08/22 07/08/22 mcg tablet guaifenesin 100 mg/5 mL oral syrup 300 mg PO Q6H PRN Congestion 07/08/22 07/08/22 <Valerie Levine PA-C - Last Filed: 07/08/22 03:47> Allergies/Adverse Reactions: Allergies Allergy/AdvReac Type Severity Reaction Status Date / Time No Known Allergies Allergy Verified 09/18/21 14:32 <BRET Chin Last Filed: 07/08/22 03:47> Review of Systems Review of Systems: CONSTITUTIONAL: Denies fever, chills, or sweats. CARDIOVASCULAR: Denies chest pain. RESPIRATORY: Denies dyspnea. GASTROINTESTINAL: See HPI. NEUROLOGIC: See HPI. <BRET Chin Last Filed: 07/08/22 03:47> ROS unobtainable: Yes unobtainable due to mental status <BRET Chin Last Filed: 07/08/22 03:47> [facility] Past Medical History Medical History: Medical History (Updated 07/08/22 @ 08:00 by ALICE Dc) Abnormal vaginal bleeding in postmenopausal patient Acute respiratory failure with hypoxia Chronic anticoagulation For history of DVT. Chronic constipation Deep venous thrombosis Frequent UTI Including history of ESBL Klebsiella pneumoniae. Gastroesophageal reflux disease Healthcare-associated pneumonia History of DVT (deep vein thrombosis) Hyperlipidemia Influenza A Kidney stones Multiple sclerosis Multiple sclerosis exacerbation Seizure disorder Sepsis SIRS (systemic inflammatory response syndrome) Stercoral colitis UTI (urinary tract infection) <Valerie Levine PA-C - Last Filed: 07/08/22 03:47> Surgical History Surgical History: Surgical History (Updated 07/08/22 @ 07:48 by Adam
[2022-07-07 18:45] LABS: Lactic Acid Reflex 1.5 mmol/L (0.7-2.0)
[2022-07-07 18:46] LABS: Alanine Aminotransferase 18 U/L (6-35); Albumin Level 4.1 g/dL (3.5-5.1); Alkaline Phosphatase 109 U/L (38-126); Anion Gap 7 mmol/L (8-16); Aspartate Amino Transferase 23 U/L (14-36); Bilirubin,Total 0.5 mg/dL (0.2-1.3); Blood Urea Nitrogen 14 mg/dL (7-17); Calcium 8.3 mg/dL (8.4-10.2); Carbon Dioxide 29 mmol/L (22-30); Chloride 104 mmol/L (98-107); Estimated Glomerular Filt Rate > 60; Glucose 91 mg/dL (65-110); Potassium 4.1 mmol/L (3.4-5.0); Sodium 140 mmol/L (137-145)
[2022-07-07] MEDS: SODIUM CHLORIDE 0.9% IV 1,000 ML 999 ML IV CONT (18:48)
[2022-07-07 18:57] LABS: Troponin I < 0.012 ng/mL (0.000-0.034)
[2022-07-07 19:08] LABS: Appearance Urine Cloudy (Clear); Bacteria Urine 4+ /hpf; Bilirubin Urine Negative (Negative); Blood Urine 2+ (Negative); Color Urine Yellow (Yellow); Glucose Urine UA Negative (Negative); Ketones Urine Negative (Negative); Leukocyte Esterase Ur 1+ LEU/UL (Negative); Need Manual Microscopic Reviewed; Nitrate Urine Negative (Negative); Non Pathogenic Casts 0-2; Protein Urine Trace mg/dL (Negative); RBC Urine >100 /hpf (0-2); Specific Grav Ur 1.021 (1.001-1.035); Squamous Epithelial Cell Urine None seen /hpf (Few); WBC Urine 21-50 /hpf; pH Urine 7.5 (5.0-9.0)
[2022-07-07 19:10] VITALS: BP 144/60; PULSE 87; RESP 16; TEMP 36.6; O2SAT 98
[2022-07-07 19:18] LABS: Add Urine Microscopic? YES
[2022-07-07] MEDS: CEFEPIME 2 GM/NS 50 ML 2 GM/50 ML BAG IVPB (21:51)
[2022-07-07 22:13] LABS: NT Pro B Type Natriuretic Pept 279 pg/mL (19.9-100)
[2022-07-07 22:15] VITALS: BP 121/57; PULSE 87; RESP 13; O2SAT 94
--- NOTE | 2022-07-07 23:18 | PC.NURSE ---
Addendum entered by Bill Regalado RN 07/07/22 23:27: Per Valerie RUEDA she will confer with Dr. Yoder about doing the soap suds enema. Original Note: Nursing staff went to go give soap suds enema to patient and noticed some bleeding from the vagina and anus area. Notified Valerie RUEDA.
[2022-07-07 23:34] VITALS: BP 105/50; PULSE 80; RESP 12; TEMP 36.6; O2SAT 93
[2022-07-08 00:35] VITALS: BMI 20.2
[2022-07-08 00:36] VITALS: BP 117/53; PULSE 70; RESP 18; TEMP 36.5; O2SAT 99
[2022-07-08 01:37] VITALS: PULSE 78; RESP 16; O2SAT 99
--- NOTE | 2022-07-08 01:38 | PM.IMHP ---
H&P: HPI History of Present Illness Date/Time: 07/08/22 23:45 Chief Complaint: Altered mental status Narrative: 56-year-old female with past monitor hyperlipidemia, multiple sclerosis resulting in functional quadriplegia, GERD and history of multidrug resistant urinary tract infections who came to ER from [facility] due to altered mental status. [facility] staff reported the patient had been lethargic. The patient at the time my evaluation was alert oriented x4 and her speech was clear. She did admit that she was confused earlier in the evening but she feels better after she received antibiotics and IV fluids. She a.m. as unsure when she had her last bowel movement she states that the [facility] nurses tell her all the time that she has had a bowel movement every day. In the ER CT scan of the chest abdomen and pelvis demonstrated a large amount of colonic stool with inflammatory stranding surrounding a 6 cm ball of stool at the rectum with fecal impaction and stercoral colitis. She denies having any cough, congestion, fevers or chills. However CT scan does demonstrate patchy ground-glass opacities in right upper and right middle lobe suspicious for pneumonia or aspiration. This could be residual patient's recent hospitalization for pneumonia in May versus chronic aspiration pneumonitis. With possible additional pneumonia versus atelectasis of bilateral lower lobes. She does not have any noted lower extremity edema. She does report that her muscles in her thighs have been pain cramping and hurting almost constantly for the last 2 weeks. The pain is worse with palpation. Down in the ER when they went to if the patient an enema and noted that she had some blood from her vaginal area. The patient is postmenopausal. CT did demonstrate a fibrate uterus. However patient also has a UA that appears consistent with UTI and some of blood could have been urinary in source. But well as at the bedside patient voided and did not have any hematuria noted. The physician assistant controller in the ER attempted to do a pelvic exam but was limited due to patient's contractures. Definitive source of bleeding was not determined. The enema was administered once the patient arrived to the medical floor and she had good results. Patient is not on a bowel regimen at the [facility]. She denies any dysuria. She has chronic urinary incontinence and wears depends. She denies any nausea, vomiting or decreased appetite. Review of Systems Review of Systems: 12 systems were reviewed with pertinent positives and negatives per HPI. Except as documented in the HPI, all other systems were reviewed and are negative. [facility] Past Medical History Medical History (Updated 07/08/22 @ 02:34 by Anna Yoder DO) Chronic anticoagulation For history of DVT. Chronic constipation Deep venous thrombosis Frequent UTI Including history of ESBL Klebsiella pneumoniae. 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 She has been since her early 30s. She does not have any children. She was living with her mother until 2021. She now lives at [facility]. She is essentially bed-bound now. No alcohol, tobacco, or illicit substance use. Healthcare power of commonwealth attorney: Melony yRelyse, sister. Code status: DNR/DNI Smoking status: Never smoke
[2022-07-08 01:55] LABS: Creatine Kinase 23 U/L (30-135)
[2022-07-08] MEDS: ACETAMINOPHEN 500 MG TABLET PO ×3 (02:31→21:41)
[2022-07-08] MEDS: SODIUM CHLORIDE 0.9% IV 1,000 ML 100 ML IV CONT (02:32)
[2022-07-08] MEDS: BACLOFEN 10 MG TABLET 20 MG PO ×2 (02:32→13:07)
--- NOTE | 2022-07-08 03:00 | ADMGEN ---
This patient, Jenae Rodriguez, was admitted to Medical Room 244-. Patient/family oriented to hospital policies and general routines including ID bracelet, bed and alarms, visiting hours, pain management, procedures, bathroom and other care routines, personal items, smoking policy, room service/diet, and visiting hours. Information on how to activate the Rapid Response Team has been discussed. Patient/Family are encouraged to report perceived risks to care and to ask questions if they do not understand what they are told or what they should do.
[2022-07-08 04:36] VITALS: BP 112/48; PULSE 67; RESP 18; TEMP 36.3; O2SAT 97
[2022-07-08 05:58] LABS: Basophils Percent Auto 0.4 % (0.2-1.2); Eosinophils Absolute Auto 0.3 K/mm3 (0-0.3); Eosinophils Percent Auto 3.6 % (0-4.4); Estimated CRCL calculation 124 ml/min; Estimated Glomerular Filt Rate > 60; Hematocrit 34.1 % (37.0-47.0); Hemoglobin 10.8 g/dL (12.0-15.0); Immature Granulocyte Absolute 0.03 K/mm3 (0.00-0.031); Immature Granulocyte Percent A 0.4 % (0-0.5); Lymphocytes Percent Auto 29.6 % (18.3-44.2); Mean Corpuscular HGB Conc 31.7 g/dl (32-36); Mean Corpuscular Volume 94.7 fl (80-100); Mean Platelet Volume 10.3 fl (7.4-10.4); Monocytes Absolute Auto 0.5 K/mm3 (0.1-0.6); Neutrophils Absolute Auto 4.4 K/mm3 (1.3-6.7); Platelet Count Result 267 k/mm3 (150-375); Red Cell Distribution Width 13.4 % (11.5-14.5); White Blood Count 7.4 K/mm3 (4.5-10.0)
[2022-07-08 05:59] LABS: Anion Gap 4 mmol/L (8-16); Blood Urea Nitrogen 7 mg/dL (7-17); Calcium 7.9 mg/dL (8.4-10.2); Carbon Dioxide 29 mmol/L (22-30); Chloride 108 mmol/L (98-107); Estimated CRCL calculation 124 ml/min; Estimated Glomerular Filt Rate > 60; Glucose 89 mg/dL (65-110); Potassium 3.4 mmol/L (3.4-5.0); Sodium 141 mmol/L (137-145)
[2022-07-08] MEDS: TAMSULOSIN HCL 0.4 MG CAPSULE PO ×2 (09:48→16:23)
[2022-07-08] MEDS: ASCORBIC ACID 500 MG TABLET PO (09:48)
[2022-07-08] MEDS: FERROUS SULFATE 324 MG TABLET PO ×2 (09:48→16:23)
[2022-07-08] MEDS: carBAMazepine 200 MG TABLET PO ×3 (09:48→16:24)
[2022-07-08] MEDS: CYANOCOBALAMIN 1,000 MCG TABLET 1000 MCG PO ×2 (09:48→16:24)
[2022-07-08] MEDS: DOCUSATE SODIUM 100 MG CAPSULE PO ×2 (09:48→21:41)
[2022-07-08] MEDS: LORATADINE 10 MG TABLET PO (09:49)
[2022-07-08] MEDS: PANTOPRAZOLE SOD SESQUIHYDRATE 20 MG TAB PO (09:49)
[2022-07-08] MEDS: FOLIC ACID 1 MG TABLET PO ×2 (09:49→16:23)
--- NOTE | 2022-07-08 09:53 | PCSTNOTE ---
Please refer to the Modified Barium Swallow Evaluation in the EMR.
[2022-07-08] MEDS: VANCOMYCIN 1,250 MG/NS 250 ML 1,250 MG/250 ML BAG 166.67 MG IVPB ×2 (09:57→21:39)
[2022-07-08] MEDS: EUCERIN CREAM 120 GM JAR 1 APPLIC TOPICAL (09:57)
--- NOTE | 2022-07-08 10:30 | PM.IMPN ---
Progress Note: A&P Assessment and Plan (1) UTI (urinary tract infection): Qualifiers: Hematuria presence: with hematuria Urinary tract infection type: acute cystitis Qualified Code(s): N30.01 - Acute cystitis with hematuria Code(s): N39.0 - Urinary tract infection, site not specified Status: Acute Assessment and Plan: UA appeared to be infectious Urine culture pending Continue Ceftriaxone and vancomycin for now Trend urine output Adjust antibiotics to sensitivities (2) Stercoral colitis: Code(s): K52.89 - Other specified noninfective gastroenteritis and colitis Status: Acute Assessment and Plan: CT noted severe constipation with stool ball, and large clonic stool noted Enema given in ED Change Colace to senna, as there could be some problems with aspiration Hold off on miralax Consider digital disimpaction Consider adding lactulose for further support Add suppository (3) Fecal impaction: Code(s): K56.41 - Fecal impaction Status: Acute Assessment and Plan: As seen on the CT Consider digital disimpaction Add laxatives and stool softeners See above (4) Aspiration pneumonitis: Code(s): J69.0 - Pneumonitis due to inhalation of food and vomit Status: Acute Assessment and Plan: Chest CT shows atypical, possible aspiration PNA Chest xray shows opacities in the right lower lung zone ST consulted Currently on clear liquids Modified barium swallow ordered Will await recommendations from speech Currently on ceftriaxone and vancomycin Attempt to get a sputum MRSA pending Adjust antibiotics as indicated (5) Vaginal bleeding: Code(s): N93.9 - Abnormal uterine and vaginal bleeding, unspecified Status: Acute Assessment and Plan: Was found to have some bleeding post menopausal CT identified fibrate uterus, 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 Pelvic exam attempted, was unsuccessful related to chornic contraction H/H stable (6) Decubitus ulcer of buttock, stage 2: Qualifiers: Laterality: right Qualified Code(s): L89.312 - Pressure ulcer of right buttock, stage 2 Code(s): L89.302 - Pressure ulcer of unspecified buttock, stage 2 Status: Acute Assessment and Plan: Chronic, and stable Wound consult ordered Await recommendations from wound care Continue frequent turning, and off loading (7) Eczema: Qualifiers: Eczema type: unspecified Qualified Code(s): L30.9 - Dermatitis, unspecified Code(s): L30.9 - Dermatitis, unspecified Status: Acute Assessment and Plan: Continue Minerin Creme (8) Acute metabolic encephalopathy: Code(s): G93.41 - Metabolic encephalopathy Status: Acute Assessment and Plan: Presented to the ED after being found confused in the detention Admits to being confused, however appears to have resolved with antibiotics and fluids Could be related to UTI or aspiration PNA Trend symptoms adjust therapy as indicated (9) Multiple sclerosis: Code(s): G35 - Multiple sclerosis Status: Acute Assessment and Plan: Seems to be flaring up Complaining of muscle spasms in her legs over the last two weeks Increased muscle relaxer Trend pain and symptoms Stable at this time Time Spent With Patient Time: 52 minutes Time with patient: Greater than 35 minutes Subjective Date/time seen: 07/08/221029 Interval history: 07/08/221029 Patient stated that she feels the same as she has all day. She is still complaining of her legs being sore. She also complained of her nose being cold. She denies any current chest pain, shortness a breath, nausea, vomiting, diarrhea constipation. She denies having any cough or any problems breathing. She did state that they did g
--- NOTE | 2022-07-08 10:30 | P.PNIM_ITS ---
Progress Note: A&P Assessment and Plan (1) UTI (urinary tract infection): Qualifiers: Hematuria presence: with hematuria Urinary tract infection type: acute cystitis Qualified Code(s): N30.01 - Acute cystitis with hematuria Code(s): N39.0 - Urinary tract infection, site not specified Status: Acute Assessment and Plan: * UA appeared to be infectious * Urine culture pending * Continue Ceftriaxone and vancomycin for now * Trend urine output * Adjust antibiotics to sensitivities (2) Stercoral colitis: Code(s): K52.89 - Other specified noninfective gastroenteritis and colitis Status: Acute Assessment and Plan: * CT noted severe constipation with stool ball, and large clonic stool noted * Enema given in ED * Change Colace to senna, as there could be some problems with aspiration * Hold off on miralax * Consider digital disimpaction * Consider adding lactulose for further support * Add suppository (3) Fecal impaction: Code(s): K56.41 - Fecal impaction Status: Acute Assessment and Plan: * As seen on the CT * Consider digital disimpaction * Add laxatives and stool softeners * See above (4) Aspiration pneumonitis: Code(s): J69.0 - Pneumonitis due to inhalation of food and vomit Status: Acute Assessment and Plan: * Chest CT shows atypical, possible aspiration PNA * Chest xray shows opacities in the right lower lung zone * ST consulted * Currently on clear liquids * Modified barium swallow ordered * Will await recommendations from speech * Currently on ceftriaxone and vancomycin * Attempt to get a sputum * MRSA pending * Adjust antibiotics as indicated (5) Vaginal bleeding: Code(s): N93.9 - Abnormal uterine and vaginal bleeding, unspecified Status: Acute Assessment and Plan: * Was found to have some bleeding post menopausal * CT identified fibrate uterus, 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 * Pelvic exam attempted, was unsuccessful related to chornic contraction * H/H stable (6) Decubitus ulcer of buttock, stage 2: Qualifiers: Laterality: right Qualified Code(s): L89.312 - Pressure ulcer of right buttock, stage 2 Code(s): L89.302 - Pressure ulcer of unspecified buttock, stage 2 Status: Acute Assessment and Plan: * Chronic, and stable * Wound consult ordered * Await recommendations from wound care * Continue frequent turning, and off loading (7) Eczema: Qualifiers: Eczema type: unspecified Qualified Code(s): L30.9 - Dermatitis, unspecified Code(s): L30.9 - Dermatitis, unspecified Status: Acute Assessment and Plan: * Continue Minerin Creme (8) Acute metabolic encephalopathy: Code(s): G93.41 - Metabolic encephalopathy Status: Acute Assessment and Plan: * Presented [facility] the ED [facility] * Admits to being confused, however appears to have resolved with antibiotics and fluids * Could be related to UTI or aspiration PNA * Trend symptoms * adjust therapy as indicated (9) Multiple sclerosis: Code(s): G35 - Multiple sclerosis Status: Acute Assessment and Plan: * Seems to be flaring up * Complaining of muscle spasms in her legs over the last t
[2022-07-08 13:41] VITALS: BP 124/61; PULSE 74; RESP 14; TEMP 36.1; O2SAT 98
[2022-07-08] MEDS: TIZANIDINE HCL 4 MG TABLET PO ×2 (16:24→21:41)
[2022-07-08] MEDS: RIVAROXABAN 20 MG TABLET PO (17:34)
[2022-07-08 20:00] VITALS: PULSE 74; RESP 14; O2SAT 97
[2022-07-08] MEDS: ATORVASTATIN 10 MG TABLET PO (21:41)
[2022-07-08 22:48] VITALS: BP 87/46; PULSE 74; RESP 14; TEMP 36.6; O2SAT 97
[2022-07-08] MEDS: SODIUM CHLORIDE 0.9% IV 250 ML 100 ML IV CONT (23:15)
[2022-07-09] MEDS: SODIUM CHLORIDE 0.9% IV 1,000 ML 999 ML IV CONT (03:01)
[2022-07-09 06:00] VITALS: BP 98/60; PULSE 77; RESP 14; TEMP 36.6; O2SAT 98
[2022-07-09] MEDS: TIZANIDINE HCL 4 MG TABLET PO (06:08)
[2022-07-09] MEDS: LORATADINE 10 MG TABLET PO (08:25)
[2022-07-09] MEDS: ASCORBIC ACID 500 MG TABLET PO (08:25)
[2022-07-09] MEDS: DOCUSATE SODIUM 100 MG CAPSULE PO ×2 (08:25→21:35)
[2022-07-09] MEDS: CYANOCOBALAMIN 1,000 MCG TABLET 1000 MCG PO ×2 (08:25→17:57)
[2022-07-09] MEDS: PANTOPRAZOLE SOD SESQUIHYDRATE 20 MG TAB PO (08:25)
[2022-07-09] MEDS: FERROUS SULFATE 324 MG TABLET PO ×2 (08:25→17:57)
[2022-07-09] MEDS: carBAMazepine 200 MG TABLET PO ×3 (08:25→17:57)
[2022-07-09] MEDS: TAMSULOSIN HCL 0.4 MG CAPSULE PO ×2 (08:25→17:56)
[2022-07-09] MEDS: FOLIC ACID 1 MG TABLET PO ×2 (08:25→17:56)
[2022-07-09] MEDS: EUCERIN CREAM 120 GM JAR 1 APPLIC TOPICAL (08:26)
[2022-07-09 09:01] LABS: Basophils Percent Auto 0.4 % (0.2-1.2); Eosinophils Absolute Auto 0.2 K/mm3 (0-0.3); Eosinophils Percent Auto 4.5 % (0-4.4); Hematocrit 34.9 % (37.0-47.0); Hemoglobin 10.9 g/dL (12.0-15.0); Immature Granulocyte Absolute 0.02 K/mm3 (0.00-0.031); Immature Granulocyte Percent A 0.4 % (0-0.5); Lymphocytes Absolute Auto 1.63 K/mm3 (0.9-3.2); Lymphocytes Percent Auto 33.6 % (18.3-44.2); Mean Corpuscular HGB Conc 31.2 g/dl (32-36); Mean Corpuscular Hemoglobin 29.6 pg (26-34); Mean Corpuscular Volume 94.8 fl (80-100); Monocytes Absolute Auto 0.3 K/mm3 (0.1-0.6); Monocytes Percent Auto 6.6 % (2.6-8.5); Neutrophils Absolute Auto 2.6 K/mm3 (1.3-6.7); Neutrophils Percent Auto 54.5 % (45.5-73.1); Platelet Count Result 247 k/mm3 (150-375); Red Blood Count 3.68 M/mm3 (4.2-5.4); Red Cell Distribution Width 13.4 % (11.5-14.5); White Blood Count 4.9 K/mm3 (4.5-10.0)
[2022-07-09 09:08] LABS: Alanine Aminotransferase 14 U/L (6-35); Albumin Level 3.3 g/dL (3.5-5.1); Alkaline Phosphatase 88 U/L (38-126); Anion Gap 5 mmol/L (8-16); Aspartate Amino Transferase 20 U/L (14-36); Bilirubin,Total 0.3 mg/dL (0.2-1.3); Blood Urea Nitrogen 5 mg/dL (7-17); Calcium 7.9 mg/dL (8.4-10.2); Carbon Dioxide 26 mmol/L (22-30); Chloride 109 mmol/L (98-107); Estimated CRCL calculation 158 ml/min; Estimated Glomerular Filt Rate > 60; Glucose 88 mg/dL (65-110); Magnesium 1.9 mg/dL (1.6-2.3); Potassium 3.4 mmol/L (3.4-5.0); Sodium 140 mmol/L (137-145)
[2022-07-09 09:28] LABS: Vancomycin Trough 16.8 ug/mL (10.0-20.0)
--- NOTE | 2022-07-09 09:55 | PC.NURSE ---
Family requesting swallow study to be redone at discharge to verify that pt is still swallow impaired/requiring thickened liquids.
[2022-07-09] MEDS: VANCOMYCIN 1,250 MG/NS 250 ML 1,250 MG/250 ML BAG 166.67 MG IVPB (11:00)
--- NOTE | 2022-07-09 13:00 | P.PNIM_ITS ---
Progress Note: A&P Assessment and Plan (1) UTI (urinary tract infection): Qualifiers: Hematuria presence: with hematuria Urinary tract infection type: acute cystitis Qualified Code(s): N30.01 - Acute cystitis with hematuria Code(s): N39.0 - Urinary tract infection, site not specified Status: Acute Assessment and Plan: * UA appeared to be infectious * Urine culture VRE * change Ceftriaxone and vancomycin to amoxicillin 500mg PO Q8H * Trend urine output * Adjust antibiotics to sensitivities (2) Stercoral colitis: Code(s): K52.89 - Other specified noninfective gastroenteritis and colitis Status: Acute Assessment and Plan: * CT noted severe constipation with stool ball, and large clonic stool noted * Enema given in ED * Change Colace to senna, as there could be some problems with aspiration * Hold off on miralax * Consider digital disimpaction * Consider adding lactulose for further support * Add suppository (3) Fecal impaction: Code(s): K56.41 - Fecal impaction Status: Acute Assessment and Plan: * As seen on the CT * Consider digital disimpaction * Add laxatives and stool softeners * See above (4) Aspiration pneumonitis: Code(s): J69.0 - Pneumonitis due to inhalation of food and vomit Status: Acute Assessment and Plan: * Chest CT shows atypical, possible aspiration PNA * Chest xray shows opacities in the right lower lung zone * ST consulted * Currently on clear liquids * Modified barium swallow ordered * Will await recommendations from speech * Currently on ceftriaxone and vancomycin * Attempt to get a sputum * MRSA pending * Adjust antibiotics as indicated (5) Vaginal bleeding: Code(s): N93.9 - Abnormal uterine and vaginal bleeding, unspecified Status: Acute Assessment and Plan: * Was found to have some bleeding post menopausal * CT identified fibrate uterus, 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 * Pelvic exam attempted, was unsuccessful related to chornic contraction * H/H stable (6) Decubitus ulcer of buttock, stage 2: Qualifiers: Laterality: right Qualified Code(s): L89.312 - Pressure ulcer of right buttock, stage 2 Code(s): L89.302 - Pressure ulcer of unspecified buttock, stage 2 Status: Acute Assessment and Plan: * Chronic, and stable * Wound consult ordered * Await recommendations from wound care * Continue frequent turning, and off loading (7) Eczema: Qualifiers: Eczema type: unspecified Qualified Code(s): L30.9 - Dermatitis, unspecified Code(s): L30.9 - Dermatitis, unspecified Status: Acute Assessment and Plan: * Continue Minerin Creme (8) Acute metabolic encephalopathy: Code(s): G93.41 - Metabolic encephalopathy Status: Acute Assessment and Plan: * Presented to the ED after being found confused in the [facility] * Admits to being confused, however appears to have resolved with antibiotics and fluids * Could be related to UTI or aspiration PNA * Trend symptoms * adjust therapy as indicated (9) Multiple sclerosis: Code(s): G35 - Multiple sclerosis Status: Acute Assessment and Plan: * Seems to be flaring up * Give solumedrol 125mg IV once * Complai
--- NOTE | 2022-07-09 13:00 | PM.IMPN ---
Progress Note: A&P Assessment and Plan (1) UTI (urinary tract infection): Qualifiers: Hematuria presence: with hematuria Urinary tract infection type: acute cystitis Qualified Code(s): N30.01 - Acute cystitis with hematuria Code(s): N39.0 - Urinary tract infection, site not specified Status: Acute Assessment and Plan: UA appeared to be infectious Urine culture VRE change Ceftriaxone and vancomycin to amoxicillin 500mg PO Q8H Trend urine output Adjust antibiotics to sensitivities (2) Stercoral colitis: Code(s): K52.89 - Other specified noninfective gastroenteritis and colitis Status: Acute Assessment and Plan: CT noted severe constipation with stool ball, and large clonic stool noted Enema given in ED Change Colace to senna, as there could be some problems with aspiration Hold off on miralax Consider digital disimpaction Consider adding lactulose for further support Add suppository (3) Fecal impaction: Code(s): K56.41 - Fecal impaction Status: Acute Assessment and Plan: As seen on the CT Consider digital disimpaction Add laxatives and stool softeners See above (4) Aspiration pneumonitis: Code(s): J69.0 - Pneumonitis due to inhalation of food and vomit Status: Acute Assessment and Plan: Chest CT shows atypical, possible aspiration PNA Chest xray shows opacities in the right lower lung zone ST consulted Currently on clear liquids Modified barium swallow ordered Will await recommendations from speech Currently on ceftriaxone and vancomycin Attempt to get a sputum MRSA pending Adjust antibiotics as indicated (5) Vaginal bleeding: Code(s): N93.9 - Abnormal uterine and vaginal bleeding, unspecified Status: Acute Assessment and Plan: Was found to have some bleeding post menopausal CT identified fibrate uterus, 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 Pelvic exam attempted, was unsuccessful related to chornic contraction H/H stable (6) Decubitus ulcer of buttock, stage 2: Qualifiers: Laterality: right Qualified Code(s): L89.312 - Pressure ulcer of right buttock, stage 2 Code(s): L89.302 - Pressure ulcer of unspecified buttock, stage 2 Status: Acute Assessment and Plan: Chronic, and stable Wound consult ordered Await recommendations from wound care Continue frequent turning, and off loading (7) Eczema: Qualifiers: Eczema type: unspecified Qualified Code(s): L30.9 - Dermatitis, unspecified Code(s): L30.9 - Dermatitis, unspecified Status: Acute Assessment and Plan: Continue Minerin Creme (8) Acute metabolic encephalopathy: Code(s): G93.41 - Metabolic encephalopathy Status: Acute Assessment and Plan: Presented to the ED after being found confused in the [facility] Admits to being confused, however appears to have resolved with antibiotics and fluids Could be related to UTI or aspiration PNA Trend symptoms adjust therapy as indicated (9) Multiple sclerosis: Code(s): G35 - Multiple sclerosis Status: Acute Assessment and Plan: Seems to be flaring up Give solumedrol 125mg IV once Complaining of muscle spasms in her legs over the last two weeks Lyrica ordered since it was ordered at the [facility] Increased muscle relaxer Trend pain and symptoms Stable at this time Time Spent With Patient Time: 38 minutes Time with patient: Greater than 35 minutes Subjective Date/time seen: 07/09/22 1045 Interval history: 07/09/221044 Patient is doing ok. She is still having a lot of leg pain. She stated that it is really bad to the point that she feels that she is going to scream out. She denies any chest pain, shortness of breath, nausea, vomiting, diarrhea, const
[2022-07-09] MEDS: methylPREDNISolone SOD SUCC 125 MG VIAL IV PUSH (13:28)
[2022-07-09] MEDS: BACLOFEN 10 MG TABLET 20 MG PO ×2 (13:28→21:34)
[2022-07-09] MEDS: AMOXICILLIN 500 MG CAPSULE PO ×2 (13:28→21:35)
[2022-07-09] MEDS: ACETAMINOPHEN 500 MG TABLET PO (13:34)
[2022-07-09 13:35] VITALS: BP 133/86; PULSE 76; RESP 14; TEMP 36.4; O2SAT 99
[2022-07-09] MEDS: PREGABALIN (*CRX) 50 MG CAPSULE PO (14:51)
[2022-07-09] MEDS: RIVAROXABAN 20 MG TABLET PO (17:57)
[2022-07-09 21:30] VITALS: BP 110/59; PULSE 82; RESP 16; TEMP 36.3; O2SAT 96
[2022-07-09] MEDS: ATORVASTATIN 10 MG TABLET PO (21:35)
[2022-07-10 05:31] LABS: Estimated CRCL calculation 124 ml/min; Estimated Glomerular Filt Rate > 60
[2022-07-10] MEDS: BACLOFEN 10 MG TABLET 20 MG PO ×2 (05:34→13:36)
[2022-07-10] MEDS: AMOXICILLIN 500 MG CAPSULE PO ×2 (05:34→13:35)
[2022-07-10 05:35] VITALS: BP 121/56; PULSE 68; RESP 16; TEMP 36.6; O2SAT 96
[2022-07-10] MEDS: ASCORBIC ACID 500 MG TABLET PO (08:19)
[2022-07-10] MEDS: CYANOCOBALAMIN 1,000 MCG TABLET 1000 MCG PO ×2 (08:19→17:49)
[2022-07-10] MEDS: FERROUS SULFATE 324 MG TABLET PO ×2 (08:19→17:49)
[2022-07-10] MEDS: DOCUSATE SODIUM 100 MG CAPSULE PO (08:20)
[2022-07-10] MEDS: FOLIC ACID 1 MG TABLET PO ×2 (08:20→17:49)
[2022-07-10] MEDS: TAMSULOSIN HCL 0.4 MG CAPSULE PO ×2 (08:20→17:49)
[2022-07-10] MEDS: PANTOPRAZOLE SOD SESQUIHYDRATE 20 MG TAB PO (08:20)
[2022-07-10] MEDS: LORATADINE 10 MG TABLET PO (08:20)
[2022-07-10] MEDS: PREGABALIN (*CRX) 50 MG CAPSULE PO (08:20)
[2022-07-10] MEDS: EUCERIN CREAM 120 GM JAR 1 APPLIC TOPICAL (08:21)
[2022-07-10] MEDS: carBAMazepine 200 MG TABLET PO ×3 (08:45→17:49)
--- NOTE | 2022-07-10 09:15 | P.DS_ITS ---
DS: Admitting Diagnosis Discharge Date 07/10/22 0915 Admitting Diagnosis acute UTI, multiple sclerosis flare up DS: Discharge Diagnosis Discharge Diagnosis (1) UTI (urinary tract infection): Qualifiers: Hematuria presence: with hematuria Urinary tract infection type: acute cystitis Qualified Code(s): N30.01 - Acute cystitis with hematuria Code(s): N39.0 - Urinary tract infection, site not specified Status: Acute Assessment and Plan: * UA appeared to be infectious * Urine culture VRE * change Ceftriaxone and vancomycin to amoxicillin 500mg PO Q8H * Trend urine output * Adjust antibiotics to sensitivities (2) Stercoral colitis: Code(s): K52.89 - Other specified noninfective gastroenteritis and colitis Status: Acute Assessment and Plan: * CT noted severe constipation with stool ball, and large clonic stool noted * Enema given in ED * Change Colace to senna, as there could be some problems with aspiration * Hold off on miralax * Consider digital disimpaction * Consider adding lactulose for further support * Add suppository (3) Fecal impaction: Code(s): K56.41 - Fecal impaction Status: Acute Assessment and Plan: * As seen on the CT * Consider digital disimpaction * Add laxatives and stool softeners * See above (4) Aspiration pneumonitis: Code(s): J69.0 - Pneumonitis due to inhalation of food and vomit Status: Acute Assessment and Plan: * Chest CT shows atypical, possible aspiration PNA * Chest xray shows opacities in the right lower lung zone * ST consulted * Currently on clear liquids * Modified barium swallow ordered * Will await recommendations from speech * Currently on ceftriaxone and vancomycin * Attempt to get a sputum * MRSA positive * Adjust antibiotics as indicated (5) Vaginal bleeding: Code(s): N93.9 - Abnormal uterine and vaginal bleeding, unspecified Status: Acute Assessment and Plan: * Was found to have some bleeding post menopausal * CT identified fibrate uterus, 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 * Pelvic exam attempted, was unsuccessful related to chornic contraction * H/H stable (6) Decubitus ulcer of buttock, stage 2: Qualifiers: Laterality: right Qualified Code(s): L89.312 - Pressure ulcer of right buttock, stage 2 Code(s): L89.302 - Pressure ulcer of unspecified buttock, stage 2 Status: Acute Assessment and Plan: * Chronic, and stable * Wound consult ordered * Await recommendations from wound care * Continue frequent turning, and off loading * Antifungal cream (7) Eczema: Qualifiers: Eczema type: unspecified Qualified Code(s): L30.9 - Dermatitis, unspecified Code(s): L30.9 - Dermatitis, unspecified Status: Acute Assessment and Plan: * Continue Minerin Creme (8) Acute metabolic encephalopathy: Code(s): G93.41 - Metabolic encephalopathy Status: Acute Assessment and Plan: * Presented to the ED after being found confused in the [facility] * Admits to being confused, however appears to have resolved with antibiotics and fluids * Could be related to UTI or aspiration PNA * Trend symptoms * adjust therapy as indicated * Resolved (9) Multiple sclerosis:
--- NOTE | 2022-07-10 09:15 | PM.DS ---
DS: Admitting Diagnosis Discharge Date 07/10/22 0915 Admitting Diagnosis acute UTI, multiple sclerosis flare up DS: Discharge Diagnosis Discharge Diagnosis (1) UTI (urinary tract infection): Qualifiers: Hematuria presence: with hematuria Urinary tract infection type: acute cystitis Qualified Code(s): N30.01 - Acute cystitis with hematuria Code(s): N39.0 - Urinary tract infection, site not specified Status: Acute Assessment and Plan: UA appeared to be infectious Urine culture VRE change Ceftriaxone and vancomycin to amoxicillin 500mg PO Q8H Trend urine output Adjust antibiotics to sensitivities (2) Stercoral colitis: Code(s): K52.89 - Other specified noninfective gastroenteritis and colitis Status: Acute Assessment and Plan: CT noted severe constipation with stool ball, and large clonic stool noted Enema given in ED Change Colace to senna, as there could be some problems with aspiration Hold off on miralax Consider digital disimpaction Consider adding lactulose for further support Add suppository (3) Fecal impaction: Code(s): K56.41 - Fecal impaction Status: Acute Assessment and Plan: As seen on the CT Consider digital disimpaction Add laxatives and stool softeners See above (4) Aspiration pneumonitis: Code(s): J69.0 - Pneumonitis due to inhalation of food and vomit Status: Acute Assessment and Plan: Chest CT shows atypical, possible aspiration PNA Chest xray shows opacities in the right lower lung zone ST consulted Currently on clear liquids Modified barium swallow ordered Will await recommendations from speech Currently on ceftriaxone and vancomycin Attempt to get a sputum MRSA positive Adjust antibiotics as indicated (5) Vaginal bleeding: Code(s): N93.9 - Abnormal uterine and vaginal bleeding, unspecified Status: Acute Assessment and Plan: Was found to have some bleeding post menopausal CT identified fibrate uterus, 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 Pelvic exam attempted, was unsuccessful related to chornic contraction H/H stable (6) Decubitus ulcer of buttock, stage 2: Qualifiers: Laterality: right Qualified Code(s): L89.312 - Pressure ulcer of right buttock, stage 2 Code(s): L89.302 - Pressure ulcer of unspecified buttock, stage 2 Status: Acute Assessment and Plan: Chronic, and stable Wound consult ordered Await recommendations from wound care Continue frequent turning, and off loading Antifungal cream (7) Eczema: Qualifiers: Eczema type: unspecified Qualified Code(s): L30.9 - Dermatitis, unspecified Code(s): L30.9 - Dermatitis, unspecified Status: Acute Assessment and Plan: Continue Minerin Creme (8) Acute metabolic encephalopathy: Code(s): G93.41 - Metabolic encephalopathy Status: Acute Assessment and Plan: Presented to the ED after being found confused in the [facility] Admits to being confused, however appears to have resolved with antibiotics and fluids Could be related to UTI or aspiration PNA Trend symptoms adjust therapy as indicated Resolved (9) Multiple sclerosis: Code(s): G35 - Multiple sclerosis Status: Acute Assessment and Plan: Seems to be flaring up Give solumedrol 125mg IV once Complaining of muscle spasms in her legs over the last two weeks Lyrica ordered since it was ordered at the [facility] Increased muscle relaxer Trend pain and symptoms Stable at this time DS: Summary Hospital Course Hospital Course: Patient is a 56-year-old female with a past medical history hyperlipidemia, multiple sclerosis, quadriplegia, GERD frequent UTI who presented to the ED from [facility] due to altered mental status. Upon a
[2022-07-10 14:00] VITALS: BP 119/60; PULSE 72; RESP 16; TEMP 37.3; O2SAT 99
[2022-07-10] MEDS: RIVAROXABAN 20 MG TABLET PO (17:49)
== END 2022-07-10 18:35 | DRG 177 ==
LOC: ANHED 22:09 → ANH2MED 23:19
PROVIDERS: Admitting Provider Internal Medicine; Emergency Provider Physician Assistant; PCP Internal Medicine; Visit Provider Nurse Practitioner
DX: J69.0 Pneumonitis due to inhalation of food and vomit (principal); G93.41 Metabolic encephalopathy; R53.2 Functional quadriplegia; N39.0 Urinary tract infection, site not specified; Z16.21 Resistance to vancomycin; J18.9 Pneumonia, unspecified organism; B95.2 Enterococcus as the cause of diseases classified elsewhere; K52.89 Other specified noninfective gastroenteritis and colitis; K56.41 Fecal impaction; G35 Multiple sclerosis; L89.312 Pressure ulcer of right buttock, stage 2; D25.9 Leiomyoma of uterus, unspecified; L30.9 Dermatitis, unspecified; G40.909 Epilepsy, unspecified, not intractable, without status epilepticus; R32 Unspecified urinary incontinence; N93.9 Abnormal uterine and vaginal bleeding, unspecified; E78.5 Hyperlipidemia, unspecified; K21.9 Gastro-esophageal reflux disease without esophagitis; N95.0 Postmenopausal bleeding; Z99.3 Dependence on wheelchair; Z86.718 Personal history of other venous thrombosis and embolism; Z79.01 Long term (current) use of anticoagulants
CPT/HCPCS: 36415; 70450; 71045; 71250; 74176; 76856; 80048; 80053; 80202; 81001; 82550; 82565; 83605; 83735; 83880; 84484; 85025; 87040; 87081; 87086; 87147; 87181; 87186; 92526; 92611; 93005; 96361; 96365; 96366; 96375; 96376; 99285; A9270; G0378; J0692; J0696; J2930; J3370; J7030; J7050

== ENCOUNTER 2022-08-29 20:49 | Inpatient (IN) | payer MEDICARE, SELFPAY ==
[2022-08-29] VITALS (13 sets, daily range): BP systolic 134–140; BP diastolic 54–74; PULSE 104–123; RESP 13–22; TEMP 39.2; O2SAT 94–96
--- NOTE | ~2022-08-29 | XR_ITS ---
EXAMINATION: XR chest 1V portable Exam Date/Time: 08/29/2022 21:20 CDT HISTORY: weakness, altered mental status Comparison: 07/07/2022, 05/28/2022, 12/28/2021; CT cap 07/07/2022. RESULT: Lines, tubes, and devices: None. Lungs and pleura: Patchy subsegmental right mid and lower lung opacities. Peripheral left lower lung scar. Right hemidiaphragm elevation. Right medial basal calcified granuloma. Cardiomediastinal silhouette: Stable. Other: No acute osseous or upper abdominal finding. IMPRESSION: Worsened right hemidiaphragm elevation. Right mid and lower lung opacities may represent atelectasis or the consolidation of pneumonia. Reviewed, dictated and finalized at [facility]. IMPRESSION: Worsened right hemidiaphragm elevation. Right mid and lower lung opacities may represent atelectasis or the consolidati on of pneumonia.
--- NOTE | ~2022-08-29 | MR_ITS ---
MRI of the brain Clinical History: Multiple sclerosis Technique: Axial and sagittal T1-weighted images were acquired. These were followed by axial T2-weigh tavon, diffusion weighted, gradient, and FLAIR images. Following intravenous administration of 13 cc Mu ltiHance gadolinium, T1-weighted fat-sat imaging was performed in the axial, coronal, and sagittal pl anes. COMPARISON: 02/10/2021 Findings: There is no acute infarct, intracranial hemorrhage or mass lesion. There is diffuse chronic white matter disease throughout the periventricular white matter bilaterally. Ventricles and subarachnoid spaces are mildly dilated. Orbits are unremarkable. Paranasal sinuses and mastoid air cells are clear. Major intracranial flow voids are intact. Sagittal midline structures are intact. No abnormal postcontrast enhancement identified. IMPRESSION: Stable diffuse white matter disease, which could reflect severe multiple sclerosis/demyelinating dise ase versus other chronic white matter disease. No acute infarct, internal hemorrhage, mass lesion, or abnormal postcontrast enhancement. Reviewed, dictated and finalized at location . IMPRESSION: Stable diffuse white matter disease, which could reflect severe multiple sclero sis/demyelinating disease versus other chronic white matter disease. No acute infarct, internal hemorrhage, mass lesion, or abnormal postcontrast en hancement.
--- NOTE | ~2022-08-29 | MR_ITS ---
MRI of the cervical spine Clinical History: Multiple sclerosis Technique: Axial T2-weighted and gradient images, and sagittal T1-weighted, T2-weighted, and STIR earle ges were acquired. Following intravenous administration of 13 cc MultiHance gadolinium, T1-weighted f at-sat imaging was performed in the axial and sagittal planes. Findings: There is no fracture or subluxation of the cervical spine. Vertebral bodies maintain normal height and alignment. No suspicious bone marrow signal abnormality seen. No significant disc bulge or herniation seen at any cervical level. There are minimal facet joint deg enerative changes. No spinal canal stenosis or cord compression. No definite neural foraminal narrowi ng. No definite abnormal signal seen in the spinal cord. Paravertebral soft tissues are unremarkable. No abnormal postcontrast enhancement identified. Impression: Minimal degenerative change, otherwise essentially unremarkable exam. Reviewed, dictated and finalized at [facility]. Impression: Minimal degenerative change, otherwise essentially unremarkable exam.
--- NOTE | ~2022-08-29 | MR_ITS ---
MRI of the thoracic spine Clinical History: Multiple sclerosis Technique: Axial T2-weighted and gradient images, and sagittal T1-weighted, T2-weighted, and STIR earle ges were acquired. Following intravenous administration of 13 cc MultiHance gadolinium, T1-weighted f at-sat imaging was performed in the axial and sagittal planes. COMPARISON: 04/25/2020 Findings: There is no fracture or subluxation in the thoracic spine. There is mild compression fractu re at the supraclavicular region of L1, chronic, without marrow edema. No subluxation identified. The re is stable probable intraosseous hemangiomas at T8 and T5. No acute or suspicious bone marrow signa l abnormality seen. No disc bulge or herniation seen in the thoracic spine. No spinal canal stenosis, cord compression, o r neural foraminal narrowing evident. No epidural mass or collection seen. No abnormal signal evident in the spinal cord itself. No abnormal postcontrast enhancement identified . Impression: No acute abnormality seen. No abnormality of the spinal cord itself identified. 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 Reviewed, dictated and finalized at location M. Impression: No acute abnormality seen. No abnormality of the spinal cord itself identified. 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
--- NOTE | ~2022-08-29 | CT_ITS ---
EXAMINATION: CT brain wo con DATE: 08/29/2022 21:22 INDICATION: altered mental status . TECHNIQUE: Computed tomography (CT) of the head was performed without intravenous contrast. The mA wa s adjusted according to patient size. Iterative reconstruction technique was employed. The dose-lengt h product was 605.33 mGy-cm. COMPARISON: None. FINDINGS: No acute intracranial hemorrhage or extra-axial fluid collection. No hydrocephalus, mass, or herniation. No acute ischemic infarct. Unremarkable dural venous sinus attenuation. No acute osseous abnormality. Minimal mucosal thickening in the left middle ethmoid air cells, the remaining aerated spaces are jason ar. Moderate atrophy and moderate chronic white matter change. Atherosclerotic intracranial calcification . IMPRESSION: No acute intracranial process. Reviewed, dictated and finalized at location [facility].
--- NOTE | ~2022-08-29 | XR_ITS ---
EXAMINATION: XR barium swallow modified DATE: 08/30/2022 10:35 INDICATION: Dysphagia. TECHNIQUE: The patient was given barium-containing material of multiple consistencies to swallow by t he speech pathologist while I performed fluoroscopy. Fluoroscopy exposure time was 2.5 minutes. The n umber of fluoroscopy images saved to the PACS was 1. Dose-area product was 1.95 Gy-cm^2. FINDINGS: There is vallecular residue and piriform sinus residue. There is laryngeal penetration with thin liqu ids. IMPRESSION: 1. Laryngeal penetration with thin liquids. 2. Please refer to the speech therapy report for recommendations. Reviewed, dictated and finalized at location A.
--- NOTE | 2022-08-29 20:50 | ECG_ITS ---
Measurements Intervals [place] Rate: 122 P: 46 TX: 172 QRS: -3 QRSD: 93 T: 198 QT: 337 QTc: 481 Interpretive Statements SINUS TACHYCARDIA LOW QRS VOLTAGE IN PRECORDIAL LEADS BORDERLINE ST-T WAVE ABNORMALITY- DIFFUSE LEADS BASELINE ARTIFACT- I, II, III, AVR, AVL, V1-V2 ABNORMAL ECG COMPARED TO ECG 07/07/2022 18:27:11 SINUS TACHYCARDIA NOW PRESENT Electronically Signed On 08-30-2022 7:29:57 CDT by Layo Burks D.O.
[2022-08-29 21:16] LABS: Basophils Absolute Auto 0.1 K/mm3 (0.0-0.1); Basophils Percent Auto 0.5 % (0.2-1.2); Eosinophils Absolute Auto 0.1 K/mm3 (0-0.3); Eosinophils Percent Auto 0.7 % (0-4.4); Hematocrit 42.1 % (37.0-47.0); Hemoglobin 13.2 g/dL (12.0-15.0); Immature Granulocyte Absolute 0.05 K/mm3 (0.00-0.031); Immature Granulocyte Percent A 0.4 % (0-0.5); Lymphocytes Absolute Auto 1.64 K/mm3 (0.9-3.2); Mean Corpuscular HGB Conc 31.4 g/dl (32-36); Mean Corpuscular Hemoglobin 30.2 pg (26-34); Mean Corpuscular Volume 96.3 fl (80-100); Mean Platelet Volume 9.4 fl (7.4-10.4); Monocytes Absolute Auto 0.7 K/mm3 (0.1-0.6); Monocytes Percent Auto 5.4 % (2.6-8.5); Neutrophils Absolute Auto 11.1 K/mm3 (1.3-6.7); Platelet Count Result 454 k/mm3 (150-375); Red Blood Count 4.37 M/mm3 (4.2-5.4); Red Cell Distribution Width 14.6 % (11.5-14.5); White Blood Count 13.7 K/mm3 (4.5-10.0)
[2022-08-29 21:26] LABS: Lactic Acid Reflex 1.2 mmol/L (0.7-2.0)
[2022-08-29] MEDS: SODIUM CHLORIDE 0.9% IV 1,000 ML 999 ML IV CONT ×2 (21:29→23:31)
[2022-08-29 21:42] LABS: NT Pro B Type Natriuretic Pept 393 pg/mL (19.9-100)
[2022-08-29 21:57] LABS: Partial Thromboplastin Time 23.7 SECONDS (22.3-36.8); Prothrombin Time 13.4 Seconds (11.1-14.7)
[2022-08-29] MEDS: ACETAMINOPHEN 650 MG SUPPOSITORY RECTAL (22:02)
[2022-08-29] MEDS: SODIUM CHLORIDE 0.9% IV 500 ML 999 ML IV CONT (22:02)
[2022-08-29 22:03] LABS: Appearance Urine Clear (Clear); Bilirubin Urine Negative (Negative); Blood Urine Trace-intact (Negative); Color Urine Yellow (Yellow); Glucose Urine UA Negative (Negative); Ketones Urine 2+ mg/dL (Negative); Leukocyte Esterase Ur Negative LEU/UL (Negative); Nitrate Urine Negative (Negative); Protein Urine Trace mg/dL (Negative); pH Urine 6.5 (5.0-9.0)
[2022-08-29] MEDS: AZITHROMYCIN 500 MG/NS 250 ML 500 MG/250 ML BAG 250 MG IVPB (22:07)
[2022-08-29 22:13] LABS: Magnesium 1.8 mg/dL (1.6-2.3)
[2022-08-29 22:14] LABS: Alanine Aminotransferase 17 U/L (6-35); Albumin Level 3.5 g/dL (3.5-5.1); Alkaline Phosphatase 126 U/L (38-126); Anion Gap 4 mmol/L (8-16); Aspartate Amino Transferase 29 U/L (14-36); Bilirubin,Total 0.5 mg/dL (0.2-1.3); Blood Urea Nitrogen 9 mg/dL (7-17); Calcium 8.3 mg/dL (8.4-10.2); Carbon Dioxide 28 mmol/L (22-30); Chloride 103 mmol/L (98-107); Estimated CRCL calculation 113 ml/min; Estimated Glomerular Filt Rate > 60; Glucose 115 mg/dL (65-110); Potassium 3.6 mmol/L (3.4-5.0); Sodium 135 mmol/L (137-145)
[2022-08-29 22:18] LABS: Troponin I < 0.012 ng/mL (0.000-0.034)
[2022-08-29 22:23] LABS: Add Urine Microscopic? YES; RBC Urine 0-2 /hpf (0-2)
[2022-08-29 22:40] LABS: Procalcitonin 0.1 ng/mL
--- NOTE | 2022-08-29 22:42 | PC.NURSE ---
Patient's son in law-Jose [phone]
--- NOTE | 2022-08-29 22:46 | ED.GENADULT ---
HPI - General Adult General Chief complaint: Altered Mental Status Stated complaint: LETHARGY, AMS Time Seen by Provider: 08/29/22 20:51 History of Present Illness HPI narrative: Patient is a 56-year-old female who presents the emergency department with chief complaint of altered mental status. [facility] normal [facility]O x2 per the nursing facility and today was ANO x1 and they noticed that she was less responsive than normal and noticed her heart rate was running in the 120s. Patient has had prior issues with UTIs and other infections Related Data Home Medications Medication Instructions Recorded Confirmed baclofen 20 mg tablet 20 mg PO Q12H 04/13/19 07/08/22 ascorbic acid (vitamin C) 500 mg 500 mg PO DAILY 02/08/21 07/08/22 tablet atorvastatin 10 mg tablet (Lipitor) 10 mg PO HS 02/08/21 07/08/22 pantoprazole 20 mg tablet,delayed 20 mg PO QAM 02/08/21 07/08/22 release (Protonix) acetaminophen 500 mg tablet 500 mg PO DAILY PRN Pain 09/18/21 07/08/22 (Tylenol Extra Strength) loratadine 10 mg tablet (Claritin) 10 mg PO DAILY 09/18/21 07/08/22 tamsulosin 0.4 mg capsule 0.4 mg PO BID 09/18/21 07/08/22 carbamazepine 200 mg tablet 200 mg PO TID 05/29/22 07/08/22 ferrous sulfate 325 mg (65 mg 325 mg PO BID 05/29/22 07/08/22 iron) tablet folic acid 1 mg tablet 1 mg PO BID 05/29/22 07/08/22 cyanocobalamin (vitamin B-12) 500 1,000 mcg PO BID 07/08/22 07/08/22 mcg tablet guaifenesin 100 mg/5 mL oral syrup 300 mg PO Q6H PRN Congestion 07/08/22 07/08/22 Allergies Allergy/AdvReac Type Severity Reaction Status Date / Time No Known Allergies Allergy Verified 09/18/21 14:32 Review of Systems Review of Systems: A 10 system review of systems was completed on the patient and is negative except for what is stated in the HPI. Nursing and ancillary documentation was reviewed. FORMERLY [facility], [facility] Past Medical History Medical History Abnormal vaginal bleeding in postmenopausal patient Acute respiratory failure with hypoxia Chronic anticoagulation For history of DVT. Chronic constipation Deep venous thrombosis Frequent UTI Including history of ESBL Klebsiella pneumoniae. Gastroesophageal reflux disease Healthcare-associated pneumonia History of DVT (deep vein thrombosis) Hyperlipidemia Influenza A Kidney stones Multiple sclerosis Multiple sclerosis exacerbation Seizure disorder Sepsis SIRS (systemic inflammatory response syndrome) Stercoral colitis UTI (urinary tract infection) Surgical History Surgical History History of cystoscopy Hx of vaginal surgery Family History Family History Mother Diabetes mellitus Myocardial infarction PTSD (post-traumatic stress disorder) Father Diabetes mellitus Myocardial infarction Sibling Myocardial infarction Patient's brother is Social History Social History Social History: 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 She has been since her early 30s. She does not have any children. She was living with her mother until 2021. She now lives at [facility]. She is essentially bed-bound now. No alcohol, tobacco, or illicit substance use. Healthcare power of banking attorney: Melony Miner, sister. Code status: DNR/DNI Smoking status: Never smoker Second hand tobacco smoke exposure: No Alcohol intake: current Drinks per week: 1 Substance use: never Substance use type: does not use Lack of Transportation: No Lack of Food: Never True Current Housing: I Have Housing Concerned About Future Housing: No Difficulty Paying Gas/Electric Bills: No Difficulty Paying for Meds: No Currently Unemployed: No Education: High School Diploma/GED Difficult
--- NOTE | 2022-08-29 22:54 | PM.IMHP ---
H&P: HPI History of Present Illness Date/Time: 08/29/22 22:54 Chief Complaint: Altered mental status Narrative: Unfortunate 56-year-old female with a past medical history of multiple sclerosis with functional quadriplegia due to contractures, history of multi-drug resistant UTIs and dysphagia who presented to the ER from [facility] via EMS due to fever and altered mental status. group home staff reports patient is usually alert orient x2. At the time my evaluation last month patient was alert orient x3. When the patient arrived to the ER she was alert orient x1 and was febrille with a T-max of 102.6?. She was initially tachycardic but received 30 mL/kilos bolus per sepsis guidelines and heart rate improved down to 106. Chest x-ray was performed which demonstrated a right middle lobe and lower lobe opacifications. With comparison to her prior chest x-ray she likely has at least a right middle lobe pneumonia. Her prior x-rays did demonstrate right lower lobe changes consistent with atelectasis or pneumonia. The last time she was hospitalized she had a vancomycin resistant enterococcal UTI. Her urine at this time does not appear to be infected. She had completed a 7 day course of antibiotics with amoxicillin for prior UTI. The patient is alert oriented only to self. She thinks that she is still in the care home. She does not know the month or year. She does not know why she was brought to the ER. Source of information is from review of prior records and ER report. I did see and evaluate the patient during her last hospitalization last month. Review of Systems Review of Systems: ROS unobtainable: Yes unobtainable due to mental status (Metabolic encephalopathy) [facility] Past Medical History Medical History (Updated 08/30/22 @ 02:30 by Anna Yoder DO) Abnormal vaginal bleeding in postmenopausal patient 06/2022 Acute respiratory failure with hypoxia Chronic anticoagulation For history of DVT. Chronic constipation Deep venous thrombosis Dysphagia With evidence of laryngeal penetration of thin liquids on modified barium swallow June 2022 Frequent UTI Including history of ESBL Klebsiella pneumoniae and vancomycin-resistant Enterococcus Gastroesophageal reflux disease History of DVT (deep vein thrombosis) Hyperlipidemia Influenza A Kidney stones Multiple sclerosis With functional quadriplegia due to contractures Seizure disorder Stercoral colitis 06/2022 Surgical History Surgical History History of cystoscopy Hx of vaginal surgery Family History Family History Mother Diabetes mellitus Myocardial infarction PTSD (post-traumatic stress disorder) Father Diabetes mellitus Myocardial infarction Sibling Myocardial infarction Patient's brother is Social History Social History Social History: 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 She has been since her early 30s. She does not have any children. She was living with her mother until 2021. She now lives at [facility]. She is essentially bed-bound now. No alcohol, tobacco, or illicit substance use. Healthcare power of family law attorney: Melony Miner, sister. Code status: DNR/DNI Smoking status: Never smoker Second hand tobacco smoke exposure: No Alcohol intake: never Drinks per week: 1 Substance use: never Substance use type: does not use Lack of Transportation: No Lack of Food: Never True Current Housing: I Have Housing Concerned About Future Housing: No Difficulty Paying Gas/Electric Bills: No Difficulty Paying for Meds: No Currently Unemployed: No Education: High School Diploma/GED Difficulty w/ Childcare or Family Care: No Living arrangements: with family Spiritual care concerns: No
[2022-08-29] MEDS: SODIUM CHLORIDE 0.9% IV 1,000 ML 125 ML IV CONT (23:10)
--- NOTE | 2022-08-29 23:59 | ADMGEN ---
This patient, Jenae Rodriguez, was admitted to Medical Room 247-. Patient/family oriented to hospital policies and general routines including ID bracelet, bed and alarms, visiting hours, pain management, procedures, bathroom and other care routines, personal items, smoking policy, room service/diet, and visiting hours. Information on how to activate the Rapid Response Team has been discussed. Patient/Family are encouraged to report perceived risks to care and to ask questions if they do not understand what they are told or what they should do.
[2022-08-30] VITALS (10 sets, daily range): BP systolic 111–122; BP diastolic 51–56; PULSE 83–99; RESP 16–18; TEMP 36.6–37.3; O2SAT 96–99; BMI 23.3
[2022-08-30 00:42] LABS: Influenza A QL RT-PCR Negative (Negative); Influenza B QL RT-PCR Negative (Negative); RSV RNA, RT-PCR Negative (Negative); SARS-CoV-2 RNA PCR Negative (Negative)
[2022-08-30] MEDS: SODIUM CHLORIDE 0.9% IV 1,000 ML 125 ML IV CONT ×2 (01:14→12:03)
[2022-08-30 01:21] LABS: Troponin I < 0.012 ng/mL (0.000-0.034)
[2022-08-30] MEDS: metroNIDAZOLE 500 MG/ISO 100ML 500 MG/100 ML BAG 100 MG IVPB ×3 (04:13→21:53)
[2022-08-30 06:05] LABS: Basophils Percent Auto 0.3 % (0.2-1.2); Eosinophils Absolute Auto 0.1 K/mm3 (0-0.3); Eosinophils Percent Auto 1.2 % (0-4.4); Hematocrit 33.3 % (37.0-47.0); Hemoglobin 10.2 g/dL (12.0-15.0); Immature Granulocyte Absolute 0.04 K/mm3 (0.00-0.031); Immature Granulocyte Percent A 0.4 % (0-0.5); Lymphocytes Absolute Auto 2.86 K/mm3 (0.9-3.2); Lymphocytes Percent Auto 27.1 % (18.3-44.2); Mean Corpuscular HGB Conc 30.6 g/dl (32-36); Mean Corpuscular Hemoglobin 29.6 pg (26-34); Mean Corpuscular Volume 96.5 fl (80-100); Mean Platelet Volume 9.3 fl (7.4-10.4); Monocytes Absolute Auto 0.7 K/mm3 (0.1-0.6); Monocytes Percent Auto 6.5 % (2.6-8.5); Neutrophils Absolute Auto 6.8 K/mm3 (1.3-6.7); Neutrophils Percent Auto 64.5 % (45.5-73.1); Platelet Count Result 328 k/mm3 (150-375); Red Blood Count 3.45 M/mm3 (4.2-5.4); Red Cell Distribution Width 14.6 % (11.5-14.5); White Blood Count 10.6 K/mm3 (4.5-10.0)
[2022-08-30 08:56] LABS: Alanine Aminotransferase 15 U/L (6-35); Albumin Level 2.7 g/dL (3.5-5.1); Alkaline Phosphatase 93 U/L (38-126); Anion Gap 3 mmol/L (8-16); Aspartate Amino Transferase 25 U/L (14-36); Bilirubin,Total 0.3 mg/dL (0.2-1.3); Blood Urea Nitrogen 5 mg/dL (7-17); Calcium 7.2 mg/dL (8.4-10.2); Carbon Dioxide 27 mmol/L (22-30); Chloride 109 mmol/L (98-107); Estimated CRCL calculation 113 ml/min; Estimated Glomerular Filt Rate > 60; Glucose 93 mg/dL (65-110); Potassium 3.2 mmol/L (3.4-5.0); Sodium 139 mmol/L (137-145)
--- NOTE | 2022-08-30 10:49 | PCSTNOTE ---
Please refer to the Modified Barium Swallow Evaluation in the EMR.
[2022-08-30] MEDS: PANTOPRAZOLE SOD SESQUIHYDRATE 20 MG TAB PO (13:02)
[2022-08-30] MEDS: LORATADINE 10 MG TABLET PO (13:02)
[2022-08-30] MEDS: ASCORBIC ACID 500 MG TABLET PO (13:02)
[2022-08-30] MEDS: BACLOFEN 10 MG TABLET 20 MG PO ×2 (13:02→20:02)
[2022-08-30] MEDS: carBAMazepine 200 MG TABLET PO ×2 (13:03→17:11)
[2022-08-30] MEDS: PREGABALIN (*CRX) 50 MG CAPSULE PO (13:03)
--- NOTE | 2022-08-30 13:12 | PM.IMPN ---
Subjective Date/time seen: 08/30/22 12:30 Interval history: Copied from previous chart: Unfortunate 56-year-old female with a past medical history of multiple sclerosis with functional quadriplegia due to contractures, history of multi-drug resistant UTIs and dysphagia who presented to the ER from [facility] via EMS due to fever and altered mental status.? [facility] staff reports patient is usually alert orient x2.? At the time my evaluation last month patient was alert orient x3.? When the patient arrived to the ER she was alert orient x1 and was febrille with a T-max of 102.6?.? She was initially tachycardic but received 30 mL/kilos bolus per sepsis guidelines and heart rate improved down to 106.? Chest x-ray was performed which demonstrated a right middle lobe and lower lobe opacifications.? With comparison to her prior chest x-ray she likely has at least a right middle lobe pneumonia.? Her prior x-rays did demonstrate right lower lobe changes consistent with atelectasis or pneumonia.? The last time she was hospitalized she had a vancomycin resistant enterococcal UTI.? Her urine at this time does not appear to be infected.? She had completed a 7 day course of antibiotics with amoxicillin for prior UTI.? The patient is alert oriented only to self.? She thinks that she is still in the [facility].? She does not know the month or year.? She does not know why she was brought to the ER. Source of information is from review of prior records and ER report.? I did see and evaluate the patient during her last hospitalization last month. 08/30: Patient has received IV fluids and is now more awake and alert. She states she has lower extremity pain from muscle spasms and contractures related to multiple sclerosis. Patient understands that she is admitted to the hospital for findings of pneumonia. Patient thought she also had a UTI but initial urine does not appear infected. Patient knows that she is located in [facility] and she knows that she has been here frequently. She is now alert and oriented x3. Patient states that she is able to eat and drink. Patient denies any chest pain, difficulty breathing, nausea, vomiting or diarrhea. She states that she was confused when she got here but now knows what is going on. She denies any other complaints except pain and cramping in her legs. Swallow study completed on this admission due to concern for aspiration pneumonia. Patient will continue to have nectar thick liquids, see evaluation below. Family called nursing staff and wanted to know why home medications were not restarted yet. His medications were ordered after this evaluation and results of swallow study available. Review of Systems Review of Systems: All systems reviewed & are unremarkable except as noted in HPI and below Exam Narrative: Const:?? Other: Chronicall y ill-appearing, w ell-developed well -nourished, foul b julissa odor ? HENMT:?? Other: Head is no rmocephalic atraum atic, mucous membr anes are tacky, no oral pharyngeal e rythema, good dent ition ? Eyes:?? Other: Pupils are equal and reactiv e, no scleral icte carlos, no conjunctiv al pallor ? Neck:?? Other: No lymphad enopathy, no thyro megaly, trachea mi dline ? Resp:?? Other: Decreased breath sounds bila terally, no crackl es, no increased w ork of breathing ? Cardio:?? Other: Regular ra te, regular rhythm ? GI:??
[2022-08-30] MEDS: POTASSIUM CHLORIDE 20 MEQ ER TABLET 40 MEQ PO (14:56)
[2022-08-30] MEDS: RIVAROXABAN 20 MG TABLET PO (17:11)
[2022-08-30] MEDS: FOLIC ACID 1 MG TABLET PO (17:11)
[2022-08-30] MEDS: CYANOCOBALAMIN 1,000 MCG TABLET 1000 MCG PO (17:11)
[2022-08-30] MEDS: FERROUS SULFATE 324 MG TABLET PO (17:11)
[2022-08-30] MEDS: TAMSULOSIN HCL 0.4 MG CAPSULE PO (20:02)
[2022-08-30] MEDS: ATORVASTATIN 10 MG TABLET PO (20:02)
[2022-08-30] MEDS: DOCUSATE SODIUM 100 MG CAPSULE PO (20:02)
[2022-08-30] MEDS: AZITHROMYCIN 500 MG/NS 250 ML 500 MG/250 ML BAG 250 MG IVPB (20:47)
[2022-08-31] VITALS (10 sets, daily range): BP systolic 123–131; BP diastolic 48–58; PULSE 81–93; RESP 14–18; TEMP 36.6–37.2; O2SAT 96–99; BMI 23.3
[2022-08-31] MEDS: metroNIDAZOLE 500 MG/ISO 100ML 500 MG/100 ML BAG 100 MG IVPB ×2 (04:57→13:22)
[2022-08-31] MEDS: SODIUM CHLORIDE 0.9% IV 1,000 ML 75 ML IV CONT (04:57)
[2022-08-31] MEDS: FERROUS SULFATE 324 MG TABLET PO ×2 (08:35→16:57)
[2022-08-31] MEDS: TAMSULOSIN HCL 0.4 MG CAPSULE PO ×2 (08:35→20:22)
[2022-08-31] MEDS: CYANOCOBALAMIN 1,000 MCG TABLET 1000 MCG PO ×2 (08:35→16:57)
[2022-08-31] MEDS: FOLIC ACID 1 MG TABLET PO ×2 (08:35→16:57)
[2022-08-31] MEDS: ASCORBIC ACID 500 MG TABLET PO (08:35)
[2022-08-31] MEDS: PREGABALIN (*CRX) 50 MG CAPSULE PO (08:35)
[2022-08-31] MEDS: LORATADINE 10 MG TABLET PO (08:35)
[2022-08-31] MEDS: BACLOFEN 10 MG TABLET 20 MG PO ×2 (08:35→20:22)
[2022-08-31] MEDS: carBAMazepine 200 MG TABLET PO ×3 (08:35→16:57)
[2022-08-31] MEDS: DOCUSATE SODIUM 100 MG CAPSULE PO ×2 (08:35→20:22)
[2022-08-31] MEDS: PANTOPRAZOLE SOD SESQUIHYDRATE 20 MG TAB PO (08:35)
--- NOTE | 2022-08-31 09:01 | PM.IMPN ---
Progress Note: A&P Assessment and Plan (1) Sepsis: Qualifiers: Sepsis acute organ dysfunction status: with acute organ dysfunction Sepsis type: sepsis due to unspecified organism Severe sepsis acute organ dysfunction type: encephalopathy Severe sepsis shock status: without septic shock Qualified Code(s): A41.9 - Sepsis, unspecified organism; R65.20 - Severe sepsis without septic shock; G93.40 - Encephalopathy, unspecified Code(s): A41.9 - Sepsis, unspecified organism Status: Acute Assessment and Plan: Patient initially afebrile with acute encephalopathy and findings of pneumonia on chest x-ray. Patient is now awake alert oriented with no respiratory complaints. However, 1 of 2 blood cultures growing Gram-positive cocci in clusters awaiting speciation and sensitivity. Continue vancomycin for possible MRSA as patient does have a history of such. (2) Pneumonia: Qualifiers: Laterality: right Lung location: middle lobe of lung Pneumonia type: due to unspecified organism Qualified Code(s): J18.9 - Pneumonia, unspecified organism Code(s): J18.9 - Pneumonia, unspecified organism Status: Acute Assessment and Plan: Patient in no current respiratory complaints normal oxygenation. Findings could be aspiration pneumonitis rather than aspiration pneumonia. After discussion with ID pharmacist, antibiotic therapy changed to Augmentin and doxycycline while still continuing IV vancomycin for possible MRSA in the blood stream Pending blood culture results. (3) Dysphagia: Qualifiers: Dysphagia type: pharyngeal phase Qualified Code(s): R13.13 - Dysphagia, pharyngeal phase Code(s): R13.10 - Dysphagia, unspecified Status: Acute Assessment and Plan: swallow study completed upon admission because of findings on x-ray concerning for aspiration pneumonia. Patient is able to clear penetration with coughing and tolerates nectar thickened liquids. (4) Decubitus ulcer, heel, left, unstageable: Code(s): L89.620 - Pressure ulcer of left heel, unstageable Status: Acute Assessment and Plan: Pressure offloading in process, Mepilex dressings in place upon evaluation. Wound care nurse consulted. Appreciate recommendations and treatment plan. (5) Multiple sclerosis, primary chronic progressive: Code(s): G35 - Multiple sclerosis Status: Acute Assessment and Plan: Continue home medications for muscle spasms. 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 Plan Await blood culture results. If likely contaminate, plan to send back to facility on oral antibiotics for aspiration pneumonia vs pneumonitis. Time Spent With Patient Time with patient: 25 - 35 minutes Subjective Date/time seen: 08/31/22 09:01 Interval history: Copied from previous chart: 56-year-old female with a past medical history of multiple sclerosis with functional quadriplegia due to contractures, history of multi-drug resistant UTIs and dysphagia who presented to the ER from [facility] via EMS due to fever and altered mental status.? custodial staff reports patient is usually alert orient x2.? At the time my evaluation last month patient was alert orient x3.? When the patient arrived to the ER she was alert orient x1 and was febrille with a T-max of 102.6?.? She was initially tachycardic but received 30 mL/kilos bolus per sepsis guidelines and heart rate improved down to 106.? Chest x-ray was performed which demonstrated a right middle lobe and lower lobe opacifications.? With comparison to her prior chest x-ray she likely has at least a right middle lobe pneumonia.? Her prior x-rays did demonstrate right lower lobe changes consistent with atelectasis or pneumonia.? The last ti
[2022-08-31] MEDS: SILVERGEL (ELTA) 45 ML 1 APPLIC TOPICAL (13:19)
[2022-08-31] MEDS: VANCOMYCIN 1,250 MG/NS 250 ML 1,250 MG/250 ML BAG 166.67 MG IVPB (13:21)
[2022-08-31] MEDS: RIVAROXABAN 20 MG TABLET PO (16:57)
[2022-08-31] MEDS: DOXYCYCLINE HYCLATE 100 MG TABLET PO ×2 (16:57→20:22)
[2022-08-31] MEDS: AMOXICILLIN/CLAVULANATE K 875-125 MG TAB 1 TABLET PO (20:22)
[2022-08-31] MEDS: ATORVASTATIN 10 MG TABLET PO (20:22)
[2022-09-01] VITALS (9 sets, daily range): BP systolic 107–118; BP diastolic 49–57; PULSE 79–91; RESP 18–19; TEMP 36.4–36.7; O2SAT 95–96
[2022-09-01] MEDS: VANCOMYCIN 1,250 MG/NS 250 ML 1,250 MG/250 ML BAG 166.67 MG IVPB (00:09)
[2022-09-01] MEDS: SODIUM CHLORIDE 0.9% IV 1,000 ML 75 ML IV CONT ×2 (00:15→12:44)
[2022-09-01 06:00] LABS: Estimated CRCL calculation 145 ml/min; Estimated Glomerular Filt Rate > 60
[2022-09-01 07:08] LABS: Hematocrit 31.5 % (37.0-47.0); Mean Corpuscular HGB Conc 31.7 g/dl (32-36); Mean Corpuscular Hemoglobin 30.8 pg (26-34); Mean Corpuscular Volume 96.9 fl (80-100); Mean Platelet Volume 9.6 fl (7.4-10.4); Platelet Count Result 364 k/mm3 (150-375); Red Blood Count 3.25 M/mm3 (4.2-5.4); Red Cell Distribution Width 14.5 % (11.5-14.5); White Blood Count 6.1 K/mm3 (4.5-10.0)
[2022-09-01 07:16] LABS: Anion Gap 4 mmol/L (8-16); Blood Urea Nitrogen 4 mg/dL (7-17); Calcium 7.9 mg/dL (8.4-10.2); Carbon Dioxide 25 mmol/L (22-30); Chloride 109 mmol/L (98-107); Estimated CRCL calculation 145 ml/min; Estimated Glomerular Filt Rate > 60; Glucose 104 mg/dL (65-110); Potassium 3.6 mmol/L (3.4-5.0); Sodium 138 mmol/L (137-145)
[2022-09-01] MEDS: AMOXICILLIN/CLAVULANATE K 875-125 MG TAB 1 TABLET PO ×2 (08:13→20:23)
[2022-09-01] MEDS: CYANOCOBALAMIN 1,000 MCG TABLET 1000 MCG PO ×2 (08:13→17:36)
[2022-09-01] MEDS: FERROUS SULFATE 324 MG TABLET PO ×2 (08:13→17:36)
[2022-09-01] MEDS: ASCORBIC ACID 500 MG TABLET PO (08:13)
[2022-09-01] MEDS: BACLOFEN 10 MG TABLET 20 MG PO ×3 (08:13→20:23)
[2022-09-01] MEDS: carBAMazepine 200 MG TABLET PO ×3 (08:13→17:36)
[2022-09-01] MEDS: DOXYCYCLINE HYCLATE 100 MG TABLET PO ×2 (08:14→20:23)
[2022-09-01] MEDS: DOCUSATE SODIUM 100 MG CAPSULE PO ×2 (08:14→20:23)
[2022-09-01] MEDS: LORATADINE 10 MG TABLET PO (08:14)
[2022-09-01] MEDS: FOLIC ACID 1 MG TABLET PO ×2 (08:14→17:36)
[2022-09-01] MEDS: PREGABALIN (*CRX) 50 MG CAPSULE PO (08:15)
[2022-09-01] MEDS: PANTOPRAZOLE SOD SESQUIHYDRATE 20 MG TAB PO (08:15)
[2022-09-01] MEDS: TAMSULOSIN HCL 0.4 MG CAPSULE PO ×2 (08:15→20:23)
[2022-09-01] MEDS: SILVERGEL (ELTA) 45 ML 1 APPLIC TOPICAL (08:16)
[2022-09-01 11:25] LABS: Vancomycin Trough 13.2 ug/mL (10.0-20.0)
[2022-09-01] MEDS: ACETAMINOPHEN 325 MG TABLET 650 MG PO (14:36)
--- NOTE | 2022-09-01 16:47 | PM.IMPN ---
Progress Note: A&P Assessment and Plan (1) Sepsis: Qualifiers: Sepsis acute organ dysfunction status: with acute organ dysfunction Sepsis type: sepsis due to unspecified organism Severe sepsis acute organ dysfunction type: encephalopathy Severe sepsis shock status: without septic shock Qualified Code(s): A41.9 - Sepsis, unspecified organism; R65.20 - Severe sepsis without septic shock; G93.40 - Encephalopathy, unspecified Code(s): A41.9 - Sepsis, unspecified organism Status: Acute Assessment and Plan: Patient initially afebrile with acute encephalopathy and findings of pneumonia on chest x-ray. Patient is now awake alert oriented with no respiratory complaints. However, 1 of 2 blood cultures growing Gram-positive cocci in clusters awaiting speciation and sensitivity. Continue vancomycin for possible MRSA as patient does have a history of such. -Culture still pending this morning. (2) Pneumonia: Qualifiers: Laterality: right Lung location: middle lobe of lung Pneumonia type: due to unspecified organism Qualified Code(s): J18.9 - Pneumonia, unspecified organism Code(s): J18.9 - Pneumonia, unspecified organism Status: Acute Assessment and Plan: Patient in no current respiratory complaints normal oxygenation. Findings could be aspiration pneumonitis rather than aspiration pneumonia. After discussion with ID pharmacist, antibiotic therapy changed to Augmentin and doxycycline while still continuing IV vancomycin for possible MRSA in the blood stream Pending blood culture results. (3) Dysphagia: Qualifiers: Dysphagia type: pharyngeal phase Qualified Code(s): R13.13 - Dysphagia, pharyngeal phase Code(s): R13.10 - Dysphagia, unspecified Status: Acute Assessment and Plan: swallow study completed upon admission because of findings on x-ray concerning for aspiration pneumonia. Patient is able to clear penetration with coughing and tolerates nectar thickened liquids. (4) Decubitus ulcer, heel, left, unstageable: Code(s): L89.620 - Pressure ulcer of left heel, unstageable Status: Acute Assessment and Plan: Pressure offloading in process, Mepilex dressings in place upon evaluation. Wound care nurse consulted. Appreciate recommendations and treatment plan. (5) Multiple sclerosis, primary chronic progressive: Code(s): G35 - Multiple sclerosis Status: Acute Assessment and Plan: Continue home medications for muscle spasms. (6) Chronic anticoagulation: Code(s): Z79.01 - skilled nursing (current) use of anticoagulants Status: Acute Assessment and Plan: Patient is on Xarelto due to history of pulmonary embolism, will continue. Plan Await blood culture results. If likely contaminate, plan to send back to facility on oral antibiotics for aspiration pneumonia vs pneumonitis. Time Spent With Patient Time with patient: 25 - 35 minutes Subjective Date/time seen: 09/01/22 09:45 Interval history: Copied from previous chart: 56-year-old female with a past medical history of multiple sclerosis with functional quadriplegia due to contractures, history of multi-drug resistant UTIs and dysphagia who presented to the ER from [facility] via EMS due to fever and altered mental status.? prison staff reports patient is usually alert orient x2.? At the time my evaluation last month patient was alert orient x3.? When the patient arrived to the ER she was alert orient x1 and was febrille with a T-max of 102.6?.? She was initially tachycardic but received 30 mL/kilos bolus per sepsis guidelines and heart rate improved down to 106.? Chest x-ray was performed which demonstrated a right middle lobe and lower lobe opacifications.? With comparison to her prior chest x-ray she likely has at least a right middle lobe pneumonia.? Her prior x-rays did demonstrate right lower lobe changes consistent with
[2022-09-01] MEDS: RIVAROXABAN 20 MG TABLET PO (17:36)
[2022-09-01] MEDS: ATORVASTATIN 10 MG TABLET PO (20:23)
[2022-09-02] VITALS (10 sets, daily range): BP systolic 100–120; BP diastolic 49–55; PULSE 78–95; RESP 17–18; TEMP 36.4–36.8; O2SAT 92–97
[2022-09-02 05:55] LABS: Estimated CRCL calculation 145 ml/min; Estimated Glomerular Filt Rate > 60
--- NOTE | 2022-09-02 07:17 | PM.IMPN ---
Progress Note: A&P Assessment and Plan (1) Sepsis: Qualifiers: Sepsis acute organ dysfunction status: with acute organ dysfunction Sepsis type: sepsis due to unspecified organism Severe sepsis acute organ dysfunction type: encephalopathy Severe sepsis shock status: without septic shock Qualified Code(s): A41.9 - Sepsis, unspecified organism; R65.20 - Severe sepsis without septic shock; G93.40 - Encephalopathy, unspecified Code(s): A41.9 - Sepsis, unspecified organism Status: Acute Assessment and Plan: Patient initially afebrile with acute encephalopathy and findings of pneumonia on chest x-ray. Patient is now awake alert oriented with no respiratory complaints. However, 1 of 2 blood cultures growing Gram-positive cocci in clusters awaiting speciation and sensitivity. Continue vancomycin for possible MRSA as patient does have a history of such. -Culture still pending this morning. Given the likelihood of a contaminant I went ahead and DC the vancomycin. Patient appears to be doing well in terms of her pneumonia with current regimen. -WBC 6.2 today -afebrile -not requiring oxygen. Satting well on room air. (2) Pneumonia: Qualifiers: Laterality: right Lung location: middle lobe of lung Pneumonia type: due to unspecified organism Qualified Code(s): J18.9 - Pneumonia, unspecified organism Code(s): J18.9 - Pneumonia, unspecified organism Status: Acute Assessment and Plan: Patient in no current respiratory complaints normal oxygenation. -continue doxycycline and Augmentin -DC vancomycin has blood culture was likely contaminant (3) Dysphagia: Qualifiers: Dysphagia type: pharyngeal phase Qualified Code(s): R13.13 - Dysphagia, pharyngeal phase Code(s): R13.10 - Dysphagia, unspecified Status: Acute Assessment and Plan: swallow study completed upon admission because of findings on x-ray concerning for aspiration pneumonia. Patient is able to clear penetration with coughing and tolerates nectar thickened liquids. (4) Decubitus ulcer, heel, left, unstageable: Code(s): L89.620 - Pressure ulcer of left heel, unstageable Status: Acute Assessment and Plan: Pressure offloading in process, Mepilex dressings in place upon evaluation. Wound care nurse consulted. Appreciate recommendations and treatment plan. (5) Multiple sclerosis, primary chronic progressive: Code(s): G35 - Multiple sclerosis Status: Acute Assessment and Plan: Continue home medications for muscle spasms. -patient has severe muscle pain and spasm. I barely move the covers and she screams in pain. She is also describing unilateral eye pain. Her family says that this has been going on for the last couple months. I have concerns that maybe she has an active MS flare. I spoke with Dr. Black who recommend a formal consult Neurology consult. -will give 1 time of 500 mg methylprednisone IV push now. 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 Subjective Date/time seen: 09/02/22 07:17 Interval history: Copied from previous chart: 56-year-old female with a past medical history of multiple sclerosis with functional quadriplegia due to contractures, history of multi-drug resistant UTIs and dysphagia who presented to the ER from [facility] via EMS due to fever and altered mental status.? senior care staff reports patient is usually alert orient x2.? At the time my evaluation last month patient was alert orient x3.? When the patient arrived to the ER she was alert orient x1 and
[2022-09-02 07:53] LABS: Basophils Absolute Auto 0.1 K/mm3 (0.0-0.1); Basophils Percent Auto 0.8 % (0.2-1.2); Eosinophils Absolute Auto 0.3 K/mm3 (0-0.3); Eosinophils Percent Auto 5.5 % (0-4.4); Hemoglobin 10.2 g/dL (12.0-15.0); Immature Granulocyte Absolute 0.01 K/mm3 (0.00-0.031); Immature Granulocyte Percent A 0.2 % (0-0.5); Lymphocytes Absolute Auto 1.82 K/mm3 (0.9-3.2); Lymphocytes Percent Auto 29.4 % (18.3-44.2); Mean Corpuscular HGB Conc 31.9 g/dl (32-36); Mean Corpuscular Hemoglobin 30.8 pg (26-34); Mean Corpuscular Volume 96.7 fl (80-100); Mean Platelet Volume 9.5 fl (7.4-10.4); Monocytes Absolute Auto 0.5 K/mm3 (0.1-0.6); Monocytes Percent Auto 7.6 % (2.6-8.5); Neutrophils Absolute Auto 3.5 K/mm3 (1.3-6.7); Neutrophils Percent Auto 56.5 % (45.5-73.1); Platelet Count Result 404 k/mm3 (150-375); Red Blood Count 3.31 M/mm3 (4.2-5.4); Red Cell Distribution Width 14.5 % (11.5-14.5); White Blood Count 6.2 K/mm3 (4.5-10.0)
[2022-09-02 08:03] LABS: Alanine Aminotransferase 18 U/L (6-35); Alkaline Phosphatase 93 U/L (38-126); Anion Gap 1 mmol/L (8-16); Aspartate Amino Transferase 20 U/L (14-36); Bilirubin,Total 0.1 mg/dL (0.2-1.3); Blood Urea Nitrogen 5 mg/dL (7-17); Calcium 8.1 mg/dL (8.4-10.2); Carbon Dioxide 29 mmol/L (22-30); Chloride 107 mmol/L (98-107); Estimated CRCL calculation 145 ml/min; Estimated Glomerular Filt Rate > 60; Glucose 115 mg/dL (65-110); Potassium 3.6 mmol/L (3.4-5.0); Sodium 137 mmol/L (137-145)
[2022-09-02] MEDS: CYANOCOBALAMIN 1,000 MCG TABLET 1000 MCG PO ×2 (08:26→17:11)
[2022-09-02] MEDS: BACLOFEN 10 MG TABLET 20 MG PO ×2 (08:26→21:22)
[2022-09-02] MEDS: SILVERGEL (ELTA) 45 ML 1 APPLIC TOPICAL (08:26)
[2022-09-02] MEDS: carBAMazepine 200 MG TABLET PO ×3 (08:26→17:11)
[2022-09-02] MEDS: AMOXICILLIN/CLAVULANATE K 875-125 MG TAB 1 TABLET PO ×2 (08:26→21:22)
[2022-09-02] MEDS: ASCORBIC ACID 500 MG TABLET PO (08:26)
[2022-09-02] MEDS: FERROUS SULFATE 324 MG TABLET PO ×2 (08:26→17:11)
[2022-09-02] MEDS: LORATADINE 10 MG TABLET PO (08:27)
[2022-09-02] MEDS: DOCUSATE SODIUM 100 MG CAPSULE PO ×2 (08:27→21:22)
[2022-09-02] MEDS: FOLIC ACID 1 MG TABLET PO ×2 (08:27→17:12)
[2022-09-02] MEDS: DOXYCYCLINE HYCLATE 100 MG TABLET PO ×2 (08:27→21:22)
[2022-09-02] MEDS: TAMSULOSIN HCL 0.4 MG CAPSULE PO ×2 (08:27→21:23)
[2022-09-02] MEDS: PREGABALIN (*CRX) 50 MG CAPSULE PO (08:27)
[2022-09-02] MEDS: PANTOPRAZOLE SOD SESQUIHYDRATE 20 MG TAB PO (08:27)
[2022-09-02] MEDS: SODIUM CHLORIDE 0.9% IV 1,000 ML 75 ML IV CONT (10:06)
[2022-09-02] MEDS: methylPREDNISolone SOD SUCC 500 MG in DEXTROSE 5% 100 ML 200 MG IVPB (17:10)
[2022-09-02] MEDS: RIVAROXABAN 20 MG TABLET PO (17:12)
[2022-09-02] MEDS: KETOROLAC 30 MG/ML VIAL (*BKC) IV PUSH (18:09)
[2022-09-02 18:17] LABS: Pneumococcal Antigen Urine Not Detected (Not Detected)
[2022-09-02] MEDS: ATORVASTATIN 10 MG TABLET PO (21:22)
[2022-09-03] VITALS (10 sets, daily range): BP systolic 109–116; BP diastolic 46–50; PULSE 74–97; RESP 17–18; TEMP 36.8–36.9; O2SAT 95–98
[2022-09-03 01:30] LABS: Legionella pneumophila Ag Ur Not Detected (Not Detected)
[2022-09-03] MEDS: SODIUM CHLORIDE 0.9% IV 1,000 ML 75 ML IV CONT (01:33)
[2022-09-03 05:40] LABS: Basophils Percent Auto 0.2 % (0.2-1.2); Hematocrit 31.2 % (37.0-47.0); Hemoglobin 9.7 g/dL (12.0-15.0); Immature Granulocyte Absolute 0.03 K/mm3 (0.00-0.031); Immature Granulocyte Percent A 0.5 % (0-0.5); Lymphocytes Absolute Auto 0.81 K/mm3 (0.9-3.2); Lymphocytes Percent Auto 14.1 % (18.3-44.2); Mean Corpuscular HGB Conc 31.1 g/dl (32-36); Mean Corpuscular Hemoglobin 29.5 pg (26-34); Mean Corpuscular Volume 94.8 fl (80-100); Mean Platelet Volume 9.4 fl (7.4-10.4); Monocytes Absolute Auto 0.1 K/mm3 (0.1-0.6); Monocytes Percent Auto 2.4 % (2.6-8.5); Neutrophils Absolute Auto 4.8 K/mm3 (1.3-6.7); Neutrophils Percent Auto 82.8 % (45.5-73.1); Platelet Count Result 411 k/mm3 (150-375); Red Blood Count 3.29 M/mm3 (4.2-5.4); White Blood Count 5.8 K/mm3 (4.5-10.0)
[2022-09-03 05:50] LABS: Alanine Aminotransferase 19 U/L (6-35); Alkaline Phosphatase 96 U/L (38-126); Anion Gap -1 mmol/L (8-16); Aspartate Amino Transferase 22 U/L (14-36); Bilirubin,Total 0.2 mg/dL (0.2-1.3); Blood Urea Nitrogen 10 mg/dL (7-17); Calcium 8.1 mg/dL (8.4-10.2); Carbon Dioxide 29 mmol/L (22-30); Chloride 108 mmol/L (98-107); Estimated CRCL calculation 145 ml/min; Estimated Glomerular Filt Rate > 60; Glucose 127 mg/dL (65-110); Potassium 3.6 mmol/L (3.4-5.0); Sodium 136 mmol/L (137-145)
--- NOTE | 2022-09-03 06:55 | PM.IMPN ---
Progress Note: A&P Assessment and Plan (1) Sepsis: Qualifiers: Sepsis acute organ dysfunction status: with acute organ dysfunction Sepsis type: sepsis due to unspecified organism Severe sepsis acute organ dysfunction type: encephalopathy Severe sepsis shock status: without septic shock Qualified Code(s): A41.9 - Sepsis, unspecified organism; R65.20 - Severe sepsis without septic shock; G93.40 - Encephalopathy, unspecified Code(s): A41.9 - Sepsis, unspecified organism Status: Acute Assessment and Plan: Patient initially afebrile with acute encephalopathy and findings of pneumonia on chest x-ray. Patient is now awake alert oriented with no respiratory complaints. However, 1 of 2 blood cultures growing Gram-positive cocci in clusters, likely contaminate. -Culture still pending this morning. Given the likelihood of a contaminant I went ahead and DC the vancomycin. Patient appears to be doing well in terms of her pneumonia with current regimen. -WBC 6.2 today -afebrile -not requiring oxygen. Satting well on room air. (2) Pneumonia: Qualifiers: Laterality: right Lung location: middle lobe of lung Pneumonia type: due to unspecified organism Qualified Code(s): J18.9 - Pneumonia, unspecified organism Code(s): J18.9 - Pneumonia, unspecified organism Status: Acute Assessment and Plan: Patient in no current respiratory complaints normal oxygenation. -continue doxycycline and Augmentin -DC vancomycin has blood culture was likely contaminant (3) Dysphagia: Qualifiers: Dysphagia type: pharyngeal phase Qualified Code(s): R13.13 - Dysphagia, pharyngeal phase Code(s): R13.10 - Dysphagia, unspecified Status: Acute Assessment and Plan: swallow study completed upon admission because of findings on x-ray concerning for aspiration pneumonia. Patient is able to clear penetration with coughing and tolerates nectar thickened liquids. (4) Decubitus ulcer, heel, left, unstageable: Code(s): L89.620 - Pressure ulcer of left heel, unstageable Status: Acute Assessment and Plan: Pressure offloading in process, Mepilex dressings in place upon evaluation. Wound care nurse consulted. Appreciate recommendations and treatment plan. (5) Multiple sclerosis, primary chronic progressive: Code(s): G35 - Multiple sclerosis Status: Acute Assessment and Plan: Continue home medications for muscle spasms. -patient has severe muscle pain and spasm. I barely move the covers and she screams in pain. She is also describing unilateral eye pain. Her family says that this has been going on for the last couple months. I have concerns that maybe she has an active MS flare. I spoke with Dr. Black, her neurologist, who recommend a formal consult Neurology consult. -will give 1 time of 500 mg methylprednisone IV push now. Will also give 30 mg IV push Toradol once -order for MRI of brain cervical spine and thoracic spine with and without contrast pending completion -neurology recommends increasing po to 75 mg PO BID and increasing baclofen to TID dosing. -consult and recommendation from Neurology are appreciated (6) Chronic anticoagulation: Code(s): Z79.01 - [facility] (current) use of anticoagulants Status: Acute Assessment and Plan: Patient is on Xarelto due to history of pulmonary embolism, will continue. Subjective Date/time seen: 09/03/22 06:55 Interval history: Copied from previous chart: 56-year-old female with a past medical history of multiple sclerosis with functional quadriplegia due to contractures, history of multi-drug resistant UTIs and dysphagia who presented to the ER from [facility] via EMS due to fever and altered mental status.? jail staff reports patient is usually alert orient x2.? At the time my evaluation last month patient was alert orient x3.? When the patient arriv
[2022-09-03] MEDS: carBAMazepine 200 MG TABLET PO ×3 (09:00→17:38)
[2022-09-03] MEDS: BACLOFEN 10 MG TABLET 20 MG PO ×3 (09:00→21:17)
[2022-09-03] MEDS: CYANOCOBALAMIN 1,000 MCG TABLET 1000 MCG PO ×2 (09:00→17:39)
[2022-09-03] MEDS: LORATADINE 10 MG TABLET PO (09:00)
[2022-09-03] MEDS: ASCORBIC ACID 500 MG TABLET PO (09:00)
[2022-09-03] MEDS: PANTOPRAZOLE SOD SESQUIHYDRATE 20 MG TAB PO (09:00)
[2022-09-03] MEDS: FERROUS SULFATE 324 MG TABLET PO ×2 (09:00→17:39)
[2022-09-03] MEDS: TAMSULOSIN HCL 0.4 MG CAPSULE PO ×2 (09:00→21:17)
[2022-09-03] MEDS: DOXYCYCLINE HYCLATE 100 MG TABLET PO ×2 (09:00→21:17)
[2022-09-03] MEDS: PREGABALIN (*CRX) 50 MG CAPSULE PO (09:00)
[2022-09-03] MEDS: AMOXICILLIN/CLAVULANATE K 875-125 MG TAB 1 TABLET PO ×2 (09:00→21:17)
[2022-09-03] MEDS: FOLIC ACID 1 MG TABLET PO ×2 (09:00→17:38)
[2022-09-03] MEDS: DOCUSATE SODIUM 100 MG CAPSULE PO ×2 (09:00→21:17)
[2022-09-03] MEDS: SILVERGEL (ELTA) 45 ML 1 APPLIC TOPICAL (09:01)
--- NOTE | 2022-09-03 09:29 | WPDNEURCNPN ---
Assessment and Plan Assessment and plan (1) Multiple sclerosis: Code(s): G35 - Multiple sclerosis Status: Acute (2) Sepsis: Qualifiers: Sepsis acute organ dysfunction status: with acute organ dysfunction Sepsis type: sepsis due to unspecified organism Severe sepsis acute organ dysfunction type: encephalopathy Severe sepsis shock status: without septic shock Qualified Code(s): A41.9 - Sepsis, unspecified organism; R65.20 - Severe sepsis without septic shock; G93.40 - Encephalopathy, unspecified Code(s): A41.9 - Sepsis, unspecified organism Status: Acute (3) Pneumonia: Qualifiers: Laterality: right Lung location: middle lobe of lung Pneumonia type: due to unspecified organism Qualified Code(s): J18.9 - Pneumonia, unspecified organism Code(s): J18.9 - Pneumonia, unspecified organism Status: Acute (4) UTI (urinary tract infection): Qualifiers: Hematuria presence: with hematuria Urinary tract infection type: acute cystitis Qualified Code(s): N30.01 - Acute cystitis with hematuria Code(s): N39.0 - Urinary tract infection, site not specified Status: Acute Plan Jenae Rodriguez is a 56 year old female with a history of RRMS, frequent UTIs, presenting due to altered mental status and fever. Complaining of significant lower extremity pain and left eye pain. No new focal symptoms. Suspect pain exacerbated by underlying illness vs pseudo-exacerbation due to underlying illness vs acute MS flare. - Will need to obtain MRI brain, cervical, and thoracic spine with and without contrast - Increase Lyrica to 75mg BID - Increase Baclofen to 20mg TID Consult date: 09/03/22 Reason for consult: MS exacerbation HPI: Jenae Rodriguez is a 56 year old female with a history of RRMS, frequent UTIs, presenting due to altered mental status and fever. Patient was brought in from [facility] living. At baseline she is AOx2, but was only oriented to self. She was also febrile up to 102.6. When she presented to the ED, here CXR showed R middle lobe and lower lobe opacification, concerning for pneumonia. She was started on IV antibiotics and subsequently admitted. Mental status improved during admission, but patient was complaining of significant pain and cramping in her lower extremities. She had a swallow study done during this admission and it was recommended that she have nectar thick liquids. Yesterday, per hospitalist, patient was complaining of dizziness, increased leg pain, spasms, burning left eye pain. She was given a one time dose of methylprednisone 500mg in hopes of helping her dizziness and muscle spasms. After discussion with hospitalist, decision was made to obtain MRI brain, cervical spine, thoracic spine with and without contrast to rule out acute MS flare. Patient's family has expressed that patient's pain has been uncontrolled over the past few months. She has also had some recent stressors including the of her mother. Last set of images were done in 2020. At that time, the imaging showed stable lesions without evidence of contrast enhancement. She was on Aubagio at some point in 2021, but she is no longer on it. She reports that she stopped taking it because her hair fell out. She denies any new visual symptoms. Her eye pain has improved since she got the dose of steroids. Review of Systems Constitutional: Constitutional: Denies chills, Reports fever(s) and Denies weight loss Eyes: Eyes: Denies diplopia and Denies loss of vision Comments: eye pain ENT: Reports dizziness, Denies hearing loss and Denies tinnitus Cardiovascular: Cardiovascular: Denies chest pain, Denies syncope and Denies dyspnea Respiratory: Respiratory: Denies cough, Denies dyspnea and Denies wheezing Gastrointestinal: Gastrointestinal: Denies abdominal pain, Denies change in bowel habits and Denies vomiting Genitourinary: Genitourinary: Reports no additional female genitourinary com
[2022-09-03] MEDS: PREGABALIN (*CRX) 25 MG CAPSULE PO (12:32)
--- NOTE | 2022-09-03 14:59 | PC.NURSE ---
IV infiltrated. Per Judi Conley, okay to leave IV out for now and pause IV fluids.
[2022-09-03] MEDS: RIVAROXABAN 20 MG TABLET PO (17:38)
[2022-09-03] MEDS: ATORVASTATIN 10 MG TABLET PO (21:17)
[2022-09-03] MEDS: PREGABALIN (*CRX) 75 MG CAPSULE PO (21:18)
[2022-09-04] VITALS: PULSE 74
[2022-09-04 04:00] VITALS: PULSE 74
[2022-09-04 05:43] LABS: Basophils Absolute Auto 0.1 K/mm3 (0.0-0.1); Basophils Percent Auto 0.7 % (0.2-1.2); Eosinophils Absolute Auto 0.1 K/mm3 (0-0.3); Eosinophils Percent Auto 1.8 % (0-4.4); Hematocrit 31.5 % (37.0-47.0); Hemoglobin 9.9 g/dL (12.0-15.0); Immature Granulocyte Absolute 0.03 K/mm3 (0.00-0.031); Immature Granulocyte Percent A 0.4 % (0-0.5); Lymphocytes Absolute Auto 3.24 K/mm3 (0.9-3.2); Mean Corpuscular HGB Conc 31.4 g/dl (32-36); Mean Corpuscular Hemoglobin 30.6 pg (26-34); Mean Corpuscular Volume 97.2 fl (80-100); Mean Platelet Volume 9.2 fl (7.4-10.4); Monocytes Absolute Auto 0.5 K/mm3 (0.1-0.6); Monocytes Percent Auto 6.4 % (2.6-8.5); Neutrophils Absolute Auto 3.4 K/mm3 (1.3-6.7); Neutrophils Percent Auto 46.7 % (45.5-73.1); Platelet Count Result 429 k/mm3 (150-375); Red Blood Count 3.24 M/mm3 (4.2-5.4); Red Cell Distribution Width 14.5 % (11.5-14.5); White Blood Count 7.4 K/mm3 (4.5-10.0)
[2022-09-04 05:48] LABS: INR 1.2; Prothrombin Time 15.5 Seconds (11.1-14.7)
[2022-09-04 05:49] LABS: Partial Thromboplastin Time 33.8 SECONDS (22.3-36.8)
[2022-09-04 06:00] VITALS: BP 113/49; PULSE 78; RESP 18; TEMP 36.5; O2SAT 96
[2022-09-04 06:04] LABS: Alanine Aminotransferase 22 U/L (6-35); Albumin Level 3.2 g/dL (3.5-5.1); Alkaline Phosphatase 81 U/L (38-126); Anion Gap 5 mmol/L (8-16); Aspartate Amino Transferase 26 U/L (14-36); Bilirubin,Total 0.5 mg/dL (0.2-1.3); Blood Urea Nitrogen 14 mg/dL (7-17); Calcium 7.7 mg/dL (8.4-10.2); Carbon Dioxide 27 mmol/L (22-30); Chloride 110 mmol/L (98-107); Estimated CRCL calculation 145 ml/min; Estimated Glomerular Filt Rate > 60; Glucose 87 mg/dL (65-110); Potassium 3.5 mmol/L (3.4-5.0); Sodium 142 mmol/L (137-145)
[2022-09-04] MEDS: BACLOFEN 10 MG TABLET 20 MG PO ×2 (06:14→14:11)
--- NOTE | 2022-09-04 07:06 | PM.IMPN ---
Progress Note: A&P Assessment and Plan (1) Sepsis: Qualifiers: Sepsis acute organ dysfunction status: with acute organ dysfunction Sepsis type: sepsis due to unspecified organism Severe sepsis acute organ dysfunction type: encephalopathy Severe sepsis shock status: without septic shock Qualified Code(s): A41.9 - Sepsis, unspecified organism; R65.20 - Severe sepsis without septic shock; G93.40 - Encephalopathy, unspecified Code(s): A41.9 - Sepsis, unspecified organism Status: Acute Assessment and Plan: Patient initially afebrile with acute encephalopathy and findings of pneumonia on chest x-ray. -MRSA nasal swab + but negative blood cultures for MRSA -Patient continues to improve with current antibiotic regimen and leukocytosis has improved. Suspect this may have been a aspiration pneumonitis rather than pneumonia. Will complete antibiotic regimen none the less. -WBC 7.4 today -afebrile -not requiring oxygen. Sating well on room air. (2) Pneumonia: Qualifiers: Laterality: right Lung location: middle lobe of lung Pneumonia type: due to unspecified organism Qualified Code(s): J18.9 - Pneumonia, unspecified organism Code(s): J18.9 - Pneumonia, unspecified organism Status: Acute Assessment and Plan: Patient in no current respiratory complaints normal oxygenation. -continue doxycycline and Augmentin -DC vancomycin has blood culture was likely contaminant. Doxy has MRSA coverage as well. (3) Dysphagia: Qualifiers: Dysphagia type: pharyngeal phase Qualified Code(s): R13.13 - Dysphagia, pharyngeal phase Code(s): R13.10 - Dysphagia, unspecified Status: Acute Assessment and Plan: swallow study completed upon admission because of findings on x-ray concerning for aspiration pneumonia. Patient is able to clear penetration with coughing and tolerates nectar thickened liquids. (4) Decubitus ulcer, heel, left, unstageable: Code(s): L89.620 - Pressure ulcer of left heel, unstageable Status: Acute Assessment and Plan: Pressure offloading in process, Mepilex dressings in place upon evaluation. Wound care nurse consulted. Appreciate recommendations and treatment plan. (5) Multiple sclerosis, primary chronic progressive: Code(s): G35 - Multiple sclerosis Status: Acute Assessment and Plan: Continue home medications for muscle spasms. -Severe leg pain still but her unilateral left eye pain has resolved. -order for MRI of brain cervical spine and thoracic spine with and without contrast reads stable diffuse white matter disease, which could reflect severe multiple sclerosis/demyelinating disease versus other chronic white matter disease. -neurology recommends increasing po to 75 mg PO BID and increasing baclofen to TID dosing. -consult and recommendation from Neurology are appreciated (6) Chronic anticoagulation: Code(s): Z79.01 - snf (current) use of anticoagulants Status: Acute Assessment and Plan: Patient is on Xarelto due to history of pulmonary embolism, will continue. Subjective Date/time seen: 09/04/22 07:06 Interval history: Copied from previous chart: 56-year-old female with a past medical history of multiple sclerosis with functional quadriplegia due to contractures, history of multi-drug resistant UTIs and dysphagia who presented to the ER from [facility] via EMS due to fever and altered mental status.? correction staff reports patient is usually alert orient x2.? At the time my evaluation last month patient was alert orient x3.? When the patient arrived to the ER she was alert orient x1 and was febrille with a T-max of 102.6?.? She was initially tachycardic but received 30 mL/kilos bolus per sepsis guidelines and heart rate improved down to 106.? Chest x-ray was performed which demonstrated a right middle lobe and lower lobe opacifications.? With comparis
[2022-09-04 08:00] VITALS: PULSE 76
--- NOTE | 2022-09-04 09:51 | PCNFU ---
Nutrition Follow-Up Complete: Increased protein energy needs related to wound healing as evidenced by Unstageable wound to L heel and stage III pressure injury to R ankle Adequate PO intake at least 75% meals and supplements to support wound healing - Goal being met Maintain weight during admission - Goal being met - re-weigh if possible Goal: Pt current nutrition is Regular diet with mildly thick level 2 liquids. Intakes 80-100% last 24 hours. Supplements Compact BID and [place] BID for wound healing. Nutrition recommendation: Last recorded weight is 63.7 kg. Bowel Motility: Last BM 09/03/22 Labs Reviewed:Hgb 9.9, Hct 31.5, Alb 3.2, Cre 0.3 Meds Noted: B12, protonix, zofran Skin: Unstageable L heel. Stage III R lateral ankle Additional Notes: Meal intakes improved. Discharge planning [facility] to [facility]. Monitor intakes, weights, labs, wound healing, supplement tolerance, plan of care Follow up in 5 days
[2022-09-04] MEDS: PANTOPRAZOLE SOD SESQUIHYDRATE 20 MG TAB PO (10:03)
[2022-09-04] MEDS: ASCORBIC ACID 500 MG TABLET PO (10:03)
[2022-09-04] MEDS: LORATADINE 10 MG TABLET PO (10:03)
[2022-09-04] MEDS: DOXYCYCLINE HYCLATE 100 MG TABLET PO (10:03)
[2022-09-04] MEDS: AMOXICILLIN/CLAVULANATE K 875-125 MG TAB 1 TABLET PO (10:03)
[2022-09-04] MEDS: DOCUSATE SODIUM 100 MG CAPSULE PO (10:03)
[2022-09-04] MEDS: PREGABALIN (*CRX) 75 MG CAPSULE PO (10:03)
[2022-09-04] MEDS: CYANOCOBALAMIN 1,000 MCG TABLET 1000 MCG PO (10:03)
[2022-09-04] MEDS: TAMSULOSIN HCL 0.4 MG CAPSULE PO (10:03)
[2022-09-04] MEDS: FERROUS SULFATE 324 MG TABLET PO (10:04)
[2022-09-04] MEDS: FOLIC ACID 1 MG TABLET PO (10:04)
[2022-09-04] MEDS: SILVERGEL (ELTA) 45 ML 1 APPLIC TOPICAL (10:04)
[2022-09-04] MEDS: FLUTICASONE PROPIONATE 0.05% NA SPR 16 GM BTL (*BKC) 2 SPRAY NASAL (10:04)
[2022-09-04] MEDS: carBAMazepine 200 MG TABLET PO ×2 (10:04→14:11)
[2022-09-04 12:00] VITALS: PULSE 77
--- NOTE | 2022-09-04 12:19 | PM.DS ---
DS: Admitting Diagnosis Discharge Date WednesdaySeptember 04 Admitting Diagnosis Chronic anticoagulation DS: Discharge Diagnosis Discharge Diagnosis (1) Sepsis: Qualifiers: Sepsis acute organ dysfunction status: with acute organ dysfunction Sepsis type: sepsis due to unspecified organism Severe sepsis acute organ dysfunction type: encephalopathy Severe sepsis shock status: without septic shock Qualified Code(s): A41.9 - Sepsis, unspecified organism; R65.20 - Severe sepsis without septic shock; G93.40 - Encephalopathy, unspecified Code(s): A41.9 - Sepsis, unspecified organism Status: Acute Assessment and Plan: Patient initially afebrile with acute encephalopathy and findings of pneumonia on chest x-ray. -MRSA nasal swab + but negative blood cultures for MRSA -Patient continues to improve with current antibiotic regimen and leukocytosis has improved. Suspect this may have been a aspiration pneumonitis rather than pneumonia. Will complete antibiotic regimen none the less. -WBC 7.4 today -afebrile -not requiring oxygen. Sating well on room air. (2) Pneumonia: Qualifiers: Laterality: right Lung location: middle lobe of lung Pneumonia type: due to unspecified organism Qualified Code(s): J18.9 - Pneumonia, unspecified organism Code(s): J18.9 - Pneumonia, unspecified organism Status: Acute Assessment and Plan: Patient in no current respiratory complaints normal oxygenation. -continue doxycycline and Augmentin -DC vancomycin has blood culture was likely contaminant. Doxy has MRSA coverage as well. (3) Dysphagia: Qualifiers: Dysphagia type: pharyngeal phase Qualified Code(s): R13.13 - Dysphagia, pharyngeal phase Code(s): R13.10 - Dysphagia, unspecified Status: Acute Assessment and Plan: swallow study completed upon admission because of findings on x-ray concerning for aspiration pneumonia. Patient is able to clear penetration with coughing and tolerates nectar thickened liquids. (4) Decubitus ulcer, heel, left, unstageable: Code(s): L89.620 - Pressure ulcer of left heel, unstageable Status: Acute Assessment and Plan: Pressure offloading in process, Mepilex dressings in place upon evaluation. Wound care nurse consulted. Appreciate recommendations and treatment plan. (5) Multiple sclerosis, primary chronic progressive: Code(s): G35 - Multiple sclerosis Status: Acute Assessment and Plan: Continue home medications for muscle spasms. -Severe leg pain still but her unilateral left eye pain has resolved. -order for MRI of brain cervical spine and thoracic spine with and without contrast reads stable diffuse white matter disease, which could reflect severe multiple sclerosis/demyelinating disease versus other chronic white matter disease. Not an active MS flare. -neurology recommends increasing po to 75 mg PO BID and increasing baclofen to TID dosing. 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 DS: Summary Hospital Course Reason for hospitalization: Altered mental status Hospital Course: Your initially admitted for altered mental status. Your found to be afebrile with a temperature of 102.6? on arrival anterior x-ray demonstrated a right lower lobe infiltrate concerning for atelectasis versus pneumonia. We treated you with IV fluids, antibiotics and her symptoms improved. We also had speech see you while you were here because there was concerns for aspiration pneumonia. Speech has recommended continuing nectar thick thick liquids. Also wiry. Complained of severe bilateral lower extremity pain and unilateral left eye pain, which you and your family say has been going
[2022-09-04 14:00] VITALS: BP 119/52; PULSE 79; RESP 16; TEMP 36.7; O2SAT 97
== END 2022-09-04 16:00 | DRG 871 ==
LOC: ANHED 22:53 → ANH2MED 23:12
PROVIDERS: Emergency Medicine; Nurse Practitioner; Admitting Provider Internal Medicine; Emergency Provider Emergency Medicine; PCP Internal Medicine; Visit Provider Nurse Practitioner Acute Care
DX: A41.9 Sepsis, unspecified organism (principal); J18.9 Pneumonia, unspecified organism; J69.0 Pneumonitis due to inhalation of food and vomit; R53.2 Functional quadriplegia; J98.11 Atelectasis; B95.7 Other staphylococcus as the cause of diseases classified elsewhere; Z20.822 Contact with and (suspected) exposure to COVID-19; K21.9 Gastro-esophageal reflux disease without esophagitis; G40.909 Epilepsy, unspecified, not intractable, without status epilepticus; G35 Multiple sclerosis; E78.5 Hyperlipidemia, unspecified; L89.620 Pressure ulcer of left heel, unstageable; R13.10 Dysphagia, unspecified; Z86.718 Personal history of other venous thrombosis and embolism; Z87.442 Personal history of urinary calculi; Z79.01 Long term (current) use of anticoagulants; Z86.711 Personal history of pulmonary embolism; Z22.322 Carrier or suspected carrier of Methicillin resistant Staphylococcus aureus
CPT/HCPCS: 36415; 70450; 70553; 71045; 72156; 72157; 80048; 80053; 80202; 81001; 81003; 82565; 83605; 83735; 83880; 84145; 84484; 85025; 85027; 85610; 85730; 87040; 87081; 87147; 87181; 87186; 87449; 87581; 87637; 87899; 92526; 92611; 93005; 96361; 96365; 96367; 99285; A9270; A9577; J0456; J0696; J1836; J1885; J2930; J3370; J7030; J7040

== ENCOUNTER 2022-09-05 11:58 | Observation (INO) | payer MEDICARE, SELFPAY ==
[2022-09-05] VITALS (10 sets, daily range): BP systolic 100–139; BP diastolic 57–104; PULSE 85–92; RESP 16–19; TEMP 36.6; O2SAT 94–98; BMI 21.7
--- NOTE | ~2022-09-05 | CT_ITS ---
EXAMINATION: CT brain wo con DATE: 09/05/2022 12:57 INDICATION: Transient alteration of awareness TECHNIQUE: Computed tomographic angiography (CTA) of the head was performed without and with 100 mL O mnipaque-350 intravenous contrast. Exam dose: 605.33 mGy-cm total exam DLP. Volume-rendered and ma ximum intensity projection 3D reconstructions of the intracranial arteries were created by the techno logist on a separate workstation. COMPARISON: 09/03/2022 MRI brain/brainstem 08/29/2022 CT brain FINDINGS: Bilateral carotid siphon internal carotid artery calcifications. There is patchy nonspecific diminished attenuation of the cerebral white matter. No intracranial mass lesion or hemorrhage or cerebrovascular accident is evident. There is moderately prominent central and cortical cerebral and cerebellar atrophy. No subdural or epidural hematoma. Mild partial opacification of the left and right ethmoid air cells. The paranasal sinuses and mastoid air cells are otherwise unremarkable. No fracture or bone destruction of the cranial vault. IMPRESSION: Cerebral atherosclerosis nonspecific diminished attenuation of the cerebral white matter Central and cortical cerebral and cerebellar atrophy No acute intracranial finding is noted Reviewed, dictated and finalized at [facility]. Reviewed, dictated and finalized at [facility].
--- NOTE | ~2022-09-05 | XR_ITS ---
XR chest 1V portable DATE: 09/05/2022 12:42 INDICATION: Altered mental status. Recent pneumonia. TECHNIQUE: AP portable chest on 09/05/2022 at 1241 hours COMPARISON: 08/29/2022 portable AP chest at 2114 hours FINDINGS: There is mild residual infiltrate and/atelectasis at the lung bases, diminished on the righ t, stable or mildly increased on the left since 08/29/2022. Prominent elevation right diaphragm. Normal heart size. Mild aortic unfolding. No hilar or mediastinal enlargement is evident. No pleural effusion or pulmonary vascular congestion or pneumothorax. IMPRESSION: Bilateral lower lung infiltrate and/atelectasis, mildly improved on the right, increased on the left 08/29/2022 Elevated right diaphragm Reviewed, dictated and finalized at location [facility].
--- NOTE | 2022-09-05 12:18 | ED.AMS ---
HPI - Altered Mental Status General Chief Complaint: Altered Mental Status Stated Complaint: AMS History of Present Illness HPI narrative: 56-year-old female with a past medical history of multiple sclerosis with functional quadriplegia due to contractures, history of multi-drug resistant UTIs and dysphagia who presented to the ER from [facility] via EMS due to fever and altered mental status.? half-way staff reports patient is usually alert orient x2.? Patient was recently admitted for sepsis, encephalopathy and altered mental status. Patient was discharged last night back to [facility]. Family states that the patient was more confused than her baseline so she was transferred by ambulance back to the emergency department for evaluation. Related Data Home Medications Medication Instructions Recorded Confirmed ascorbic acid (vitamin C) 500 mg 500 mg PO DAILY 02/08/21 09/05/22 tablet atorvastatin 10 mg tablet (Lipitor) 10 mg PO HS 02/08/21 09/05/22 pantoprazole 20 mg tablet,delayed 20 mg PO QAM 02/08/21 09/05/22 release (Protonix) acetaminophen 500 mg tablet 500 mg PO DAILY PRN Pain 09/18/21 09/05/22 (Tylenol Extra Strength) loratadine 10 mg tablet (Claritin) 10 mg PO DAILY 09/18/21 09/05/22 tamsulosin 0.4 mg capsule 0.4 mg PO BID 09/18/21 09/05/22 carbamazepine 200 mg tablet 200 mg PO TID 05/29/22 09/05/22 ferrous sulfate 325 mg (65 mg 325 mg PO BID 05/29/22 09/05/22 iron) tablet folic acid 1 mg tablet 1 mg PO BID 05/29/22 09/05/22 cyanocobalamin (vitamin B-12) 500 1,000 mcg PO BID 07/08/22 09/05/22 mcg tablet guaifenesin 100 mg/5 mL oral syrup 300 mg PO Q6H PRN Congestion 07/08/22 09/05/22 Allergies Allergy/AdvReac Type Severity Reaction Status Date / Time No Known Allergies Allergy Verified 09/05/22 18:46 Review of Systems Review of Systems: ROS unobtainable: Yes unobtainable due to medical condition PMFSH Past Medical History Medical History Abnormal vaginal bleeding in postmenopausal patient 06/2022 Acute respiratory failure with hypoxia Chronic anticoagulation For history of DVT. Chronic constipation Deep venous thrombosis Dysphagia With evidence of laryngeal penetration of thin liquids on modified barium swallow June 2022 Frequent UTI Including history of ESBL Klebsiella pneumoniae and vancomycin-resistant Enterococcus Gastroesophageal reflux disease History of DVT (deep vein thrombosis) Hyperlipidemia Influenza A Kidney stones Multiple sclerosis With functional quadriplegia due to contractures Seizure disorder Stercoral colitis 06/2022 Surgical History Surgical History History of cystoscopy Hx of vaginal surgery Family History Family History Mother Diabetes mellitus Myocardial infarction PTSD (post-traumatic stress disorder) Father Diabetes mellitus Myocardial infarction Sibling Myocardial infarction Patient's brother is Social History Social History Social History: 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 She has been since her early 30s. She does not have any children. She was living with her mother until 2021. She now lives at [facility]. She is essentially bed-bound now. No alcohol, tobacco, or illicit substance use. Healthcare power of admitted attorneys: Melony Miner, sister. Code status: DNR/DNI Smoking status: Never smoker Second hand tobacco smoke exposure: No Alcohol intake: never Drinks per week: 1 Substance use: never Substance use type: does not use Lack of Transportation: No Lack of Food: Never True Current Housing: I Have Housing Concerned About Future Housing: No Difficulty Paying Gas/Electric Bills: No Difficulty Paying for Meds: No Currently Unemployed: N
[2022-09-05 12:22] LABS: Alveolar/Arterial O2 Gradient 27.7 mmHg; Base Excess ABG 4.3 mEq/l (+/-2.0); Fractional Inspired Oxygen 21 %; HCO3 ABG 27.5 mEq/l (22.0-26.0); Oxygen Content ABG 16.4 %vol (16.0-22.0); Oxygen Saturation ABG 96.6 % (95.0-100.0); PCO2 ABG 36.1 mmHg (35.0-45.0); PO2 ABG 78.8 mmHg (80.0-100.0); PO2 FiO2 Ratio Arterial Blood 3.75 %; Total Hemoglobin 12.2 g/dL (12.0-18.0); pH ABG 7.499 (7.350-7.450)
[2022-09-05 12:23] LABS: Modified Allen's Test Pass; Site Drawn RIGHT RADIAL
[2022-09-05 12:37] LABS: Basophils Percent Auto 0.4 % (0.2-1.2); Eosinophils Absolute Auto 0.1 K/mm3 (0-0.3); Eosinophils Percent Auto 1.4 % (0-4.4); Hematocrit 35.9 % (37.0-47.0); Hemoglobin 11.3 g/dL (12.0-15.0); Immature Granulocyte Absolute 0.02 K/mm3 (0.00-0.031); Immature Granulocyte Percent A 0.2 % (0-0.5); Lymphocytes Absolute Auto 2.15 K/mm3 (0.9-3.2); Lymphocytes Percent Auto 23.3 % (18.3-44.2); Mean Corpuscular HGB Conc 31.5 g/dl (32-36); Mean Corpuscular Hemoglobin 29.7 pg (26-34); Mean Corpuscular Volume 94.5 fl (80-100); Monocytes Absolute Auto 0.6 K/mm3 (0.1-0.6); Monocytes Percent Auto 6.2 % (2.6-8.5); Neutrophils Absolute Auto 6.3 K/mm3 (1.3-6.7); Neutrophils Percent Auto 68.5 % (45.5-73.1); Platelet Count Result 482 k/mm3 (150-375); Red Cell Distribution Width 14.1 % (11.5-14.5); White Blood Count 9.2 K/mm3 (4.5-10.0)
[2022-09-05 12:43] LABS: Ammonia < 9 umol/L (9-30)
[2022-09-05 12:48] LABS: Alanine Aminotransferase 28 U/L (6-35); Albumin Level 3.6 g/dL (3.5-5.1); Alkaline Phosphatase 129 U/L (38-126); Anion Gap 2 mmol/L (8-16); Aspartate Amino Transferase 32 U/L (14-36); Bilirubin,Total 0.5 mg/dL (0.2-1.3); Blood Urea Nitrogen 9 mg/dL (7-17); Calcium 8.5 mg/dL (8.4-10.2); Carbon Dioxide 33 mmol/L (22-30); Chloride 105 mmol/L (98-107); Estimated CRCL calculation 150 ml/min; Estimated Glomerular Filt Rate > 60; Glucose 91 mg/dL (65-110); Lactic Acid Reflex 0.7 mmol/L (0.7-2.0); Potassium 3.8 mmol/L (3.4-5.0); Sodium 140 mmol/L (137-145)
[2022-09-05 12:50] LABS: Prothrombin Time 14.2 Seconds (11.1-14.7)
[2022-09-05 12:51] LABS: Partial Thromboplastin Time 28.7 SECONDS (22.3-36.8)
[2022-09-05 13:24] LABS: Appearance Urine Clear (Clear); Bilirubin Urine Negative (Negative); Blood Urine Negative (Negative); Color Urine Yellow (Yellow); Glucose Urine UA Negative (Negative); Ketones Urine Negative (Negative); Leukocyte Esterase Ur Negative LEU/UL (Negative); Nitrate Urine Negative (Negative); Protein Urine Negative (Negative); Specific Grav Ur 1.013 (1.001-1.035); pH Urine 7.5 (5.0-9.0)
[2022-09-05 13:33] LABS: Add Urine Microscopic? NO
--- NOTE | 2022-09-05 13:37 | ECG_ITS ---
Measurements Intervals [place] Rate: 87 P: 48 NC: 182 QRS: -11 QRSD: 87 T: 43 QT: 394 QTc: 477 Interpretive Statements SINUS RHYTHM NORMAL ECG COMPARED TO ECG 08/29/2022 20:56:21 SINUS RHYTHM NOW PRESENT Electronically Signed On 09-05-2022 18:22:07 CDT by Layo Burks D.O.
--- NOTE | 2022-09-05 16:25 | ADMGEN ---
This patient, Jenae Rodriguez, was admitted to Medical Room 253-01. Patient/family oriented to hospital policies and general routines including ID bracelet, bed and alarms, visiting hours, pain management, procedures, bathroom and other care routines, personal items, smoking policy, room service/diet, and visiting hours. Information on how to activate the Rapid Response Team has been discussed. Patient/Family are encouraged to report perceived risks to care and to ask questions if they do not understand what they are told or what they should do.
--- NOTE | 2022-09-05 16:52 | PM.IMHP ---
H&P: HPI History of Present Illness Date/Time: 09/05/22 15:30 Chief Complaint: Altered mental status. Narrative: This is a 56-year-old female with multiple sclerosis resulting in functional quadriplegia, hyperlipidemia, gastroesophageal reflux disease, and history of multidrug resistant UTIs who presented to the emergency department via EMS from [facility] for evaluation of altered mental status. She is not able to provide an accurate history and her sister Mounika provides a majority of the following information. She is known to the hospitalist service and in fact was discharged from our service yesterday after being admitted with sepsis and pneumonia. During that admission she complained of severe pain and muscle spasms and the following medication changes were made: Pregabalin was increased from 50 mg daily to 75 mg b.i.d. and baclofen was increased from 20 mg b.i.d. to 20 mg t.i.d.. Since that time the patient has been much more somnolent and less interactive than usual. Last night she would not even open her eyes to speak with her sister and when she did speak she was talking nonsensically. Mounika is concerned that she may be overmedicated and wanted the patient to be brought in again for evaluation. There were no reports of fever or falls. She was afebrile on arrival to the ED with stable vital signs. CMP and CBC were without significant changes. UA was unremarkable. Brain CT showed no acute findings. Chest x-ray showed bilateral lower lung infiltrate and/atelectasis mildly improved on the right and increased on the left. She is being admitted in this setting for closer monitoring. At the time of my evaluation, she will open her eyes and follows commands. Speech is nonsensical. Review of Systems Review of Systems: Unable to obtain given current clinical condition. [facility] Past Medical History Medical History (Updated 09/06/22 @ 13:33 by Liliya Petersen PA-C) Abnormal vaginal bleeding in postmenopausal patient 06/2022 Chronic anticoagulation For history of DVT. Chronic constipation Deep venous thrombosis Deep venous thrombosis Dysphagia With evidence of laryngeal penetration of thin liquids on modified barium swallow June 2022 Frequent UTI Including history of ESBL Klebsiella pneumoniae and vancomycin-resistant Enterococcus Gastroesophageal reflux disease Hyperlipidemia Influenza A Kidney stones Multiple sclerosis With functional quadriplegia due to contractures Seizure disorder Stercoral colitis 06/2022 Surgical History Surgical History (Updated 09/06/22 @ 13:33 by Liliya Petersen PA-C) History of cystoscopy Family History Family History Mother Diabetes mellitus Myocardial infarction PTSD (post-traumatic stress disorder) Father Diabetes mellitus Myocardial infarction Sibling Myocardial infarction Patient's brother is Social History Social History Social History: 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 She has been since her early 30s. She does not have any children. She was living with her mother until 2021. She now lives at [facility]. She is essentially bed-bound now. No alcohol, tobacco, or illicit substance use. Healthcare power of workers compensation attorney: Melony Ryelyse, sister. Code status: DNR/DNI Smoking status: Never smoker Second hand tobacco smoke exposure: No Alcohol intake: never Drinks per week: 1 Substance use: never Substance use type: does not use Lack of Transportation: No Lack of Food: Never True Current Housing: I Have Housing Concerned About Future Housing: No Difficulty Paying Gas/Electric Bills: No Difficulty Paying for Meds: No Currently Unemployed: No Education: High School Diploma/GED Difficulty w/ Childcare or Family Care: No Living arrangements: with family Spiritua
[2022-09-05] MEDS: SODIUM CHLORIDE 0.9% IV 1,000 ML 125 ML IV CONT (17:30)
[2022-09-05] MEDS: DOXYCYCLINE HYCLATE 100 MG TABLET PO (21:44)
[2022-09-05] MEDS: RIVAROXABAN 20 MG TABLET PO (21:44)
[2022-09-05] MEDS: DOCUSATE SODIUM 100 MG CAPSULE PO (21:44)
[2022-09-05] MEDS: FOLIC ACID 1 MG TABLET PO (21:44)
[2022-09-05] MEDS: carBAMazepine 200 MG TABLET PO (21:44)
[2022-09-05] MEDS: ATORVASTATIN 10 MG TABLET PO (21:44)
[2022-09-05] MEDS: TAMSULOSIN HCL 0.4 MG CAPSULE PO (21:44)
[2022-09-05] MEDS: CYANOCOBALAMIN 1,000 MCG TABLET 1000 MCG PO (21:44)
[2022-09-06] VITALS (10 sets, daily range): BP systolic 91–102; BP diastolic 48–62; PULSE 85–99; RESP 16–18; TEMP 36.4–36.7; O2SAT 95–97
[2022-09-06] MEDS: SODIUM CHLORIDE 0.9% IV 1,000 ML 125 ML IV CONT ×3 (01:19→17:01)
[2022-09-06] MEDS: BACLOFEN 10 MG TABLET PO ×3 (05:11→21:11)
[2022-09-06 05:20] LABS: Hematocrit 34.6 % (37.0-47.0); Mean Corpuscular HGB Conc 31.8 g/dl (32-36); Mean Corpuscular Hemoglobin 30.1 pg (26-34); Mean Corpuscular Volume 94.5 fl (80-100); Mean Platelet Volume 9.2 fl (7.4-10.4); Platelet Count Result 441 k/mm3 (150-375); Red Blood Count 3.66 M/mm3 (4.2-5.4); Red Cell Distribution Width 13.8 % (11.5-14.5); White Blood Count 8.5 K/mm3 (4.5-10.0)
[2022-09-06 05:36] LABS: Anion Gap 6 mmol/L (8-16); Blood Urea Nitrogen 7 mg/dL (7-17); Calcium 8.2 mg/dL (8.4-10.2); Carbon Dioxide 29 mmol/L (22-30); Chloride 104 mmol/L (98-107); Estimated CRCL calculation 150 ml/min; Estimated Glomerular Filt Rate > 60; Glucose 90 mg/dL (65-110); Magnesium 2.1 mg/dL (1.6-2.3); Potassium 3.5 mmol/L (3.4-5.0); Sodium 139 mmol/L (137-145)
--- NOTE | 2022-09-06 08:05 | PM.IMPN ---
Progress Note: A&P Assessment and Plan (1) Altered mental status: Code(s): R41.82 - Altered mental status, unspecified Status: Acute Assessment and Plan: -patient just discharged two days ago after increasing her po and baclofen for pain. Suspect AMS, drowsiness is related to this change. -decreased lyrica from 75 mg PO BID to 25 mg PO BID -decreased baclofen from 20 mg PO TID to 10 mg TID -neuro checks Q shift -CT head with no acute intracranial findings. (2) Chronic anemia: Code(s): D64.9 - Anemia, unspecified Status: Acute Assessment and Plan: -chronic likely related to chronic disease process vs b12 deficiency vs iron deficiency -Hgb 11 today which historically looks like she ranges from 9-11 g/dl -continue daily labs -continue home vitamin B 12 and Ferrous sulfate (3) History of recent pneumonia: Code(s): Z87.01 - Personal history of pneumonia (recurrent) Status: Acute Assessment and Plan: -Chest x-ray with bilateral lower lung infiltrate versus atelectasis, mildly improved on the right, increased on the left 08/29/2022. Just finished a total 10 day course of antibiotics. -afebrile, no leukocytosis, not requiring oxygen. -Expect atelectasis. Will order IS and PEP therapy. -Concerns last admission for aspiration PNA. ?Speech therapy is recommended that you received oral feedings with one-to-one assistance.? Position during intake should be upright in you should remain upright following all oral intake for 20-30 minutes.? Food consistency recommendation is regular with mildly thick consistency liquids.? Encourage small bites/sips, extra swallow between sips/bites. (4) Multiple sclerosis: Code(s): G35 - Multiple sclerosis Status: Acute Assessment and Plan: -Not on any MS treatment medications -Was following with Dr Alvarez but recently referred to Dr Black. Dr Black just saw patient in the hospital this last admission. Full MRI workup to rule out active MS flare given history of increased pain, spasms, and unilateral eye pain. MRI was negative. -Decision was made to increase lyrica and baclofen. Likely the cause of her presentation today. Have decreased doses of both and will assess daily for improved mentation. (5) Pressure ulcer: Code(s): L89.90 - Pressure ulcer of unspecified site, unspecified stage Status: Acute Assessment and Plan: -wound consult from last admission with orders as followed. Wound care: Sacral wound-apply triple care antifungal barrier cream to maceration. Soothe surrounding tissue with aloe and apply a barrier cream using dimethicone silicone to protect skin from stool and urine preventing further tissue breakdown. Leave open to air. Stage III pressure ulcer to right lateral ankle. Apply sliver gel to ulcer for topical antimicrobial coverage and to promote autolytic debridement of yellow slough. Cover with a Mepilex border. Apply waffle boot for additional offloading. Subjective Date/time seen: 09/06/22 08:05 Interval history: HPI obtained from chart This is a 56-year-old female with multiple sclerosis resulting in functional quadriplegia, hyperlipidemia, gastroesophageal reflux disease, and history of multidrug resistant UTIs who presented to the emergency department via EMS from [facility] for evaluation of altered mental status. She is not able to provide an accurate history and her sister Mounika provides majority of the following information. She is known to the hospitalist service and in fact was discharged from our service just yesterday after being admitted with sepsis and pneumonia. During that admission she complained of severe pain and muscle spasms and the following medication changes were made: Pregabalin was increased from 50 mg daily to 75 mg b.i.d. and baclofen was increased from 20 mg b.i.d. to 20 mg t.i.d.. Since that time the patient has been much more somnolent and less int
[2022-09-06] MEDS: FOLIC ACID 1 MG TABLET PO ×2 (09:37→16:46)
[2022-09-06] MEDS: carBAMazepine 200 MG TABLET PO ×3 (09:37→16:46)
[2022-09-06] MEDS: SILVERGEL (ELTA) 45 ML 1 APPLIC TOPICAL (09:37)
[2022-09-06] MEDS: DOXYCYCLINE HYCLATE 100 MG TABLET PO ×2 (09:37→21:11)
[2022-09-06] MEDS: TAMSULOSIN HCL 0.4 MG CAPSULE PO ×2 (09:37→16:46)
[2022-09-06] MEDS: ASCORBIC ACID 500 MG TABLET PO (09:38)
[2022-09-06] MEDS: CYANOCOBALAMIN 1,000 MCG TABLET 1000 MCG PO ×2 (09:38→16:46)
[2022-09-06] MEDS: PANTOPRAZOLE SOD SESQUIHYDRATE 20 MG TAB PO (09:39)
[2022-09-06] MEDS: LORATADINE 10 MG TABLET PO (09:39)
[2022-09-06] MEDS: FERROUS SULFATE 325 MG TABLET DR PO ×2 (09:39→16:46)
[2022-09-06] MEDS: PREGABALIN (*CRX) 25 MG CAPSULE PO ×2 (09:39→21:11)
[2022-09-06] MEDS: RIVAROXABAN 20 MG TABLET PO (16:46)
[2022-09-06] MEDS: DOCUSATE SODIUM 100 MG CAPSULE PO (21:11)
[2022-09-06] MEDS: ATORVASTATIN 10 MG TABLET PO (21:11)
[2022-09-07] VITALS (11 sets, daily range): BP systolic 94–117; BP diastolic 48–63; PULSE 78–96; RESP 17–18; TEMP 36.4–36.9; O2SAT 96–100; BMI 22.5
[2022-09-07] MEDS: SODIUM CHLORIDE 0.9% IV 1,000 ML 125 ML IV CONT ×3 (01:01→18:02)
[2022-09-07] MEDS: BACLOFEN 10 MG TABLET PO ×3 (05:12→21:28)
[2022-09-07 05:49] LABS: Basophils Absolute Auto 0.1 K/mm3 (0.0-0.1); Basophils Percent Auto 0.7 % (0.2-1.2); Eosinophils Absolute Auto 0.2 K/mm3 (0-0.3); Eosinophils Percent Auto 3.3 % (0-4.4); Immature Granulocyte Absolute 0.02 K/mm3 (0.00-0.031); Immature Granulocyte Percent A 0.3 % (0-0.5); Lymphocytes Absolute Auto 2.67 K/mm3 (0.9-3.2); Lymphocytes Percent Auto 39.7 % (18.3-44.2); Mean Corpuscular HGB Conc 31.3 g/dl (32-36); Mean Corpuscular Hemoglobin 30.1 pg (26-34); Mean Corpuscular Volume 96.4 fl (80-100); Mean Platelet Volume 9.2 fl (7.4-10.4); Monocytes Absolute Auto 0.5 K/mm3 (0.1-0.6); Monocytes Percent Auto 7.4 % (2.6-8.5); Neutrophils Absolute Auto 3.3 K/mm3 (1.3-6.7); Neutrophils Percent Auto 48.6 % (45.5-73.1); Platelet Count Result 411 k/mm3 (150-375); Red Blood Count 3.32 M/mm3 (4.2-5.4); Red Cell Distribution Width 14.2 % (11.5-14.5); White Blood Count 6.7 K/mm3 (4.5-10.0)
[2022-09-07 06:09] LABS: Anion Gap 2 mmol/L (8-16); Blood Urea Nitrogen 4 mg/dL (7-17); Calcium 7.6 mg/dL (8.4-10.2); Carbon Dioxide 27 mmol/L (22-30); Chloride 110 mmol/L (98-107); Estimated CRCL calculation 150 ml/min; Estimated Glomerular Filt Rate > 60; Glucose 91 mg/dL (65-110); Potassium 3.2 mmol/L (3.4-5.0); Sodium 139 mmol/L (137-145)
[2022-09-07] MEDS: POTASSIUM CHLORIDE 20 MEQ PACKET (FOR LIQUID) 40 MEQ PO (09:01)
[2022-09-07] MEDS: PREGABALIN (*CRX) 25 MG CAPSULE PO ×2 (09:04→20:18)
[2022-09-07] MEDS: FERROUS SULFATE 325 MG TABLET DR PO ×2 (09:04→18:03)
[2022-09-07] MEDS: FOLIC ACID 1 MG TABLET PO ×2 (09:04→18:03)
[2022-09-07] MEDS: DOXYCYCLINE HYCLATE 100 MG TABLET PO ×2 (09:04→20:18)
[2022-09-07] MEDS: DOCUSATE SODIUM 100 MG CAPSULE PO ×2 (09:04→20:18)
[2022-09-07] MEDS: TAMSULOSIN HCL 0.4 MG CAPSULE PO ×2 (09:04→18:02)
[2022-09-07] MEDS: PANTOPRAZOLE SOD SESQUIHYDRATE 20 MG TAB PO (09:04)
[2022-09-07] MEDS: LORATADINE 10 MG TABLET PO (09:04)
[2022-09-07] MEDS: CYANOCOBALAMIN 1,000 MCG TABLET 1000 MCG PO ×2 (09:04→18:03)
[2022-09-07] MEDS: carBAMazepine 200 MG TABLET PO ×3 (09:05→18:03)
[2022-09-07] MEDS: ASCORBIC ACID 500 MG TABLET PO (09:07)
[2022-09-07] MEDS: SILVERGEL (ELTA) 45 ML 1 APPLIC TOPICAL (12:56)
--- NOTE | 2022-09-07 15:08 | PM.IMPN ---
Progress Note: A&P Assessment and Plan (1) Altered mental status: Code(s): R41.82 - Altered mental status, unspecified Status: Acute Assessment and Plan: -patient just discharged two days ago after increasing her po and baclofen for pain. Suspect AMS, drowsiness is related to this change. -decreased lyrica from 75 mg PO BID to 25 mg PO BID -decreased baclofen from 20 mg PO TID to 10 mg TID -neuro checks Q shift -CT head with no acute intracranial findings. -A&O x4 today. (2) Chronic anemia: Code(s): D64.9 - Anemia, unspecified Status: Acute Assessment and Plan: -chronic likely related to chronic disease process vs b12 deficiency vs iron deficiency -Hgb 11 today which historically looks like she ranges from 9-11 g/dl -continue daily labs -continue home vitamin B 12 and Ferrous sulfate (3) History of recent pneumonia: Code(s): Z87.01 - Personal history of pneumonia (recurrent) Status: Acute Assessment and Plan: -Chest x-ray with bilateral lower lung infiltrate versus atelectasis, mildly improved on the right, increased on the left 08/29/2022. Just finished a total 10 day course of antibiotics. -afebrile, no leukocytosis, not requiring oxygen. -Expect atelectasis. Will order IS and PEP therapy. -Concerns last admission for aspiration PNA. ?Speech therapy is recommended that you received oral feedings with one-to-one assistance.? Position during intake should be upright in you should remain upright following all oral intake for 20-30 minutes.? Food consistency recommendation is regular with mildly thick consistency liquids.? Encourage small bites/sips, extra swallow between sips/bites. (4) Multiple sclerosis: Code(s): G35 - Multiple sclerosis Status: Acute Assessment and Plan: -Not on any MS treatment medications -Was following with Dr Alvarez but recently referred to Dr Black. Dr Black just saw patient in the hospital this last admission. Full MRI workup to rule out active MS flare given history of increased pain, spasms, and unilateral eye pain. MRI was negative. -Decision was made to increase lyrica and baclofen. Likely the cause of her presentation today. Have decreased doses of both and will assess daily for improved mentation. (5) Pressure ulcer: Code(s): L89.90 - Pressure ulcer of unspecified site, unspecified stage Status: Acute Assessment and Plan: -wound consult from last admission with orders as followed. Wound care: Sacral wound-apply triple care antifungal barrier cream to maceration. Soothe surrounding tissue with aloe and apply a barrier cream using dimethicone silicone to protect skin from stool and urine preventing further tissue breakdown. Leave open to air. Stage III pressure ulcer to right lateral ankle. Apply sliver gel to ulcer for topical antimicrobial coverage and to promote autolytic debridement of yellow slough. Cover with a Mepilex border. Apply waffle boot for additional offloading. Subjective Date/time seen: 09/07/22 15:08 Interval history: HPI obtained from chart This is a 56-year-old female with multiple sclerosis resulting in functional quadriplegia, hyperlipidemia, gastroesophageal reflux disease, and history of multidrug resistant UTIs who presented to the emergency department via EMS from [facility] for evaluation of altered mental status. She is not able to provide an accurate history and her sister Mounika provides majority of the following information. She is known to the hospitalist service and in fact was discharged from our service just yesterday after being admitted with sepsis and pneumonia. During that admission she complained of severe pain and muscle spasms and the following medication changes were made: Pregabalin was increased from 50 mg daily to 75 mg b.i.d. and baclofen was increased from 20 mg b.i.d. to 20 mg t.i.d.. Since that time the patient has been much more somnol
[2022-09-07] MEDS: RIVAROXABAN 20 MG TABLET PO (18:03)
[2022-09-07] MEDS: ATORVASTATIN 10 MG TABLET PO (20:18)
[2022-09-07] MEDS: ACETAMINOPHEN 500 MG TABLET PO (20:24)
[2022-09-08] VITALS: PULSE 78
[2022-09-08] MEDS: SODIUM CHLORIDE 0.9% IV 1,000 ML 125 ML IV CONT (02:02)
[2022-09-08 04:00] VITALS: PULSE 78
[2022-09-08 05:21] VITALS: BP 104/45; PULSE 81; RESP 16; TEMP 36.7; O2SAT 99
[2022-09-08] MEDS: BACLOFEN 10 MG TABLET PO ×2 (05:38→13:26)
[2022-09-08 06:01] LABS: Basophils Absolute Auto 0.1 K/mm3 (0.0-0.1); Basophils Percent Auto 0.7 % (0.2-1.2); Eosinophils Absolute Auto 0.3 K/mm3 (0-0.3); Eosinophils Percent Auto 4.2 % (0-4.4); Hematocrit 33.7 % (37.0-47.0); Hemoglobin 10.4 g/dL (12.0-15.0); Immature Granulocyte Absolute 0.04 K/mm3 (0.00-0.031); Immature Granulocyte Percent A 0.6 % (0-0.5); Lymphocytes Absolute Auto 2.06 K/mm3 (0.9-3.2); Lymphocytes Percent Auto 28.8 % (18.3-44.2); Mean Corpuscular HGB Conc 30.9 g/dl (32-36); Mean Corpuscular Hemoglobin 29.7 pg (26-34); Mean Corpuscular Volume 96.3 fl (80-100); Mean Platelet Volume 9.2 fl (7.4-10.4); Monocytes Absolute Auto 0.5 K/mm3 (0.1-0.6); Monocytes Percent Auto 7.3 % (2.6-8.5); Neutrophils Absolute Auto 4.2 K/mm3 (1.3-6.7); Neutrophils Percent Auto 58.4 % (45.5-73.1); Platelet Count Result 404 k/mm3 (150-375); Red Cell Distribution Width 14.2 % (11.5-14.5); White Blood Count 7.2 K/mm3 (4.5-10.0)
[2022-09-08 06:08] LABS: Anion Gap 3 mmol/L (8-16); Blood Urea Nitrogen 3 mg/dL (7-17); Calcium 7.9 mg/dL (8.4-10.2); Carbon Dioxide 27 mmol/L (22-30); Chloride 108 mmol/L (98-107); Estimated CRCL calculation 174 ml/min; Estimated Glomerular Filt Rate > 60; Glucose 90 mg/dL (65-110); Potassium 3.5 mmol/L (3.4-5.0); Sodium 138 mmol/L (137-145)
[2022-09-08 08:00] VITALS: PULSE 79
[2022-09-08] MEDS: ASCORBIC ACID 500 MG TABLET PO (08:53)
[2022-09-08] MEDS: FERROUS SULFATE 325 MG TABLET DR PO (08:54)
[2022-09-08] MEDS: PREGABALIN (*CRX) 25 MG CAPSULE PO (08:54)
[2022-09-08] MEDS: PANTOPRAZOLE SOD SESQUIHYDRATE 20 MG TAB PO (08:54)
[2022-09-08] MEDS: carBAMazepine 200 MG TABLET PO ×2 (08:54→13:26)
[2022-09-08] MEDS: CYANOCOBALAMIN 1,000 MCG TABLET 1000 MCG PO (08:54)
[2022-09-08] MEDS: DOCUSATE SODIUM 100 MG CAPSULE PO (08:54)
[2022-09-08] MEDS: FOLIC ACID 1 MG TABLET PO (08:54)
[2022-09-08] MEDS: DOXYCYCLINE HYCLATE 100 MG TABLET PO (08:54)
[2022-09-08] MEDS: TAMSULOSIN HCL 0.4 MG CAPSULE PO (08:54)
[2022-09-08] MEDS: LORATADINE 10 MG TABLET PO (08:54)
[2022-09-08] MEDS: SILVERGEL (ELTA) 45 ML 1 APPLIC TOPICAL (08:55)
[2022-09-08 12:00] VITALS: PULSE 81
--- NOTE | 2022-09-08 13:26 | PM.DS ---
DS: Admitting Diagnosis Discharge Date WednesdaySeptember 08 Admitting Diagnosis Altered mental status, DS: Discharge Diagnosis Discharge Diagnosis (1) Altered mental status: Code(s): R41.82 - Altered mental status, unspecified Status: Acute Assessment and Plan: -patient just discharged two days ago after increasing her po and baclofen for pain. Suspect AMS, drowsiness is related to this change. -decreased lyrica from 75 mg PO BID to 25 mg PO BID -decreased baclofen from 20 mg PO TID to 10 mg TID -neuro checks Q shift -CT head with no acute intracranial findings. -A&O x4 again. Back to baseline (2) Chronic anemia: Code(s): D64.9 - Anemia, unspecified Status: Acute Assessment and Plan: -chronic likely related to chronic disease process vs b12 deficiency vs iron deficiency -Hgb 11 today which historically looks like she ranges from 9-11 g/dl -continue daily labs -continue home vitamin B 12 and Ferrous sulfate (3) History of recent pneumonia: Code(s): Z87.01 - Personal history of pneumonia (recurrent) Status: Acute Assessment and Plan: -Chest x-ray with bilateral lower lung infiltrate versus atelectasis, mildly improved on the right, increased on the left 08/29/2022. Just finished a total 10 day course of antibiotics. -afebrile, no leukocytosis, not requiring oxygen. -Expect atelectasis. Will order IS and PEP therapy. -Concerns last admission for aspiration PNA. ?Speech therapy is recommended that you received oral feedings with one-to-one assistance.? Position during intake should be upright in you should remain upright following all oral intake for 20-30 minutes.? Food consistency recommendation is regular with mildly thick consistency liquids.? Encourage small bites/sips, extra swallow between sips/bites. (4) Multiple sclerosis: Code(s): G35 - Multiple sclerosis Status: Acute Assessment and Plan: -Not on any MS treatment medications -Was following with Dr Alvarez but recently referred to Dr Black. Dr Black just saw patient in the hospital this last admission. Full MRI workup to rule out active MS flare given history of increased pain, spasms, and unilateral eye pain. MRI was negative. -Decision was made to increase lyrica and baclofen. Likely the cause of her presentation today. Have decreased doses of both and will assess daily for improved mentation. (5) Pressure ulcer: Code(s): L89.90 - Pressure ulcer of unspecified site, unspecified stage Status: Acute Assessment and Plan: -wound consult from last admission with orders as followed. Wound care: Sacral wound-apply triple care antifungal barrier cream to maceration. Soothe surrounding tissue with aloe and apply a barrier cream using dimethicone silicone to protect skin from stool and urine preventing further tissue breakdown. Leave open to air. Stage III pressure ulcer to right lateral ankle. Apply sliver gel to ulcer for topical antimicrobial coverage and to promote autolytic debridement of yellow slough. Cover with a Mepilex border. Apply waffle boot for additional offloading. DS: Summary Hospital Course Reason for hospitalization: Altered mental status Hospital Course: This is a 56-year-old female with multiple sclerosis resulting in functional quadriplegia, hyperlipidemia, gastroesophageal reflux disease, and history of multidrug resistant UTIs who presented to the emergency department via EMS from [facility] for evaluation of altered mental status. She is not able to provide an accurate history and her sister Mounika provides majority of the following information. She is known to the hospitalist service and in fact was discharged from our service just yesterday after being admitted with sepsis and pneumonia. During that admission she complained of severe pain and muscle spasms and the following medication changes were made: Pregabalin was increased from 50 mg jesus
[2022-09-08 14:00] VITALS: BP 128/52; PULSE 87; RESP 18; TEMP 36.8; O2SAT 98
== END 2022-09-08 15:15 ==
LOC: ANHED 12:15 → ANH2MED 18:41
PROVIDERS: Nurse Practitioner Acute Care; Physician Assistant; Admitting Provider Internal Medicine; Emergency Provider Emergency Medicine; PCP Internal Medicine; Visit Provider Student in an Organized Health Care Education/Training Program
DX: R41.82 Altered mental status, unspecified (principal); D64.9 Anemia, unspecified; Z87.01 Personal history of pneumonia (recurrent); G35 Multiple sclerosis; L89.513 Pressure ulcer of right ankle, stage 3; G04.90 Encephalitis and encephalomyelitis, unspecified; R53.2 Functional quadriplegia; R25.2 Cramp and spasm; I67.2 Cerebral atherosclerosis; K59.09 Other constipation; K21.9 Gastro-esophageal reflux disease without esophagitis; E78.5 Hyperlipidemia, unspecified; R91.8 Other nonspecific abnormal finding of lung field; Z86.718 Personal history of other venous thrombosis and embolism; Z87.440 Personal history of urinary (tract) infections; Z79.1 Long term (current) use of non-steroidal anti-inflammatories (NSAID); Z79.01 Long term (current) use of anticoagulants; Z79.899 Other long term (current) drug therapy
CPT/HCPCS: 36415; 36600; 70450; 71045; 80048; 80053; 81003; 82140; 82805; 83605; 83735; 84443; 85025; 85027; 85610; 85730; 93005; 94667; 96360; 96361; 99285; A9270; G0378; J7030

== ENCOUNTER 2022-09-19 21:00 | HOS | payer OTHER, MEDICARE, SELFPAY ==
[2022-09-19 21:59] VITALS: BP 136/48; PULSE 83; RESP 20; TEMP 36.7; O2SAT 91; BMI 22.8
[2022-09-19] MEDS: MORPHINE 50 MG/NS 100ML (*CRX) 50 MG/100 ML BAG IV CONT (22:40)
[2022-09-19] MEDS: GLYCOPYRROLATE INJ (*SP) 0.2 MG/ML VIAL IV PUSH (22:41)
[2022-09-20] MEDS: MORPHINE SULFATE (*CRX) 2 MG/ML INJ IV PUSH ×3 (04:17→11:57)
[2022-09-20 05:59] VITALS: BP 92/49; PULSE 92; RESP 18; TEMP 36.7; O2SAT 92
--- NOTE | 2022-09-20 09:43 | PC.NURSE ---
Family expressed they do not want patient aware shes under Hospice care.
[2022-09-20] MEDS: LORazepam INJ (*CRX) 2 MG/ML VIAL 1 MG IV PUSH ×2 (13:43→21:25)
[2022-09-20 14:19] VITALS: BP 113/48; PULSE 100; RESP 14; TEMP 37.7; O2SAT 95
--- NOTE | 2022-09-20 16:42 | PM.IMHP ---
H&P: HPI History of Present Illness Date/Time: 09/20/22 16:42 Chief Complaint: Uncontrolled pain Narrative: This unfortunate 56-year-old female resident of [facility] has a longstanding diagnosis of multiple sclerosis. As a result she has functional quadriplegia and chronic pain secondary to contractures and muscle spasms as well as a presacral and right lateral malleolar pressure sores. She has recently been hospitalized for VRE UTI and subsequently for altered mental status presumed due to overmedication. She was brought to the emergency department yesterday due to uncontrolled pain and muscle spasms. She and her family opted for inpatient hospice for control of her pain. Review of Systems Review of Systems: ROS unobtainable: Yes unobtainable due to medical condition PMFSH Past Medical History Medical History Abnormal vaginal bleeding in postmenopausal patient 06/2022 Chronic anticoagulation For history of DVT. Chronic constipation Deep venous thrombosis Deep venous thrombosis Dysphagia With evidence of laryngeal penetration of thin liquids on modified barium swallow June 2022 Frequent UTI Including history of ESBL Klebsiella pneumoniae and vancomycin-resistant Enterococcus Gastroesophageal reflux disease Hyperlipidemia Influenza A Kidney stones Multiple sclerosis With functional quadriplegia due to contractures Seizure disorder Stercoral colitis 06/2022 Surgical History Surgical History History of cystoscopy Family History Family History Mother Diabetes mellitus Myocardial infarction PTSD (post-traumatic stress disorder) Father Diabetes mellitus Myocardial infarction Sibling Myocardial infarction Patient's brother is Social History Social History Social History: 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 She has been since her early 30s. She does not have any children. She was living with her mother until 2021. She now lives at [facility]. She is essentially bed-bound now. No alcohol, tobacco, or illicit substance use. Healthcare power of county attorney: Melony Ryelyse, sister. Code status: DNR/DNI Smoking status: Never smoker Second hand tobacco smoke exposure: No Alcohol intake: never Drinks per week: 1 Substance use: never Substance use type: does not use Lack of Transportation: No Lack of Food: Never True Current Housing: I Have Housing Concerned About Future Housing: No Difficulty Paying Gas/Electric Bills: No Difficulty Paying for Meds: No Currently Unemployed: No Education: High School Diploma/GED Difficulty w/ Childcare or Family Care: No Living arrangements: with family Spiritual care concerns: No Meds Home Medications and Allergies Home Medications Medication Instructions Recorded Confirmed Type ascorbic acid (vitamin C) 500 mg 500 mg PO DAILY 02/08/21 09/19/22 History tablet atorvastatin 10 mg tablet (Lipitor) 10 mg PO HS 02/08/21 09/19/22 History pantoprazole 20 mg tablet,delayed 20 mg PO QAM 02/08/21 09/19/22 History release (Protonix) acetaminophen 500 mg tablet 500 mg PO DAILY PRN Pain 09/18/21 09/19/22 History (Tylenol Extra Strength) loratadine 10 mg tablet (Claritin) 10 mg PO DAILY 09/18/21 09/19/22 History tamsulosin 0.4 mg capsule 0.4 mg PO BID 09/18/21 09/19/22 History rivaroxaban 20 mg tablet (Xarelto) 20 mg PO QPM #30 tabs 09/30/21 09/19/22 Rx carbamazepine 200 mg tablet 200 mg PO TID 05/29/22 09/19/22 History ferrous sulfate 325 mg (65 mg 325 mg PO BID 05/29/22 09/19/22 History iron) tablet folic acid 1 mg tablet 1 mg PO BID 05/29/22 09/19/22 History cyanocobalamin (vitamin B-12) 500 1,000 mcg PO BID 07/08/22 09/19/22 History mcg tablet gua
[2022-09-20 20:00] VITALS: BP 104/40; PULSE 100; PULSE 110; RESP 14; RESP 20; TEMP 36.9; O2SAT 95; O2SAT 97
[2022-09-21 05:57] VITALS: PULSE 60
[2022-09-21] MEDS: MORPHINE 50 MG/NS 100ML (*CRX) 50 MG/100 ML BAG IV CONT (05:57)
[2022-09-21 08:00] VITALS: BP 128/76; PULSE 105; RESP 16; TEMP 36.7; O2SAT 96
--- NOTE | 2022-09-21 10:20 | PC.NURSE ---
Patient sleeping when I entered the room. Patient woke up to my movement inside her room. Patient able to verbalize she was warm and comfortable. She asked for a toothbrush and I said I could swab her mouth. She agreed that would be nice. Family/Friend in the room by the end of my assessment. Patient asked them if the kids were with her . Family/Friend replied no they are not with me today . Boots not on at this time. Will ask patient if I may put them on later today.
--- NOTE | 2022-09-21 17:06 | PM.IMPN ---
Progress Note: A&P Assessment and Plan (1) Palliative care encounter: Code(s): Z51.5 - Encounter for palliative care Status: Acute Assessment and Plan: Meet inpatient hospice criteria due to requiring continuous IV morphine at 2 milligram/hour to control pain with scheduled IV lorazepam to control anxiety and muscle spasm Remainder palliative regimen as ordered 09/20/22 d/w sister Mounika by phone 09/21/22 d/w 3 sisters at bedside and sister Mounika by phone that she may transition to [facility] 09/22 with anticipation of discharge to facility if symptoms remain controlled Increased lorazepam to 1mg IV q 6 hr scheduled and prn (2) Multiple sclerosis, primary chronic progressive: Code(s): G35 - Multiple sclerosis Status: Acute Assessment and Plan: Now with functional quadriplegia and mental status changes (3) Dysphagia: Qualifiers: Dysphagia type: pharyngeal phase Qualified Code(s): R13.13 - Dysphagia, pharyngeal phase Code(s): R13.10 - Dysphagia, unspecified Status: Acute Assessment and Plan: Clinically is likely that she is aspirating intermittently given her abnormal chest x-ray, oxygen requirement, and abnormal lung sounds (4) Decubitus ulcer of buttock, stage 2: Qualifiers: Laterality: right Qualified Code(s): L89.312 - Pressure ulcer of right buttock, stage 2 Code(s): L89.302 - Pressure ulcer of unspecified buttock, stage 2 Status: Acute Subjective Date/time seen: 09/21/22 17:06 Interval history: C/o 8/10 pain this AM. More alert today. Morphine increased from 1 mg/hr to 2 mg/hr. Still having intermittent cramps in left arm and both legs. Drinking some water but more congested after drinking. Review of Systems Review of Systems: ROS unobtainable: Yes unobtainable due to medical condition Exam Narrative: Middle-aged female appears older than her stated age lying comfortably in her hospital bed is drowsy but arouses to verbal or tactile stimuli. She does not follow commands. She responds with monosyllables that are usually unintelligible. Skin with bandage presacral ulcer and about 1 cm stage II right malleolar ulcer Eyes sclerae nonicteric. Oral mucosa pink and intact Neck without JVD Chest with coarse breath sounds bilaterally and scattered crackles in lower lobes Heart normal S1 and S2 with regular rate and no audible murmurs Abdomen bowel sounds present but hypoactive soft without obvious tenderness and no palpable mass Extremities without edema cyanosis or clubbing Musculoskeletal with flexion contractures of bilateral lower extremities and 0 over 5 strength in all 4 extremities although she does change facial expressions and move her neck side to side but not raise it off the bed Neurologic cranial nerves 3-12 are symmetric to visual inspection. Muscles with increased tone and strength as noted above. Objective Data Vital Signs Vital Signs: Vital Signs - 24 hr 09/20/22 20:00 09/20/22 20:00 09/21/22 05:57 Temperature 98.5 F Pulse Rate 100 110 H 60 Respiratory Rate 14 20 Blood Pressure 104/40 L Pulse Oximetry 95 97 Oxygen Delivery Nasal Cannula Oxygen Flow Rate 3 09/21/22 08:00 Temperature 98.0 F Pulse Rate 105 H Respiratory Rate 16 Blood Pressure 128/76 Pulse Oximetry 96 Oxygen Delivery Oxygen Flow Rate Intake/Output Intake/Output: Intake & Output 09/18/22 09/19/22 09/20/22 09/21/22 23:59 23:59 23:59 23:59 Intake Total 100 Balance 100 Meds/Results Medications: Active Medications Generic Name Dose Route Start Last Admin Trade Name Freq PRN Reason Stop Dose Admin Artificial Tears 1 drop 09/19/22 22:19 Artificial Tears Ophth Soln 15 Ml Bottle EACH EYE Q12H PRN Dry Eye(s) Bisacodyl 10 mg 09/19/22 22:20 Bisacodyl 10 Mg Suppository RECTAL QAM PRN Constipation Glycopyrrolate 0.2 mg 09/19/22 22:19 09/19/22 22:41 Glycopyrrola
[2022-09-21] MEDS: LORazepam INJ (*CRX) 2 MG/ML VIAL 1 MG IV PUSH ×2 (17:45→21:03)
[2022-09-21 20:00] VITALS: BP 119/56; PULSE 101; RESP 20; TEMP 36.7; O2SAT 95; O2SAT 96
[2022-09-21] MEDS: MORPHINE SULFATE (*CRX) 4 MG/ML INJ IV PUSH (21:02)
[2022-09-22] MEDS: MORPHINE SULFATE (*CRX) 4 MG/ML INJ IV PUSH ×2 (02:09→06:44)
[2022-09-22] MEDS: LORazepam INJ (*CRX) 2 MG/ML VIAL 1 MG IV PUSH ×5 (02:09→23:08)
[2022-09-22 08:00] VITALS: BP 134/71; PULSE 110; RESP 16; O2SAT 97
--- NOTE | 2022-09-22 10:17 | PC.NURSE ---
0758: Patient sleeping comfortably in bed. Respriations were 14. PureWick container marked and labeled and contained dark jerel urine. Volume infused on drip was 146.3 mL. Patient warm to touch, but not feverish. Room temperature was set at 80 degrees and patient was covered with blankets. Temperature dropped to 70 degrees and patients feet exposed from underneath blanket. Patient remained asleep while I was in the room. 1010: Friends at bedside. Questions answered and explained why the temperature was at 70 degrees and why feet were exposed. Friends asked us to make sure and verify if patient is in pain as patient will just say she is fine otherwise.
--- NOTE | 2022-09-22 10:49 | PM.IMPN ---
Progress Note: A&P Assessment and Plan (1) Palliative care encounter: Code(s): Z51.5 - Encounter for palliative care Status: Acute Assessment and Plan: Meet inpatient hospice criteria due to requiring continuous IV morphine at 2 milligram/hour to control pain with scheduled IV lorazepam to control anxiety and muscle spasm Remainder palliative regimen as ordered 09/20/22 d/w sister Mounika by phone 09/21/22 d/w her friends at bedside and sister Mounika by phone that she may transition to meds 09/22 with anticipation of discharge to facility if symptoms remain controlled 09/21 Increased lorazepam to 1mg IV q 6 hr scheduled and prn 09/22 d/w sisterMounika, at bedside that due to her decline in mental status with no PO intake, Jenae will likely in the hospital (2) Multiple sclerosis, primary chronic progressive: Code(s): G35 - Multiple sclerosis Status: Acute Assessment and Plan: Now with functional quadriplegia and mental status changes (3) Dysphagia: Qualifiers: Dysphagia type: pharyngeal phase Qualified Code(s): R13.13 - Dysphagia, pharyngeal phase Code(s): R13.10 - Dysphagia, unspecified Status: Acute Assessment and Plan: Clinically is likely that she is aspirating intermittently given her abnormal chest x-ray, oxygen requirement, and abnormal lung sounds (4) Decubitus ulcer of buttock, stage 2: Qualifiers: Laterality: right Qualified Code(s): L89.312 - Pressure ulcer of right buttock, stage 2 Code(s): L89.302 - Pressure ulcer of unspecified buttock, stage 2 Status: Acute Subjective Date/time seen: 09/22/22 10:49 Interval history: More alert 09/21 and drank some water pain was 10/01 until MS drip increased to 1 mg/hr and Ativan schedule. 09/22 minimally responsive but very comfortable. SisterMounika, at bedside and affirms satisfaction with current care. Review of Systems Review of Systems: ROS unobtainable: Yes unobtainable due to medical condition Exam Narrative: Middle-aged female appears older than her stated age lying comfortably in her hospital bed is minimally responsive to verbal or tactile stimuli Skin with bandage presacral ulcer and about 1 cm stage II right malleolar ulcer Eyes sclerae nonicteric. Oral mucosa pink and intact Neck without JVD Chest with coarse breath sounds bilaterally and scattered crackles in lower lobes Heart normal S1 and S2 with regular rate and no audible murmurs Abdomen bowel sounds present but hypoactive soft without obvious tenderness and no palpable mass Extremities without edema cyanosis or clubbing Musculoskeletal with flexion contractures of bilateral lower extremities and 0 over 5 strength in all 4 extremities although she does change facial expressions and move her neck side to side but not raise it off the bed Neurologic cranial nerves 3-12 are symmetric to visual inspection. Muscles with increased tone and strength as noted above. Objective Data Vital Signs Vital Signs: Vital Signs - 24 hr 09/21/22 20:00 09/21/22 20:00 09/22/22 08:00 Temperature 98.1 F Pulse Rate 101 H 110 H Respiratory Rate 20 16 Blood Pressure 119/56 L 134/71 Pulse Oximetry 96 95 97 Oxygen Delivery Nasal Cannula Oxygen Flow Rate 3 Intake/Output Intake/Output: Intake & Output 09/19/22 09/20/22 09/21/22 09/22/22 23:59 23:59 23:59 23:59 Intake Total 200 0 Balance 200 0 Meds/Results Medications: Active Medications Generic Name Dose Route Start Last Admin Trade Name Freq PRN Reason Stop Dose Admin Artificial Tears 1 drop 09/19/22 22:19 Artificial Tears Ophth Soln 15 Ml Bottle EACH EYE Q12H PRN Dry Eye(s) Bisacodyl 10 mg 09/19/22 22:20 Bisacodyl 10 Mg Suppository RECTAL QAM PRN Constipation Glycopyrrolate 0.2 mg 09/19/22 22:19 09/19/22 22:41 Glycopyrrolate Inj (*Sp) 0.2 Mg/Ml Vial IV PUSH 0.2 mg Q4H PRN Administration
[2022-09-22 11:58] VITALS: PULSE 100; RESP 14
[2022-09-22] MEDS: MORPHINE 50 MG/NS 100ML (*CRX) 50 MG/100 ML BAG IV CONT (11:58)
[2022-09-22 20:00] VITALS: BP 104/54; PULSE 126; RESP 16; TEMP 37.6; O2SAT 96
--- NOTE | 2022-09-25 15:39 | P.DN_ITS ---
Discharge Summary Date and Time Date of : 09/23/22 Time of : 02:15 Provider Pronounced By: Marissa Bowie RN Probable Cause of Probable Cause of : Multiple Sclerosis Summary Hospital Course: Admitted to inpatient hospice service due to uncontrolled pain. Medications ere titrated to comfort. Jenae peacefully. Additional Data Confirmation of as documented by pronouncing clinician: Pupillary Reflex, Palpable Pulses, Response to Stimuli, Heart Tones and Breath Sounds Name of Provider Notified: Tevin Time Provider Notified: 02:30 Provider Requests Autopsy: No Family Requests Autopsy: No [employer] Department Head Notified: Yes Date [facility] Notified of : 09/23/22 Time [facility] Notified of : 02:40
--- OUTSIDE RECORDS SUMMARY | 2022-11-24 11:55 | XMS_ITS | Patient Health Record ---
Author Name Unknown Organization [facility], [email or web address] Address [address] [place] [address] Care Team Providers Care Wolf Hunter Name Role Phone Clint Mcnamara Unavailable [phone] REASON FOR REFERRAL No Information MEDICATIONS Medication SIG (Take, Route, Frequency, Duration) Notes Start Date End Date Status Detrol LA 4mg TAKE 2 CAPSULES BY M ORAL 11/07/2012 Active Aspir-81 81mg take 1 tablet 81MG ORAL 11/04/2011 0 Active Provigil 200mg take 05 Tablet 100MG ORAL 11/04/2011 Active Triamcinolone Acetonide 0.1% apply by topical rou DENTAL 08/15/2012 Active RA Vitamin B-12 TR 1,000mcg take 1 by Or al route ORAL 11/04/2011 Active Methotrexate 2.5mg take 3 Tablet 75MG ORAL 2 012 Active TEGretol 200mg take 1 Tablet 200MG ORAL 11/04/2011 Active Vitamin D3 2,000unit take [address] ORAL 11/03/2011 Active Calcium 500 mg(1,250mg)-125 unit take 1 by Oral route ORAL 11/04/2011 Active Valtrex 1gram TAKE 1 TABLET BY FRANKY ORAL 02/26/2013 Active Ampyra 10mg take 1 tablet 10MG ORAL 11/04/201102/1899 Active Baclofen 10mg TAKE 15 TABLET 15MG ORAL 12/05/2012 Active Cipro 250mg take 1 tablet 250MG ORAL 06/16/2012 Active Folic
== END 2022-09-23 02:15 | disposition expired | DRG 951 ==
PROVIDERS: Admitting Provider Internal Medicine; PCP Internal Medicine; Visit Provider Internal Medicine
DX: Z51.5 Encounter for palliative care (principal); R53.2 Functional quadriplegia; G35 Multiple sclerosis; R13.10 Dysphagia, unspecified; L89.312 Pressure ulcer of right buttock, stage 2; L89.512 Pressure ulcer of right ankle, stage 2; K21.9 Gastro-esophageal reflux disease without esophagitis; G40.909 Epilepsy, unspecified, not intractable, without status epilepticus; Z79.01 Long term (current) use of anticoagulants; Z86.718 Personal history of other venous thrombosis and embolism; Z87.442 Personal history of urinary calculi
CPT/HCPCS: A9270; J2060; J2270